=== PATIENT | male | born 1955 | race Caucasian/White ===

== ENCOUNTER 2018-01-01 09:49 | Day surgery (SDC) | payer OTHER ==
[~2018-01-01 09:49] MED LIST: CARBOPLATIN IVPB ONE; DEXAMETHASONE INJECTION 10 MG, DIPHENHYDRAMINE 50 MG in SODIUM CHLORIDE 100 ML IVPB ONE; DEXTROSE 5% IVPB ONE; FAMOTIDINE 20 MG/50 ML IVPB 20 MG/50 ML MG IVPB ONE; PACLITAXEL IVPB ONE; PALONOSETRON HCL 0.25 MG/5 ML VIAL IVPUSH ONE; SODIUM CHLORIDE IVPB ONE; WATER IVPB ONE
[2018-01-01 17:18] VITALS: BP 111/74; PULSE 90; TEMP 98
== END 2018-01-01 14:30 | disposition home or self-care (01) ==
LOC: JCHEMO 09:49 → J7W 09:50 → JCHEMO 14:30
PROVIDERS: ATTEND Internal Medicine Hematology & Oncology
DX: Z51.11 Encounter for antineoplastic chemotherapy (principal); C34.90 Malignant neoplasm of unspecified part of unspecified bronchus or lung
CPT/HCPCS: 96367; 96375; 96413; 96415; 96417; J1100; J2469

== ENCOUNTER 2018-01-15 11:20 | Day surgery (SDC) | payer OTHER ==
[2018-01-15] MEDS ORDERED: PALONOSETRON HCL 0.25 MG in SODIUM CHLORIDE 50 ML IVPB ONE (12:30)
[2018-01-15] MEDS ORDERED: FAMOTIDINE 20 MG/50 ML IVPB 20 MG/50 ML MG IVPB ONE (12:30)
[2018-01-15] MEDS ORDERED: DEXAMETHASONE INJECTION 10 MG, DIPHENHYDRAMINE 50 MG in SODIUM CHLORIDE 100 ML IVPB ONE (12:30)
[2018-01-15] MEDS ORDERED: PACLITAXEL IVPB ONE (13:00)
[2018-01-15] MEDS ORDERED: SODIUM CHLORIDE IVPB ONE (13:00)
[2018-01-15 13:40] VITALS: TEMP 98.2
[2018-01-15] MEDS ORDERED: WATER IVPB ONE (14:00)
[2018-01-15] MEDS ORDERED: CARBOPLATIN IVPB ONE (14:00)
[2018-01-15] MEDS ORDERED: DEXTROSE 5% IVPB ONE (14:00)
[2018-01-15 16:28] VITALS: BP 126/80; PULSE 88
== END 2018-01-15 16:29 | disposition home or self-care (01) ==
LOC: JCHEMO 11:20 → J7W 11:21 → JCHEMO 16:29
PROVIDERS: ATTEND Internal Medicine Hematology & Oncology
DX: Z51.11 Encounter for antineoplastic chemotherapy (principal); C34.90 Malignant neoplasm of unspecified part of unspecified bronchus or lung
CPT/HCPCS: 96367; 96375; 96413; 96417; J1100; J2469

== ENCOUNTER 2018-01-22 11:32 | Day surgery (SDC) | payer OTHER ==
[2018-01-22 17:54] VITALS: BP 130/91; PULSE 111; TEMP 98.1
== END 2018-01-22 16:45 | disposition home or self-care (01) ==
LOC: JCHEMO 11:32 → J7W 12:03 → JCHEMO 16:45
PROVIDERS: ATTEND Internal Medicine Hematology & Oncology
DX: Z51.11 Encounter for antineoplastic chemotherapy (principal); C34.90 Malignant neoplasm of unspecified part of unspecified bronchus or lung
CPT/HCPCS: 96367; 96375; 96413; 96417; J1100; J2469

== ENCOUNTER 2018-01-29 11:12 | Day surgery (SDC) | payer OTHER ==
[~2018-01-29 11:12] MED LIST changes: -CARBOPLATIN IVPB ONE; -DEXTROSE 5% IVPB ONE; -WATER IVPB ONE
[2018-01-29] MEDS ORDERED: DEXTROSE 5% IVPB ONE (11:30)
[2018-01-29] MEDS ORDERED: CARBOPLATIN IVPB ONE (11:30)
[2018-01-29] MEDS ORDERED: WATER IVPB ONE (11:30)
[2018-01-29] MEDS ORDERED: PANTOPRAZOLE 20 MG TABLET (FP) PO ONE (14:00)
[2018-01-29] MEDS ORDERED: MAG HYDROX/AL HYDROX/SIMETH 30 ML UNIT-DOSE CUP PO SCH (14:00)
[2018-01-29 18:01] VITALS: BP 132/74; PULSE 100; TEMP 98.2
--- NOTE | 2018-02-07 10:15 | EKG ---
Test Reason : Blood Pressure : / mmHG Vent. Rate : 101 BPM Atrial Rate : 101 BPM P-R Int : 150 ms QRS Dur : 082 ms QT Int : 358 ms P-R-T Axes : 030 -30 024 degrees QTc Int : 464 ms SINUS TACHYCARDIA LEFT AXIS DEVIATION ABNORMAL ECG WHEN COMPARED WITH ECG OF 09-SEP-2007 17:38, NONSPECIFIC T WAVE ABNORMALITY NOW EVIDENT IN ANTERIOR LEADS Confirmed by WINTER THOMAS, MARJORIE ([id number]) on 02/07/2018 10:15:24 AM Referred By: Confirmed By:MARJORIE MAX MD
== END 2018-01-29 18:03 | disposition home or self-care (01) ==
LOC: JCHEMO 11:12 → J7W 11:34 → JCHEMO 18:03
PROVIDERS: ATTEND Internal Medicine Hematology & Oncology
DX: Z51.11 Encounter for antineoplastic chemotherapy (principal); C34.90 Malignant neoplasm of unspecified part of unspecified bronchus or lung
CPT/HCPCS: 93005; 93010; 96367; 96375; 96413; 96417; J1100; J2469

== ENCOUNTER 2018-02-02 12:17 | Inpatient (IN) | payer OTHER ==
--- NOTE | 2018-02-02 12:51 | PDOC ---
Attending Attestation - HPI HPI: 02/02/18 15:10 The patient is a 63 year old male with a significant PMH of stage 3B lung ca, hypertension, and hyperlipidemia, GERD, and BPH who presents to the emergency department with generalized weakness and decreased PO intake for a few days. The patient reports that he currently receives his chemo treatments (last reatment days ago). He states that he is feeling faint at time of exam. He states that he has been experiencing some chest pain when he eats. He describes his chest pain as reflux. The patient also reports some instances of cough and runny nose. The patient denies any belly pain, nausea, vomiting, diarrhea, constipation or urinary symptoms. The patient denies any shortness of breath, headache and dizziness. The patient denies any other complaints. Documentation prepared by Felicia Cardoza, acting as medical transcription for Nicole Gaspar MD. - Physicial Exam PE: 02/02/18 15:10 General: Well appearing, NAD HEENT: NCAT, PERRL, EOMI, moist mucus membranes, no oral lesions. Neck: neck supple, FROM, no JVD Lungs: CTAB, normal and even respirations Heart: (+)radiation scar to right upper anterior chest wall, tachycardic, no murmurs Abdomen: soft, NTND, no peritoneal signs Extremities: no edema, SANTILLAN x4 Neuro: alert, oriented appropriately; no focal neurologic deficits. Skin: (+)cool to touch and well perfused, cap refill <2 sec, normal color <Felicia Cardoza - Last Filed: 02/02/18 15:53> - Resident Resident Name: John Jeffries - Critical Care Time Total Critical Care Time: 45 (Severe sepsis) Critical Care Statement: The care of this patient involved high complexity decision making to prevent further life threatening deterioration of the patient 's condition and/or to evaluate & treat vital organ system(s) failure or risk of failure. - Medical Decision Making 63 YOM with h/o Stage IIIB lung cancer on chemo, HTN, HLD, GERD, BPH presenting with generalized weakness and decreased PO intake x 1 week. +reflux and burning cp worse with eating intermittently. last chemo treatment ~3 days ago, radiation today. Vital signs as documented, +tachycardia and low BP. no respiratory distress. no pain. no fever rectally, but immunosuppressed and may not mount response DDx. infection, PNA, UTI, dehydration, electrolyte abnormalities, bacteremia, neutropenic fever. effusion, AIS. labs significant for mild neutropenia ANC 1200, low WBC ct. remainder of lytes and labs wnl. +lactic acidosis 2.9, c/w severe sepsis POCUS HALE exam for hypotension and tachycardia, multiple views including PSLA, thorax, RUQ/LUQ and abdominal views, - with no pericardial effusion, A line pattern. normal EF and no pleural effusion, normal aorta and no FF in abdomen. + flat and collapsible IVC c/w hypovolemia empirically treated with IVF 3liters for sepsis bolus, Vancomycin 2g and Zosyn 4.5g x1. VS already improving, now normotensive and tolerating diet, will likely improve on lactate with resuscitation. blood and urine cx pending. - spoke with his oncologist Dr. Chris, agree with plan, will likely hold chemo this week. ID consultation obtained, agree with broad spec coverage. Dispo: admit to medicine telemetry monitoring with ID/onc consult, IV abx for neutropenic fever and severe sepsis and moderate dehydration. cultures pending, supportive care and IVF 02/02/18 16:10 <Nicole Gaspar - Last Filed: 02/02/18 16:11> Heart Score/ECG Review - ECG Intrepretation Rhythm: Regular Rhythm - Holland Holland: Left Holland Deviation - ST and T Non Specific ST-T Wave changes: Yes - ECG Impressions Comment:: 02/02/18 12:50 TWI in precordial leads and TWF in III, unchanged <Nicole Gaspar - Last Filed: 02/02/18 16:11>
[2018-02-02] MEDS ORDERED: SODIUM CHLORIDE 0.9% 1000 ML INFUS.BAG IV STA (13:13)
[2018-02-02 13:33] LABS: EOS % 0.2 % (0-4.5); HEMATOCRIT 32.9 % (35.4-49); HEMOGLOBIN 11.6 GM/dL (11.7-16.9); LYMPH % 8.1 % (8-40); MCHC 35.1 g/dl (32.0-35.9); MEAN CELL VOLUME 85.6 fl (80-96); MEAN PLT VOLUME 9.1 fl (7.5-11.1); MONO % 8.9 % (3.8-10.2); NEUT % 81.8 % (42.8-82.8); PLATELET COUNT 97 K/MM3 (134-434); RBC 3.85 M/mm3 (4.00-5.60); RDW 14.4 % (11.9-15.9)
[2018-02-02 13:34] LABS: VENOUS PC02 30.2 mmHg (38-52); VENOUS PH 7.5 (7.32-7.42); VENOUS PO2 21.9 mmHg (28-48)
[2018-02-02 13:38] LABS: WHITE BLOOD COUNT 1.5 K/mm3 (4.0-10.0)
[2018-02-02 13:50] LABS: INR 1.04 (0.82-1.09); PROTHROMBIN TIME (PATIENT) 11.8 SEC (9.7-13.0)
[2018-02-02 14:01] LABS: ALBUMIN 3.5 g/dl (3.4-5.0); ALK PHOS 70 U/L (45-117); ANION GAP 13 (8-16); BILIRUBIN,TOTAL 1.7 mg/dL (0.2-1.0); BLOOD UREA NITROGEN 38 mg/dL (7-18); CALCIUM 8.7 mg/dL (8.5-10.1); CHLORIDE 97 mmol/L (98-107); CO2 24 mmol/L (21-32); CREATININE 1.3 mg/dL (0.7-1.3); GLUCOSE,RANDOM 111 mg/dL (74-106); POTASSIUM 3.9 mmol/L (3.5-5.1); SGOT/AST 17 U/L (15-37); SGPT/ALT 35 U/L (12-78); SODIUM 134 mmol/L (136-145); TOT PROT 6.4 g/dl (6.4-8.2)
[2018-02-02] MEDS ORDERED: VANCOMYCIN 2,000 MG in DEXTROSE 5%-WATER - 250 ML IVPB ONE ×3 (14:03→14:30)
[2018-02-02 14:07] LABS: ACANTHOCYTES 0; ANISOCYTOSIS 0; HELMET CELLS 0; HOWELL-JOLLY BODIES 0; MACROCYTOSIS 0; OVALOCYTE 0; PLATELET ESTIMATE DECREASED; ROULEAU 0; SICKELED CELLS 0; TARGET CELLS 0; TEAR DROP CELLS 0; TOXIC GRANULATION 0
[2018-02-02] MEDS ORDERED: PIPERACILLIN/TAZOB 4.5 GM 4.5 GM/100 ML BAG IVPB ONE (14:19)
--- NOTE | 2018-02-02 14:28 | PDOC ---
History of Present Illness - General History Source: Patient Exam Limitations: No Limitations - History of Present Illness Initial Comments: The patient is a 63M with a PMH of recently diagnosed IIIB lung cancer (the patient is unsure of type), PVD s/p L pop stent, who presents with worsening fatigue/generalized weakness that the patient reports started when he started receiving chemo/rads 5 weeks ago. He states that since that time, his symptoms have been getting worse. He describes fatigue, decreased PO intake for the last week that he attributes to his treatments, as well as dizziness with standing rapidly. He states that he presents today because he was not longer able to tolerate his symptoms 02/02/18 14:18 Timing/Duration: 1 week Severity: moderate Associated Symptoms: reports: chest pain (at area of radiation), loss of appetite. denies: fever/chills, headaches Beta Arslan Contraindications(Core Measure): Yes: Not Prescribed <John Jeffries - Last Filed: 02/02/18 15:40> <David Tomlin - Last Filed: 02/02/18 15:54> - General Chief Complaint: Weakness Stated Complaint: DEHYDRATION Time Seen by Provider: 02/02/18 12:41 Past History - Travel Traveled outside of the country in the last 30 days: No Close contact w/someone who was outside of country & ill: No - Past Medical History Cancer: Yes (Stage IIIB lung cancer diagnosed 12/2017) Cardiac Disorders: No Hx Myocardial Infarction: No CVA: No COPD: No CHF: No DVT: No Dementia: No Diabetes: No Dialysis: No GI Disorders: Yes (GERD) Disorders: No HTN: Yes Hypercholesterolemia: Yes Psychiatric Problems: No Lung CA: Yes (Stage IIIB, diagnosed 12/2017) Other medical history: Peripheral Vascular Disease - Surgical History Abdominal Surgery: Yes (ex-lap 2/2 bowel/bladder injury; open tamara) Cholecystectomy: Yes (open) - Suicide/Smoking/Psychosocial Hx Have you had or do you have any thoughts to hurt yourself?: No Have you had or do you have any thoughts to hurt others?: No Smoking History: Former smoker Have you smoked in the past 12 months: Yes Number of Cigarettes Smoked Daily: 1 Information on smoking cessation initiated: No Drug/Substance Use Hx: Yes (THC) <John Jeffries - Last Filed: 02/02/18 15:40> <Oswald Tomlinson - Last Filed: 02/02/18 15:54> - Past Medical History Allergies/Adverse Reactions: Allergies Allergy/AdvReac Type Severity Reaction Status Date / Time No Known Allergies Allergy Verified 02/02/18 12:42 Home Medications: Ambulatory Orders Aspirin 81 mg PO DAILY 02/02/18 Atorvastatin Ca [Lipitor] 80 mg PO HS 02/02/18 Bupropion HCl [Bupropion HCl Sr] 150 mg PO DAILY 02/02/18 Cetirizine HCl 10 mg PO DAILY 02/02/18 Clopidogrel Bisulfate [Clopidogrel] 75 mg PO DAILY 02/02/18 Fluticasone Furoate [Arnuity Ellipta] 50 mcg IH DAILY 02/02/18 Lisinopril/Hydrochlorothiazide [Lisinopril-Hctz 10-12.5 mg Tab] 1 tab PO DAILY 02/02/18 Multivitamin [Daily Multiple Vitamin] 1 each PO DAILY 02/02/18 Garwin-3 Fatty Acids/Fish Oil [Fish Oil 1,000 mg Capsule] 1 each PO DAILY Tamsulosin HCl 0.4 mg PO DAILY 02/02/18 Review of Systems - Review of Systems Constitutional: No: Chills, Fever HEENTM: No: Tearing Respiratory: No: Orthopnea, Shortness of Breath Cardiac (ROS): Yes: See HPI, Chest Pain (Reported consistent with GERD symptoms ; worse with PO intake), Lightheadedness. No: Syncope, Chest Tightness ABD/GI: Yes: Diarrhea (intermittent), Poor Appetite, Indigestion. No: Abdominal Distended, Abd. Pain w/ defecation, Rectal Bleeding, Vomiting, Abdominal cramping : No: Burning, Dysuria, Discharge Musculoskeletal: No: Muscle Pain, Muscle Weakness Integumentary: Yes: Other (bolaños on right chest 2/2 radiation treatment) Neurological: Yes: Dizziness. No: Headache, Numbness, Paresthesia, Tingling, Weakness, Unsteady Gait Psychiatric: No: Anxiety, Depression Endocrine: No: Excessive Sweating, Intolerance to Cold, Intolerance to Heat Hematologic/Lymphatic: No: Blood Clots, Easy Bruising All Other Systems: Reviewed and Negative <John Jeffries - Last Filed: 02/02/18 15:40> *Physical Exam - Vital Signs Last Vital Signs Temp Pulse Resp BP Pulse Ox 98.6 F 116 H 20 95/61 98 02/02/18 13:35 02/02/18 13:35 02/02/18 13:35 02/02/18 13:35 02/02/18 13:35 - Physical Exam General Appearance: Yes: Nourished. No: Appropriately Dressed, Apparent Distress HEENT: positive: EOMI, NINI, Normal Voice, Pharynx Normal. negative: Scleral Icterus (R), Scleral Icterus (L), Pharyngeal Erythema Neck: positive: Trachea midline, Supple. negative: Tender, Lymphadenopathy (R) , Lymphadenopathy (L), Rigidity Respiratory/Chest: positive: Crackles, Other (mild productive cough with deep respiration) Cardiovascular: positive: S1, S2. negative: JVD, Murmur Vascular Pulses: Femoral (R): 2+, Femoral (L): 2+, Carotid (R): 2+, Carotid (L) : 2+, Dorsalis-Pedis (R): 2+, Doralis-Pedis (L): 2+ Gastrointestinal/Abdominal: positive: Normal Bowel Sounds, Soft. negative: Tender, Pulsatile Mass, Distended, Guarding, Rebound, Tenderness, Hernia, Mass Musculoskeletal: positive: Normal Inspection. negative: CVA Tenderness, Decreased Range of Motion Extremity: positive: Normal Capillary Refill Integumentary: positive: Other (Radiation burn over right superior chest) Neurologic: positive: Fully Oriented, Alert, Normal Mood/Affect, Normal Response , Motor Strength 5/5 <John Jeffries - Last Filed: 02/02/18 15:40> - Vital Signs Last Vital Signs Temp Pulse Resp BP Pulse Ox 97.7 F 102 H 18 111/84 100 02/02/18 15:29 02/02/18 15:52 02/02/18 15:52 02/02/18 15:52 02/02/18 15:52 <David Tomlin - Last Filed: 02/02/18 15:54> ED Treatment Course - LABORATORY CBC & Chemistry Diagram: 02/02/18 13:20 02/02/18 13:20 - ADDITIONAL ORDERS Additional order review: Laboratory Results 02/02/18 02/02/18 02/02/18 13:20 13:20 13:20 PT with INR INR PTT (Actin FS) VBG pH POC VBG pCO2 POC VBG pO2 Mixed VBG HCO3 Sodium 134 L Potassium 3.9 Chloride 97 L Carbon Dioxide 24 Anion Gap 13 BUN 38 H Creatinine 1.3 Creat Clearance w eGFR 55.58 Random Glucose 111 H Lactic Acid 2.9 H* Calcium 8.7 Total Bilirubin 1.7 H AST 17 ALT 35 Alkaline Phosphatase 70 Troponin I < 0.02 Total Protein 6.4 Albumin 3.5 02/02/18 02/02/18 13:20 13:20 PT with INR 11.80 INR 1.04 PTT (Actin FS) 25.0 L VBG pH 7.50 H POC VBG pCO2 30.2 L POC VBG pO2 21.9 L Mixed VBG HCO3 23.2 Sodium Potassium Chloride Carbon Dioxide Anion Gap BUN Creatinine Creat Clearance w eGFR Random Glucose Lactic Acid Calcium Total Bilirubin AST ALT Alkaline Phosphatase Troponin I Total Protein Albumin 02/02/18 13:20 RBC 3.85 L MCV 85.6 MCHC 35.1 RDW 14.4 MPV 9.1 Neutrophils % 81.8 Lymphocytes % 8.1 Monocytes % 8.9 Eosinophils % 0.2 Basophils % 1.0 - Medications Given in the ED: ED Medications Discontinued Medications Generic Name Dose Route Start Last Admin Trade Name Freq PRN Reason Stop Dose Admin Sodium Chloride 2,939 ml 02/02/18 13:13 02/02/18 13:28 Normal Saline - 30 ml/kg (2939 ml) 02/02/18 13:14 2,939 ml IV Administration ONCE STA <John Jeffries - Last Filed: 02/02/18 15:40> - LABORATORY CBC & Chemistry Diagram: 02/02/18 13:20 02/02/18 13:20 - ADDITIONAL ORDERS Additional order review: Laboratory Results 02/02/18 02/02/18 02/02/18 13:30 13:20 13:20 PT with INR INR PTT (Actin FS) VBG pH POC VBG pCO2 POC VBG pO2 Mixed VBG HCO3 Sodium Potassium Chloride Carbon Dioxide Anion Gap BUN Creatinine Creat Clearance w eGFR Random Glucose Lactic Acid 2.9 H* Calcium Total Bilirubin AST ALT Alkaline Phosphatase Troponin I < 0.02 Total Protein Albumin Blood Type A NEGATIVE Antibody Screen Negative 02/02/18 02/02/18 02/02/18 13:20 13:20 13:20 PT with INR 11.80 INR 1.04 PTT (Actin FS) 25.0 L VBG pH 7.50 H POC VBG pCO2 30.2 L POC VBG pO2 21.9 L Mixed VBG HCO3 23.2 Sodium 134 L Potassium 3.9 Chloride 97 L Carbon Dioxide 24 Anion Gap 13 BUN 38 H Creatinine 1.3 Creat Clearance w eGFR 55.58 Random Glucose 111 H Lactic Acid Calcium 8.7 Total Bilirubin 1.7 H AST 17 ALT 35 Alkaline Phosphatase 70 Troponin I Total Protein 6.4 Albumin 3.5 Blood Type Antibody Screen 02/02/18 13:20 RBC 3.85 L MCV 85.6 MCHC 35.1 RDW 14.4 MPV 9.1 Neutrophils % 81.8 Lymphocytes % 8.1 Monocytes % 8.9 Eosinophils % 0.2 Basophils % 1.0 - Medications Given in the ED: ED Medications Discontinued Medications Generic Name Dose Route Start Last Admin Trade Name Freq PRN Reason Stop Dose Admin Piperacillin Sod/Tazobactam 100 mls @ 200 mls/hr 02/02/18 15:00 02/02/18 14: 28 Sod 4.5 gm/ Dextrose IVPB 200 mls/hr Q6H-IV TRACEY Administration Protocol Sodium Chloride 2,939 ml 02/02/18 13:13 02/02/18 13:28 Normal Saline - 30 ml/kg (2939 ml) 02/02/18 13:14 2,939 ml IV Administration ONCE STA <David Tomlin - Last Filed: 02/02/18 15:54> Medical Decision Making - Medical Decision Making DDx: Neutropenic infection, hypovolemia (moderate), sepsis, PNA, UTI, bacteremia , decreased PO intake, electrolyte abnormalities, lactic acidosis (2.9) Plan: Bedside HALE exam significant for evidence of hypovolemia. Given 3L LR. Started on broad spectrum Abx (Vanc2g/Zosyn 4.5g). Sepsis workup initiated. Admit to hospitalist with telemetry for IV antibiotics and fluid resuscitation for concern for sepsis, and medical oncology consultation. 02/02/18 15:20 <John Jeffries - Last Filed: 02/02/18 15:40> *DC/Admit/Observation/Transfer - Discharge Dispostion Decision to Admit order: Yes <John Jeffries - Last Filed: 02/02/18 15:40> <David Tomlin - Last Filed: 02/02/18 15:54> Diagnosis at time of Disposition: Severe sepsis - Discharge Dispostion Condition at time of disposition: Fair
[2018-02-02] MEDS ORDERED: VANCOMYCIN 2,000 MG in DEXTROSE 5%-WATER - 500 ML IVPB ONE (14:30)
[2018-02-02] MEDS ORDERED: PIPERACILLIN/TAZOB 4.5 GM 4.5 GM in DEXTROSE 5%-WATER 100 ML IVPB SCH (15:00)
--- NOTE | 2018-02-02 15:44 | PN ---
Progress Note (short form) - Note Progress Note: ID Full note dictated Chemotherapy and radiation therapy for 5 weeks. FOR the last week feeling very weak like he was going to pass out Evan fever chills or localizing complaints Selected Entries 02/02/18 02/02/18 14:24 15:29 Temperature 97.7 F Pulse Rate [ 96 H Apical] Respiratory 18 Rate Blood Pressure 101/66 [Left Arm] O2 Sat by Pulse 100 Oximetry (%) HEENT no thrush Lung Clear Cor S1 S2 ABd Benign Laboratory Tests 02/02/18 02/02/18 02/02/18 13:20 13:20 13:20 WBC 1.5 L* RBC 3.85 L Hct 32.9 L Plt Count 97 L Neutrophils % (Manual) 82.0 Creatinine 1.3 Lactic Acid 2.9 H* Assessment Lung CA with chemo and XRT very weak ? Intravascular volume depletion but agree with lactic acid and low neutrophil count would empirically cover with antibiotic Plan Hydration Cefepime 2 grs q 8 h Oncology f/u Dr Chris ? Sultana Torres MD Problem List - Problems (1) Sepsis Code(s): A41.9 - SEPSIS, UNSPECIFIED ORGANISM (2) Neutropenia Code(s): D70.9 - NEUTROPENIA, UNSPECIFIED (3) Lung cancer Code(s): C34.90 - MALIGNANT NEOPLASM OF UNSP PART OF UNSP BRONCHUS OR LUNG
--- NOTE | 2018-02-02 16:00 | HP ---
CHIEF COMPLAINT: weakness, decreased appetite PCP: Dr. Nadege Rios HISTORY OF PRESENT ILLNESS: This is a 63 year old male with PMHx of HTN, hyperlipidemia, recently diagnosed stage IIIB lung cancer (week 5/6 of daily radiation and weekly chemo), who presented to the ED with 1 week of weakness and decreased po intake. The patient reports that he began having fatigue during the first week of lung cancer treatment and it continued to worsen over the past week. The patient denies any nausea or vomiting, but states he has had some loose stool. He denies any shortness of breath or chest pain but does endorse a dry cough that he has had over the past month. The patient denies any fever, chills, urinary symptoms, syncope. He states he has had dizziness and lightheadedness over the past week. ER course was notable for: (1) Temp 97.4, pulse 120, BP 89/65, resp 20, O2 100% on RA (2) WBC 1.5, lactic acid 2.9 (3) 3L NS given (4) Chest X-ray with no acute chest pathology Recent Travel: denies PAST MEDICAL HISTORY: as above PAST SURGICAL HISTORY: cholecytectomy Social History: Smoking: quit 2 months ago, prior 1ppd since 1976 Alcohol: denies Drugs: smoke 1/2 joint of marijuana per week Family History: Allergies No Known Allergies Allergy (Verified 02/02/18 12:42) HOME MEDICATIONS: Home Medications Medication Instructions Recorded Aspirin 81 mg PO DAILY 02/02/18 Atorvastatin Ca [Lipitor] 80 mg PO HS 02/02/18 Bupropion HCl [Bupropion HCl Sr] 150 mg PO DAILY 02/02/18 Cetirizine HCl 10 mg PO DAILY 02/02/18 Clopidogrel Bisulfate [Clopidogrel] 75 mg PO DAILY 02/02/18 Fluticasone Furoate [Arnuity 50 mcg IH DAILY 02/02/18 Ellipta] Lisinopril/Hydrochlorothiazide 1 tab PO DAILY 02/02/18 [Lisinopril-Hctz 10-12.5 mg Tab] Multivitamin [Daily Multiple 1 each PO DAILY 02/02/18 Vitamin] Welches-3 Fatty Acids/Fish Oil [Fish 1 each PO DAILY 02/02/18 Oil 1,000 mg Capsule] Tamsulosin HCl 0.4 mg PO DAILY 02/02/18 REVIEW OF SYSTEMS CONSTITUTIONAL: Generalized weakness that began about 1 week ago. Fatigue since starting chemotherapy, worsening over the past week. Decreased appetite since starting radiation and chemo. Absent: fever, chills, diaphoresis, weight change HEENT: Absent: rhinorrhea, nasal congestion, throat pain, throat swelling, difficulty swallowing, mouth swelling, ear pain, eye pain, visual changes CARDIOVASCULAR: Lightheadedness over the past week Absent: chest pain, syncope, palpitations, irregular heart rate, peripheral edema RESPIRATORY: + dry cough x1 month Absent: shortness of breath, dyspnea with exertion, orthopnea, wheezing, stridor , hemoptysis GASTROINTESTINAL: Absent: abdominal pain, abdominal distension, nausea, vomiting, diarrhea, constipation, melena, hematochezia GENITOURINARY: Absent: dysuria, frequency, urgency, hesitancy, hematuria, flank pain, genital pain MUSCULOSKELETAL: Absent: myalgia, arthralgia, joint swelling, back pain, neck pain SKIN: Absent: rash, itching, pallor HEMATOLOGIC/IMMUNOLOGIC: Absent: easy bleeding, easy bruising, lymphadenopathy, frequent infections ENDOCRINE: Absent: unexplained weight gain, unexplained weight loss, heat intolerance, cold intolerance NEUROLOGIC: Absent: headache, focal weakness or paresthesias, dizziness, unsteady gait, seizure, mental status changes, bladder or bowel incontinence PSYCHIATRIC: Absent: anxiety, depression, suicidal or homicidal ideation, hallucinations. PHYSICAL EXAMINATION Vital Signs - 24 hr 02/02/18 02/02/18 02/02/18 12:33 13:30 13:35 Temperature 97.4 F L 98.6 F Pulse Rate 120 H Pulse Rate [ 116 H Apical] Respiratory 20 20 Rate Blood Pressure 89/65 Blood Pressure 95/61 [Left Arm] O2 Sat by Pulse 100 100 98 Oximetry (%) 02/02/18 02/02/18 02/02/18 14:24 15:29 15:52 Temperature 97.7 F Pulse Rate Pulse Rate [ 96 H 102 H Apical] Respiratory 18 18 Rate Blood Pressure Blood Pressure 101/66 111/84 [Left Arm] O2 Sat by Pulse 100 100 Oximetry (%) GENERAL: Awake, alert, and fully oriented, in no acute distress. HEAD: Normal with no signs of trauma. EYES: Pupils equal, round and reactive to light, extraocular movements intact, sclera anicteric, conjunctiva clear. No lid lag. EARS, NOSE, THROAT: Dry mucous membranes. Ears normal, nares patent, oropharynx clear without exudates. NECK: Normal range of motion, supple without lymphadenopathy, JVD, or masses. LUNGS: Breath sounds equal, clear to auscultation bilaterally. No wheezes, and no crackles. No accessory muscle use. HEART: Regular rate and rhythm, normal S1 and S2 ABDOMEN: Soft, nontender, not distended, normoactive bowel sounds, no guarding, no rebound, no masses. No hepatomegaly or splenomegaly. MUSCULOSKELETAL: Normal range of motion at all joints. No bony deformities or tenderness. No CVA tenderness. UPPER EXTREMITIES: 2+ pulses, warm, well-perfused. No cyanosis. No clubbing. No peripheral edema. LOWER EXTREMITIES: 2+ pulses, warm, well-perfused. No calf tenderness. No peripheral edema. NEUROLOGICAL: Cranial nerves II-XII intact. Normal speech. PSYCHIATRIC: Cooperative. Good eye contact. Appropriate mood and affect. SKIN: Warm, dry, normal turgor, no rashes or lesions noted, normal capillary refill. Laboratory Results - last 24 hr 02/02/18 02/02/18 02/02/18 13:20 13:20 13:20 WBC 1.5 L* RBC 3.85 L Hgb 11.6 L Hct 32.9 L MCV 85.6 MCH 30.0 MCHC 35.1 RDW 14.4 Plt Count 97 L MPV 9.1 Absolute Neuts (auto) 1.2 Neutrophils % 81.8 Neutrophils % (Manual) 82.0 Band Neutrophils % 3.0 Lymphocytes % 8.1 Lymphocytes % (Manual) 7.0 L Monocytes % 8.9 Monocytes % (Manual) 7 Eosinophils % 0.2 Eosinophils % (Manual) 0.0 Basophils % 1.0 Basophils % (Manual) 0.0 Myelocytes % (Man) 0 Promyelocytes % (Man) 0 Blast Cells % (Manual) 0 Nucleated RBC % 0 Metamyelocytes 0 Hypochromia 0 Toxic Granulation 0 Dohle Bodies 0 Platelet Estimate Decreased Polychromasia 0 Poikilocytosis 0 Basophilic Stippling 0 Anisocytosis 0 Microcytosis 0 Macrocytosis 0 Spherocytes 0 Sickle Cells 0 Target Cells 0 Tear Drop Cells 0 Ovalocytes 0 Stomatocytes 0 Helmet Cells 0 [place] Bodies 0 [place] Rings 0 Wilfredo Cells 0 Acanthocytes (Spur) 0 Rouleaux 0 Fragmented RBCs 0 Schistocytes 0 PT with INR 11.80 INR 1.04 PTT (Actin FS) 25.0 L VBG pH 7.50 H POC VBG pCO2 30.2 L POC VBG pO2 21.9 L Mixed VBG HCO3 23.2 Sodium Potassium Chloride Carbon Dioxide Anion Gap BUN Creatinine Creat Clearance w eGFR Random Glucose Lactic Acid Calcium Total Bilirubin AST ALT Alkaline Phosphatase Troponin I Total Protein Albumin Blood Type Antibody Screen 02/02/18 02/02/18 02/02/18 13:20 13:20 13:20 WBC RBC Hgb Hct MCV MCH MCHC RDW Plt Count MPV Absolute Neuts (auto) Neutrophils % Neutrophils % (Manual) Band Neutrophils % Lymphocytes % Lymphocytes % (Manual) Monocytes % Monocytes % (Manual) Eosinophils % Eosinophils % (Manual) Basophils % Basophils % (Manual) Myelocytes % (Man) Promyelocytes % (Man) Blast Cells % (Manual) Nucleated RBC % Metamyelocytes Hypochromia Toxic Granulation Dohle Bodies Platelet Estimate Polychromasia Poikilocytosis Basophilic Stippling Anisocytosis Microcytosis Macrocytosis Spherocytes Sickle Cells Target Cells Tear Drop Cells Ovalocytes Stomatocytes Helmet Cells [place] Bodies [place] Rings Wilfredo Cells Acanthocytes (Spur) Rouleaux Fragmented RBCs Schistocytes PT with INR INR PTT (Actin FS) VBG pH POC VBG pCO2 POC VBG pO2 Mixed VBG HCO3 Sodium 134 L Potassium 3.9 Chloride 97 L Carbon Dioxide 24 Anion Gap 13 BUN 38 H Creatinine 1.3 Creat Clearance w eGFR 55.58 Random Glucose 111 H Lactic Acid 2.9 H* Calcium 8.7 Total Bilirubin 1.7 H AST 17 ALT 35 Alkaline Phosphatase 70 Troponin I < 0.02 Total Protein 6.4 Albumin 3.5 Blood Type Antibody Screen 02/02/18 13:30 WBC RBC Hgb Hct MCV MCH MCHC RDW Plt Count MPV Absolute Neuts (auto) Neutrophils % Neutrophils % (Manual) Band Neutrophils % Lymphocytes % Lymphocytes % (Manual) Monocytes % Monocytes % (Manual) Eosinophils % Eosinophils % (Manual) Basophils % Basophils % (Manual) Myelocytes % (Man) Promyelocytes % (Man) Blast Cells % (Manual) Nucleated RBC % Metamyelocytes Hypochromia Toxic Granulation Dohle Bodies Platelet Estimate Polychromasia Poikilocytosis Basophilic Stippling Anisocytosis Microcytosis Macrocytosis Spherocytes Sickle Cells Target Cells Tear Drop Cells Ovalocytes Stomatocytes Helmet Cells [place] Bodies [place] Rings Wilfredo Cells Acanthocytes (Spur) Rouleaux Fragmented RBCs Schistocytes PT with INR INR PTT (Actin FS) VBG pH POC VBG pCO2 POC VBG pO2 Mixed VBG HCO3 Sodium Potassium Chloride Carbon Dioxide Anion Gap BUN Creatinine Creat Clearance w eGFR Random Glucose Lactic Acid Calcium Total Bilirubin AST ALT Alkaline Phosphatase Troponin I Total Protein Albumin Blood Type A NEGATIVE Antibody Screen Negative Assessment: This is a 63 year old male with PMHx of HTN, hyperlipidemia, recently diagnosed stage IIIB lung cancer (week 5/6 of daily radiation and weekly chemo), who presented to the ED with 1 week of weakness and decreased po intake. Plan: 1) Dehydration - Likely 2/2 chemo/radiation - Elevated BUN and dry mucous membranes - Received 3L NS in the ED - Continue IV fluids for now - F/u orthostatics 2) Leukopenia, tachycardia, lactic acidosis - Given patient is immunocompromised, will empirically cover with antibiotics - Cefepime 2g q8h - Follow cultures - Appreciate ID consult 3) Stage IIIB lung cancer - Leukopenia, for possible neupogen? - F/u oncology consult 4) Hyperlipidemia - Hold Lipitor for now given elevated bilirubin - Continue to trend 5) HTN - Now with hypotension 2/2 volume depletion - Hold all anti-hypertensives 6) PVD - Continue ASA and Plavix 7) F/E/N: - Regular diet - Monitor electrolytes 8) Prophylaxis: - OOB ambulating - Heparin 5,000u sq tid 9) Dispo: - Requires continued inpatient care CODE STATUS: FULL CODE Visit type - Emergency Visit Emergency Visit: Yes ED Registration Date: 02/02/18 Care time: The patient presented to the Emergency Department on the above date and was hospitalized for further evaluation of their emergent condition. - New Patient This patient is new to me today: Yes Date on this admission: 02/02/18 - Critical Care Critical Care patient: No Hospitalist Screening - Colonoscopy Questionnaire Colonoscopy Questionnaire: Colonoscopy Questionnaire - Patient: 50 - 75 years old and never had a screening colonoscopy: Unknown History of colon or rectal polyps, or CA: Unknown History of IBD, Crohn's disease or UC: Unknown History of abdominal radiation therapy as a child: Unknown - Relative: 1 with colon or rectal CA, or polyps at age 60 or younger: Unknown Colon or rectal CA diagnosed at age 45 or younger: Unknown Multiple relatives with colon or rectal CA: Unknown - Outcome: Screening Result: Negative Screen
[2018-02-02] MEDS: SODIUM CHLORIDE 1,000 ML IV SCH (16:05)
--- NOTE | 2018-02-02 16:48 | CONS ---
DATE OF CONSULTATION: 02/02/2018 This is a 63-year-old former smoker with recent diagnosis of stage IIIB lung cancer. The patient is admitted now with a 1-week history of generalized weakness and feeling as though he was going to pass out at home. He has been receiving chemotherapy and radiation therapy for the last 5 weeks. About a week ago, he began to feel weak and noted that he felt like he might pass out but did not have any syncopal episode. He denied any fever or chills, and here was neutropenic though his ANC was over 1000 cells. He had no fever, and by the time I was called by the emergency room, had been given a dose of vancomycin with a dose of Zosyn ordered. He denies any throat pain, urinary complaints, abdominal pain, diarrhea, fever, chills, recent travel. PAST MEDICAL HISTORY: As noted above, including COPD, hypertension, peripheral vascular disease, BPH, open cholecystectomy. CURRENT MEDICATION: Aspirin, atorvastatin, Plavix, lisinopril, hydrochlorothiazide, tamsulosin. SOCIAL HISTORY: Former smoker. No history of alcohol use. No obvious HIV risk factors. FAMILY HISTORY: Reviewed and noncontributory. REVIEW OF SYSTEMS: Respiratory: No cough or shortness of breath. Cardiac: No chest pain, palpitations, syncope. Gastrointestinal: No nausea, vomiting, abdominal pain. Genitourinary: No dysuria, hematuria, urinary frequency. PHYSICAL EXAMINATION: General: An alert male in no acute distress. Vital Signs: Temperature on admission 97.4, pulse 120, blood pressure 90/65, respirations 20, weight 216 pounds, O2 saturation 100%. HEENT: No oral candidiasis. Neck: Supple without adenopathy. Chest: Symmetrical. Clear lungs to auscultation. Heart: S1, S2. Regular rhythm without audible murmur. Abdomen: Soft, nontender. Normoactive bowel sounds. No hepatosplenomegaly. Extremities: Without clubbing, cyanosis or edema. The white count is 1.5 with a hemoglobin 11.6, platelets of 97,000, with 82% polys. INR 1.04. BUN 38 with a creatinine of 1.3, glucose of 111, lactic acid 2.9, bilirubin 1.7, liver enzymes within normal limits. Urinalysis currently pending. A chest x-ray was obtained, shows no evidence of acute pathology. ASSESSMENT: A 63-year-old male, known lung cancer, receiving chemotherapy and radiation therapy, with 1-week history of generalized weakness and near syncope, no obvious localizing findings for infection, adequate neutrophil count, with ANC above 1000, in the absence of any fever. Infection seems less likely but he is hypotensive, with an elevated lactic acid, so should be empirically covered with antibiotics. He received 2 g of vancomycin per the emergency room. Would treat him with cefepime 2 g IV q.8 hours pending blood and urine cultures. Oncology consultation pending. Consideration of Neupogen per oncology. JULIANA KANG M.D. SÁNCHEZ/[id number]
--- NOTE | 2018-02-02 17:04 | EKG ---
Test Reason : Blood Pressure : / mmHG Vent. Rate : 112 BPM Atrial Rate : 112 BPM P-R Int : 136 ms QRS Dur : 080 ms QT Int : 344 ms P-R-T Axes : 056 011 026 degrees QTc Int : 469 ms SINUS TACHYCARDIA RSR' pattern in the anterior precordial leads with early transitionof the anterior precordial leads WHEN COMPARED WITH ECG OF 29-JAN-2018 16:32, NO SIGNIFICANT CHANGE WAS FOUND Confirmed by MD Keith, Jm ([id number]) on 02/02/2018 5:04:26 PM Referred By: Confirmed By:Jm Parker MD
[2018-02-02 18:21] VITALS: BMI 32.5
[2018-02-02 18:28] LABS: RBC 3.35 M/mm3 (4.00-5.60)
[2018-02-02 18:34] LABS: HEMATOCRIT 28.9 % (35.4-49); HEMOGLOBIN 10.2 GM/dL (11.7-16.9); MCH 30.4 pg (25.7-33.7); MCHC 35.3 g/dl (32.0-35.9); MEAN CELL VOLUME 86.2 fl (80-96); MEAN PLT VOLUME 8.8 fl (7.5-11.1); PLATELET COUNT 82 K/MM3 (134-434); RDW 14.1 % (11.9-15.9)
[2018-02-02 18:37] LABS: INR 1.06 (0.82-1.09); WHITE BLOOD COUNT 1.3 K/mm3 (4.0-10.0)
[2018-02-02 18:40] LABS: ACTIVATED PTT 24.1 SECONDS (25.2-36.5)
[2018-02-02 18:47] LABS: ALBUMIN 3.1 g/dl (3.4-5.0); ALK PHOS 63 U/L (45-117); ANION GAP 13 (8-16); BILIRUBIN,TOTAL 1.1 mg/dL (0.2-1.0); BLOOD UREA NITROGEN 33 mg/dL (7-18); CALCIUM 7.6 mg/dL (8.5-10.1); CHLORIDE 102 mmol/L (98-107); CO2 23 mmol/L (21-32); CREATININE 1.1 mg/dL (0.7-1.3); GLUCOSE,RANDOM 107 mg/dL (74-106); POTASSIUM 3.7 mmol/L (3.5-5.1); SGOT/AST 13 U/L (15-37); SGPT/ALT 29 U/L (12-78); SODIUM 138 mmol/L (136-145); TOT PROT 5.5 g/dl (6.4-8.2)
[2018-02-02] MEDS ORDERED: PT OWN MED DRAWER 7, Y5N ONE (18:57)
[2018-02-02] MEDS: CEFEPIME 2 GM in DEXTROSE 5%-WATER 100 ML IVPB SCH (20:06)
[2018-02-02 20:11] LABS: PLATELET ESTIMATE DECREASED
[2018-02-02] MEDS: HEPARIN NA (PORCINE) 5,000 UNITS/ML 1ML VIAL SQ SCH (21:16)
[2018-02-02 22:16] LABS: URINE APPEARANCE CLEAR; URINE BILIRUBIN NEGATIVE (<2.0 mg/dL); URINE COLOR YELLOW; URINE GLUCOSE (UA) NEGATIVE (NEGATIVE); URINE KETONE NEGATIVE (NEGATIVE); URINE LEUK ESTERASE NEGATIVE (NEGATIVE); URINE NITRITE NEGATIVE (NEGATIVE); URINE PROTEIN NEGATIVE (NEGATIVE)
[2018-02-02] MEDS ORDERED: ONDANSETRON 4 MG/2 ML VIAL IVPUSH ONE (23:14)
[2018-02-02] MEDS ORDERED: SODIUM CHLORIDE 250 ML IV STA (23:40)
[2018-02-02] MEDS ORDERED: PANTOPRAZOLE SODIUM 40 MG VIAL IVPUSH ONE (23:45)
--- NOTE | 2018-02-02 23:46 | HOSP ---
Physical Examination Vital Signs: Vital Signs Temperature 97.7 F 02/02/18 21:00 Pulse Rate 104 H 02/02/18 21:00 Respiratory Rate 18 02/02/18 21:00 Blood Pressure 113/74 02/02/18 21:00 O2 Sat by Pulse Oximetry (%) 97 02/02/18 21:00 Labs: CBC, BMP 02/02/18 15:30 02/02/18 15:30 Hospitalist Encounter Assessment: Called to patient's room due to c/o chest pain, nausea, vomiting, and tachycardia to 140s in Tele floor. Patient states that the pain felt like "acid reflux" that he frequently gets. Pain is epigastric, localized with one finger, reproducible upon palpation. ECG showed sinus tachycardia with heart rate of 111 beats per minute. Ordered Zofran, Protonix, IVNS bolus, troponins, CBC, BMP Patient seen with last ironer attending. Will continue to monitor. Visit type - Emergency Visit Emergency Visit: No - New Patient This patient is new to me today: Yes Date on this admission: 02/02/18 - Critical Care Critical Care patient: No
[2018-02-02 23:55] LABS: HEMATOCRIT 26.2 % (35.4-49); HEMOGLOBIN 9.1 GM/dL (11.7-16.9); MCH 29.9 pg (25.7-33.7); MEAN CELL VOLUME 85.6 fl (80-96); MEAN PLT VOLUME 8.2 fl (7.5-11.1); PLATELET COUNT 71 K/MM3 (134-434); RBC 3.06 M/mm3 (4.00-5.60); RDW 14.3 % (11.9-15.9)
[2018-02-03 00:55] LABS: ALBUMIN 2.8 g/dl (3.4-5.0); ALK PHOS 58 U/L (45-117); ANION GAP 14 (8-16); BILIRUBIN,TOTAL 1.1 mg/dL (0.2-1.0); BLOOD UREA NITROGEN 29 mg/dL (7-18); CALCIUM 7.3 mg/dL (8.5-10.1); CHLORIDE 103 mmol/L (98-107); CO2 20 mmol/L (21-32); CREATININE 0.9 mg/dL (0.7-1.3); GLUCOSE,RANDOM 116 mg/dL (74-106); POTASSIUM 3.5 mmol/L (3.5-5.1); SGOT/AST 15 U/L (15-37); SGPT/ALT 29 U/L (12-78); SODIUM 137 mmol/L (136-145); TOT PROT 5.2 g/dl (6.4-8.2)
[2018-02-03] MEDS ORDERED: PT OWN MED DRAWER 7, Y5N ONE ×4 (01:38→19:13)
[2018-02-03] MEDS: CEFEPIME 2 GM in DEXTROSE 5%-WATER 100 ML IVPB SCH ×3 (01:54→19:06)
[2018-02-03] MEDS: ONDANSETRON 4 MG/2 ML VIAL IVPB SCH ×6 (03:23→23:29)
[2018-02-03] MEDS: HEPARIN NA (PORCINE) 5,000 UNITS/ML 1ML VIAL SQ SCH ×3 (06:22→21:08)
[2018-02-03 08:57] LABS: BASO % 1.2 % (0-2.0); EOS % 0.3 % (0-4.5); HEMATOCRIT 23.7 % (35.4-49); HEMOGLOBIN 8.5 GM/dL (11.7-16.9); LYMPH % 13.2 % (8-40); MCH 30.5 pg (25.7-33.7); MCHC 35.9 g/dl (32.0-35.9); MEAN CELL VOLUME 85.1 fl (80-96); MEAN PLT VOLUME 8.4 fl (7.5-11.1); MONO % 12.3 % (3.8-10.2); PLATELET COUNT 60 K/MM3 (134-434); RBC 2.78 M/mm3 (4.00-5.60); RDW 14.3 % (11.9-15.9)
--- NOTE | 2018-02-03 09:13 | PN ---
Progress Note, Physician Chief Complaint: ID Subjective improvement Cefepime - Current Medication List Current Medications: Active Medications Aspirin (Asa -) 81 mg PO DAILY [facility] Bupropion HCl (Wellbutrin Xl -) 150 mg PO DAILY [facility] Clopidogrel Bisulfate (Plavix -) 75 mg PO DAILY [facility] Heparin Sodium (Porcine) (Heparin -) 5,000 unit SQ TID [facility] Last Admin: 02/03/18 06:22 Dose: 5,000 unit Cefepime HCl 2 gm/ Dextrose 100 mls @ 200 mls/hr IVPB Q8H-IV TRACEY; Protocol Last Admin: 02/03/18 01:54 Dose: 200 mls/hr Sodium Chloride (Normal Saline -) 1,000 mls @ 125 mls/hr IV ASDIR [facility] Last Admin: 02/02/18 16:05 Dose: 125 mls/hr Loratadine (Claritin -) 10 mg PO DAILY [facility] Multivitamins/Minerals/Vitamin C (Tab-A-Vit -) 1 tab PO DAILY [facility] Non-Formulary Medication (Fluticasone Furoate [Arnuity Ellipta]) 50 mcg IH DAILY [facility] Ondansetron HCl (Zofran Injection) 4 mg IVPB Q4H [facility] Last Admin: 02/03/18 03:23 Dose: 4 mg Pantoprazole Sodium (Protonix Iv) 40 mg IVPUSH DAILY [facility] - Objective Vital Signs: Vital Signs Temperature 98.2 F 02/03/18 06:00 Pulse Rate 97 H 02/03/18 06:00 Respiratory Rate 20 02/03/18 06:00 Blood Pressure 100/54 02/03/18 06:00 O2 Sat by Pulse Oximetry (%) 97 02/02/18 21:00 Constitutional: Yes: Well Nourished, No Distress HENT: Yes: WNL, Atraumatic Neck: Yes: WNL, Supple Cardiovascular: Yes: S1, S2 Respiratory: Yes: WNL, Regular, CTA Bilaterally Gastrointestinal: Yes: WNL, Normal Bowel Sounds, Soft. No: Tenderness, Tenderness, Epigastrium Edema: No Labs: INR, PTT INR 1.06 (0.82-1.09) 02/02/18 15:30 Problem List - Problems (1) Sepsis Code(s): A41.9 - SEPSIS, UNSPECIFIED ORGANISM (2) Neutropenia Code(s): D70.9 - NEUTROPENIA, UNSPECIFIED (3) Lung cancer Code(s): C34.90 - MALIGNANT NEOPLASM OF UNSP PART OF UNSP BRONCHUS OR LUNG Assessment/Plan Microbiology Laboratory Tests 02/02/18 02/02/18 02/03/18 23:40 23:40 08:47 WBC 1.0 L* Pending Hgb Pending Hct Pending Plt Count 71 L Pending BUN 29 H Creatinine 0.9 02/03/18 08:47 WBC Hgb Hct Plt Count BUN Pending Creatinine Pending Assessment Neutropenia psot Taxol and Carboplat 01/29 expectent neutropenia and thrombocytopenia Do not think he has sepsis or "neutropenic fever" Plan Stop Cefepime tomorrow if afebrile cultures neg IV hydration Granix 480mg now Oncology pending
[2018-02-03 09:30] LABS: WHITE BLOOD COUNT 0.9 K/mm3 (4.0-10.0)
[2018-02-03 09:31] LABS: ALBUMIN 2.5 g/dl (3.4-5.0); ANION GAP 10 (8-16); BILIRUBIN,TOTAL 0.8 mg/dL (0.2-1.0); BLOOD UREA NITROGEN 22 mg/dL (7-18); CHLORIDE 108 mmol/L (98-107); CO2 20 mmol/L (21-32); CREATININE 0.8 mg/dL (0.7-1.3); GLUCOSE,RANDOM 129 mg/dL (74-106); POTASSIUM 3.6 mmol/L (3.5-5.1); SGOT/AST 15 U/L (15-37); SGPT/ALT 25 U/L (12-78); SODIUM 138 mmol/L (136-145); TOT PROT 4.9 g/dl (6.4-8.2)
[2018-02-03 09:32] LABS: ALK PHOS 54 U/L (45-117)
[2018-02-03] MEDS: CLOPIDOGREL BISULFATE 75 MG TABLET (FP) PO SCH (09:34)
[2018-02-03] MEDS: ASPIRIN 81 MG CHEWABLE TABLETS PO SCH (09:34)
[2018-02-03] MEDS: LORATADINE 10 MG TABLET PO SCH (09:34)
[2018-02-03] MEDS: PANTOPRAZOLE SODIUM 40 MG VIAL IVPUSH SCH (09:34)
[2018-02-03] MEDS: MULTIVITAMINS (DAILY MVI) TABLET (FP) PO SCH (09:34)
[2018-02-03 09:36] LABS: CALCIUM 6.8 mg/dL (8.5-10.1)
[2018-02-03] MEDS ORDERED: FLUTICASONE FUROATE 50 MCG IH SCH (10:00)
[2018-02-03] MEDS: TBO-FILGRASTIM 480 MCG/0.8 ML DISP.SYRIN SQ SCH (11:05)
--- NOTE | 2018-02-03 15:50 | EKG ---
Test Reason : Blood Pressure : / mmHG Vent. Rate : 111 BPM Atrial Rate : 111 BPM P-R Int : 140 ms QRS Dur : 080 ms QT Int : 336 ms P-R-T Axes : 052 010 040 degrees QTc Int : 456 ms SINUS TACHYCARDIA NONSPECIFIC ST ABNORMALITY ABNORMAL ECG WHEN COMPARED WITH ECG OF 02-FEB-2018 12:32, NO SIGNIFICANT CHANGE WAS FOUND Confirmed by RANDOLPH GARVEY MD ([id number]) on 02/03/2018 3:49:37 PM Referred By: Confirmed By:RANDOLPH GARVEY MD
[2018-02-03] MEDS: SODIUM CHLORIDE 1,000 ML IV SCH (16:17)
[2018-02-03] MEDS: SILVER SULFADIAZINE 1% TOP CREAM 50 GM JAR TP SCH (17:58)
[2018-02-04] MEDS ORDERED: PT OWN MED DRAWER 7, Y5N ONE ×2 (01:56→09:24)
[2018-02-04] MEDS: CEFEPIME 2 GM in DEXTROSE 5%-WATER 100 ML IVPB SCH ×2 (01:56→09:56)
[2018-02-04] MEDS: ONDANSETRON 4 MG/2 ML VIAL IVPB SCH ×3 (05:25→11:48)
[2018-02-04] MEDS: HEPARIN NA (PORCINE) 5,000 UNITS/ML 1ML VIAL SQ SCH ×2 (05:25→14:32)
[2018-02-04 06:39] LABS: BASO % 0.3 % (0-2.0); EOS % 0.4 % (0-4.5); HEMATOCRIT 21.3 % (35.4-49); HEMOGLOBIN 7.6 GM/dL (11.7-16.9); LYMPH % 10.7 % (8-40); MCH 30.6 pg (25.7-33.7); MCHC 35.8 g/dl (32.0-35.9); MEAN CELL VOLUME 85.7 fl (80-96); MEAN PLT VOLUME 8.6 fl (7.5-11.1); MONO % 15.8 % (3.8-10.2); NEUT % 72.8 % (42.8-82.8); PLATELET COUNT 50 K/MM3 (134-434); RBC 2.49 M/mm3 (4.00-5.60); RDW 14.1 % (11.9-15.9)
[2018-02-04 07:35] LABS: WHITE BLOOD COUNT 0.9 K/mm3 (4.0-10.0)
[2018-02-04 07:53] LABS: ALBUMIN 2.4 g/dl (3.4-5.0); ANION GAP 9 (8-16); BLOOD UREA NITROGEN 15 mg/dL (7-18); CALCIUM 7.4 mg/dL (8.5-10.1); CHLORIDE 109 mmol/L (98-107); CO2 23 mmol/L (21-32); GLUCOSE,RANDOM 91 mg/dL (74-106); POTASSIUM 3.6 mmol/L (3.5-5.1); SODIUM 141 mmol/L (136-145)
[2018-02-04 07:56] LABS: ALK PHOS 49 U/L (45-117); BILIRUBIN,TOTAL 0.8 mg/dL (0.2-1.0); CREATININE 0.8 mg/dL (0.7-1.3); SGOT/AST 13 U/L (15-37); SGPT/ALT 23 U/L (12-78); TOT PROT 4.4 g/dl (6.4-8.2)
[2018-02-04] MEDS: PANTOPRAZOLE SODIUM 40 MG VIAL IVPUSH SCH (09:56)
[2018-02-04] MEDS: MULTIVITAMINS (DAILY MVI) TABLET (FP) PO SCH (09:57)
[2018-02-04] MEDS: LORATADINE 10 MG TABLET PO SCH (09:57)
[2018-02-04] MEDS: CLOPIDOGREL BISULFATE 75 MG TABLET (FP) PO SCH (09:57)
[2018-02-04] MEDS: ASPIRIN 81 MG CHEWABLE TABLETS PO SCH (09:57)
[2018-02-04] MEDS: SILVER SULFADIAZINE 1% TOP CREAM 50 GM JAR TP SCH (09:57)
[2018-02-04] MEDS: TBO-FILGRASTIM 480 MCG/0.8 ML DISP.SYRIN SQ SCH (10:30)
[2018-02-04] MEDS ORDERED: SUCRALFATE 1 GM/10 ML UNIT DOSE CUPS PO SCH ×2 (10:45→18:00)
[2018-02-04 11:43] LABS: ACANTHOCYTES 0; HELMET CELLS 0; HOWELL-JOLLY BODIES 0; ROULEAU 0; SICKELED CELLS 0; TARGET CELLS 0; TEAR DROP CELLS 0; TOXIC GRANULATION 0
[2018-02-04 12:00] LABS: ANISOCYTOSIS 1+; MACROCYTOSIS 1+; OVALOCYTE 1+
[2018-02-04 12:01] LABS: PLATELET ESTIMATE DECREASED
--- NOTE | 2018-02-04 12:10 | PN ---
Progress Note, Physician Chief Complaint: ID Cefepime given Granix yesterday - Current Medication List Current Medications: Active Medications Aspirin (Asa -) 81 mg PO DAILY [facility] Last Admin: 02/04/18 09:57 Dose: 81 mg Bupropion HCl (Wellbutrin Xl -) 150 mg PO DAILY [facility] Last Admin: 02/04/18 09:57 Dose: 150 mg Clopidogrel Bisulfate (Plavix -) 75 mg PO DAILY [facility] Last Admin: 02/04/18 09:57 Dose: 75 mg Heparin Sodium (Porcine) (Heparin -) 5,000 unit SQ TID [facility] Last Admin: 02/04/18 05:25 Dose: 5,000 unit Cefepime HCl 2 gm/ Dextrose 100 mls @ 200 mls/hr IVPB Q8H-IV TRACEY; Protocol Last Admin: 02/04/18 09:56 Dose: 200 mls/hr Sodium Chloride (Normal Saline -) 1,000 mls @ 125 mls/hr IV ASDIR [facility] Last Admin: 02/03/18 16:17 Dose: Not Given Loratadine (Claritin -) 10 mg PO DAILY [facility] Last Admin: 02/04/18 09:57 Dose: 10 mg Multivitamins/Minerals/Vitamin C (Tab-A-Vit -) 1 tab PO DAILY [facility] Last Admin: 02/04/18 09:57 Dose: 1 tab Non-Formulary Medication (Fluticasone Furoate [Arnuity Ellipta]) 50 mcg IH DAILY [facility] Ondansetron HCl (Zofran Injection) 4 mg IVPB Q4H [facility] Last Admin: 02/04/18 11:48 Dose: 4 mg Pantoprazole Sodium (Protonix Iv) 40 mg IVPUSH DAILY [facility] Last Admin: 02/04/18 09:56 Dose: 40 mg Silver Sulfadiazine (Silvadene -) 1 applic TP DAILY [facility] Last Admin: 02/04/18 09:57 Dose: 1 applic Sucralfate (Carafate Oral Suspension -) 1 gm PO BID [facility] Last Admin: 02/04/18 11:48 Dose: 1 gm Tbo-Filgrastim (Granix -) 480 mcg SQ DAILY [facility] Last Admin: 02/04/18 10:30 Dose: 480 mcg - Objective Vital Signs: Vital Signs Temperature 97.6 F 02/04/18 07:45 Pulse Rate 91 H 02/04/18 07:45 Respiratory Rate 20 07/05/18 09:00 Blood Pressure 132/87 02/04/18 07:45 O2 Sat by Pulse Oximetry (%) 99 02/04/18 09:00 Constitutional: Yes: No Distress Labs: CBC, BMP 02/04/18 05:30 02/04/18 05:30 INR, PTT INR 1.06 (0.82-1.09) 02/02/18 15:30 Problem List - Problems (1) Sepsis Code(s): A41.9 - SEPSIS, UNSPECIFIED ORGANISM (2) Neutropenia Code(s): D70.9 - NEUTROPENIA, UNSPECIFIED (3) Lung cancer Code(s): C34.90 - MALIGNANT NEOPLASM OF UNSP PART OF UNSP BRONCHUS OR LUNG Assessment/Plan Microbiology 02/02/18 13:30 Urine - Urine Clean Catch Urine Culture - Final NO GROWTH OBTAINED 02/02/18 13:30 Blood - Peripheral Venous Blood Culture - Preliminary NO GROWTH OBTAINED AFTER 24 HOURS, INCUBATION TO CONTINUE FOR 4 DAYS. 02/02/18 13:20 Blood - Peripheral Venous Blood Culture - Preliminary NO GROWTH OBTAINED AFTER 24 HOURS, INCUBATION TO CONTINUE FOR 4 DAYS. Laboratory Tests 02/04/18 05:30 WBC 0.9 L* RBC 2.49 L Hct 21.3 L Plt Count 50 L Assessment Post chemotherapy ANC improving 700 no fever Discussed at length with Dr Chris Plan Discharge planning Stop antibiotics Consider GI consult for ? esophagitis dysphagia No further Neupgen per Dr Chris Hold chemotherapy Melissa THOMAS
--- NOTE | 2018-02-04 13:46 | CON.GI ---
Consult Consult Specialty:: GI Reason for Consultation:: odynophagia - History of Present Illness History of Present Illness: Chart reviewed. Event and consults noted. A 63M with IIIb lung CA s/p 5 weeks of chemo and radiation to the upper chest admitted and treated for symptomatic dehydration. Pt reports lack of appetite and worsening odynophagia with solids and liquids alike. There is no dysphagia, vomiting, or hematemesis. There is a long history of mild GERD-like symptoms for which he take ranitidine and Prilosec. An EGD [address] Arias revealed "ulcers", per patient. He also had colonoscopy at the same time. He is scheduled for 2 more weeks of chemo /radiation. - History Source History Provided By: Patient, Medical Record Limitations to Obtaining History: No Limitations - Alcohol/Substance Use Hx Alcohol Use: No - Smoking History Smoking history: Former smoker Have you smoked in the past 12 months: Yes Aproximately how many cigarettes per day: 1 Home Medications - Allergies Allergies/Adverse Reactions: Allergies Allergy/AdvReac Type Severity Reaction Status Date / Time No Known Allergies Allergy Verified 02/02/18 12:42 - Home Medications Home Medications: Ambulatory Orders Aspirin 81 mg PO DAILY 02/02/18 Atorvastatin Ca [Lipitor] 80 mg PO HS 02/02/18 Bupropion HCl [Bupropion HCl Sr] 150 mg PO DAILY 02/02/18 Cetirizine HCl 10 mg PO DAILY 02/02/18 Clopidogrel Bisulfate [Clopidogrel] 75 mg PO DAILY 02/02/18 Fluticasone Furoate [Arnuity Ellipta] 50 mcg IH DAILY 02/02/18 Lisinopril/Hydrochlorothiazide [Lisinopril-Hctz 10-12.5 mg Tab] 1 tab PO DAILY 02/02/18 Multivitamin [Daily Multiple Vitamin] 1 each PO DAILY 02/02/18 [place]-3 Fatty Acids/Fish Oil [Fish Oil 1,000 mg Capsule] 1 each PO DAILY Tamsulosin HCl 0.4 mg PO DAILY 02/02/18 Family Disease History - Family Disease History Family History: Unremarkable Review of Systems Findings/Remarks: as per ED, H&P, HPI Physical Exam-GI Vital Signs: Vital Signs Temperature 97.6 F 02/04/18 07:45 Pulse Rate 91 H 02/04/18 07:45 Respiratory Rate 20 02/04/18 09:00 Blood Pressure 132/87 02/04/18 07:45 O2 Sat by Pulse Oximetry (%) 99 02/04/18 09:00 Constitutional: Yes: Well Nourished, No Distress, Calm Eyes: Yes: Conjunctiva Clear HENT: Yes: Atraumatic Neck: Yes: Supple Cardiovascular: Yes: Regular Rate and Rhythm Respiratory: Yes: Cough, SOB (mild), SOB on Exertion. No: Accessory Muscle Use , Tachypnea Neurological: Yes: Alert, Oriented Labs: CBC, BMP 02/04/18 05:30 02/04/18 05:30 INR, PTT INR 1.06 (0.82-1.09) 02/02/18 15:30 Laboratory Last Values WBC 0.9 K/mm3 (4.0-10.0) L* 02/04/18 05:30 RBC 2.49 M/mm3 (4.00-5.60) L 02/04/18 05:30 Hgb 7.6 GM/dL (11.7-16.9) L 02/04/18 05:30 Hct 21.3 % (35.4-49) L 02/04/18 05:30 MCV 85.7 fl (80-96) 02/04/18 05:30 MCH 30.6 pg (25.7-33.7) 02/04/18 05:30 MCHC 35.8 g/dl (32.0-35.9) 02/04/18 05:30 RDW 14.1 % (11.9-15.9) 02/04/18 05:30 Plt Count 50 K/MM3 (134-434) L 02/04/18 05:30 MPV 8.6 fl (7.5-11.1) 02/04/18 05:30 Absolute Neuts (auto) 0.7 # 02/04/18 05:30 Total Counted 50 02/02/18 15:30 Neutrophils % 72.8 % (42.8-82.8) 02/04/18 05:30 Neutrophils % (Manual) 69.4 % (42.8-82.8) 02/04/18 05:30 Band Neutrophils % 9.2 % 02/04/18 05:30 Lymphocytes % 10.7 % (8-40) 02/04/18 05:30 Lymphocytes % (Manual) 9.2 % (8-40) 02/04/18 05:30 Monocytes % 15.8 % (3.8-10.2) H 02/04/18 05:30 Monocytes % (Manual) 9 % (3.8-10.2) 02/04/18 05:30 Eosinophils % 0.4 % (0-4.5) 02/04/18 05:30 Eosinophils % (Manual) 0.0 % (0-4.5) 02/04/18 05:30 Basophils % 0.3 % (0-2.0) 02/04/18 05:30 Basophils % (Manual) 1.0 % (0-2.0) D 02/04/18 05:30 Myelocytes % (Man) 0 % (0-2) 02/04/18 05:30 Promyelocytes % (Man) 0 % (0-2) 02/04/18 05:30 Blast Cells % (Manual) 0 % (0-0) 02/04/18 05:30 Nucleated RBC % 0 % (0-0) 02/04/18 05:30 Metamyelocytes 0 % (0-2) 02/04/18 05:30 Hypochromia 0 02/04/18 05:30 Toxic Granulation 0 02/04/18 05:30 Dohle Bodies 0 02/04/18 05:30 Platelet Estimate Decreased 02/04/18 05:30 Platelet Comment No clumping noted 02/02/18 15:30 Polychromasia 0 02/04/18 05:30 Poikilocytosis 0 02/04/18 05:30 Basophilic Stippling 0 02/04/18 05:30 Anisocytosis 1+ 02/04/18 05:30 Microcytosis 1+ 02/04/18 05:30 Macrocytosis 1+ 02/04/18 05:30 Spherocytes 0 02/04/18 05:30 Sickle Cells 0 02/04/18 05:30 Target Cells 0 02/04/18 05:30 Tear Drop Cells 0 02/04/18 05:30 Ovalocytes 1+ 02/04/18 05:30 Stomatocytes 0 02/04/18 05:30 Helmet Cells 0 02/04/18 05:30 [place] Bodies 0 02/04/18 05:30 [place] Rings 0 02/04/18 05:30 [place] Cells 0 02/04/18 05:30 Acanthocytes (Spur) 0 02/04/18 05:30 Rouleaux 0 02/04/18 05:30 Fragmented RBCs 0 02/04/18 05:30 Schistocytes 0 02/04/18 05:30 PT with INR 12.00 SEC (9.7-13.0) 02/02/18 15:30 INR 1.06 (0.82-1.09) 02/02/18 15:30 PTT (Actin FS) 24.1 SECONDS (25.2-36.5) L 02/02/18 15:30 VBG pH 7.50 (7.32-7.42) H 02/02/18 13:20 POC VBG pCO2 30.2 mmHg (38-52) L 02/02/18 13:20 POC VBG pO2 21.9 mmHg (28-48) L 02/02/18 13:20 Mixed VBG HCO3 23.2 meq/L (19-25) 02/02/18 13:20 Sodium 141 mmol/L (136-145) 02/04/18 05:30 Potassium 3.6 mmol/L (3.5-5.1) 02/04/18 05:30 Chloride 109 mmol/L (98-107) H 02/04/18 05:30 Carbon Dioxide 23 mmol/L (21-32) 02/04/18 05:30 Anion Gap 9 (8-16) 02/04/18 05:30 BUN 15 mg/dL (7-18) 02/04/18 05:30 Creatinine 0.8 mg/dL (0.7-1.3) 02/04/18 05:30 Creat Clearance w eGFR > 60 (>60) 02/04/18 05:30 Random Glucose 91 mg/dL (74-106) D 02/04/18 05:30 Lactic Acid 1.6 mmol/L (0.0-2.0) 02/02/18 15:40 Calcium 7.4 mg/dL (8.5-10.1) L 02/04/18 05:30 Total Bilirubin 0.8 mg/dL (0.2-1.0) 02/04/18 05:30 AST 13 U/L (15-37) L 02/04/18 05:30 ALT 23 U/L (12-78) 02/04/18 05:30 Alkaline Phosphatase 49 U/L (45-117) 02/04/18 05:30 Creatine Kinase 54 IU/L (39-308) 02/02/18 15:30 Troponin I < 0.02 ng/ml (0.00-0.05) 02/02/18 23:40 Total Protein 4.4 g/dl (6.4-8.2) L 02/04/18 05:30 Albumin 2.4 g/dl (3.4-5.0) L 02/04/18 05:30 Urine Color Yellow 02/02/18 21:45 Urine Appearance Clear 02/02/18 21:45 Urine pH 5.0 (5.0-8.0) 02/02/18 21:45 Ur Specific [place] 1.021 (1.001-1.035) 02/02/18 21:45 Urine Protein Negative (NEGATIVE) 02/02/18 21:45 Urine Glucose (UA) Negative (NEGATIVE) 02/02/18 21:45 Urine Ketones Negative (NEGATIVE) 02/02/18 21:45 Urine Blood Negative (NEGATIVE) 02/02/18 21:45 Urine Nitrite Negative (NEGATIVE) 02/02/18 21:45 Urine Bilirubin Negative (<2.0 mg/dL) 02/02/18 21:45 Urine Urobilinogen 2.0 mg/dL (0.2-1.0) 02/02/18 21:45 Ur Leukocyte Esterase Negative (NEGATIVE) 02/02/18 21:45 Blood Type A NEGATIVE 02/02/18 15:30 Antibody Screen Negative 02/02/18 13:30 Imaging - Results X-ray: Report Reviewed Problem List - Problems (1) Dysphagia Code(s): R13.10 - DYSPHAGIA, UNSPECIFIED (2) Lung cancer Code(s): C34.90 - MALIGNANT NEOPLASM OF UNSP PART OF UNSP BRONCHUS OR LUNG (3) Neutropenia Code(s): D70.9 - NEUTROPENIA, UNSPECIFIED (4) Esophagitis Code(s): K20.9 - ESOPHAGITIS, UNSPECIFIED Assessment/Plan 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 Complete the RT. Agree with PPI (40 mg po BID), liquid carafate 1 gm po qid. Add Viscous lidocaine to the regiment. Soft/pureed diet. Avoid extreme temperatures, spicy, acidic foods. Follow up with Dr. Arias as OP. Discussed with the patient.
[2018-02-04] MEDS: SODIUM CHLORIDE 1,000 ML IV SCH (14:33)
[2018-02-04 14:34] VITALS: BP 123/68; PULSE 98; TEMP 98.1
[2018-02-04] MEDS ORDERED: LIDOCAINE VISCOUS 2% ORAL/TOP 20 ML UNIT-DOSE CUP MM PRN (14:59)
--- NOTE | 2018-02-04 16:10 | DS ---
Physical Examination Vital Signs: Vital Signs Temperature 98.1 F 02/04/18 14:10 Pulse Rate 98 H 02/04/18 14:10 Respiratory Rate 20 02/04/18 14:10 Blood Pressure 123/68 02/04/18 14:10 O2 Sat by Pulse Oximetry (%) 99 02/04/18 09:00 Labs: CBC, BMP 02/04/18 05:30 02/04/18 05:30 Discharge Summary Reason For Visit: NEUTROPENIA,SEVERE SEPSIS,DEHYDRATION,HYPOVOLEMIA Current Active Problems Dysphagia (Acute) Esophagitis (Acute) Lung cancer (Acute) Neutropenia (Acute) Sepsis (Acute) Severe sepsis (Acute) Hospital Course: Discussed all lab findings with Dr. Chris who recommends discharging the patient with follow-up on Thursday for repeat labs. He states the patient is not to return to chemo or radiation until labs are drawn on Thursday. Condition: Improved - Instructions Diet, Activity, Other Instructions: Please return to the ED with new, persistent, or worsening symptoms. Please follow-up with providers as indicated. Follow-up with Dr. Chris's office on Thursday as indicated. They will then discuss with your radiation oncologist when you can resume radiation therapy. You chemotherapy is cancelled for tomorrow, 02/05/18. Referrals: Last Rios MD [Primary Care Provider] - 1 Week Philippe Chris MD [Staff Physician] - (Please follow-up with your oncologist for bloodwork on 02/08/18 at 10:00am. Please go to their [place] office on [phone] [facility]. Telephone number .) Ramón Arias MD [Staff Physician] - (Please follow-up with Dr. Arias (Gastrointestinal MD) within 1 week for further management of your esophagitis. ) Disposition: HOME - Home Medications Comprehensive Discharge Medication List: Ambulatory Orders Aspirin 81 mg PO DAILY 02/02/18 Atorvastatin Ca [Lipitor] 80 mg PO HS 02/02/18 Bupropion HCl [Bupropion HCl Sr] 150 mg PO DAILY 02/02/18 Cetirizine HCl 10 mg PO DAILY 02/02/18 Clopidogrel Bisulfate [Clopidogrel] 75 mg PO DAILY 02/02/18 Fluticasone Furoate [Arnuity Ellipta] 50 mcg IH DAILY 02/02/18 Multivitamin [Daily Multiple Vitamin] 1 each PO DAILY 02/02/18 [place]-3 Fatty Acids/Fish Oil [Fish Oil 1,000 mg Capsule] 1 each PO DAILY Tamsulosin HCl 0.4 mg PO DAILY 02/02/18 Lidocaine 2% Viscous Oral [Xylocaine 2% Viscous Oral -] 20 ml MM TID PRN #1 bottle 02/04/18 Pantoprazole Sodium [Protonix -] 40 mg PO BID #30 tablet.ec 02/04/18 Silver Sulfadiazine 1% Top Cr [Silvadene -] 1 applic TP DAILY jar 02/04/18 Sucralfate Oral Suspension [Carafate Oral Suspension -] 1 gm PO Q6HPO 30 Days # 120 gm 02/04/18
[2018-02-04] MEDS ORDERED: PANTOPRAZOLE 40 MG TABLET (FP) PO SCH (22:00)
== END 2018-02-04 16:55 | disposition home or self-care (01) | DRG 660 ==
LOC: JER 12:17 → JERBED 15:16 → J4S 16:14
PROVIDERS: ADMIT Hospitalist; ATTEND Registered Nurse
DX: D70.8 Other neutropenia (principal); D70.1 Agranulocytosis secondary to cancer chemotherapy; A41.9 Sepsis, unspecified organism; E86.0 Dehydration; R65.20 Severe sepsis without septic shock; E87.2 Acidosis; I95.9 Hypotension, unspecified; D69.6 Thrombocytopenia, unspecified; C34.90 Malignant neoplasm of unspecified part of unspecified bronchus or lung; T50.8X5A Adverse effect of diagnostic agents, initial encounter; I10 Essential (primary) hypertension; E78.5 Hyperlipidemia, unspecified; N40.0 Benign prostatic hyperplasia without lower urinary tract symptoms; E86.1 Hypovolemia; I73.9 Peripheral vascular disease, unspecified; Z87.891 Personal history of nicotine dependence; F12.10 Cannabis abuse, uncomplicated; R00.0 Tachycardia, unspecified; K21.0 Gastro-esophageal reflux disease with esophagitis; D70.3 Neutropenia due to infection; R50.81 Fever presenting with conditions classified elsewhere
CPT/HCPCS: 36415; 71045-TC-FY; 80053; 81003; 82550; 82803; 83605; 84484; 85025; 85027; 85610; 85730; 86850; 86900; 86901; 87040; 87086; 93005; 93010; 99284-25; J1447; J1644; J7030

== ENCOUNTER 2018-05-12 12:16 | Day surgery (SDC) | payer OTHER ==
[~2018-05-12 12:16] MED LIST changes: -DEXAMETHASONE INJECTION 10 MG, DIPHENHYDRAMINE 50 MG in SODIUM CHLORIDE 100 ML IVPB ONE; +DURVALUMAB IV ONE; -FAMOTIDINE 20 MG/50 ML IVPB 20 MG/50 ML MG IVPB ONE; -PACLITAXEL IVPB ONE; -PALONOSETRON HCL 0.25 MG/5 ML VIAL IVPUSH ONE; +SODIUM CHLORIDE IV ONE; -SODIUM CHLORIDE IVPB ONE
[2018-05-12 18:22] VITALS: TEMP 97.4
[2018-05-12 18:29] VITALS: BP 117/76; PULSE 105
== END 2018-05-12 16:45 | disposition home or self-care (01) ==
LOC: JCHEMO 12:16 → J7W 12:32 → JCHEMO 16:45
PROVIDERS: ATTEND Internal Medicine Hematology & Oncology
DX: Z51.11 Encounter for antineoplastic chemotherapy (principal); C34.90 Malignant neoplasm of unspecified part of unspecified bronchus or lung
CPT/HCPCS: 96413; C9492

== ENCOUNTER 2018-05-26 11:50 | Day surgery (SDC) | payer OTHER ==
[2018-05-26] MEDS ORDERED: DURVALUMAB IV ONE (13:30)
[2018-05-26] MEDS ORDERED: SODIUM CHLORIDE IV ONE (13:30)
[2018-05-26 14:24] VITALS: TEMP 97.2
[2018-05-26 14:56] VITALS: BP 120/81; PULSE 82
== END 2018-05-26 14:50 | disposition home or self-care (01) ==
LOC: JCHEMO 11:50 → J7W 12:03 → JCHEMO 14:50
PROVIDERS: ATTEND Internal Medicine Hematology & Oncology
DX: Z51.11 Encounter for antineoplastic chemotherapy (principal); C34.90 Malignant neoplasm of unspecified part of unspecified bronchus or lung
CPT/HCPCS: 96413; C9492

== ENCOUNTER 2018-06-09 12:12 | Day surgery (SDC) | payer OTHER ==
[2018-06-09 18:14] VITALS: BP 106/64; TEMP 97.6
[2018-06-09 18:18] VITALS: PULSE 94
== END 2018-06-09 15:10 | disposition home or self-care (01) ==
LOC: JCHEMO 12:12 → J7W 12:13 → JCHEMO 15:10
PROVIDERS: ATTEND Internal Medicine Hematology & Oncology
DX: Z51.11 Encounter for antineoplastic chemotherapy (principal); C34.90 Malignant neoplasm of unspecified part of unspecified bronchus or lung
CPT/HCPCS: 96413; C9492

== ENCOUNTER 2018-06-23 13:15 | Day surgery (SDC) | payer OTHER ==
[2018-06-23 16:23] VITALS: BP 100/63; PULSE 100; TEMP 98.3
== END 2018-06-23 15:45 | disposition home or self-care (01) ==
LOC: JCHEMO 13:15 → J7W 13:16 → JCHEMO 15:45
PROVIDERS: ATTEND Internal Medicine Hematology & Oncology
DX: Z51.11 Encounter for antineoplastic chemotherapy (principal); C34.90 Malignant neoplasm of unspecified part of unspecified bronchus or lung
CPT/HCPCS: 96413; C9492

== ENCOUNTER 2018-07-07 11:59 | Day surgery (SDC) | payer OTHER ==
[2018-07-07 13:16] LABS: BASO % 0.5 % (0-2.0); EOS % 1.4 % (0-4.5); HEMATOCRIT 38.8 % (35.4-49); HEMOGLOBIN 13.6 GM/dL (11.7-16.9); LYMPH % 12.6 % (8-40); MCH 30.5 pg (25.7-33.7); MEAN CELL VOLUME 86.9 fl (80-96); MEAN PLT VOLUME 8.4 fl (7.5-11.1); MONO % 7.8 % (3.8-10.2); NEUT % 77.7 % (42.8-82.8); PLATELET COUNT 212 K/MM3 (134-434); RBC 4.46 M/mm3 (4.00-5.60); RDW 16.4 % (11.9-15.9); WHITE BLOOD COUNT 5.7 K/mm3 (4.0-10.0)
[2018-07-07 13:30] LABS: ALBUMIN 3.6 g/dl (3.4-5.0); ALK PHOS 107 U/L (45-117); ANION GAP 9 MMOL/L (8-16); BILIRUBIN,DIRECT 0.2 mg/dL (0.0-0.2); BILIRUBIN,TOTAL 0.4 mg/dL (0.2-1); BLOOD UREA NITROGEN 16 mg/dL (7-18); CALCIUM 8.3 mg/dL (8.5-10.1); CHLORIDE 108 mmol/L (98-107); CO2 25 mmol/L (21-32); CREATININE 0.9 mg/dL (0.55-1.3); GLUCOSE,RANDOM 139 mg/dL (74-106); POTASSIUM 4.2 mmol/L (3.5-5.1); SGOT/AST 12 U/L (15-37); SGPT/ALT 21 U/L (13-61); SODIUM 142 mmol/L (136-145); TOT PROT 6.7 g/dl (6.4-8.2)
[2018-07-07 17:16] VITALS: TEMP 97.8
[2018-07-07 17:17] VITALS: BP 136/76; PULSE 64
== END 2018-07-07 15:10 | disposition home or self-care (01) ==
LOC: JCHEMO 11:59 → J7W 12:01 → JCHEMO 15:10
PROVIDERS: ATTEND Internal Medicine Hematology & Oncology
DX: Z51.11 Encounter for antineoplastic chemotherapy (principal); C34.90 Malignant neoplasm of unspecified part of unspecified bronchus or lung
CPT/HCPCS: 36415; 80048; 80076; 85025; 96413; C9492

== ENCOUNTER 2018-07-21 12:02 | Day surgery (SDC) | payer OTHER ==
[2018-07-21 12:45] VITALS: TEMP 97.9
[2018-07-21 13:37] VITALS: BP 102/60; PULSE 93
== END 2018-07-21 14:00 | disposition home or self-care (01) ==
LOC: JCHEMO 12:02 → J7W 12:05 → JCHEMO 14:00
PROVIDERS: ATTEND Internal Medicine Hematology & Oncology
DX: Z51.11 Encounter for antineoplastic chemotherapy (principal); C34.92 Malignant neoplasm of unspecified part of left bronchus or lung
CPT/HCPCS: 96413; C9492

== ENCOUNTER 2018-08-06 11:58 | Day surgery (SDC) | payer OTHER ==
[2018-08-06 17:27] VITALS: TEMP 97.8
[2018-08-06 17:33] VITALS: BP 113/70; PULSE 99
== END 2018-08-06 14:30 | disposition home or self-care (01) ==
LOC: JCHEMO 11:58 → J7W 11:59 → JCHEMO 14:30
PROVIDERS: ATTEND Internal Medicine Hematology & Oncology
DX: Z51.11 Encounter for antineoplastic chemotherapy (principal); C34.92 Malignant neoplasm of unspecified part of left bronchus or lung
CPT/HCPCS: 96413; J9173

== ENCOUNTER 2018-08-18 12:11 | Day surgery (SDC) | payer OTHER ==
[2018-08-18 15:16] VITALS: TEMP 98.4
[2018-08-18 15:19] VITALS: BP 106/65; PULSE 97
== END 2018-08-18 14:20 | disposition home or self-care (01) ==
LOC: JCHEMO 12:11 → J7W 12:19 → JCHEMO 14:20
PROVIDERS: ATTEND Internal Medicine Hematology & Oncology
DX: Z51.11 Encounter for antineoplastic chemotherapy (principal); C34.92 Malignant neoplasm of unspecified part of left bronchus or lung
CPT/HCPCS: 96413; J9173

== ENCOUNTER 2018-09-03 12:15 | Day surgery (SDC) | payer OTHER ==
[2018-09-03] MEDS ORDERED: DURVALUMAB IV ONE (13:00)
[2018-09-03] MEDS ORDERED: SODIUM CHLORIDE IV ONE (13:00)
[2018-09-03 15:00] VITALS: TEMP 97.9
[2018-09-03 15:28] VITALS: BP 113/73; PULSE 109
== END 2018-09-03 15:20 | disposition home or self-care (01) ==
LOC: JCHEMO 12:15 → J7W 12:25 → JCHEMO 15:20
PROVIDERS: ATTEND Internal Medicine Hematology & Oncology
DX: Z51.11 Encounter for antineoplastic chemotherapy (principal); C34.92 Malignant neoplasm of unspecified part of left bronchus or lung
CPT/HCPCS: 96413; J9173

== ENCOUNTER 2018-09-15 12:22 | Day surgery (SDC) | payer OTHER ==
[2018-09-15 16:00] VITALS: TEMP 98
[2018-09-15 16:01] VITALS: BP 124/74; PULSE 98
== END 2018-09-15 15:40 | disposition home or self-care (01) ==
LOC: JCHEMO 12:22 → J7W 12:24 → JCHEMO 15:40
PROVIDERS: ATTEND Internal Medicine Hematology & Oncology
DX: Z51.11 Encounter for antineoplastic chemotherapy (principal); C34.92 Malignant neoplasm of unspecified part of left bronchus or lung
CPT/HCPCS: 96413; J9173

== ENCOUNTER 2018-09-29 12:25 | Day surgery (SDC) | payer OTHER ==
[2018-09-29 14:41] VITALS: TEMP 97.5
[2018-09-29 14:42] VITALS: BP 135/80; PULSE 114
== END 2018-09-29 14:35 | disposition home or self-care (01) ==
LOC: JCHEMO 12:25 → J7W 12:28 → JCHEMO 14:35
PROVIDERS: ATTEND Internal Medicine Hematology & Oncology
DX: Z51.11 Encounter for antineoplastic chemotherapy (principal); C34.92 Malignant neoplasm of unspecified part of left bronchus or lung
CPT/HCPCS: 96413; J9173

== ENCOUNTER 2019-07-04 21:10 | Inpatient (IN) | payer OTHER ==
[2019-07-04] MEDS ORDERED: FAMOTIDINE 20 MG/50 ML IVPB 20 MG/50 ML MG IVPB ONE ×2 (21:40→22:48)
--- NOTE | 2019-07-04 21:48 | PDOC ---
History of Present Illness - General Chief Complaint: Chest Pain Stated Complaint: CHEST PAIN Time Seen by Provider: 07/04/19 21:47 History Source: Patient Exam Limitations: No Limitations - History of Present Illness Initial Comments: Pt is a 64 yo M, with PMH of Lung CA (stage 3 with mets to brain, s/p chemo and radiation), HLD, and GERD, who is presenting with complaints of substernal chest discomfort and pain with eating x1 month. Pt states he has pain with swallowing, which radiates down to the middle of his chest and upper abdomen. Pt states he recently started on dexamethasone after recent radiosurgery to remove mets from brain (cerebral edema). Pt states he has had similar pain on prior admissions, but has not been able to follow-up with GI yet for endoscopy. Pt states he has nausea and minimal PO intake over the past month, and has "maybe lost about 40 lbs". Pt denies any fevers/chills, headache, vision changes , syncope, palpitations, SOB, vomiting, urinary symptoms, diarrhea/constipation , or leg swelling. Allergies: NKDA PCP: Dr. Gordon, [place] Onc: Dr. Marie Social: Pt denies any current cigarette, alcohol, or drug use. Pt denies any recent travel or sick contacts. Surgical: brain radiosurgery, stent L leg, cholecystectomy, prior abdominal ex- lap Family: no relevant history. 08/13/19 21:51 Beta Arslan Contraindications (Core Measure): Yes: Not Prescribed Past History - Travel Traveled outside of the country in the last 30 days: No Close contact w/someone who was outside of country & ill: No - Past Medical History Allergies/Adverse Reactions: Allergies Allergy/AdvReac Type Severity Reaction Status Date / Time No Known Allergies Allergy Verified 07/14/19 14:56 Home Medications: Ambulatory Orders Clopidogrel Bisulfate [Clopidogrel] 75 mg PO DAILY 07/05/19 Tamsulosin HCl [Flomax] 0.4 mg PO BID 07/05/19 Umeclidinium Brm/Vilanterol Tr [Anoro Ellipta 62.5-25 Mcg INH] 1 each IH DAILY 07/05/19 Aspirin Coated [Ecotrin -] 81 mg PO DAILY tablet.ec 07/12/19 Atorvastatin Ca [Lipitor] 80 mg PO HS #30 tablet 07/12/19 Fluconazole [Diflucan -] 200 mg PO 1600 #14 tablet 07/12/19 Lactobacillus Acidophilus [Bacid -] 1 tab PO BID #30 tab 07/12/19 Mag Hydrox/Alh/Smc/Dpha/Lido [Magic Mouthwash *Sjr Formula* -] 5 ml MM Q6HPO # 460 ml 07/12/19 Nystatin Oral Suspension - [Nystatin Oral Susp 816398 Units/5 ML -] 500,000 units PO Q6HPO 30 Days cup 07/12/19 Pantoprazole Sodium [Protonix] 40 mg PO BID #60 tablet.dr 07/12/19 Sucralfate Oral Suspension [Carafate Oral Suspension -] 10 ml PO QID #960 ml 05/21 Dexamethasone [Decadron -] 2 mg PO DAILY #7 tablet 07/21/19 Anemia: No Asthma: No Cancer: Yes (Stage IIIB lung cancer diagnosed 12/2017) Cardiac Disorders: No CVA: No COPD: No CHF: No DVT: No Dementia: No Diabetes: No Dialysis: No GI Disorders: Yes (GERD) Disorders: No HTN: Yes Hypercholesterolemia: Yes Liver Disease: No Psychiatric Problems: No Seizures: No Thyroid Disease: No Lung CA: Yes (Stage IIIB, diagnosed 12/2017) - Surgical History Abdominal Surgery: Yes (ex-lap 09/04 bowel/bladder injury; open tamara) Appendectomy: No Cardiac Surgery: No Cholecystectomy: Yes (open) Lung Surgery: No Neurologic Surgery: No Orthopedic Surgery: Yes (left leg fx, right wrist fx) - Immunization History Immunization Up to Date: Yes - Psycho Social/Smoking Cessation Hx Smoking History: Former smoker Have you smoked in the past 12 months: Yes Number of Cigarettes Smoked Daily: 1 If you are a former smoker, when did you quit?: 2-3 months ago Information on smoking cessation initiated: No Hx Alcohol Use: Yes (occasional) Drug/Substance Use Hx: Yes (THC) Substance Use Type: Cocaine, Marijuana Hx Substance Use Treatment: Yes (cocaine early ) Cardiac Specific PMH - Complaint Specific PMHX Angina: No Cardiac Arrhythmia: No Cardiac Stent: No GERD: Yes Myocardial Infarction: No Pacemaker: No Pulmonary Embolus: No Valvular Heart Disease: No Peripheral Vascular Disease: Yes Review of Systems - Review of Systems Able to Perform ROS?: Yes Is the patient limited Japanese proficient: No Constitutional: Yes: Loss of Appetite, Malaise, Weakness, Unintentional Wgt. Loss. No: Chills, Diaphoresis, Fever, Night Sweats, Weight Stable HEENTM: Yes: See HPI, Throat Pain, Difficulty Swallowing. No: Recent change in vision, Nose Congestion, Throat Swelling, Mouth Pain, Mouth Swelling Respiratory: No: Cough, Orthopnea, Shortness of Breath Cardiac (ROS): Yes: See HPI, Chest Pain. No: Edema, Irregular Heart Rate, Lightheadedness, Palpitations, Syncope, Chest Tightness ABD/GI: Yes: Difficulty Swallowing, Nausea, Poor Appetite, Poor Fluid Intake, Indigestion. No: Abdominal Distended, Constipated, Diarrhea, Vomiting, Abdominal cramping : No: Burning, Dysuria, Frequency, Hematuria, Pain Musculoskeletal: No: Back Pain, Muscle Pain, Muscle Weakness Integumentary: No: Bruising, Rash Neurological: No: Headache, Numbness, Seizure, Weakness, Unsteady Gait, Dizziness Psychiatric: Yes: Stressors. No: Sleep Pattern Change Endocrine: Yes: Unexplained Weight Loss, Change in Weight. No: Intolerance to Cold, Intolerance to Heat, Increased Urine Hematologic/Lymphatic: Yes: See HPI. No: Anemia, Blood Clots, Lymph Node Abnormalities All Other Systems: Reviewed and Negative *Physical Exam - Vital Signs Last Vital Signs Temp Pulse Resp BP Pulse Ox 97.8 F 90 20 115/62 96 07/12/19 13:48 07/12/19 13:48 07/12/19 13:48 07/12/19 13:48 07/12/19 09:00 - Physical Exam Vitals stable, pt afebrile. Pt in NAD, but agitated with staff. Thin body habitus. Pt alert and oriented x3. lead caster helper generally intact, muscular strength and sensation intact. No midline spinal tenderness, step-offs, or crepitus. Head normocephalic, atraumatic. Eyes PERRLA, EOMI. Oropharynx with eythema, white plaques on tongue and posterior and oropharynx which do scrape with a tongue depressor. No LAD b/l. No nasal congestion. Hearing intact. Clear heart sounds, S1/S2, no JVD, b/l pedal edema, or heart murmur. Coarse breath sounds b/l lower bases, with no respiratory distress, wheezes, or accessory muscle use. Epigastric TTP. No rebound, no guarding. No CVA TTP. Abdomen soft, non-distended , and with hypoactive bowel sounds. Skin without jaundice or rash. 08/13/19 21:58 ED Treatment Course - LABORATORY CBC & Chemistry Diagram: 07/12/19 07:40 07/12/19 07:40 - ADDITIONAL ORDERS Additional order review: 07/04/19 22:30 RBC 3.88 L MCV 90.8 MCHC 35.8 RDW 15.5 MPV 8.6 Neutrophils % 91.8 H Lymphocytes % 4.3 L D Monocytes % 3.4 L Eosinophils % 0.0 D Basophils % 0.5 - Medications Given in the ED: ED Medications Discontinued Medications Generic Name Dose Route Start Last Admin Trade Name Freq PRN Reason Stop Dose Admin Aspirin 81 mg 07/05/19 10:00 07/07/19 15:45 Asa - PO Not Given DAILY TRACEY Aspirin 81 mg 07/08/19 10:00 07/12/19 10:01 Ecotrin - PO 81 mg DAILY TRACEY Administration Atorvastatin Calcium 80 mg 07/05/19 22:00 07/11/19 22:06 Lipitor - PO 80 mg HS TRACEY Administration Clopidogrel Bisulfate 75 mg 07/05/19 10:00 07/12/19 10:01 Plavix - PO 75 mg DAILY TRACEY Administration Dexamethasone 4 mg 07/05/19 10:00 07/12/19 10:01 Decadron - PO 4 mg DAILY TRACEY Administration Docusate Sodium 100 mg 07/05/19 04:55 07/05/19 06:45 Colace Liquid - PO 07/05/19 04:56 100 mg ONCE ONE Administration Enoxaparin Sodium 40 mg 07/05/19 10:00 07/12/19 10:01 Lovenox - SQ 40 mg DAILY TRACEY Administration Fluconazole 200 mg 07/09/19 16:00 07/11/19 17:20 Diflucan - PO 200 mg 1600 TRACEY Administration Famotidine/Sodium Chloride 20 mg in 50 mls @ 100 mls/hr 07/04/19 21:40 23:02 Pepcid 20 Mg Premixed Ivpb - IVPB 07/04/19 22:09 100 mls/hr ONCE ONE Administration Sodium Chloride 1,000 mls @ 150 mls/hr 07/04/19 23:45 07/07/19 15:45 Normal Saline - IV Not Given ASDIR TRACEY Fluconazole 100 mls @ 100 mls/hr 07/05/19 09:14 07/07/19 08:06 Diflucan 200 Mg/Ns Premixed Ivpb - IVPB 07/05/19 10:13 Not Given ONCE ONE Fluconazole 200 mls @ 200 mls/hr 07/05/19 09:45 07/05/19 10:37 Diflucan 400 Mg/Ns Premixed Ivpb - IVPB 07/05/19 10:44 200 mls/hr ONCE ONE Administration Fluconazole 100 mls @ 100 mls/hr 07/06/19 10:00 07/08/19 11:43 Diflucan 200 Mg/Ns Premixed Ivpb - IVPB Not Given DAILY TRACEY Amino Acids 1,000 mls @ 75 mls/hr 07/07/19 14:00 07/07/19 15:45 Clinimix - IV 07/08/19 13:59 Not Given Q12H TRACEY Amino Acids 1,000 mls @ 75 mls/hr 07/07/19 14:09 07/07/19 15:45 Clinimix - IV 07/08/19 14:08 Not Given Q12H TRACEY Amino Acids 1,000 mls @ 75 mls/hr 07/07/19 14:13 07/08/19 02:30 Clinimix - IV 07/08/19 14:08 Not Given Q12H TRACEY Lactobacillus Acidophilus 1 tab 07/10/19 22:00 07/12/19 10:01 Bacid - PO 1 tab BID TRACEY Administration Lidocaine/Aluminum/Magnesium/Simeth 5 ml 07/08/19 12:00 07/12/19 11:59 Magic Mouthwash *Sjr Formula* - MM 5 ml Q6HPO TRACEY Administration Nystatin 500,000 unit 07/04/19 23:00 07/05/19 06:45 Nystatin PO 500,000 unit TID TRACEY Administration Nystatin 500,000 units 07/11/19 18:00 07/12/19 11:59 Nystatin Oral Suspension - PO 500,000 units Q6HPO TRACEY Administration Pantoprazole Sodium 40 mg 07/05/19 10:00 07/07/19 13:45 Protonix - PO 40 mg DAILY TRACEY Administration Pantoprazole Sodium 40 mg 07/07/19 22:00 07/12/19 10:01 Protonix - PO 40 mg BID TRACEY Administration Senna 1 tab 07/12/19 10:00 07/12/19 10:01 Senna - PO 1 tab BID TRACEY Administration Sucralfate 1 gm 07/05/19 10:00 07/05/19 10:37 Carafate - PO 1 gm BID TRACEY Administration Sucralfate 1 gm 07/05/19 18:00 07/06/19 13:43 Carafate - PO Not Given QID TRACEY Sucralfate 1 gm 07/06/19 13:59 07/08/19 13:38 Carafate Oral Suspension - PO 1 gm QID TRACEY Administration Sucralfate 1 gm 07/08/19 13:42 07/12/19 14:41 Carafate Oral Suspension - PO 1 gm QID TRACEY Administration Tamsulosin HCl 0.4 mg 07/05/19 08:30 07/12/19 09:09 Flomax - PO 0.4 mg DAILY@0830 TRACEY Administration Umeclidinium/Vilanterol 1 puff 07/05/19 10:00 07/12/19 10:07 Anoro Ellipta 62.5-25 Mcg Inh IH 1 puff DAILY TRACEY Administration Medical Decision Making - Medical Decision Making Pt was seen at bedside, also will be seen by attending Dr. Marroquin. Pt presenting with difficulty tolerating PO intake, recent lung CA tx with mets, PE concerning for metastasis vs thrush (oral candidiasis vs CMV vs HIV) vs angina/ACS vs esophageal reflux/hiatal hernia, GI ulcers. Provided pepcid, nystatin, and IV NS for improvement of hydration and anti- candidal for thrush. Will continue to reassess pt and monitor for symptomatic improvement. Trop <.02 CBC and CMP WNL for pt. Hypoalbuminemia, likely 2/2 malnourishment Lipase 45, Alcohol level negative and pt denies alcohol use, less likely pancreatitis Coags WNL Chest x-ray shows RUL mass with tracheal deviation, no obvious new abnormalities Pt admitted to hospitalist team for further work-up, likely will require systemic treatment for esophageal candidiasis vs EGD to determine source/ ulceration. Pt with no active GIB at this time, and pt states symptoms improved after interventions given. 08/13/19 22:00 Discharge - Discharge Information Problems reviewed: Yes Clinical Impression/Diagnosis: Odynophagia, Weight loss Lung cancer Qualifiers: Laterality: unspecified laterality Lung location: unspecified part of lung Qualified Code(s): C34.90 - Malignant neoplasm of unspecified part of unspecified bronchus or lung Condition: Stable - Admission Yes - Follow up/Referral - Patient Discharge Instructions - Post Discharge Activity
[2019-07-04 22:52] LABS: BASO % 0.5 % (0-2.0); HEMATOCRIT 35.2 % (35.4-49); HEMOGLOBIN 12.6 GM/dL (11.7-16.9); LYMPH % 4.3 % (8-40); MCH 32.5 pg (25.7-33.7); MCHC 35.8 g/dl (32.0-35.9); MEAN CELL VOLUME 90.8 fl (80-96); MEAN PLT VOLUME 8.6 fl (7.5-11.1); MONO % 3.4 % (3.8-10.2); NEUT % 91.8 % (42.8-82.8); PLATELET COUNT 149 K/MM3 (134-434); RBC 3.88 M/mm3 (4.00-5.60); RDW 15.5 % (11.9-15.9); WHITE BLOOD COUNT 7.3 K/mm3 (4.0-10.0)
[2019-07-04 23:07] LABS: INR 1.17 (0.83-1.09); PROTHROMBIN TIME (PATIENT) 13.8 SEC (9.7-13.0)
[2019-07-04 23:10] LABS: ACTIVATED PTT 28.4 SECONDS (25.2-36.5)
[2019-07-04 23:23] LABS: ALBUMIN 2.3 g/dl (3.4-5.0); BILIRUBIN,TOTAL 1.1 mg/dL (0.2-1); BLOOD UREA NITROGEN 19.8 mg/dL (7-18); CALCIUM 8.3 mg/dL (8.5-10.1); POTASSIUM 3.8 mmol/L (3.5-5.1); TOT PROT 5.2 g/dl (6.4-8.2)
[2019-07-04 23:42] LABS: PLATELET ESTIMATE DECREASED
--- NOTE | 2019-07-04 23:45 | PDOC ---
Attending Attestation - Resident Resident Name: Kristy Torres - ED Attending Attestation I have performed the following: I have examined & evaluated the patient, The case was reviewed & discussed with the resident, I agree w/resident's findings & plan, Exceptions are as noted - HPI HPI: 07/04/19 23:41 64 yo male h/o metastatic lung CA with brain mets, here witih c/o fatigue, inability to eat. states he has been having chest and epigastric pain. was admitted recently to [facility] for same, had colonoscopy but no endoscopy. states hasn't been able to eat in one month, thinks he may need a feeding tube. no currrent sob. feels dizzy. no mod factors. described as lightheaded. has lost much weight in last month. has been on dexamethasone for brain mets with surrounding edema. stats he has had thrush in the past. - Physicial Exam PE: 07/04/19 23:43 awake alert tongue white plaques on tongue. dry mucous membranes. lungs clear bilat heart rrr no mrg. abd soft nt nd ext wwp. no edema. no calf tenderness. - Medical Decision Making 07/04/19 23:43 64 yo male metstatic aryan ca here with sore throat, chest abd pain. differential worsening thrush, cardiac causes. pain from cancer. angina , infection plan lab lipase cxr . pt will require nystatin as has persistant thrush. hydration.
[2019-07-05] MEDS: NYSTATIN 500,000 UNITS TABLET PO SCH ×2 (00:09→06:45)
[2019-07-05] MEDS: SODIUM CHLORIDE 1,000 ML IV SCH ×3 (00:09→20:45)
--- NOTE | 2019-07-05 00:17 | PN ---
Teaching Attending Note Name of Resident: Anthony Hartman ATTENDING PHYSICIAN STATEMENT I saw and evaluated the patient. I reviewed the resident's note and discussed the case with the resident. I agree with the resident's findings and plan as documented. SUBJECTIVE: 64 yo male h/o metastatic lung CA with brain mets, Status post chemo and radiation therapy presenting complaining of worsening fatigue, inability to eat Which has worsened for about the last month or so. Has been on dexamethasone for brain mets with surrounding edema. Patient was noted to have painful swallowing in 2018 and was evaluated by GI for this. At that time patient was complaining of burning in his chest with swallowing liquids and solids alike. 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 OBJECTIVE: Last Vital Signs Temp Pulse Resp BP Pulse Ox 98.1 F 96 H 18 152/88 97 07/04/19 21:37 07/04/19 21:37 07/04/19 21:37 07/04/19 21:37 07/04/19 21:37 GENERAL: Well developed, well nourished. Awake and alert. No acute distress. HEENT: Normocephalic, atraumatic. PERRLA, EOMI. No conjunctival pallor. Sclera are non- icteric. Moist mucous membranes. Oropharynx is clear. NECK: Supple. Full ROM. No JVD. Carotid pulses 2+ and symmetric, without bruits. No thyromegaly. No lymphadenopathy. CARDIOVASCULAR: Regular rate and rhythm. No murmurs, rubs, or gallops. Distal pulses are 2+ and symmetric. PULMONARY: No evidence of respiratory distress. Lungs clear to auscultation bilaterally. No wheezing, rales or rhonchi. ABDOMINAL: Soft. Non-tender. Non-distended. No rebound or guarding. No organomegaly. Normoactive bowel sounds. MUSCULOSKELETAL Normal range of motion at all joints. No bony deformities or tenderness. No CVA tenderness. EXTREMITIES: No cyanosis. No clubbing. No edema. No calf tenderness. SKIN: Warm and dry. Normal capillary refill. No rashes. No jaundice. PSYCHIATRIC: Cooperative. Good eye contact. Appropriate mood and affect. Abnormal Lab Results 07/04/19 07/04/19 07/04/19 22:30 22:30 22:30 RBC 3.88 L Hct 35.2 L Neutrophils % 91.8 H Neutrophils % (Manual) 89.0 H D Lymphocytes % 4.3 L D Lymphocytes % (Manual) 4.0 L D Monocytes % 3.4 L Monocytes % (Manual) 3 L PT with INR 13.80 H INR 1.17 H BUN 19.8 H Random Glucose 136 H Calcium 8.3 L Total Bilirubin 1.1 H Total Protein 5.2 L Albumin 2.3 L Lipase 45 L Imaging studies reviewed ASSESSMENT AND PLAN: 64-year-old man with reported failure to thrive and inability to take p.o. Prior history of esophagitis, possibly related to radiation therapy. Noted to have hypoalbuminemia. Admit to [facility] N.p.o. Barium swallow study GI evaluation for possible EGD Calorie count Speech and swallow evaluation DVT prophylaxis with Lovenox prophylactic dose
--- NOTE | 2019-07-05 01:01 | HP ---
CHIEF COMPLAINT: Difficulty swallowing PCP: HISTORY OF PRESENT ILLNESS: This is a 64 y/o M with a PMHx of metastatic lung CA with brain mets, who presents here c/o fatigue, cp, and inability to eat. Pt states he has been having chest/epigastric pain associated with dysphagia, nonradiating achy in quality for several weeks. Patient was noted to have painful swallowing in 2018 and was evaluated by GI for this. At that time patient was complaining of burning in his chest with swallowing of liquids and solids. He states he was admitted recently to [facility] for same complaint. He did not have an EGD since having this pain/dysphagia but did have an esophagram back in 02/[address] [facility] showing narrowing of his esophagus. He states he had a CT at [facility] significant for renal and bone cancer, and notified his oncologist who has not recommended anything as of yet. He states he hasn't been able to eat for over one month, and thinks he may need a feeding tube. Denies any currrent sob, but feels dizzy, described as lightheadedness. He has lost a good amt of weight in the last month. Pt has been on dexamethasone 4mg with pepcid for management of cerebral edema associated with his brain mets. States he has had thrush in the past which he thinks is due the dexamethasone. He has been trying to wean off of it and was okay with his oncologist per patient. Pt has outbursts of anger during encounter that result in him apoligizing shortly after. ER course was notable for: (1) nystatin provided for oral thrush (2)A/G ratio 0.79 (3)T bili- 1.1 Social History: Smokin yr smoking hx Alcohol: Drugs: cocaine, marijuana hx, denies IVDA Allergies No Known Allergies Allergy (Verified 02/26/18 13:13) HOME MEDICATIONS: Home Medications Medication Instructions Recorded Atorvastatin Ca [Lipitor] 80 mg PO HS 02/02/18 Cetirizine HCl 10 mg PO DAILY 02/02/18 Fluticasone Furoate [Arnuity 50 mcg IH DAILY 02/02/18 Ellipta] Multivitamin [Daily Multiple 1 each PO DAILY 02/02/18 Vitamin] [place]-3 Fatty Acids/Fish Oil [Fish 1 each PO DAILY 02/02/18 Oil 1,000 mg Capsule] Acetaminophen [Tylenol .Regular 650 mg PO Q4H PRN tablet 03/02/18 Strength -] Lidocaine 2% Viscous Oral 20 ml MM TIDCM #10 ud 03/02/18 [Xylocaine 2% Viscous Oral -] Nystatin Oral Suspension - 500,000 units PO Q6HPO #40 cup 03/02/18 [Nystatin Oral Susp 659965 Units/5 ML -] Polyethylene Glycol 3350 [Miralax 17 gm PO DAILY bottle 03/02/18 119 gm Btl -] Sucralfate Oral Suspension 1 gm PO QID 14 Days ml 03/02/18 [Carafate Oral Suspension -] REVIEW OF SYSTEMS negative except in HPI. PHYSICAL EXAMINATION Vital Signs - 24 hr 07/04/19 21:37 Temperature 98.1 F Pulse Rate 96 H Respiratory 18 Rate Blood Pressure 152/88 O2 Sat by Pulse 97 Oximetry (%) GENERAL: Awake, alert, and fully oriented, in no acute distress. Mouth0 tongue with white plaques prior to nystatin swish and swallow LUNGS: Breath sounds equal, Crackles present b/l diffusely. No accessory muscle use. HEART: Regular rate and rhythm, normal S1 and S2 without murmur, rub or gallop. ABDOMEN: Soft, minimally ttp, not distended, normoactive bowel sounds, no guarding, no rebound, no masses. LOWER EXTREMITIES: 2+ pulses, warm, well-perfused. No calf tenderness. No peripheral edema. PSYCHIATRIC: pt has outbursts of anger during encounter, that lead to him apoligizing shortly after, seems uninhibited. SKIN: Warm, dry, normal turgor, no rashes or lesions noted. Laboratory Results - last 24 hr 07/04/19 07/04/19 07/04/19 22:30 22:30 22:30 WBC 7.3 RBC 3.88 L Hgb 12.6 Hct 35.2 L MCV 90.8 MCH 32.5 MCHC 35.8 RDW 15.5 Plt Count 149 D MPV 8.6 Absolute Neuts (auto) 6.7 Total Counted 100 Neutrophils % 91.8 H Neutrophils % (Manual) 89.0 H D Band Neutrophils % 4.0 Lymphocytes % 4.3 L D Lymphocytes % (Manual) 4.0 L D Monocytes % 3.4 L Monocytes % (Manual) 3 L Eosinophils % 0.0 D Basophils % 0.5 Nucleated RBC % 0 Platelet Estimate Decreased Platelet Comment No clumping noted PT with INR INR PTT (Actin FS) Sodium 137 Potassium 3.8 Chloride 102 Carbon Dioxide 25 Anion Gap 10 BUN 19.8 H Creatinine 1.0 Est GFR (CKD-EPI)AfAm 91.13 Est GFR (CKD-EPI)NonAf 78.63 Random Glucose 136 H Calcium 8.3 L Total Bilirubin 1.1 H AST 23 ALT 30 Alkaline Phosphatase 78 Creatine Kinase 54 Troponin I 0.02 Total Protein 5.2 L Albumin 2.3 L Lipase 45 L Alcohol, Quantitative 07/04/19 07/04/19 22:30 22:30 WBC RBC Hgb Hct MCV MCH MCHC RDW Plt Count MPV Absolute Neuts (auto) Total Counted Neutrophils % Neutrophils % (Manual) Band Neutrophils % Lymphocytes % Lymphocytes % (Manual) Monocytes % Monocytes % (Manual) Eosinophils % Basophils % Nucleated RBC % Platelet Estimate Platelet Comment PT with INR 13.80 H INR 1.17 H PTT (Actin FS) 28.4 Sodium Potassium Chloride Carbon Dioxide Anion Gap BUN Creatinine Est GFR (CKD-EPI)AfAm Est GFR (CKD-EPI)NonAf Random Glucose Calcium Total Bilirubin AST ALT Alkaline Phosphatase Creatine Kinase Troponin I Total Protein Albumin Lipase Alcohol, Quantitative < 3 ASSESSMENT/PLAN: This is a 64 y/o M with a PMHx of metastatic lung CA with brain mets, who presents here c/o fatigue, cp, and inability to eat. Pt states he has been having chest/epigastric pain associated with dysphagia, nonradiating achy in quality for several weeks. Patient was noted to have painful swallowing in 2018 and was evaluated by GI for this. 1.)Atypical angina/epigastric pain - first trop negative, rpt trop in AM - nsr no acute st changes on ekg - doubt cardiac likely related to CA/dysphagia - negative lipase 2. )Dysphagia/failure to thrive with longstanding metastatic lung CA - 02/17 Esophagram showing narrow cervical esophagus at level of C5-C6 without stricture. - check with oncologist to assess if he has had radiation therapy since 2018 and worsening of stricture could have occurred. - EGD will determine if pt has esophageal candidiasis as well will not Rx for it empirically at this time, will await EGD results. - oral thrush Rx with nystatin swish and swallow prn - pt has dysgeusia likely due to the radiation exposure. - also in last admission GI noted possible mucositis due to hx of radiation therapy. - pt told to follow up with GI for EGD but did not. - will need EGD and possible colonoscopy for the ? colon CA on CT imaging at [facility]. - speech and swallow eval for barium swallow study - NPO until speech and swallow eval - Calorie count/public relations writer consult - hypoalbuminemia and hypoproteinemia resulting in an A/G ratio 0.79 could be related to liver dx or paraproteinemia - may warrant o/p heme onc eval for spep/upep. 3.)Hyperbilirubinemia - T bili slightly elevated at 1.1 - will rpt - would order direct bili, GGT, abdominal sono to assess further if continues to be elevated - INR slightly prolonged could be due to liver dx - Hypoalbuminemia could be partly due to liver dx or poor po intake. DVT prophylaxis with Lovenox 40mg daily dose Visit type - Emergency Visit Emergency Visit: Yes ED Registration Date: 07/05/19 Care time: The patient presented to the Emergency Department on the above date and was hospitalized for further evaluation of their emergent condition. - New Patient This patient is new to me today: Yes Date on this admission: 07/05/19 - Critical Care Critical Care patient: No ATTENDING PHYSICIAN STATEMENT I saw and evaluated the patient. I reviewed the resident's note and discussed the case with the resident. I agree with the resident's findings and plan as documented. SUBJECTIVE: OBJECTIVE: ASSESSMENT AND PLAN:
[2019-07-05] MEDS ORDERED: DOCUSATE NA 100 MG/10 ML UNIT-DOSE CUPS PO ONE (04:55)
[2019-07-05] MEDS ORDERED: DOCUSATE SODIUM 100 MG CAPSULE (FP) PO ONE (06:40)
[2019-07-05] MEDS ORDERED: FLUCONAZOLE 200 MG/NS 100 ML IVPB ONE (09:14)
[2019-07-05] MEDS: UMECLIDINIUM/VILANTEROL (ANORO) 62.5/25 MCG INHALER IH SCH (09:21)
[2019-07-05] MEDS: ASPIRIN 81 MG CHEWABLE TABLETS PO SCH (09:24)
[2019-07-05] MEDS: CLOPIDOGREL BISULFATE 75 MG TABLET (FP) PO SCH (09:24)
[2019-07-05] MEDS: PANTOPRAZOLE 40 MG TABLET (FP) PO SCH (09:24)
[2019-07-05] MEDS: TAMSULOSIN HCL 0.4 MG CAP PO SCH (09:24)
[2019-07-05] MEDS: ENOXAPARIN NA (PORCINE) 40 MG/0.4 ML DISP.SYRIN SQ SCH (09:24)
[2019-07-05] MEDS: DEXAMETHASONE 4 MG TABLET (FP) PO SCH (09:24)
--- NOTE | 2019-07-05 09:29 | EKG ---
Test Reason : Blood Pressure : / mmHG Vent. Rate : 084 BPM Atrial Rate : 084 BPM P-R Int : 124 ms QRS Dur : 092 ms QT Int : 382 ms P-R-T Axes : 050 058 054 degrees QTc Int : 451 ms NORMAL SINUS RHYTHM POSSIBLE LEFT ATRIAL ENLARGEMENT BORDERLINE ECG Confirmed by MD Valeria, Edgard ([id number]) on 07/05/2019 9:28:48 AM Referred By: Confirmed By:Edgard Shaw MD
[2019-07-05] MEDS ORDERED: FLUCONAZOLE 400 MG/NS 200 ML IVPB ONE (09:45)
[2019-07-05] MEDS ORDERED: SUCRALFATE 1 GM TABLET (FP) PO SCH (10:00)
[2019-07-05 10:41] LABS: HEMATOCRIT 30.8 % (35.4-49); HEMOGLOBIN 11.2 GM/dL (11.7-16.9); MCH 32.5 pg (25.7-33.7); MCHC 36.4 g/dl (32.0-35.9); MEAN CELL VOLUME 89.4 fl (80-96); MEAN PLT VOLUME 8.4 fl (7.5-11.1); PLATELET COUNT 123 K/MM3 (134-434); RBC 3.45 M/mm3 (4.00-5.60); RDW 15.4 % (11.9-15.9); WHITE BLOOD COUNT 6.8 K/mm3 (4.0-10.0)
[2019-07-05 11:16] LABS: ANION GAP 10 MMOL/L (8-16); BLOOD UREA NITROGEN 22.1 mg/dL (7-18); CALCIUM 7.8 mg/dL (8.5-10.1); CHLORIDE 109 mmol/L (98-107); CO2 23 mmol/L (21-32); CREATININE 0.8 mg/dL (0.55-1.3); GLUCOSE,RANDOM 101 mg/dL (74-106); MAGNESIUM 1.8 mg/dL (1.8-2.4); POTASSIUM 3.5 mmol/L (3.5-5.1); SODIUM 141 mmol/L (136-145)
--- NOTE | 2019-07-05 11:32 | CON.GI ---
Consult - History of Present Illness History of Present Illness: GI CONSULT DICTATED - Past Medical History Cardio/Vascular: Yes: HTN, Hyperlipdemia, Other (PVD) - Past Surgical History Past Surgical History: Yes: Cholecystectomy, Joint Replacement (right knee) - Alcohol/Substance Use Hx Alcohol Use: Yes (occasional) History of Substance Use: reports: Cocaine, Marijuana - Smoking History Smoking history: Former smoker Have you smoked in the past 12 months: Yes Aproximately how many cigarettes per day: 1 If you are a former smoker, when did you quit?: 2-3 months ago - Social History Usual Living Arrangement: With Parent ADL: Independent 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 [employer] History of Recent Travel: No Home Medications - Allergies Allergies/Adverse Reactions: Allergies Allergy/AdvReac Type Severity Reaction Status Date / Time No Known Allergies Allergy Verified 02/26/18 13:13 - Home Medications Home Medications: Ambulatory Orders Multivitamin [Daily Multiple Vitamin] 1 each PO DAILY 02/02/18 Aspirin [ASA -] 81 mg PO DAILY 07/05/19 Atorvastatin Ca [Lipitor] 80 mg PO DAILY 07/05/19 Clopidogrel Bisulfate [Clopidogrel] 75 mg PO DAILY 07/05/19 Dexamethasone 4 mg PO DAILY 07/05/19 Sucralfate Oral Suspension [Carafate Oral Suspension -] 10 ml PO TID 07/05/19 Tamsulosin HCl [Flomax] 0.4 mg PO DAILY 07/05/19 Umeclidinium Brm/Vilanterol Tr [Anoro Ellipta 62.5-25 Mcg INH] 1 each IH DAILY 07/05/19 Varenicline Tartrate [Chantix] 1 mg PO BID 07/05/19 Physical Exam-GI Vital Signs: Vital Signs Temperature 98.1 F 07/04/19 21:37 Pulse Rate 87 07/05/19 06:45 Respiratory Rate 16 07/05/19 06:45 Blood Pressure 98/63 07/05/19 06:45 O2 Sat by Pulse Oximetry (%) 98 07/05/19 06:45 Labs: CBC, BMP 07/05/19 10:25 07/05/19 10:25 INR, PTT INR 1.17 (0.83-1.09) H 07/04/19 22:30
--- NOTE | 2019-07-05 13:29 | CONSULT ---
Admitting History and Physical - Primary Care Physician PCP: Heike Azevedo - Admission History of Present Illness: pER emr- 64 y/o M with a PMHx of metastatic lung CA with brain mets, who presents here c/ o fatigue, cp, and inability to eat. Pt states he has been having chest/ epigastric pain associated with dysphagia, nonradiating achy in quality for several weeks. Patient was noted to have painful swallowing in 2018 and was evaluated by GI for this. At that time patient was complaining of burning in his chest with swallowing of liquids and solids. He states he was admitted recently to [facility] for same complaint. He did not have an EGD since having this pain/dysphagia but did have an esophagram back in 02/17 at [facility] showing narrowing of his esophagus. He states he had a CT at [facility] significant for renal and bone cancer, and notified his oncologist who has not recommended anything as of yet. He states he hasn't been able to eat for over one month, and thinks he may need a feeding tube. Denies any currrent sob, but feels dizzy , described as lightheadedness. He has lost a good amt of weight in the last month. Pt has been on dexamethasone 4mg with pepcid for management of cerebral edema associated with his brain mets. States he has had thrush in the past which he thinks is due the dexamethasone. He has been trying to wean off of it and was okay with his oncologist per patient. Pt c/o esophageal odynophagia all day except when sleeping, worsened when eating and drinking. Thrush noted on tongue. Diflucan ordered. Pt did not have pain drinking water with me in ED, which he feels may be from benefit of Fluconazole. CT chest -diffuse thickening of esophagus. Ba swallow reading pending. History Source: Patient, Family Member Limitations to Obtaining History: No Limitations - Past Medical History Cardiovascular: Yes: HTN, Hyperlipdemia, Other (PVD) Heme/Onc: Yes: Cancer (Lung cancer S IIIB) - Past Surgical History Past Surgical History: Yes: Cholecystectomy, Joint Replacement (right knee) - Smoking History Smoking history: Former smoker Have you smoked in the past 12 months: Yes Aproximately how many cigarettes per day: 1 If you are a former smoker, when did you quit?: 2-3 months ago - Alcohol/Substance Use Hx Alcohol Use: Yes (occasional) History of Substance Use: reports: Cocaine, Marijuana - Social History ADL: Independent 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 History of Recent Travel: No History - Admission Reason For Visit: MALIGNANT NEOPLASM OF LUNG, UNABLE TO EAT, - Diagnostics CT Scan: Report Reviewed (Diffuse thickening of esophagus, changed since 2017.) Other: Report Reviewed (Esophagram- radiologist report pending.) - General Mental Status: Alert and Oriented, Awake and Alert, Able to Follow Commands Attention: Intact Ability to Follow Directions: Excellent Head/Neck Control: WFL - Hearing Hearing: Normal Speech Evaluation - Communication Primary Language: TURKISH Communication: Yes: Within Normal Limits Oral Expression Ability: Yes: No Impairment - Speech Production Able to Make Needs Known: Yes: WNL Intelligibility: Yes: WNL - Speech Characteristics Voice Loudness: Normal Voice Pitch: Yes: Normal Voice Phonatory-based Quality: Yes: Normal Speech Pattern: Normal Speech Clarity: < 100% Nasal Resonance: Normal Articulation: Yes: Precise Rate of Speech: Intact - Language/Auditory Comprehension Follows: Yes: 2 Stage Simple Commands Observation: Able to respond to yes/no queries: Yes, Comprehends Conversational Speech: Yes - Language/Verbal Expression Able to Respond to Simple Queries: Yes: WNL Able to Communicate Wants and Needs: Yes: WNL Functional Communication Status: Yes: WNL - 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 Memory: Yes: WNL Short Term Memory: Yes: WNL - Swallow Evaluation/Bedside Assessment Current Nutritional Intake: Full Liquids Oral Secretions: Yes: WFL, R/O Candidiasis, Tongue Coated Dentition: Yes: Adequate Facial Symmetry at Rest: Symmetrical Facial Symmetry on Retraction: Symmetrical Facial Movement: Controlled Sensation: Normal Against Resistance Opening: Normal Against Resistance Closing: Normal Pucker Lips: Normal Smile: Normal Lingual Movement: Normal, Symmetric Lingual Speed of Movement: Normal Lingual Movement Strgth Against Opposition: Normal Lingual Movement Characteristics: Normal Velopharyngeal Movement: Normal Laryngeal Elevation: WFL Laryngeal Movement: Able to Palpate Rate of Intake: WFL Bolus Size: WFL Labial Seal: WFL Chewing: WFL Oral Prep Time: WFL A-P Transit: WFL Pocketing: None Timing of Swallow: WFL Odynophagia: Esophageal Coughing/Throat Clear: No Change in Voice: No Recommendations - Speech Evaluation, Impression/Plan Impression: Pt c/o esophageal odynophagia all day except when sleeping, worsened when eating and drinking. Thrush noted on tongue. Diflucan ordered. Pt did not have pain drinking water with me in ED, which he feels may be from benefit of Fluconazole. Seen by GI. CT chest -diffuse thickening of esophagus. Ba swallow reading pending. - Dysphagia Impressions/Plan Dysphagia Impressions: Ongoing Evaluation *Silent aspiration: cannot be R/O at bedside Dysphagia Treatment Plan: OOB for meals, OOB for 1 h. after meals Recommendations: GI Consult (pending w/u. Magic mouthwash for increase esophageal comfort/nutritional intake) - Recommendations Diet Consistency: Other (full fluids, per MD order) Liquids: Thin Liquids Supplement: Ensure, Ensure Pudding
--- NOTE | 2019-07-05 13:52 | PN ---
Teaching Attending Note Name of Resident: Joleen Noriega ATTENDING PHYSICIAN STATEMENT I saw and evaluated the patient. I reviewed the resident's note and discussed the case with the resident. I agree with the resident's findings and plan as documented. SUBJECTIVE: no fever or chills. No HALE. he states he has pain in his throat, and esophagus when he eats or drinks. he denies dysphagia but had vomited. he thinks his problem started when he was placed on steroids about 6 weeks ago. of note, he was here in January, due to odynophagia and was diagnoesd with radiation induced esophagitis. he reprots weight loss. he vomited yesterday. odynophagia is noted with liquids and solids No adb apin, SOB or weakness/numbness/tingling. He says his brain mets are in remission . he said his last radiation was few weeks ago. OBJECTIVE: NAD ,. awake, alert, cooperative ,cachectic HEENT: thrush on tongue and buccal mucosa, and soft palate/uvula. none on back or oropharynx. nO lymphadenopathy in neck LUngs: CATB Ext : No edema Abd: soft, NT, ND , NL BS . No hepatomegaly Neuro: EOMI, no facial droop, round equal pupils, reactive to light. nl facial sensation . strength 5/5 in upper and lower extremities proximally and distally. sensation to light touch nL. 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 He presented with odynophagia and vomiting 1- Odynophagia: could be due to esophageal candiditis given the thrush in mouth withhis immunocompromised status. Also, can't r/o other infections like CMV. radiation induced esophagitis in DDX. He has no dysphagia, doubt that lymphadenopathy or lung mass are compressing on esophagus. severe GERD can be in DDx - esophageogram ordered. - will order CT of chest to evaluate mediasinuma nd esophagus - GI cosult pending : ? EGD ( did not have EGD when he was here in January) - start diflucan for presumptive zoraida esophagitis . load with 400 mg and start 200 mg daily. - will change diflucan if needed after EGD abd Bx - place on full liquid diet for now - start PPI - start CArafate - IVF - start ensure 2- H/o Metastatic Large cell lung cancer: wassupposed to see his ONC but missed apt due to his sx. last brain radiation was few weeks ago. currently on decadron 4 mg daily, decreased from 4 BID 2 weeks ago - cont decadron 4 mg daily for now - will contact his oncologist, regarding steroids taper planand more info about his cancer 3- H/o PVD: cont asa and plavix 4- DVT PX: lovenox
--- NOTE | 2019-07-05 14:51 | CONS ---
GASTROINTESTINAL CONSULTATION DATE OF CONSULTATION: DATE OF DICTATION: 07/05/2019 HISTORY: Patient is a 64-year-old man with a past medical history of metastatic lung cancer with brain metastasis, hypertension, ex-smoker, hyperlipidemia who presents to the hospital with complaints of a 40-pound weight loss over the past month, fatigue, decreased p.o. intake, dysphagia / odynophagia . Apparently, he had an upper endoscopy and colonoscopy done a couple of years ago, which he reports to be within normal limits by an outside track inspecting supervisor that does not come to this facility. In 2018, he was evaluated at this institution for painful swallowing. Esophagram at the time revealed a narrowed esophagus. He also admits to epigastric abdominal pain and reflux symptoms. He denies melena/ hematochezia/ sensation of food sticking to his esophagus/ hemetemesis. He has been treated for ca - chemo XRT. PAST MEDICAL HISTORY: As listed in the HPI. PAST SURGICAL HISTORY: As listed in the HPI. ALLERGIES: No known drug allergies. SOCIAL HISTORY: Ex-smoker. Does not drink. Used marijuana in the past. Denies IV drug abuse. HOME MEDICATION: Lipitor, fluticasone, multivitamin, omega-3, acetaminophen, lidocaine, nystatin, MiraLAX, and Carafate. REVIEW OF SYSTEMS: As per the HPI. PHYSICAL EXAMINATION: Vital Signs: Temperature 97, pulse 72, respiratory rate 12, blood pressure 115/ 75, oxygen saturation 99% on room air. General: In no acute distress. HEENT: Anicteric sclerae. Cardiovascular: S1, S2. Regular rate and rhythm. Lungs: Bilaterally clear to auscultation. Abdomen: Soft and tender in the epigastrium without rebound or guarding. Extremities: No edema. LABORATORIES: White blood cell count 6.8, hemoglobin 11, hematocrit 30, MCV 89, platelet count 123. INR 1.17. Sodium 141, potassium 3.5, BUN 22, creatinine 0.8, calcium 7.8, total bilirubin 1.1, AST 23, ALT 30, alkaline phosphatase 78. Troponins are negative x2. Lipase 45. Toxicology screen is negative for alcohol. He had a chest CT scan without contrast, which reveals thickening of the esophagus with a small hiatal hernia. This finding has largely developed since August 2018. Additional studies are recommended. Decreasing bilateral pleural effusions, patchy central consolidation, which is increased in the lungs from previous exam. He also had a barium swallow, which is pending results. IMPRESSION: Weight loss secondary to advanced malignancy. Dysphagia DDX structural abnormality / infectious / motility disorder. PLAN: - f/u barium swallow - continue antifungal treatment for presumed zoraida esophagitis as a contributing factor to his dysphagia - c/w PPI - encourage po intake - speech and swallow evaluation - nutrition evaluation - oncology follow - up - will decide if egd is needed pending barium swallow results and oncology plan - for now conservative management with medical therapy. DO THOMAS DONNELLY/[id number] MTDD
--- NOTE | 2019-07-05 15:36 | PN ---
Physical Exam: SUBJECTIVE: Patient seen and examined 64 y/o M, pmh of metastatic lung cancer w/ brain mets, HTN, HLD, presents with difficulty swallowing of one month duration associated fatigue, decreased food intake, and chest pain, is admitted for odynophagia. Currently, pt is not in any distress, has no c/o or issues except for difficulty swallowing. No overnight events. Pt appeared emotional due to family problems, but aside from that has no other issues. Admits to abdominal pain and chest pain. Denies f/c/n/ v/d/sob. OBJECTIVE: Vital Signs Period Temp Pulse Resp BP Sys/Davis Pulse Ox Last 24 Hr 97.8 F-98.1 F 72-96 16-18 98-152/63-88 97-99 GENERAL: The patient is awake, alert, and fully oriented, in no acute distress. EYES: PERRL, extraocular movements intact, ENT: oropharynx clear without exudates, moist mucous membranes. NECK: full range of motion, supple. LUNGS: Breath sounds equal, clear to auscultation bilaterally, mild wheezes, no crackles HEART: Regular rate and rhythm, S1, S2 without murmur, rub or gallop. ABDOMEN: Soft, mild tenderness to palpation, nondistended, normoactive bowel sounds, no guarding, EXTREMITIES: 2+ pulses, warm, well-perfused, no edema. NEUROLOGICAL: Cranial nerves II through XII grossly intact. PSYCH: emotionally stressed and anxious due to family problems SKIN: Warm, dry, normal turgor, no rashes or lesions noted Laboratory Results - last 24 hr CBC,CMP WBC 6.8 K/mm3 (4.0-10.0) 07/05/19 10:25 RBC 3.45 M/mm3 (4.00-5.60) L 07/05/19 10:25 Hgb 11.2 GM/dL (11.7-16.9) L 07/05/19 10:25 Hct 30.8 % (35.4-49) L 07/05/19 10:25 MCV 89.4 fl (80-96) 07/05/19 10:25 MCH 32.5 pg (25.7-33.7) 07/05/19 10:25 MCHC 36.4 g/dl (32.0-35.9) H 07/05/19 10:25 RDW 15.4 % (11.9-15.9) 07/05/19 10:25 Plt Count 123 K/MM3 (134-434) L 07/05/19 10:25 MPV 8.4 fl (7.5-11.1) 07/05/19 10:25 Absolute Neuts (auto) 6.7 K/mm3 (1.5-8.0) 07/04/19 22:30 Total Counted 100 07/04/19 22:30 Neutrophils % 91.8 % (42.8-82.8) H 07/04/19 22:30 Neutrophils % (Manual) 89.0 % (42.8-82.8) H D 07/04/19 22:30 Band Neutrophils % 4.0 % 07/04/19 22:30 Lymphocytes % 4.3 % (8-40) L D 07/04/19 22:30 Lymphocytes % (Manual) 4.0 % (8-40) L D 07/04/19 22:30 Monocytes % 3.4 % (3.8-10.2) L 07/04/19 22:30 Monocytes % (Manual) 3 % (3.8-10.2) L 07/04/19 22:30 Eosinophils % 0.0 % (0-4.5) D 07/04/19 22:30 Basophils % 0.5 % (0-2.0) 07/04/19 22:30 Nucleated RBC % 0 % (0-0) 07/04/19 22:30 Platelet Estimate Decreased 07/04/19 22:30 Platelet Comment No clumping noted 07/04/19 22:30 Sodium 141 mmol/L (136-145) 07/05/19 10:25 Potassium 3.5 mmol/L (3.5-5.1) 07/05/19 10:25 Chloride 109 mmol/L (98-107) H 07/05/19 10:25 Carbon Dioxide 23 mmol/L (21-32) 07/05/19 10:25 Anion Gap 10 MMOL/L (8-16) 07/05/19 10:25 BUN 22.1 mg/dL (7-18) H 07/05/19 10:25 Creatinine 0.8 mg/dL (0.55-1.3) 07/05/19 10:25 Est GFR (CKD-EPI)AfAm 108.65 07/05/19 10:25 Est GFR (CKD-EPI)NonAf 93.74 07/05/19 10:25 Random Glucose 101 mg/dL (74-106) 07/05/19 10:25 Calcium 7.8 mg/dL (8.5-10.1) L 07/05/19 10:25 Phosphorus 2.0 mg/dL (2.5-4.9) L 07/05/19 10:25 Magnesium 1.8 mg/dL (1.8-2.4) 07/05/19 10:25 Total Bilirubin 1.1 mg/dL (0.2-1) H 07/04/19 22:30 AST 23 U/L (15-37) 07/04/19 22:30 ALT 30 U/L (13-61) 07/04/19 22:30 Alkaline Phosphatase 78 U/L (45-117) 07/04/19 22:30 Creatine Kinase 54 U/L (26-308) 07/04/19 22:30 Troponin I < 0.02 ng/ml (0.00-0.05) 07/05/19 10:25 Total Protein 5.2 g/dl (6.4-8.2) L 07/04/19 22:30 Albumin 2.3 g/dl (3.4-5.0) L 07/04/19 22:30 Lipase 45 U/L (73-393) L 07/04/19 22:30 Active Medications Current Medications Aspirin (Asa -) 81 mg PO DAILY [facility] Last Admin: 07/05/19 09:24 Dose: 81 mg Atorvastatin Calcium (Lipitor -) 80 mg PO [facility] Clopidogrel Bisulfate (Plavix -) 75 mg PO DAILY [facility] Last Admin: 07/05/19 09:24 Dose: 75 mg Dexamethasone (Decadron -) 4 mg PO DAILY [facility] Last Admin: 07/05/19 09:24 Dose: 4 mg Enoxaparin Sodium (Lovenox -) 40 mg SQ DAILY [facility] Last Admin: 07/05/19 09:24 Dose: 40 mg Sodium Chloride (Normal Saline -) 1,000 mls @ 150 mls/hr IV ASDIR [facility] Last Admin: 07/05/19 00:09 Dose: 150 mls/hr Fluconazole (Diflucan 200 Mg/Ns Premixed Ivpb -) 100 mls @ 100 mls/hr IVPB DAILY [facility] Pantoprazole Sodium (Protonix -) 40 mg PO DAILY [facility] Last Admin: 07/05/19 09:24 Dose: 40 mg Sucralfate (Carafate -) 1 gm PO QID [facility] Tamsulosin HCl (Flomax -) 0.4 mg PO DAILY@0830 [facility] Last Admin: 07/05/19 09:24 Dose: 0.4 mg Umeclidinium/Vilanterol (Anoro Ellipta 62.5-25 Mcg Inh) 1 puff IH DAILY [facility] Last Admin: 07/05/19 09:21 Dose: Not Given Home Medications Medication Instructions Recorded Multivitamin [Daily Multiple 1 each PO DAILY 02/02/18 Vitamin] Aspirin [ASA -] 81 mg PO DAILY 07/05/19 Atorvastatin Ca [Lipitor] 80 mg PO DAILY 07/05/19 Clopidogrel Bisulfate [Clopidogrel] 75 mg PO DAILY 07/05/19 Dexamethasone 4 mg PO BID 07/05/19 Sucralfate Oral Suspension 10 ml PO TID 07/05/19 [Carafate Oral Suspension -] Tamsulosin HCl [Flomax] 0.4 mg PO BID 07/05/19 Umeclidinium Brm/Vilanterol Tr 1 each IH DAILY 07/05/19 [Anoro Ellipta 62.5-25 Mcg INH] Varenicline Tartrate [Chantix] 1 mg PO BID 07/05/19 ASSESSMENT/PLAN: 64 y/o M, pmh of metastatic lung cancer w/ brain mets, HTN, HLD, presents with difficulty swallowing of one month duration associated fatigue, decreased food intake, and chest pain, is admitted for odynophagia #Odynophagia likely 2/2 to esophagial candidiasis in the setting of oral thrush and neutropenic status s/p chemo and cancer cannot r/o infectious causes of esophagitis such as CMV/HSV vs Radiation induced mucositis/esophagitis vs mass effect from malignancy on the esophagus CT chest- diffuse thickening of the esophagus w/ small haital hernia, largely developed from previous studies. Patch central consolidation within both lung that is somewhat decreased from previous exam. 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 Dexamethasone 4mg daily Attempting to contact his Oncologist for more info regarding pts cancer and steroid taper #Hypoalbuminemia likely 2/2 to inadequate diet vs cachexia After EGD start Ensure supplementation #Hyperbili Order Direct bili levels in am #PVD cont asa cont clopidogrel #DVT ppx Lovenox FEN: IVF NS at 150 Full liquid diet monitor lytes Dispo: f/u CT chest, f/u barium swallow Visit type - Emergency Visit Emergency Visit: Yes ED Registration Date: 07/05/19 Care time: The patient presented to the Emergency Department on the above date and was hospitalized for further evaluation of their emergent condition. - New Patient This patient is new to me today: Yes Date on this admission: 07/05/19 - Critical Care Critical Care patient: No - Discharge Referral Referred to [facility] Med [facility].C[facility] No ATTENDING PHYSICIAN STATEMENT I saw and evaluated the patient. I reviewed the resident's note and discussed the case with the resident. I agree with the resident's findings and plan as documented. SUBJECTIVE: OBJECTIVE: ASSESSMENT AND PLAN:
[2019-07-05] MEDS: SUCRALFATE 1 GM TABLET (FP) PO SCH ×2 (17:55→22:55)
[2019-07-05] MEDS ORDERED: PT OWN MED DRAWER 7, Y5N ONE (17:56)
[2019-07-05] MEDS: ATORVASTATIN CA 80 MG TABLET (FP) PO SCH (22:55)
[2019-07-06 08:16] LABS: HEMOGLOBIN 9.8 GM/dL (11.7-16.9); MCH 32.7 pg (25.7-33.7); MCHC 36.2 g/dl (32.0-35.9); MEAN CELL VOLUME 90.3 fl (80-96); MEAN PLT VOLUME 8.6 fl (7.5-11.1); PLATELET COUNT 104 K/MM3 (134-434); RBC 2.99 M/mm3 (4.00-5.60); RDW 15.6 % (11.9-15.9); WHITE BLOOD COUNT 5.3 K/mm3 (4.0-10.0)
[2019-07-06 08:29] LABS: BILIRUBIN,DIRECT 0.3 mg/dL (0.0-0.2); BLOOD UREA NITROGEN 18.6 mg/dL (7-18); CALCIUM 7.5 mg/dL (8.5-10.1); CREATININE 0.6 mg/dL (0.55-1.3); POTASSIUM 3.7 mmol/L (3.5-5.1)
[2019-07-06] MEDS ORDERED: PT OWN MED DRAWER 7, Y5N ONE ×2 (09:22→13:38)
[2019-07-06] MEDS: TAMSULOSIN HCL 0.4 MG CAP PO SCH (09:26)
--- NOTE | 2019-07-06 09:29 | PN ---
Teaching Attending Note Name of Resident: Richmond Mcbride ATTENDING PHYSICIAN STATEMENT I saw and evaluated the patient. I reviewed the resident's note and discussed the case with the resident. I agree with the resident's findings and plan as documented. SUBJECTIVE: Patient is c/o unable to eat, since having burning sensation and has not eaten for about one month with around 30Lbs of weight loss within a month period. OBJECTIVE: Vital Signs Temperature 97.7 F 07/06/19 05:50 Pulse Rate 72 07/06/19 05:50 Respiratory Rate 20 07/06/19 05:50 Blood Pressure 99/58 L 07/06/19 05:50 O2 Sat by Pulse Oximetry (%) 97 07/05/19 21:00 GENERAL: The patient is awake, alert, and fully oriented, in no acute distress. HEAD: Normal with no signs of trauma. EYES: PERRL, extraocular movements intact, sclera anicteric, conjunctiva clear. ENT: Ears normal, oropharynx clear without exudates, moist mucous membranes. NECK: Trachea midline, full range of motion, supple. LUNGS: Breath sounds equal, clear to auscultation bilaterally, no wheezes, no crackles, no accessory muscle use. HEART: Regular rate and rhythm, S1, S2 without murmur, rub or gallop. ABDOMEN: Soft, nontender, nondistended, normoactive bowel sounds, no guarding, no rebound, no hepatosplenomegaly, no masses. EXTREMITIES: 2+ pulses, warm, well-perfused, no edema. NEUROLOGICAL: Cranial nerves II through XII grossly intact. Normal speech, gait not observed. PSYCH: Normal mood, normal affect. SKIN: Warm, dry, normal turgor, no rashes or lesions noted CBCD WBC 5.3 K/mm3 (4.0-10.0) 07/06/19 07:20 RBC 2.99 M/mm3 (4.00-5.60) L 07/06/19 07:20 Hgb 9.8 GM/dL (11.7-16.9) L 07/06/19 07:20 Hct 27.0 % (35.4-49) L 07/06/19 07:20 MCV 90.3 fl (80-96) 07/06/19 07:20 MCHC 36.2 g/dl (32.0-35.9) H 07/06/19 07:20 RDW 15.6 % (11.9-15.9) 07/06/19 07:20 Plt Count 104 K/MM3 (134-434) L 07/06/19 07:20 MPV 8.6 fl (7.5-11.1) 07/06/19 07:20 CMP Sodium 144 mmol/L (136-145) 07/06/19 07:20 Potassium 3.7 mmol/L (3.5-5.1) 07/06/19 07:20 Chloride 115 mmol/L (98-107) H 07/06/19 07:20 Carbon Dioxide 20 mmol/L (21-32) L 07/06/19 07:20 Anion Gap 9 MMOL/L (8-16) 07/06/19 07:20 BUN 18.6 mg/dL (7-18) H 07/06/19 07:20 Creatinine 0.6 mg/dL (0.55-1.3) 07/06/19 07:20 Random Glucose 117 mg/dL (74-106) H 07/06/19 07:20 Calcium 7.5 mg/dL (8.5-10.1) L 07/06/19 07:20 Total Bilirubin 1.1 mg/dL (0.2-1) H 07/04/19 22:30 AST 23 U/L (15-37) 07/04/19 22:30 ALT 30 U/L (13-61) 07/04/19 22:30 Alkaline Phosphatase 78 U/L (45-117) 07/04/19 22:30 Total Protein 5.2 g/dl (6.4-8.2) L 07/04/19 22:30 Albumin 2.3 g/dl (3.4-5.0) L 07/04/19 22:30 CARDIAC ENZYMES Creatine Kinase 54 U/L (26-308) 07/04/19 22:30 Troponin I < 0.02 ng/ml (0.00-0.05) 07/05/19 10:25 Home Medications Medication Instructions Recorded Multivitamin [Daily Multiple 1 each PO DAILY 02/02/18 Vitamin] Aspirin [ASA -] 81 mg PO DAILY 07/05/19 Atorvastatin Ca [Lipitor] 80 mg PO DAILY 07/05/19 Clopidogrel Bisulfate [Clopidogrel] 75 mg PO DAILY 07/05/19 Dexamethasone 4 mg PO BID 07/05/19 Sucralfate Oral Suspension 10 ml PO TID 07/05/19 [Carafate Oral Suspension -] Tamsulosin HCl [Flomax] 0.4 mg PO BID 07/05/19 Umeclidinium Brm/Vilanterol Tr 1 each IH DAILY 07/05/19 [Anoro Ellipta 62.5-25 Mcg INH] Varenicline Tartrate [Chantix] 1 mg PO BID 07/05/19 Current Medications Generic Name Dose Route Start Last Admin Trade Name Freq PRN Reason Stop Dose Admin Aspirin 81 mg 07/05/19 10:00 07/06/19 09:32 Asa - PO 81 mg DAILY [facility] Administration Atorvastatin Calcium 80 mg 07/05/19 22:00 07/05/19 22:55 Lipitor - PO 80 mg HS [facility] Administration Clopidogrel Bisulfate 75 mg 07/05/19 10:00 07/06/19 09:32 Plavix - PO 75 mg DAILY [facility] Administration Dexamethasone 4 mg 07/05/19 10:00 07/06/19 09:33 Decadron - PO 4 mg DAILY [facility] Administration Enoxaparin Sodium 40 mg 07/05/19 10:00 07/06/19 11:09 Lovenox - SQ 40 mg DAILY [facility] Administration Sodium Chloride 1,000 mls @ 150 mls/hr 07/04/19 23:45 07/06/19 09:33 Normal Saline - IV 150 mls/hr ASDIR [facility] Administration Fluconazole 100 mls @ 100 mls/hr 07/06/19 10:00 07/06/19 09:33 Diflucan 200 Mg/Ns Premixed Ivpb - IVPB 100 mls/hr DAILY [facility] Administration Pantoprazole Sodium 40 mg 07/05/19 10:00 07/06/19 09:32 Protonix - PO 40 mg DAILY [facility] Administration Sucralfate 1 gm 07/06/19 13:59 07/06/19 17:10 Carafate Oral Suspension - PO 1 gm QID [facility] Administration Tamsulosin HCl 0.4 mg 07/05/19 08:30 07/06/19 09:26 Flomax - PO 0.4 mg DAILY@0830 [facility] Administration Umeclidinium/Vilanterol 1 puff 07/05/19 10:00 07/06/19 11:30 Anoro Ellipta 62.5-25 Mcg Inh IH 1 puff DAILY [facility] Administration CT of the chest: Diffuse thickening of the esophagus with small hiatal hernia. decreasing b/l pleural effusions, patchy central consolidation within both lungs. 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 He presented with odynophagia and vomiting. # Odynophagia: patient is going for EGD since has an oral thrush, most likely due to radiation induced esophagitis in DDX. continue on Iv diflucan for presumptive zoraida esophagitis . load with 400 mg and start [address] on full liquid diet for now continue PPI , carafate , nutrition consult for calorie count and recommendations. # H/o Metastatic Large cell lung cancer: was supposed to see his ONC but missed apt due to his sx. last brain radiation was few weeks ago. currently on decadron 4 mg daily, decreased from 4 BID 2 weeks ago, cont decadron 4 mg daily for now # H/o PVD: cont asa and plavix was many years ago, will get in touch with the vascular surgeon. # Hx of BPH: on Flomax continue DVT PX: lovenox
[2019-07-06] MEDS: CLOPIDOGREL BISULFATE 75 MG TABLET (FP) PO SCH (09:32)
[2019-07-06] MEDS: PANTOPRAZOLE 40 MG TABLET (FP) PO SCH (09:32)
[2019-07-06] MEDS: SUCRALFATE 1 GM TABLET (FP) PO SCH ×2 (09:32→13:43)
[2019-07-06] MEDS: ASPIRIN 81 MG CHEWABLE TABLETS PO SCH (09:32)
[2019-07-06] MEDS: FLUCONAZOLE 200 MG/NS 100 ML IVPB SCH (09:33)
[2019-07-06] MEDS: SODIUM CHLORIDE 1,000 ML IV SCH (09:33)
[2019-07-06] MEDS: DEXAMETHASONE 4 MG TABLET (FP) PO SCH (09:33)
[2019-07-06] MEDS ORDERED: FLUCONAZOLE 100 MG/NS 50 ML IVPB SCH (10:00)
[2019-07-06] MEDS: UMECLIDINIUM/VILANTEROL (ANORO) 62.5/25 MCG INHALER IH SCH ×2 (11:06→11:30)
[2019-07-06] MEDS: ENOXAPARIN NA (PORCINE) 40 MG/0.4 ML DISP.SYRIN SQ SCH (11:09)
--- NOTE | 2019-07-06 13:12 | PN ---
Progress Note, [employer] - Note Progress Note: Per EMR- Odynophagia likely 2/2 to esophagial candidiasis in the setting of oral thrush and neutropenic status s/p chemo and cancer cannot r/o infectious causes of esophagitis such as CMV/HSV vs Radiation induced mucositis/esophagitis vs mass effect from malignancy on the esophagus CT chest- diffuse thickening of the esophagus w/ small haital hernia, largely developed from previous studies. Patch central consolidation within both lung that is somewhat decreased from previous exam. Areas of ground glass opacification withing the lower lobes Barium swallow study GI consult- Dr Cerrato suggested EGD for Fluconazole for candidal infxn- 400mg loading dose and then 200 mg daily Full liquid diet PPI's Selected Entries 07/05/19 07/05/19 07/05/19 12:00 14:10 15:37 Supper Temperature 97.8 F 98.1 F 97.2 F L 07/05/19 07/06/19 07/06/19 22:00 05:50 10:00 Supper 50% Temperature 97.2 F L 97.7 F 97.8 F Laboratory Tests 07/06/19 07:20 WBC 5.3 Memory deficits noted today. Did not remember me and changes in history he provided. Pt reports persistent esophageal Odynophagia. Plan per GI is for EGD. Consider Magic mouthwash to increase comfort with PO intake. Ensure b/n meals. Please let me know is MBS is desired to assess tolerance of solids.
--- NOTE | 2019-07-06 14:20 | PN ---
Physical Exam: SUBJECTIVE: Patient seen and examined 64 y/o M, pmh of metastatic lung cancer w/ brain mets, HTN, HLD, presents with difficulty swallowing of one month duration associated fatigue, decreased food intake, and chest pain, is admitted for odynophagia. Pt is not in any distress, has no c/o or issues except for difficulty swallowing. C/o of abdominal pain that is mild. No overnight events. Denies f/c/n/v/d/sob. OBJECTIVE: Vital Signs Period Temp Pulse Resp BP Sys/Davis Pulse Ox Last 24 Hr 97.2 F-97.8 F 66-89 20-20 99-139/57-74 96-97 GENERAL: The patient is awake, alert, and fully oriented, in no acute distress. EYES: PERRL, extraocular movements intact, ENT: oropharynx clear without exudates, moist mucous membranes. NECK: full range of motion, supple. LUNGS: Breath sounds equal, clear to auscultation bilaterally, mild wheezes, no crackles HEART: Regular rate and rhythm, S1, S2 without murmur, rub or gallop. ABDOMEN: Soft, mild tenderness to palpation, nondistended, normoactive bowel sounds, no guarding, EXTREMITIES: 2+ pulses, warm, well-perfused, no edema. NEUROLOGICAL: Cranial nerves II through XII grossly intact. PSYCH: emotionally stressed and anxious due to family problems SKIN: Warm, dry, normal turgor, no rashes or lesions noted Laboratory Results - last 24 hr 07/06/19 07/06/19 07:20 07:20 WBC 5.3 RBC 2.99 L Hgb 9.8 L Hct 27.0 L MCV 90.3 MCH 32.7 MCHC 36.2 H RDW 15.6 Plt Count 104 L MPV 8.6 Sodium 144 Potassium 3.7 Chloride 115 H Carbon Dioxide 20 L Anion Gap 9 BUN 18.6 H Creatinine 0.6 Est GFR (CKD-EPI)AfAm 122.29 Est GFR (CKD-EPI)NonAf 105.51 Random Glucose 117 H Calcium 7.5 L Direct Bilirubin 0.3 H Active Medications ASSESSMENT/PLAN: 64 y/o M, pmh of metastatic lung cancer w/ brain mets, HTN, HLD, presents with difficulty swallowing of one month duration associated fatigue, decreased food intake, and chest pain, is admitted for odynophagia #Odynophagia likely 2/2 to esophagial candidiasis in the setting of oral thrush and neutropenic status s/p chemo and cancer CT chest- diffuse thickening of the esophagus w/ small haital hernia, largely developed from previous studies. Patch central consolidation within both lung that is somewhat decreased from previous exam. 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 Dexamethasone 4mg daily #Hypoalbuminemia likely 2/2 to inadequate diet vs cachexia After EGD start Ensure supplementation #Hyperbili Direct bili- .3 elevated could be 2/2 obstructive vs cholestasis vs malignancy Will f/u with GI #Thrombocytopenic Plts 104 Will monitor #PVD cont asa cont clopidogrel #DVT ppx Lovenox FEN: IVF NS at 150 Full liquid diet monitor lytes Dispo: f/u w/ GI, full liquid diet due to narrow lumen of the esophagus Visit type - Emergency Visit Emergency Visit: Yes ED Registration Date: 07/05/19 Care time: The patient presented to the Emergency Department on the above date and was hospitalized for further evaluation of their emergent condition. - New Patient This patient is new to me today: Yes Date on this admission: 07/07/19 - Critical Care Critical Care patient: No - Discharge Referral Referred to [facility] Med [facility].: No ATTENDING PHYSICIAN STATEMENT I saw and evaluated the patient. I reviewed the resident's note and discussed the case with the resident. I agree with the resident's findings and plan as documented. SUBJECTIVE: OBJECTIVE: ASSESSMENT AND PLAN:
[2019-07-06] MEDS: SUCRALFATE 1 GM/10 ML UNIT DOSE CUPS PO SCH ×3 (14:27→21:39)
--- NOTE | 2019-07-06 15:40 | PN.GI ---
GI Progress Note Subjective: Continues with odynophagia despite fluconazole and resolution of oral thrush. Solids=liquids. - Objective Vital Signs: Vital Signs Temperature 97.8 F 07/06/19 10:00 Pulse Rate 79 07/06/19 10:00 Respiratory Rate 20 07/06/19 10:00 Blood Pressure 139/57 L 07/06/19 10:00 O2 Sat by Pulse Oximetry (%) 96 07/06/19 09:00 Constitutional: Cachectic HENT: Yes: Pharyngeal Erythema. No: Thrush Respiratory: Yes: CTA Bilaterally ...Auscultate: Yes: Normoactive Bowel Sounds ...Palpate: Yes: Soft. No: Tenderness Labs: CBC, BMP 07/06/19 07:20 07/06/19 07:20 INR, PTT INR 1.17 (0.83-1.09) H 07/04/19 22:30 Assessment/Plan Resolved oral thrush but continued solid and liquid dysphagie despite fluconazole. Normal barium study. Suggest: Continue with fluconazole EGD tomorrow NPO after midnight Continue IVF
[2019-07-06] MEDS: ATORVASTATIN CA 80 MG TABLET (FP) PO SCH (21:39)
[2019-07-07 08:21] LABS: HEMOGLOBIN 10.1 GM/dL (11.7-16.9); LYMPH % 4.8 % (8-40); MCH 32.7 pg (25.7-33.7); MCHC 36.2 g/dl (32.0-35.9); MEAN CELL VOLUME 90.3 fl (80-96); MEAN PLT VOLUME 8.9 fl (7.5-11.1); MONO % 7.7 % (3.8-10.2); NEUT % 87.5 % (42.8-82.8); PLATELET COUNT 115 K/MM3 (134-434); RDW 15.8 % (11.9-15.9); WHITE BLOOD COUNT 6.1 K/mm3 (4.0-10.0)
[2019-07-07 08:43] LABS: BILIRUBIN,TOTAL 0.6 mg/dL (0.2-1); BLOOD UREA NITROGEN 19.8 mg/dL (7-18); CALCIUM 7.9 mg/dL (8.5-10.1); CREATININE 0.8 mg/dL (0.55-1.3); MAGNESIUM 1.8 mg/dL (1.8-2.4); POTASSIUM 3.8 mmol/L (3.5-5.1); TOT PROT 4.5 g/dl (6.4-8.2)
[2019-07-07] MEDS: CLOPIDOGREL BISULFATE 75 MG TABLET (FP) PO SCH (10:43)
[2019-07-07] MEDS: ENOXAPARIN NA (PORCINE) 40 MG/0.4 ML DISP.SYRIN SQ SCH (10:43)
[2019-07-07] MEDS: SUCRALFATE 1 GM/10 ML UNIT DOSE CUPS PO SCH ×5 (10:47→22:03)
--- NOTE | 2019-07-07 12:12 | PN ---
Progress Note (short form) - Note Progress Note: EGD complete. Report left in procedural section of physical chart and will be scanned into [employer]
[2019-07-07] MEDS: UMECLIDINIUM/VILANTEROL (ANORO) 62.5/25 MCG INHALER IH SCH (13:15)
[2019-07-07] MEDS ORDERED: PT OWN MED DRAWER 7, Y5N ONE (13:40)
[2019-07-07] MEDS: PANTOPRAZOLE 40 MG TABLET (FP) PO SCH ×2 (13:45→22:02)
[2019-07-07] MEDS: TAMSULOSIN HCL 0.4 MG CAP PO SCH (13:45)
[2019-07-07] MEDS: DEXAMETHASONE 4 MG TABLET (FP) PO SCH (13:46)
[2019-07-07] MEDS: FLUCONAZOLE 200 MG/NS 100 ML IVPB SCH (13:46)
[2019-07-07] MEDS ORDERED: AMINO ACIDS 4.25%/D5W 1,000 ML IV SCH ×2 (14:00→14:09)
[2019-07-07] MEDS: AMINO ACIDS 4.25%/D5W 1,000 ML IV SCH (15:29)
--- NOTE | 2019-07-07 15:38 | PN ---
Physical Exam: SUBJECTIVE: 64 y/o M, pmh of metastatic lung cancer w/ brain mets, HTN, HLD, presents with difficulty swallowing of one month duration associated fatigue, decreased food intake, and chest pain, is admitted for odynophagia. Pt is s/p EGD. Pt is not in any distress, has no c/o or issues except for difficulty swallowing. C/o of abdominal pain that is mild. No overnight events. Denies f/c/n/v/d/sob. OBJECTIVE: Vital Signs Period Temp Pulse Resp BP Sys/Davis Pulse Ox Last 24 Hr 97.4 F-98 F 67-76 16-20 109-122/52-80 96-100 GENERAL: The patient is awake, alert, and fully oriented, in no acute distress. EYES: PERRL, extraocular movements intact, ENT: oropharynx clear without exudates, moist mucous membranes. NECK: full range of motion, supple. LUNGS: Breath sounds equal, clear to auscultation bilaterally, mild wheezes, no crackles HEART: Regular rate and rhythm, S1, S2 without murmur, rub or gallop. ABDOMEN: Soft, mild tenderness to palpation, nondistended, normoactive bowel sounds, no guarding, EXTREMITIES: 2+ pulses, warm, well-perfused, no edema. NEUROLOGICAL: Cranial nerves II through XII grossly intact. PSYCH: emotionally stressed and anxious due to family problems SKIN: Warm, dry, normal turgor, no rashes or lesions noted Laboratory Results - last 24 hr CBC,CMP WBC 6.1 K/mm3 (4.0-10.0) 07/07/19 07:55 RBC 3.10 M/mm3 (4.00-5.60) L 07/07/19 07:55 Hgb 10.1 GM/dL (11.7-16.9) L 07/07/19 07:55 Hct 28.0 % (35.4-49) L 07/07/19 07:55 MCV 90.3 fl (80-96) 07/07/19 07:55 MCH 32.7 pg (25.7-33.7) 07/07/19 07:55 MCHC 36.2 g/dl (32.0-35.9) H 07/07/19 07:55 RDW 15.8 % (11.9-15.9) 07/07/19 07:55 Plt Count 115 K/MM3 (134-434) L 07/07/19 07:55 MPV 8.9 fl (7.5-11.1) 07/07/19 07:55 Absolute Neuts (auto) 5.3 K/mm3 (1.5-8.0) 07/07/19 07:55 Total Counted 100 07/04/19 22:30 Neutrophils % 87.5 % (42.8-82.8) H 07/07/19 07:55 Neutrophils % (Manual) 89.0 % (42.8-82.8) H D 07/04/19 22:30 Band Neutrophils % 4.0 % 07/04/19 22:30 Lymphocytes % 4.8 % (8-40) L 07/07/19 07:55 Lymphocytes % (Manual) 4.0 % (8-40) L D 07/04/19 22:30 Monocytes % 7.7 % (3.8-10.2) D 07/07/19 07:55 Monocytes % (Manual) 3 % (3.8-10.2) L 07/04/19 22:30 Eosinophils % 0.0 % (0-4.5) 07/07/19 07:55 Basophils % 0.0 % (0-2.0) 07/07/19 07:55 Nucleated RBC % 0 % (0-0) 07/07/19 07:55 Platelet Estimate Decreased 07/04/19 22:30 Platelet Comment No clumping noted 07/04/19 22:30 Sodium 143 mmol/L (136-145) 07/07/19 07:55 Potassium 3.8 mmol/L (3.5-5.1) 07/07/19 07:55 Chloride 114 mmol/L (98-107) H 07/07/19 07:55 Carbon Dioxide 22 mmol/L (21-32) 07/07/19 07:55 Anion Gap 7 MMOL/L (8-16) L 07/07/19 07:55 BUN 19.8 mg/dL (7-18) H 07/07/19 07:55 Creatinine 0.8 mg/dL (0.55-1.3) 07/07/19 07:55 Est GFR (CKD-EPI)AfAm 108.65 07/07/19 07:55 Est GFR (CKD-EPI)NonAf 93.74 07/07/19 07:55 Random Glucose 118 mg/dL (74-106) H 07/07/19 07:55 Calcium 7.9 mg/dL (8.5-10.1) L 07/07/19 07:55 Phosphorus 2.0 mg/dL (2.5-4.9) L 07/05/19 10:25 Magnesium 1.8 mg/dL (1.8-2.4) 07/07/19 07:55 Total Bilirubin 0.6 mg/dL (0.2-1) 07/07/19 07:55 Direct Bilirubin 0.3 mg/dL (0.0-0.2) H 07/06/19 07:20 AST 12 U/L (15-37) L 07/07/19 07:55 ALT 23 U/L (13-61) 07/07/19 07:55 Alkaline Phosphatase 64 U/L (45-117) 07/07/19 07:55 Creatine Kinase 54 U/L (26-308) 07/04/19 22:30 Troponin I < 0.02 ng/ml (0.00-0.05) 07/05/19 10:25 Total Protein 4.5 g/dl (6.4-8.2) L 07/07/19 07:55 Albumin 2.0 g/dl (3.4-5.0) L 07/07/19 07:55 Lipase 45 U/L (73-393) L 07/04/19 22:30 Active Medications Current Medications Aspirin (Ecotrin -) 81 mg PO DAILY [facility] Atorvastatin Calcium (Lipitor -) 80 mg PO HS [facility] Last Admin: 07/06/19 21:39 Dose: 80 mg Clopidogrel Bisulfate (Plavix -) 75 mg PO DAILY [facility] Last Admin: 07/06/19 09:32 Dose: 75 mg Dexamethasone (Decadron -) 4 mg PO DAILY [facility] Last Admin: 07/07/19 13:46 Dose: 4 mg Enoxaparin Sodium (Lovenox -) 40 mg SQ DAILY [facility] Last Admin: 07/06/19 11:09 Dose: 40 mg Fluconazole (Diflucan 200 Mg/Ns Premixed Ivpb -) 100 mls @ 100 mls/hr IVPB DAILY [facility] Last Admin: 07/07/19 13:46 Dose: 100 mls/hr Amino Acids (Clinimix -) 1,000 mls @ 75 mls/hr IV Q12H [facility] Stop: 07/08/19 14:08 Pantoprazole Sodium (Protonix -) 40 mg PO BID [facility] Sucralfate (Carafate Oral Suspension -) 1 gm PO QID [facility] Last Admin: 07/07/19 13:49 Dose: 1 gm Tamsulosin HCl (Flomax -) 0.4 mg PO DAILY@0830 [facility] Last Admin: 07/07/19 13:45 Dose: 0.4 mg Umeclidinium/Vilanterol (Anoro Ellipta 62.5-25 Mcg Inh) 1 puff IH DAILY [facility] Last Admin: 07/07/19 13:15 Dose: 1 puff Home Medications Medication Instructions Recorded Multivitamin [Daily Multiple 1 each PO DAILY 02/02/18 Vitamin] Aspirin [ASA -] 81 mg PO DAILY 07/05/19 Atorvastatin Ca [Lipitor] 80 mg PO DAILY 07/05/19 Clopidogrel Bisulfate [Clopidogrel] 75 mg PO DAILY 07/05/19 Dexamethasone 4 mg PO BID 07/05/19 Sucralfate Oral Suspension 10 ml PO TID 07/05/19 [Carafate Oral Suspension -] Tamsulosin HCl [Flomax] 0.4 mg PO BID 07/05/19 Umeclidinium Brm/Vilanterol Tr 1 each IH DAILY 07/05/19 [Anoro Ellipta 62.5-25 Mcg INH] Varenicline Tartrate [Chantix] 1 mg PO BID 07/05/19 ASSESSMENT/PLAN: 64 y/o M, pmh of metastatic lung cancer w/ brain mets, HTN, HLD, presents with difficulty swallowing of one month duration associated fatigue, decreased food intake, and chest pain, is admitted for odynophagia #Odynophagia likely 2/2 to esophagial candidiasis in the setting of oral thrush and neutropenic status s/p chemo and cancer CT chest- diffuse thickening of the esophagus w/ small haital hernia, largely developed from previous studies. Patch central consolidation within both lung that is somewhat decreased from previous exam. 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 Noe to see if he needs to be on Plavix for his left leg stent placed 8 years ago #DVT ppx Lovenox FEN: Full liquid with dietary suppl monitor lytes Dispo: full liquid diet due to narrow lumen of the esophagus, hold asa and plavix Visit type - Emergency Visit Emergency Visit: Yes ED Registration Date: 07/05/19 Care time: The patient presented to the Emergency Department on the above date and was hospitalized for further evaluation of their emergent condition. - New Patient This patient is new to me today: Yes Date on this admission: 07/10/19 - Critical Care Critical Care patient: No - Discharge Referral Referred to [facility] Med [facility] No ATTENDING PHYSICIAN STATEMENT I saw and evaluated the patient. I reviewed the resident's note and discussed the case with the resident. I agree with the resident's findings and plan as documented. SUBJECTIVE: OBJECTIVE: ASSESSMENT AND PLAN:
[2019-07-07] MEDS: SODIUM CHLORIDE 1,000 ML IV SCH (15:45)
[2019-07-07] MEDS: ASPIRIN 81 MG CHEWABLE TABLETS PO SCH (15:45)
--- NOTE | 2019-07-07 17:57 | PN ---
Teaching Attending Note Name of Resident: Richmond Mcbride ATTENDING PHYSICIAN STATEMENT I saw and evaluated the patient. I reviewed the resident's note and discussed the case with the resident. I agree with the resident's findings and plan as documented. SUBJECTIVE: Patient is c/o having esophageal pain on swallowing , unable to eat as much. OBJECTIVE: Vital Signs Temperature 97.7 F 07/06/19 05:50 Pulse Rate 72 07/06/19 05:50 Respiratory Rate 20 07/06/19 05:50 Blood Pressure 99/58 L 07/06/19 05:50 O2 Sat by Pulse Oximetry (%) 97 07/05/19 21:00 GENERAL: The patient is awake, alert, and fully oriented, in no acute distress. HEAD: Normal with no signs of trauma. EYES: PERRL, extraocular movements intact, sclera anicteric, conjunctiva clear. ENT: Ears normal, oropharynx clear without exudates, moist mucous membranes. positive for oral thrush. NECK: Trachea midline, full range of motion, supple. LUNGS: Breath sounds equal, clear to auscultation bilaterally, no wheezes, no crackles, no accessory muscle use. HEART: Regular rate and rhythm, S1, S2 without murmur, rub or gallop. ABDOMEN: Soft, NT,ND, normoactive bowel sounds, no guarding, no rebound, no hepatosplenomegaly, no masses. EXTREMITIES: 2+ pulses, warm, well-perfused, no edema. NEUROLOGICAL: Cranial nerves II through XII grossly intact. Normal speech, gait not observed. PSYCH: Normal mood, normal affect. SKIN: Warm, dry, normal turgor, no rashes or lesions noted CBCD WBC 5.3 K/mm3 (4.0-10.0) 07/06/19 07:20 RBC 2.99 M/mm3 (4.00-5.60) L 07/06/19 07:20 Hgb 9.8 GM/dL (11.7-16.9) L 07/06/19 07:20 Hct 27.0 % (35.4-49) L 07/06/19 07:20 MCV 90.3 fl (80-96) 07/06/19 07:20 MCHC 36.2 g/dl (32.0-35.9) H 07/06/19 07:20 RDW 15.6 % (11.9-15.9) 07/06/19 07:20 Plt Count 104 K/MM3 (134-434) L 07/06/19 07:20 MPV 8.6 fl (7.5-11.1) 07/06/19 07:20 CMP Sodium 144 mmol/L (136-145) 07/06/19 07:20 Potassium 3.7 mmol/L (3.5-5.1) 07/06/19 07:20 Chloride 115 mmol/L (98-107) H 07/06/19 07:20 Carbon Dioxide 20 mmol/L (21-32) L 07/06/19 07:20 Anion Gap 9 MMOL/L (8-16) 07/06/19 07:20 BUN 18.6 mg/dL (7-18) H 07/06/19 07:20 Creatinine 0.6 mg/dL (0.55-1.3) 07/06/19 07:20 Random Glucose 117 mg/dL (74-106) H 07/06/19 07:20 Calcium 7.5 mg/dL (8.5-10.1) L 07/06/19 07:20 Total Bilirubin 1.1 mg/dL (0.2-1) H 07/04/19 22:30 AST 23 U/L (15-37) 07/04/19 22:30 ALT 30 U/L (13-61) 07/04/19 22:30 Alkaline Phosphatase 78 U/L (45-117) 07/04/19 22:30 Total Protein 5.2 g/dl (6.4-8.2) L 07/04/19 22:30 Albumin 2.3 g/dl (3.4-5.0) L 07/04/19 22:30 CARDIAC ENZYMES Creatine Kinase 54 U/L (26-308) 07/04/19 22:30 Troponin I < 0.02 ng/ml (0.00-0.05) 07/05/19 10:25 Home Medications Medication Instructions Recorded Multivitamin [Daily Multiple 1 each PO DAILY 02/02/18 Vitamin] Aspirin [ASA -] 81 mg PO DAILY 07/05/19 Atorvastatin Ca [Lipitor] 80 mg PO DAILY 07/05/19 Clopidogrel Bisulfate [Clopidogrel] 75 mg PO DAILY 07/05/19 Dexamethasone 4 mg PO BID 07/05/19 Sucralfate Oral Suspension 10 ml PO TID 07/05/19 [Carafate Oral Suspension -] Tamsulosin HCl [Flomax] 0.4 mg PO BID 07/05/19 Umeclidinium Brm/Vilanterol Tr 1 each IH DAILY 07/05/19 [Anoro Ellipta 62.5-25 Mcg INH] Varenicline Tartrate [Chantix] 1 mg PO BID 07/05/19 Current Medications Generic Name Dose Route Start Last Admin Trade Name Eduardoq PRN Reason Stop Dose Admin Aspirin 81 mg 07/05/19 10:00 07/06/19 09:32 Asa - PO 81 mg DAILY [facility] Administration Atorvastatin Calcium 80 mg 07/05/19 22:00 07/05/19 22:55 Lipitor - PO 80 mg HS [facility] Administration Clopidogrel Bisulfate 75 mg 07/05/19 10:00 07/06/19 09:32 Plavix - PO 75 mg DAILY [facility] Administration Dexamethasone 4 mg 07/05/19 10:00 07/06/19 09:33 Decadron - PO 4 mg DAILY [facility] Administration Enoxaparin Sodium 40 mg 07/05/19 10:00 07/06/19 11:09 Lovenox - SQ 40 mg DAILY [facility] Administration Sodium Chloride 1,000 mls @ 150 mls/hr 07/04/19 23:45 07/06/19 09:33 Normal Saline - IV 150 mls/hr ASDIR [facility] Administration Fluconazole 100 mls @ 100 mls/hr 07/06/19 10:00 07/06/19 09:33 Diflucan 200 Mg/Ns Premixed Ivpb - IVPB 100 mls/hr DAILY [facility] Administration Pantoprazole Sodium 40 mg 07/05/19 10:00 07/06/19 09:32 Protonix - PO 40 mg DAILY [facility] Administration Sucralfate 1 gm 07/06/19 13:59 07/06/19 17:10 Carafate Oral Suspension - PO 1 gm QID [facility] Administration Tamsulosin HCl 0.4 mg 07/05/19 08:30 07/06/19 09:26 Flomax - PO 0.4 mg DAILY@0830 [facility] Administration Umeclidinium/Vilanterol 1 puff 07/05/19 10:00 07/06/19 11:30 Anoro Ellipta 62.5-25 Mcg Inh IH 1 puff DAILY [facility] Administration CT of the chest: Diffuse thickening of the esophagus with small hiatal hernia. decreasing b/l pleural effusions, patchy central consolidation within both lungs. 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 He presented with odynophagia and vomiting. # Odynophagia: s/p EGD : severe ulcerative esophagitis 36cm from the incisors with non obstructing stricture ; osophageal candidiasis most likely due to radiation induced esophagitis. continue diflucan ,continue PPI , carafate , nutrition consult for calorie count and recommendations. puree diet for now. if no improvement EGD need to be repeated. # H/o Metastatic Large cell lung cancer: was supposed to see his ONC but missed apt due to his sx. last brain radiation was few weeks ago. currently on decadron 4 mg daily, decreased from 4 BID 2 weeks ago, cont decadron 4 mg daily for now # H/o PVD: cont asa and plavix was many years ago, will get in touch with the vascular surgeon. # Hx of BPH: on Flomax continue DVT PX: lovenox
[2019-07-07] MEDS: ATORVASTATIN CA 80 MG TABLET (FP) PO SCH (22:02)
[2019-07-08] MEDS: AMINO ACIDS 4.25%/D5W 1,000 ML IV SCH (02:30)
[2019-07-08] MEDS: TAMSULOSIN HCL 0.4 MG CAP PO SCH (08:44)
[2019-07-08 08:50] LABS: HEMOGLOBIN 10.8 GM/dL (11.7-16.9); MCH 32.5 pg (25.7-33.7); MEAN CELL VOLUME 90.3 fl (80-96); MEAN PLT VOLUME 8.9 fl (7.5-11.1); PLATELET COUNT 124 K/MM3 (134-434); RBC 3.32 M/mm3 (4.00-5.60); RDW 15.8 % (11.9-15.9); WHITE BLOOD COUNT 6.8 K/mm3 (4.0-10.0)
[2019-07-08 09:32] LABS: ALBUMIN 2.1 g/dl (3.4-5.0); BILIRUBIN,TOTAL 0.6 mg/dL (0.2-1); BLOOD UREA NITROGEN 20.5 mg/dL (7-18); CALCIUM 7.9 mg/dL (8.5-10.1); CREATININE 0.7 mg/dL (0.55-1.3); POTASSIUM 3.9 mmol/L (3.5-5.1); TOT PROT 4.4 g/dl (6.4-8.2)
[2019-07-08] MEDS ORDERED: MULTIVIT INJ. ADULT COMBO WITH VIT K 1 COMBO 10 ML VIAL IV SCH (10:00)
[2019-07-08] MEDS: UMECLIDINIUM/VILANTEROL (ANORO) 62.5/25 MCG INHALER IH SCH (10:18)
[2019-07-08] MEDS: CLOPIDOGREL BISULFATE 75 MG TABLET (FP) PO SCH (10:23)
[2019-07-08] MEDS: ENOXAPARIN NA (PORCINE) 40 MG/0.4 ML DISP.SYRIN SQ SCH (10:23)
[2019-07-08] MEDS: ASPIRIN COATED 81 MG TABLET.EC PO SCH (10:23)
[2019-07-08] MEDS: PANTOPRAZOLE 40 MG TABLET (FP) PO SCH ×2 (10:23→22:38)
[2019-07-08] MEDS: SUCRALFATE 1 GM/10 ML UNIT DOSE CUPS PO SCH ×5 (10:23→22:38)
[2019-07-08] MEDS ORDERED: PT OWN MED DRAWER 7, Y5N ONE (10:26)
[2019-07-08] MEDS: DEXAMETHASONE 4 MG TABLET (FP) PO SCH (10:27)
[2019-07-08] MEDS: FLUCONAZOLE 200 MG/NS 100 ML IVPB SCH (11:43)
--- NOTE | 2019-07-08 11:47 | PN ---
Progress Note, DENTAL RECEPTIONIST - Note Progress Note: Selected Entries 07/07/19 07/07/19 07/07/19 06:00 10:00 12:10 Supper Temperature 97.4 F L 97.5 F L 98 F 07/07/19 07/07/19 07/07/19 16:30 20:00 22:00 Supper 25% Temperature 97.5 F L 97.5 F L 07/08/19 07/08/19 06:08 10:00 Supper Temperature 97.7 F 97.1 F L Laboratory Tests 07/08/19 07:20 WBC 6.8 Accepted 2 bowls of Ferguson with improved tolerance. Still c/o pain all the time , worse with meals. Carafate ordered before meals to coat esophagus. Magic cup too sweet. Consider trial of Dys puree, ensure clear mixed with water to reduce sweetness. If persistant pain, GI input regarding Magic mouthwash, sip/swallow to coat esophagus.
[2019-07-08] MEDS: MAG HYDROX/ALH/SMC/DPHA/LIDO 240 ML MOUTHWASH MM SCH ×2 (13:32→17:03)
--- NOTE | 2019-07-08 13:38 | PN.GI ---
GI Progress Note Subjective: Complains of odynophagia with meals stiil in ASA/Plavix - Objective Vital Signs: Vital Signs Temperature 97.1 F L 07/08/19 10:00 Pulse Rate 85 07/08/19 10:00 Respiratory Rate 20 07/08/19 10:00 Blood Pressure 114/75 07/08/19 10:00 O2 Sat by Pulse Oximetry (%) 92 L 07/08/19 09:00 Constitutional: Calm Eyes: No: Sclera Icterus Cardiovascular: Yes: Regular Rate and Rhythm Respiratory: Yes: Diminished (at bases bilaterally) Gastrointestinal Inspection: No: Distention ...Auscultate: Yes: Normoactive Bowel Sounds ...Palpate: Yes: Soft. No: Hepatomegaly, Splenomegaly, Tenderness Neurological: Yes: Alert Labs: CBC, BMP 07/08/19 07:20 07/08/19 07:20 INR, PTT INR 1.17 (0.83-1.09) H 07/04/19 22:30 Problem List - Problems (1) Esophagitis Assessment/Plan: Severe distal esophagitis limited biopsies performed in the setting of DAPT and thrombocytopenia. Await pathology results If no improvement with carafate, PPI therapy, will need repeat EGD with patient off of plavix for more extensive biopsies and reassessment of the affected area Encouraged PO intake. Pureed diet Reevaluate the need for continued plavix therapy Protonix 40mg PO daily Carafate 1g PO QID Code(s): K20.9 - ESOPHAGITIS, UNSPECIFIED
--- NOTE | 2019-07-08 14:12 | PN ---
Physical Exam: SUBJECTIVE: Patient seen and examined 64 y/o M, pmh of metastatic lung cancer w/ brain mets, HTN, HLD, presents with difficulty swallowing of one month duration associated fatigue, decreased food intake, and chest pain, is admitted for odynophagia. Pt is not in any distress, has no c/o or issues except for difficulty swallowing. C/o of abdominal pain that is mild. No overnight events. Denies f/c/n/v/d/sob. OBJECTIVE: Vital Signs Period Temp Pulse Resp BP Sys/Davis Pulse Ox Last 24 Hr 97.1 F-97.7 F 71-85 20-20 105-135/58-75 92-100 GENERAL: The patient is awake, alert, and fully oriented, in no acute distress. EYES: PERRL, extraocular movements intact, ENT: oropharynx clear without exudates, moist mucous membranes. NECK: full range of motion, supple. LUNGS: Breath sounds equal, clear to auscultation bilaterally, mild wheezes, no crackles HEART: Regular rate and rhythm, S1, S2 without murmur, rub or gallop. ABDOMEN: Soft, mild tenderness to palpation, nondistended, normoactive bowel sounds, no guarding, EXTREMITIES: 2+ pulses, warm, well-perfused, no edema. NEUROLOGICAL: Cranial nerves II through XII grossly intact. PSYCH: emotionally stressed and anxious due to family problems SKIN: Warm, dry, normal turgor, no rashes or lesions noted Laboratory Results - last 24 hr CBC,CMP WBC 6.8 K/mm3 (4.0-10.0) 07/08/19 07:20 RBC 3.32 M/mm3 (4.00-5.60) L 07/08/19 07:20 Hgb 10.8 GM/dL (11.7-16.9) L 07/08/19 07:20 Hct 30.0 % (35.4-49) L 07/08/19 07:20 MCV 90.3 fl (80-96) 07/08/19 07:20 MCH 32.5 pg (25.7-33.7) 07/08/19 07:20 MCHC 36.0 g/dl (32.0-35.9) H 07/08/19 07:20 RDW 15.8 % (11.9-15.9) 07/08/19 07:20 Plt Count 124 K/MM3 (134-434) L 07/08/19 07:20 MPV 8.9 fl (7.5-11.1) 07/08/19 07:20 Absolute Neuts (auto) 5.3 K/mm3 (1.5-8.0) 07/07/19 07:55 Total Counted 100 07/04/19 22:30 Neutrophils % 87.5 % (42.8-82.8) H 07/07/19 07:55 Neutrophils % (Manual) 89.0 % (42.8-82.8) H D 07/04/19 22:30 Band Neutrophils % 4.0 % 07/04/19 22:30 Lymphocytes % 4.8 % (8-40) L 07/07/19 07:55 Lymphocytes % (Manual) 4.0 % (8-40) L D 07/04/19 22:30 Monocytes % 7.7 % (3.8-10.2) D 07/07/19 07:55 Monocytes % (Manual) 3 % (3.8-10.2) L 07/04/19 22:30 Eosinophils % 0.0 % (0-4.5) 07/07/19 07:55 Basophils % 0.0 % (0-2.0) 07/07/19 07:55 Nucleated RBC % 0 % (0-0) 07/07/19 07:55 Platelet Estimate Decreased 07/04/19 22:30 Platelet Comment No clumping noted 07/04/19 22:30 Sodium 140 mmol/L (136-145) 07/08/19 07:20 Potassium 3.9 mmol/L (3.5-5.1) 07/08/19 07:20 Chloride 110 mmol/L (98-107) H 07/08/19 07:20 Carbon Dioxide 22 mmol/L (21-32) 07/08/19 07:20 Anion Gap 8 MMOL/L (8-16) 07/08/19 07:20 BUN 20.5 mg/dL (7-18) H 07/08/19 07:20 Creatinine 0.7 mg/dL (0.55-1.3) 07/08/19 07:20 Est GFR (CKD-EPI)AfAm 114.78 07/08/19 07:20 Est GFR (CKD-EPI)NonAf 99.03 07/08/19 07:20 Random Glucose 139 mg/dL (74-106) H 07/08/19 07:20 Calcium 7.9 mg/dL (8.5-10.1) L 07/08/19 07:20 Phosphorus 2.0 mg/dL (2.5-4.9) L 07/05/19 10:25 Magnesium 1.8 mg/dL (1.8-2.4) 07/07/19 07:55 Total Bilirubin 0.6 mg/dL (0.2-1) 07/08/19 07:20 Direct Bilirubin 0.3 mg/dL (0.0-0.2) H 07/06/19 07:20 AST 13 U/L (15-37) L 07/08/19 07:20 ALT 24 U/L (13-61) 07/08/19 07:20 Alkaline Phosphatase 68 U/L (45-117) 07/08/19 07:20 Creatine Kinase 54 U/L (26-308) 07/04/19 22:30 Troponin I < 0.02 ng/ml (0.00-0.05) 07/05/19 10:25 Total Protein 4.4 g/dl (6.4-8.2) L 07/08/19 07:20 Albumin 2.1 g/dl (3.4-5.0) L 07/08/19 07:20 Lipase 45 U/L (73-393) L 07/04/19 22:30 Active Medications Current Medications Aspirin (Ecotrin -) 81 mg PO DAILY [facility] Last Admin: 07/08/19 10:23 Dose: 81 mg Atorvastatin Calcium (Lipitor -) 80 mg PO HS [facility] Last Admin: 07/07/19 22:02 Dose: 80 mg Clopidogrel Bisulfate (Plavix -) 75 mg PO DAILY [facility] Last Admin: 07/08/19 10:23 Dose: 75 mg Dexamethasone (Decadron -) 4 mg PO DAILY [facility] Last Admin: 07/08/19 10:27 Dose: 4 mg Enoxaparin Sodium (Lovenox -) 40 mg SQ DAILY [facility] Last Admin: 07/08/19 10:23 Dose: 40 mg Fluconazole (Diflucan 40mg/Ml Suspension -) 200 mg PO DAILY [facility] Lidocaine/Aluminum/Magnesium/Simeth (Magic Mouthwash *Sjr Formula* -) 5 ml MM Q6HPO [facility] Last Admin: 07/08/19 13:32 Dose: 5 ml Pantoprazole Sodium (Protonix -) 40 mg PO BID [facility] Last Admin: 07/08/19 10:23 Dose: 40 mg Sucralfate (Carafate Oral Suspension -) 1 gm PO QID [facility] Tamsulosin HCl (Flomax -) 0.4 mg PO DAILY@0830 [facility] Last Admin: 07/08/19 08:44 Dose: 0.4 mg Umeclidinium/Vilanterol (Anoro Ellipta 62.5-25 Mcg Inh) 1 puff IH DAILY [facility] Last Admin: 07/08/19 10:18 Dose: 1 puff Home Medications Medication Instructions Recorded Multivitamin [Daily Multiple 1 each PO DAILY 02/02/18 Vitamin] Aspirin [ASA -] 81 mg PO DAILY 07/05/19 Atorvastatin Ca [Lipitor] 80 mg PO DAILY 07/05/19 Clopidogrel Bisulfate [Clopidogrel] 75 mg PO DAILY 07/05/19 Dexamethasone 4 mg PO BID 07/05/19 Sucralfate Oral Suspension 10 ml PO TID 07/05/19 [Carafate Oral Suspension -] Tamsulosin HCl [Flomax] 0.4 mg PO BID 07/05/19 Umeclidinium Brm/Vilanterol Tr 1 each IH DAILY 07/05/19 [Anoro Ellipta 62.5-25 Mcg INH] Varenicline Tartrate [Chantix] 1 mg PO BID 07/05/19 ASSESSMENT/PLAN: 64 y/o M, pmh of metastatic lung cancer w/ brain mets, HTN, HLD, presents with difficulty swallowing of one month duration associated fatigue, decreased food intake, and chest pain, is admitted for odynophagia #Odynophagia likely 2/2 to esophagial candidiasis in the setting of oral thrush and neutropenic status s/p chemo and cancer EGD- extensive ulcerative esophagitis from incisors to 36cm of esophagus S/p EGD Bx- waiting results cont Fluconazole PPI's 40mg PO daily Sucralfate 1g PO QID Off Clinimix Pureed diet If no improvement, reconsider EGD for an extensive bx #Lung cancer metastasis 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 - New Patient This patient is new to me today: Yes Date on this admission: 07/10/19 - Critical Care Critical Care patient: No - Discharge Referral Referred to [facility] Med [facility] No ATTENDING PHYSICIAN STATEMENT I saw and evaluated the patient. I reviewed the resident's note and discussed the case with the resident. I agree with the resident's findings and plan as documented. SUBJECTIVE: OBJECTIVE: ASSESSMENT AND PLAN:
--- NOTE | 2019-07-08 17:18 | PATH ---
Surgical Pathology Report Patient Name: PHILIP MALHOTRA Med. Rec. #: [id number] /Age/Gender: 1955 (Age: 64) / M Account: [id number] Location: [address] [place] [address] Taken: 07/07/2019 Received: 07/07/2019 Reported: 07/08/2019 Physicians: Philip Godoy D.O. Specimen(s) Received ESOPHAGUS Clinical History Dysphagia Postoperative diagnosis: Hiatal hernia, esophagitis Final Diagnosis "ESOPHAGEAL ULCER", BIOPSY: GASTRIC CARDIAC TYPE MUCOSA WITH MILD CHRONIC GASTRITIS AND MILD FOVEOLAR HYPERPLASIA. NO INTESTINAL METAPLASIA, DYSPLASIA, OR SQUAMOUS MUCOSA IDENTIFIED. IMMUNOHISTOCHEMICAL STAIN FOR H. PYLORI IS NEGATIVE. Comment: Suggest clinical and endoscopic correlation. Electronically Signed Dana Jonas M.D. Addendum Reported: 07/12/2019 Addendum Diagnosis CMV and HSV stains are pending and will be reported separately. Findings discussed with Dr. Godoy. Dana Jonas M.D. Addendum Reported: 07/18/2019 Addendum Diagnosis IMMUNOHISTOCHEMISTRY ANALYSIS performed and interpreted at [facility], shows the following: INTERPRETATION: The tissue is negative for both CMV and HSV immunohistochemical stains. 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 Gross Description Received in formalin, labeled "biopsy esophageal ulcer" are 2 ann, irregular portions of soft tissue averaging 0.2 cm. in greatest dimension. The specimens are submitted in toto in one cassette. 07/07/201907/07/2019
--- NOTE | 2019-07-08 19:45 | PN ---
Teaching Attending Note Name of Resident: Richmond Mcbride ATTENDING PHYSICIAN STATEMENT I saw and evaluated the patient. I reviewed the resident's note and discussed the case with the resident. I agree with the resident's findings and plan as documented. SUBJECTIVE: Patient is c/o unable to eat, since having burning sensation. OBJECTIVE: Vital Signs Temperature 97.5 F L 07/08/19 15:43 Pulse Rate 88 07/08/19 15:43 Respiratory Rate 20 07/08/19 15:43 Blood Pressure 129/82 07/08/19 15:43 O2 Sat by Pulse Oximetry (%) 92 L 07/08/19 09:00 GENERAL: The patient is awake, alert, and fully oriented, in no acute distress. HEAD: Normal with no signs of trauma. EYES: PERRL, extraocular movements intact, sclera anicteric, conjunctiva clear. ENT: Ears normal, oropharynx clear without exudates, moist mucous membranes. oral thrush improving NECK: Trachea midline, full range of motion, supple. LUNGS: Breath sounds equal, clear to auscultation bilaterally, no wheezes, no crackles, no accessory muscle use. HEART: Regular rate and rhythm, S1, S2 without murmur, rub or gallop. ABDOMEN: Soft, nontender, nondistended, normoactive bowel sounds, no guarding, no rebound, no hepatosplenomegaly, no masses. EXTREMITIES: 2+ pulses, warm, well-perfused, no edema. NEUROLOGICAL: Cranial nerves II through XII grossly intact. Normal speech, gait not observed. PSYCH: Normal mood, normal affect. SKIN: Warm, dry, normal turgor, no rashes or lesions noted CBCD WBC 6.8 K/mm3 (4.0-10.0) 07/08/19 07:20 RBC 3.32 M/mm3 (4.00-5.60) L 07/08/19 07:20 Hgb 10.8 GM/dL (11.7-16.9) L 07/08/19 07:20 Hct 30.0 % (35.4-49) L 07/08/19 07:20 MCV 90.3 fl (80-96) 07/08/19 07:20 MCHC 36.0 g/dl (32.0-35.9) H 07/08/19 07:20 RDW 15.8 % (11.9-15.9) 07/08/19 07:20 Plt Count 124 K/MM3 (134-434) L 07/08/19 07:20 MPV 8.9 fl (7.5-11.1) 07/08/19 07:20 CMP Sodium 140 mmol/L (136-145) 07/08/19 07:20 Potassium 3.9 mmol/L (3.5-5.1) 07/08/19 07:20 Chloride 110 mmol/L (98-107) H 07/08/19 07:20 Carbon Dioxide 22 mmol/L (21-32) 07/08/19 07:20 Anion Gap 8 MMOL/L (8-16) 07/08/19 07:20 BUN 20.5 mg/dL (7-18) H 07/08/19 07:20 Creatinine 0.7 mg/dL (0.55-1.3) 07/08/19 07:20 Random Glucose 139 mg/dL (74-106) H 07/08/19 07:20 Calcium 7.9 mg/dL (8.5-10.1) L 07/08/19 07:20 Total Bilirubin 0.6 mg/dL (0.2-1) 07/08/19 07:20 AST 13 U/L (15-37) L 07/08/19 07:20 ALT 24 U/L (13-61) 07/08/19 07:20 Alkaline Phosphatase 68 U/L (45-117) 07/08/19 07:20 Total Protein 4.4 g/dl (6.4-8.2) L 07/08/19 07:20 Albumin 2.1 g/dl (3.4-5.0) L 07/08/19 07:20 CARDIAC ENZYMES Creatine Kinase 54 U/L (26-308) 07/04/19 22:30 Troponin I < 0.02 ng/ml (0.00-0.05) 07/05/19 10:25 Current Medications Generic Name Dose Route Start Last Admin Trade Name Eduardoq PRN Reason Stop Dose Admin Aspirin 81 mg 07/08/19 10:00 07/08/19 10:23 Ecotrin - PO 81 mg DAILY TRACEY Administration Atorvastatin Calcium 80 mg 07/05/19 22:00 07/07/19 22:02 Lipitor - PO 80 mg HS TRACEY Administration Clopidogrel Bisulfate 75 mg 07/05/19 10:00 07/08/19 10:23 Plavix - PO 75 mg DAILY TRACEY Administration Dexamethasone 4 mg 07/05/19 10:00 07/08/19 10:27 Decadron - PO 4 mg DAILY TRACEY Administration Enoxaparin Sodium 40 mg 07/05/19 10:00 07/08/19 10:23 Lovenox - SQ 40 mg DAILY TRACEY Administration Fluconazole 200 mg 07/09/19 16:00 Diflucan 40mg/Ml Suspension - PO DAILY TRACEY Lidocaine/Aluminum/Magnesium/Simeth 5 ml 07/08/19 12:00 07/08/19 17:03 Magic Mouthwash *Sjr Formula* - MM 5 ml Q6HPO TRACEY Administration Pantoprazole Sodium 40 mg 07/07/19 22:00 07/08/19 10:23 Protonix - PO 40 mg BID TRACEY Administration Sucralfate 1 gm 07/08/19 13:42 07/08/19 17:04 Carafate Oral Suspension - PO 1 gm QID TRACEY Administration Tamsulosin HCl 0.4 mg 07/05/19 08:30 07/08/19 08:44 Flomax - PO 0.4 mg DAILY@0830 TRACEY Administration Umeclidinium/Vilanterol 1 puff 07/05/19 10:00 07/08/19 10:18 Anoro Ellipta 62.5-25 Mcg Inh IH 1 puff DAILY TRACEY Administration CT of the chest: Diffuse thickening of the esophagus with small hiatal hernia. decreasing b/l pleural effusions, patchy central consolidation within both lungs. 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 He presented with odynophagia and vomiting. # Odynophagia:due to severe distal esophagitis most likely due to zoraida esophagitis: Most likely due to radiation induced esophagitis continue PPI , carafate , nutrition consult for calorie count and recommendations. puree diet for now # H/o Metastatic Large cell lung cancer: was supposed to see his ONC but missed apt due to his sx. last brain radiation was few weeks ago. currently on decadron 4 mg daily, decreased from 4 BID 2 weeks ago, cont decadron 4 mg daily for now # H/o PVD: cont asa and plavix ; his sx was many years ago, as per vascular to continue asa and plavix # Hx of BPH: on Flomax continue DVT PX: lovenox if no improvement might need to repeat EGD
[2019-07-08] MEDS: ATORVASTATIN CA 80 MG TABLET (FP) PO SCH (22:38)
[2019-07-09] MEDS: MAG HYDROX/ALH/SMC/DPHA/LIDO 240 ML MOUTHWASH MM SCH ×5 (00:33→23:32)
--- NOTE | 2019-07-09 07:22 | PN.GI ---
GI Progress Note Subjective: states he is feeling better still with dysphagia tolerating some diet - Objective Vital Signs: Vital Signs Temperature 97.4 F L 07/09/19 06:00 Pulse Rate 74 07/09/19 06:00 Respiratory Rate 20 07/09/19 06:00 Blood Pressure 122/64 07/09/19 06:00 O2 Sat by Pulse Oximetry (%) 92 L 07/08/19 21:00 Constitutional: Well Nourished, No Distress, Calm Eyes: Yes: WNL, Conjunctiva Clear HENT: Yes: WNL, Atraumatic Neck: Yes: WNL, Supple Cardiovascular: Yes: WNL, Regular Rate and Rhythm Respiratory: Yes: WNL, Regular, CTA Bilaterally Gastrointestinal Inspection: Yes: WNL ...Auscultate: Yes: Normoactive Bowel Sounds Musculoskeletal: Yes: WNL Extremities: Yes: WNL Edema: No Labs: CBC, BMP 07/08/19 07:20 07/08/19 07:20 INR, PTT INR 1.17 (0.83-1.09) H 07/04/19 22:30 Problem List - Problems (1) Esophagitis Assessment/Plan: pathology reviewed c/w ppi and diflucan diet as tolerated may need repeat egd with additional biopsy if symptoms do not improve however , he will need to be off asa/ plavix will f/u Code(s): K20.9 - ESOPHAGITIS, UNSPECIFIED (2) Dysphagia Code(s): R13.10 - DYSPHAGIA, UNSPECIFIED (3) Lung cancer Code(s): C34.90 - MALIGNANT NEOPLASM OF UNSP PART OF UNSP BRONCHUS OR LUNG (4) Odynophagia Code(s): R13.10 - DYSPHAGIA, UNSPECIFIED
[2019-07-09] MEDS: TAMSULOSIN HCL 0.4 MG CAP PO SCH (08:42)
[2019-07-09 08:54] LABS: HEMATOCRIT 30.8 % (35.4-49); HEMOGLOBIN 10.9 GM/dL (11.7-16.9); MCH 32.4 pg (25.7-33.7); MCHC 35.5 g/dl (32.0-35.9); MEAN CELL VOLUME 91.5 fl (80-96); MEAN PLT VOLUME 8.8 fl (7.5-11.1); PLATELET COUNT 132 K/MM3 (134-434); RBC 3.37 M/mm3 (4.00-5.60); RDW 15.8 % (11.9-15.9); WHITE BLOOD COUNT 6.7 K/mm3 (4.0-10.0)
[2019-07-09] MEDS ORDERED: PT OWN MED DRAWER 7, Y5N ONE (09:26)
[2019-07-09 09:33] LABS: ALBUMIN 2.1 g/dl (3.4-5.0); BILIRUBIN,TOTAL 0.6 mg/dL (0.2-1); BLOOD UREA NITROGEN 17.3 mg/dL (7-18); CREATININE 0.7 mg/dL (0.55-1.3); TOT PROT 4.4 g/dl (6.4-8.2)
[2019-07-09] MEDS: ENOXAPARIN NA (PORCINE) 40 MG/0.4 ML DISP.SYRIN SQ SCH (09:40)
[2019-07-09] MEDS: CLOPIDOGREL BISULFATE 75 MG TABLET (FP) PO SCH (09:42)
[2019-07-09] MEDS: SUCRALFATE 1 GM/10 ML UNIT DOSE CUPS PO SCH ×4 (09:42→21:57)
[2019-07-09] MEDS: DEXAMETHASONE 4 MG TABLET (FP) PO SCH (09:42)
[2019-07-09] MEDS: PANTOPRAZOLE 40 MG TABLET (FP) PO SCH ×2 (09:42→21:57)
[2019-07-09] MEDS: ASPIRIN COATED 81 MG TABLET.EC PO SCH (09:42)
[2019-07-09] MEDS: UMECLIDINIUM/VILANTEROL (ANORO) 62.5/25 MCG INHALER IH SCH (09:47)
[2019-07-09] MEDS: FLUCONAZOLE 100 MG TABLET (UD) PO SCH (16:06)
--- NOTE | 2019-07-09 18:31 | PN ---
Progress Note (short form) - Note Progress Note: Patient is feeling better , tolerating some diet. Vital Signs Temperature 97.3 F L 07/09/19 10:00 Pulse Rate 98 H 07/09/19 10:00 Respiratory Rate 20 07/09/19 10:00 Blood Pressure 123/81 07/09/19 10:00 O2 Sat by Pulse Oximetry (%) 93 L 07/09/19 09:00 GENERAL: The patient is awake, alert, and fully oriented, in no acute distress. HEAD: Normal with no signs of trauma. EYES: PERRL, extraocular movements intact, sclera anicteric, conjunctiva clear. ENT: Ears normal, oropharynx clear without exudates, tongue is clearing up, moist mucous membranes. NECK: Trachea midline, full range of motion, supple. LUNGS: Breath sounds equal, clear to auscultation bilaterally, no wheezes, no crackles, no accessory muscle use. HEART: Regular rate and rhythm, S1, S2 without murmur, rub or gallop. ABDOMEN: Soft, nontender, nondistended, normoactive bowel sounds, no guarding, no rebound, no hepatosplenomegaly, no masses. EXTREMITIES: 2+ pulses, warm, well-perfused, no edema. NEUROLOGICAL: Cranial nerves II through XII grossly intact. Normal speech, gait not observed. PSYCH: Normal mood, normal affect. SKIN: Warm, dry, normal turgor, no rashes or lesions noted CBCD WBC 6.7 K/mm3 (4.0-10.0) 07/09/19 08:10 RBC 3.37 M/mm3 (4.00-5.60) L 07/09/19 08:10 Hgb 10.9 GM/dL (11.7-16.9) L 07/09/19 08:10 Hct 30.8 % (35.4-49) L 07/09/19 08:10 MCV 91.5 fl (80-96) 07/09/19 08:10 MCHC 35.5 g/dl (32.0-35.9) 07/09/19 08:10 RDW 15.8 % (11.9-15.9) 07/09/19 08:10 Plt Count 132 K/MM3 (134-434) L 07/09/19 08:10 MPV 8.8 fl (7.5-11.1) 07/09/19 08:10 CMP Sodium 138 mmol/L (136-145) 07/09/19 08:10 Potassium 4.0 mmol/L (3.5-5.1) 07/09/19 08:10 Chloride 106 mmol/L (98-107) 07/09/19 08:10 Carbon Dioxide 23 mmol/L (21-32) 07/09/19 08:10 Anion Gap 9 MMOL/L (8-16) 07/09/19 08:10 BUN 17.3 mg/dL (7-18) 07/09/19 08:10 Creatinine 0.7 mg/dL (0.55-1.3) 07/09/19 08:10 Random Glucose 127 mg/dL (74-106) H 07/09/19 08:10 Calcium 8.0 mg/dL (8.5-10.1) L 07/09/19 08:10 Total Bilirubin 0.6 mg/dL (0.2-1) 07/09/19 08:10 AST 11 U/L (15-37) L 07/09/19 08:10 ALT 22 U/L (13-61) 07/09/19 08:10 Alkaline Phosphatase 69 U/L (45-117) 07/09/19 08:10 Total Protein 4.4 g/dl (6.4-8.2) L 07/09/19 08:10 Albumin 2.1 g/dl (3.4-5.0) L 07/09/19 08:10 CARDIAC ENZYMES Creatine Kinase 54 U/L (26-308) 07/04/19 22:30 Troponin I < 0.02 ng/ml (0.00-0.05) 07/05/19 10:25 Current Medications Generic Name Dose Route Start Last Admin Trade Name Magali PRN Reason Stop Dose Admin Aspirin 81 mg 07/08/19 10:00 07/09/19 09:42 Ecotrin - PO 81 mg DAILY TRACEY Administration Atorvastatin Calcium 80 mg 07/05/19 22:00 07/08/19 22:38 Lipitor - PO 80 mg HS TRACEY Administration Clopidogrel Bisulfate 75 mg 07/05/19 10:00 07/09/19 09:42 Plavix - PO 75 mg DAILY TRACEY Administration Dexamethasone 4 mg 07/05/19 10:00 07/09/19 09:42 Decadron - PO 4 mg DAILY TRACEY Administration Enoxaparin Sodium 40 mg 07/05/19 10:00 07/09/19 09:40 Lovenox - SQ 40 mg DAILY TRACEY Administration Fluconazole 200 mg 07/09/19 16:00 07/09/19 16:06 Diflucan - PO 200 mg 1600 TRACEY Administration Lidocaine/Aluminum/Magnesium/Simeth 5 ml 07/08/19 12:00 07/09/19 17:13 Magic Mouthwash *Sjr Formula* - MM 5 ml Q6HPO TRACEY Administration Pantoprazole Sodium 40 mg 07/07/19 22:00 07/09/19 09:42 Protonix - PO 40 mg BID TRACEY Administration Sucralfate 1 gm 07/08/19 13:42 07/09/19 17:47 Carafate Oral Suspension - PO 1 gm QID TRACEY Administration Tamsulosin HCl 0.4 mg 07/05/19 08:30 07/09/19 08:42 Flomax - PO 0.4 mg DAILY@0830 TRACEY Administration Umeclidinium/Vilanterol 1 puff 07/05/19 10:00 07/09/19 09:47 Anoro Ellipta 62.5-25 Mcg Inh IH 1 puff DAILY TRACEY Administration CT of the chest: Diffuse thickening of the esophagus with small hiatal hernia. decreasing b/l pleural effusions, patchy central consolidation within both lungs. 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 He presented with odynophagia and vomiting. # Odynophagia: patient is going for EGD since has an oral thrush, most likely due to radiation induced esophagitis in DDX. continue on po diflucan since does not have IV access for presumptive zoraida esophagitis . on 200 mg liquid daily. on puree diet now. continue PPI , carafate , nutrition consult for calorie count and recommendations appreciated. # H/o Metastatic Large cell lung cancer: was supposed to see his ONC but missed apt due to his sx. last brain radiation was few weeks ago. currently on decadron 4 mg daily, decreased from 4 BID 2 weeks ago, cont decadron 4 mg daily for now # H/o PVD: cont asa and plavix was many years ago, as per vascular surgeon to continue # Hx of BPH: on Flomax continue DVT PX: lovenox Visit type - Emergency Visit Emergency Visit: Yes ED Registration Date: 07/05/19 Care time: The patient presented to the Emergency Department on the above date and was hospitalized for further evaluation of their emergent condition. - New Patient This patient is new to me today: No - Critical Care Critical Care patient: No - Discharge Referral Referred to [facility] Med P.C.: No
[2019-07-09] MEDS: ATORVASTATIN CA 80 MG TABLET (FP) PO SCH (21:57)
[2019-07-10 01:41] VITALS: BMI 24.9
[2019-07-10] MEDS: MAG HYDROX/ALH/SMC/DPHA/LIDO 240 ML MOUTHWASH MM SCH ×3 (05:23→17:04)
--- NOTE | 2019-07-10 07:43 | PN.GI ---
GI Progress Note Subjective: TOLERATING SOME DIET ; STILL WITH DISCOMFORT NO NEW COMPLAINTS - Objective Vital Signs: Vital Signs Temperature 98.6 F 07/09/19 22:00 Pulse Rate 82 07/09/19 22:00 Respiratory Rate 20 07/09/19 22:00 Blood Pressure 143/73 07/09/19 22:00 O2 Sat by Pulse Oximetry (%) 94 L 07/09/19 21:00 Constitutional: Well Nourished, No Distress Eyes: Yes: WNL HENT: Yes: WNL Neck: Yes: WNL Cardiovascular: Yes: WNL Respiratory: Yes: WNL, Regular, CTA Bilaterally Gastrointestinal Inspection: Yes: WNL ...Auscultate: Yes: Normoactive Bowel Sounds Extremities: Yes: WNL Edema: No Labs: CBC, BMP 07/09/19 08:10 07/09/19 08:10 INR, PTT INR 1.17 (0.83-1.09) H 07/04/19 22:30 Problem List - Problems (1) Esophagitis Assessment/Plan: pathology reviewed c/w ppi and diflucan -- it will take time for his symptoms to completely resolve diet as tolerated may need repeat egd with additional biopsy if symptoms do not improve however , he will need to be off asa/ plavix (PLAVIX HAS BEEN HELD) will f/u Code(s): K20.9 - ESOPHAGITIS, UNSPECIFIED (2) Dysphagia Code(s): R13.10 - DYSPHAGIA, UNSPECIFIED (3) Lung cancer Code(s): C34.90 - MALIGNANT NEOPLASM OF UNSP PART OF UNSP BRONCHUS OR LUNG (4) Odynophagia Code(s): R13.10 - DYSPHAGIA, UNSPECIFIED
[2019-07-10] MEDS ORDERED: PT OWN MED DRAWER 7, Y5N ONE ×2 (09:05→17:02)
[2019-07-10] MEDS: SUCRALFATE 1 GM/10 ML UNIT DOSE CUPS PO SCH ×4 (09:09→21:35)
[2019-07-10] MEDS: DEXAMETHASONE 4 MG TABLET (FP) PO SCH (09:09)
[2019-07-10] MEDS: ENOXAPARIN NA (PORCINE) 40 MG/0.4 ML DISP.SYRIN SQ SCH (09:09)
[2019-07-10] MEDS: ASPIRIN COATED 81 MG TABLET.EC PO SCH (09:09)
[2019-07-10] MEDS: PANTOPRAZOLE 40 MG TABLET (FP) PO SCH ×2 (09:09→21:35)
[2019-07-10] MEDS: TAMSULOSIN HCL 0.4 MG CAP PO SCH (09:09)
[2019-07-10] MEDS: CLOPIDOGREL BISULFATE 75 MG TABLET (FP) PO SCH (09:09)
[2019-07-10] MEDS: UMECLIDINIUM/VILANTEROL (ANORO) 62.5/25 MCG INHALER IH SCH (09:15)
--- NOTE | 2019-07-10 11:54 | PN ---
Physical Exam: SUBJECTIVE: Patient seen and examined 64 y/o M, pmh of metastatic lung cancer w/ brain mets, HTN, HLD, presents with difficulty swallowing of one month duration associated fatigue, decreased food intake, and chest pain, is admitted for odynophagia. Pt is not in any distress, has c/o of difficulty swallowing and mouth pain. No overnight events. Denies f/c /n/v/d/sob. OBJECTIVE: Vital Signs Period Temp Pulse Resp BP Sys/Davis Pulse Ox Last 24 Hr 97.8 F-98.6 F 77-82 18-20 127-143/70-73 94 GENERAL: The patient is awake, alert, and fully oriented, in no acute distress. EYES: PERRL, extraocular movements intact, ENT: oropharynx contains oral thrush, slouches off when scraped. NECK: full range of motion, supple. LUNGS: Breath sounds equal, clear to auscultation bilaterally, mild wheezes, no crackles HEART: Regular rate and rhythm, S1, S2 without murmur, rub or gallop. ABDOMEN: Soft, mild tenderness to palpation, nondistended, normoactive bowel sounds, no guarding, EXTREMITIES: 2+ pulses, warm, well-perfused, no edema. NEUROLOGICAL: Cranial nerves II through XII grossly intact. SKIN: Warm, dry, normal turgor, no rashes or lesions noted Active Medications Current Medications Aspirin (Ecotrin -) 81 mg PO DAILY [facility] Last Admin: 07/10/19 09:09 Dose: 81 mg Atorvastatin Calcium (Lipitor -) 80 mg PO HS [facility] Last Admin: 07/09/19 21:57 Dose: 80 mg Clopidogrel Bisulfate (Plavix -) 75 mg PO DAILY [facility] Last Admin: 07/10/19 09:09 Dose: 75 mg Dexamethasone (Decadron -) 4 mg PO DAILY [facility] Last Admin: 07/10/19 09:09 Dose: 4 mg Enoxaparin Sodium (Lovenox -) 40 mg SQ DAILY [facility] Last Admin: 07/10/19 09:09 Dose: 40 mg Fluconazole (Diflucan -) 200 mg PO 1600 [facility] Last Admin: 07/09/19 16:06 Dose: 200 mg Lactobacillus Acidophilus (Bacid -) 1 tab PO BID [facility] Lidocaine/Aluminum/Magnesium/Simeth (Magic Mouthwash *Sjr Formula* -) 5 ml MM Q6HPO [facility] Last Admin: 07/10/19 05:23 Dose: 5 ml Pantoprazole Sodium (Protonix -) 40 mg PO BID [facility] Last Admin: 07/10/19 09:09 Dose: 40 mg Sucralfate (Carafate Oral Suspension -) 1 gm PO QID [facility] Last Admin: 07/10/19 09:09 Dose: 1 gm Tamsulosin HCl (Flomax -) 0.4 mg PO DAILY@0830 [facility] Last Admin: 07/10/19 09:09 Dose: 0.4 mg Umeclidinium/Vilanterol (Anoro Ellipta 62.5-25 Mcg Inh) 1 puff IH DAILY [facility] Last Admin: 07/10/19 09:15 Dose: 1 puff Home Medications Medication Instructions Recorded Multivitamin [Daily Multiple 1 each PO DAILY 02/02/18 Vitamin] Aspirin [ASA -] 81 mg PO DAILY 07/05/19 Atorvastatin Ca [Lipitor] 80 mg PO DAILY 07/05/19 Clopidogrel Bisulfate [Clopidogrel] 75 mg PO DAILY 07/05/19 Dexamethasone 4 mg PO BID 07/05/19 Sucralfate Oral Suspension 10 ml PO TID 07/05/19 [Carafate Oral Suspension -] Tamsulosin HCl [Flomax] 0.4 mg PO BID 07/05/19 Umeclidinium Brm/Vilanterol Tr 1 each IH DAILY 07/05/19 [Anoro Ellipta 62.5-25 Mcg INH] Varenicline Tartrate [Chantix] 1 mg PO BID 07/05/19 ASSESSMENT/PLAN: 64 y/o M, pmh of metastatic lung cancer w/ brain mets, HTN, HLD, presents with difficulty swallowing of one month duration associated fatigue, decreased food intake, and chest pain, is admitted for odynophagia #Odynophagia likely 2/2 to esophagial candidiasis in the setting of oral thrush and neutropenic status s/p chemo and cancer EGD- extensive ulcerative esophagitis from incisors to 36cm of esophagus S/p EGD Bx- waiting results cont Fluconazole PPI's 40mg PO daily Sucralfate 1g PO QID Probiotics BID- one dose at night Pureed diet If no improvement, reconsider EGD for an extensive bx #Dysuria likely 2/2 to UTI UA and UCx ordered #Lung cancer metastasis likely large cell carcinoma of the lung to the brain Dexamethasone 4mg daily- will have to wean or lower dose #Hypoalbuminemia likely 2/2 to inadequate diet vs cachexia #Thrombocytopenic Will monitor #PVD cont asa and plavix #DVT ppx Lovenox FEN: Pureed diet monitor lytes Dispo: purred diet due to narrow lumen of the esophagus, cont asa and plavix, f/ u with GI on plan Visit type - Emergency Visit Emergency Visit: Yes ED Registration Date: 07/05/19 Care time: The patient presented to the Emergency Department on the above date and was hospitalized for further evaluation of their emergent condition. - New Patient This patient is new to me today: Yes Date on this admission: 07/10/19 - Critical Care Critical Care patient: No - Discharge Referral Referred to [facility] Med P.C.: No ATTENDING PHYSICIAN STATEMENT I saw and evaluated the patient. I reviewed the resident's note and discussed the case with the resident. I agree with the resident's findings and plan as documented. SUBJECTIVE: OBJECTIVE: ASSESSMENT AND PLAN:
[2019-07-10 15:46] LABS: EPI CELLS 1.4 /HPF (0-5/HPF); HYALINE CASTS 4 /lpf (0-8); PH,URINE 7.5 (5.0-8.0); URINE APPEARANCE CLEAR; URINE BACTERIA 4.6 /hpf (NEGATIVE); URINE BILIRUBIN NEGATIVE (NEGATIVE); URINE COLOR YELLOW; URINE GLUCOSE (UA) NEGATIVE (NEGATIVE); URINE KETONE NEGATIVE (NEGATIVE); URINE LEUK ESTERASE NEGATIVE (NEGATIVE); URINE NITRITE NEGATIVE (NEGATIVE); URINE PROTEIN 1+ (NEGATIVE); URINE RBC 2 /hpf (0-4); URINE WBC 1 /hpf (0-5)
--- NOTE | 2019-07-10 17:03 | PN ---
Teaching Attending Note Name of Resident: Richmond Mcbride ATTENDING PHYSICIAN STATEMENT I saw and evaluated the patient. I reviewed the resident's note and discussed the case with the resident. I agree with the resident's findings and plan as documented. SUBJECTIVE: Patient is feeling better with no acute distress. Vital Signs Temperature 98.0 F 07/10/19 10:00 Pulse Rate 98 H 07/10/19 10:00 Respiratory Rate 20 07/10/19 10:00 Blood Pressure 120/70 07/10/19 10:00 O2 Sat by Pulse Oximetry (%) 95 07/10/19 09:00 GENERAL: The patient is awake, alert, and fully oriented, in no acute distress. HEAD: Normal with no signs of trauma. EYES: PERRL, extraocular movements intact, sclera anicteric, conjunctiva clear. ENT: Ears normal, oropharynx clear without exudates, tongue is clearing up, positive for oral thrush. NECK: Trachea midline, full range of motion, supple. LUNGS: Breath sounds equal, clear to auscultation bilaterally, no wheezes, no crackles, no accessory muscle use. HEART: Regular rate and rhythm, S1, S2 without murmur, rub or gallop. ABDOMEN: Soft, nontender, nondistended, normoactive bowel sounds, no guarding, no rebound, no hepatosplenomegaly, no masses. EXTREMITIES: 2+ pulses, warm, well-perfused, no edema. NEUROLOGICAL: Cranial nerves II through XII grossly intact. Normal speech, gait not observed. PSYCH: Normal mood, normal affect. SKIN: Warm, dry, normal turgor, no rashes or lesions noted CBCD WBC 6.7 K/mm3 (4.0-10.0) 07/09/19 08:10 RBC 3.37 M/mm3 (4.00-5.60) L 07/09/19 08:10 Hgb 10.9 GM/dL (11.7-16.9) L 07/09/19 08:10 Hct 30.8 % (35.4-49) L 07/09/19 08:10 MCV 91.5 fl (80-96) 07/09/19 08:10 MCHC 35.5 g/dl (32.0-35.9) 07/09/19 08:10 RDW 15.8 % (11.9-15.9) 07/09/19 08:10 Plt Count 132 K/MM3 (134-434) L 07/09/19 08:10 MPV 8.8 fl (7.5-11.1) 07/09/19 08:10 CMP Sodium 138 mmol/L (136-145) 07/09/19 08:10 Potassium 4.0 mmol/L (3.5-5.1) 07/09/19 08:10 Chloride 106 mmol/L (98-107) 07/09/19 08:10 Carbon Dioxide 23 mmol/L (21-32) 07/09/19 08:10 Anion Gap 9 MMOL/L (8-16) 07/09/19 08:10 BUN 17.3 mg/dL (7-18) 07/09/19 08:10 Creatinine 0.7 mg/dL (0.55-1.3) 07/09/19 08:10 Random Glucose 127 mg/dL (74-106) H 07/09/19 08:10 Calcium 8.0 mg/dL (8.5-10.1) L 07/09/19 08:10 Total Bilirubin 0.6 mg/dL (0.2-1) 07/09/19 08:10 AST 11 U/L (15-37) L 07/09/19 08:10 ALT 22 U/L (13-61) 07/09/19 08:10 Alkaline Phosphatase 69 U/L (45-117) 07/09/19 08:10 Total Protein 4.4 g/dl (6.4-8.2) L 07/09/19 08:10 Albumin 2.1 g/dl (3.4-5.0) L 07/09/19 08:10 CARDIAC ENZYMES Creatine Kinase 54 U/L (26-308) 07/04/19 22:30 Troponin I < 0.02 ng/ml (0.00-0.05) 07/05/19 10:25 Current Medications Generic Name Dose Route Start Last Admin Trade Name Freq PRN Reason Stop Dose Admin Aspirin 81 mg 07/08/19 10:00 07/10/19 09:09 Ecotrin - PO 81 mg DAILY [facility]ACE[facility] Administration Atorvastatin Calcium 80 mg 07/05/19 22:00 07/09/19 21:57 Lipitor - PO 80 mg HS TRACEY Administration Clopidogrel Bisulfate 75 mg 07/05/19 10:00 07/10/19 09:09 Plavix - PO 75 mg DAILY TRACEY Administration Dexamethasone 4 mg 07/05/19 10:00 07/10/19 09:09 Decadron - PO 4 mg DAILY [facility] Administration Enoxaparin Sodium 40 mg 07/05/19 10:00 07/10/19 09:09 Lovenox - SQ 40 mg DAILY [facility] Administration Fluconazole 200 mg 07/09/19 16:00 07/10/19 17:04 Diflucan - PO 200 mg 1600 TRACEY Administration Lactobacillus Acidophilus 1 tab 07/10/19 22:00 Bacid - PO BID [facility] Lidocaine/Aluminum/Magnesium/Simeth 5 ml 07/08/19 12:00 07/10/19 17:04 Magic Mouthwash *Sjr Formula* - MM 5 ml Q6HPO [facility]ACEY Administration Pantoprazole Sodium 40 mg 07/07/19 22:00 07/10/19 09:09 Protonix - PO 40 mg BID [facility] Administration Sucralfate 1 gm 07/08/19 13:42 07/10/19 17:04 Carafate Oral Suspension - PO 1 gm QID [facility] Administration Tamsulosin HCl 0.4 mg 07/05/19 08:30 07/10/19 09:09 Flomax - PO 0.4 mg DAILY@0830 [facility] Administration Umeclidinium/Vilanterol 1 puff 07/05/19 10:00 07/10/19 09:15 Anoro Ellipta 62.5-25 Mcg Inh IH 1 puff DAILY [facility] Administration Home Medications Medication Instructions Recorded Multivitamin [Daily Multiple 1 each PO DAILY 02/02/18 Vitamin] Aspirin [ASA -] 81 mg PO DAILY 07/05/19 Atorvastatin Ca [Lipitor] 80 mg PO DAILY 07/05/19 Clopidogrel Bisulfate [Clopidogrel] 75 mg PO DAILY 07/05/19 Dexamethasone 4 mg PO BID 07/05/19 Sucralfate Oral Suspension 10 ml PO TID 07/05/19 [Carafate Oral Suspension -] Tamsulosin HCl [Flomax] 0.4 mg PO BID 07/05/19 Umeclidinium Brm/Vilanterol Tr 1 each IH DAILY 07/05/19 [Anoro Ellipta 62.5-25 Mcg INH] Varenicline Tartrate [Chantix] 1 mg PO BID 07/05/19 CT of the chest: Diffuse thickening of the esophagus with small hiatal hernia. decreasing b/l pleural effusions, patchy central consolidation within both lungs. 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 He presented with odynophagia and vomiting. # Odynophagia: due to severe distal esophagitis most likely due to zoraida esophagitis: Most likely due to radiation induced esophagitis; continue PPI , carafate , puree diet continue as per GI if no improvement might need to repeat EGD , continue PPI and Diflucan , will take time to resolve the symptoms. continue puree diet as tolerated, calorie count.. As per GI may need repeat egd with additional biopsy if symptoms do not improve however ,and he will need to be off asa/ plavix (PLAVIX HAS BEEN HELD) # H/o Metastatic Large cell lung cancer: was supposed to see his ONC but missed apt due to his sx. last brain radiation was few weeks ago. currently on decadron 4 mg daily, decreased from 4 BID 2 weeks ago, cont decadron 4 mg daily for now # H/o PVD: cont asa and plavix ; his sx was many years ago, as per vascular to continue asa and plavix # Hx of BPH: on Flomax continue DVT PX: lovenox
[2019-07-10] MEDS: FLUCONAZOLE 100 MG TABLET (UD) PO SCH (17:04)
[2019-07-10] MEDS: LACTOBACILLUS ACIDOPHILUS 1 TABLET PO SCH (21:35)
[2019-07-10] MEDS: ATORVASTATIN CA 80 MG TABLET (FP) PO SCH (21:35)
[2019-07-11] MEDS: MAG HYDROX/ALH/SMC/DPHA/LIDO 240 ML MOUTHWASH MM SCH ×5 (00:43→23:27)
[2019-07-11 08:33] LABS: HEMATOCRIT 27.9 % (35.4-49); MCH 32.4 pg (25.7-33.7); MCHC 35.7 g/dl (32.0-35.9); MEAN CELL VOLUME 90.6 fl (80-96); MEAN PLT VOLUME 9.3 fl (7.5-11.1); PLATELET COUNT 125 K/MM3 (134-434); RBC 3.08 M/mm3 (4.00-5.60); RDW 16.3 % (11.9-15.9); WHITE BLOOD COUNT 5.8 K/mm3 (4.0-10.0)
[2019-07-11 08:47] LABS: ALBUMIN 1.8 g/dl (3.4-5.0); BILIRUBIN,DIRECT 0.4 mg/dL (0.0-0.2); BILIRUBIN,TOTAL 0.9 mg/dL (0.2-1); BLOOD UREA NITROGEN 17.8 mg/dL (7-18); CALCIUM 8.1 mg/dL (8.5-10.1); CREATININE 0.7 mg/dL (0.55-1.3); POTASSIUM 4.5 mmol/L (3.5-5.1); TOT PROT 4.4 g/dl (6.4-8.2)
[2019-07-11] MEDS ORDERED: PT OWN MED DRAWER 7, Y5N ONE ×2 (09:08→11:24)
[2019-07-11] MEDS: SUCRALFATE 1 GM/10 ML UNIT DOSE CUPS PO SCH ×4 (09:27→22:06)
[2019-07-11] MEDS: CLOPIDOGREL BISULFATE 75 MG TABLET (FP) PO SCH (09:27)
[2019-07-11] MEDS: DEXAMETHASONE 4 MG TABLET (FP) PO SCH (09:27)
[2019-07-11] MEDS: TAMSULOSIN HCL 0.4 MG CAP PO SCH (09:27)
[2019-07-11] MEDS: LACTOBACILLUS ACIDOPHILUS 1 TABLET PO SCH ×2 (09:27→22:06)
[2019-07-11] MEDS: ENOXAPARIN NA (PORCINE) 40 MG/0.4 ML DISP.SYRIN SQ SCH (09:27)
[2019-07-11] MEDS: ASPIRIN COATED 81 MG TABLET.EC PO SCH (09:27)
[2019-07-11] MEDS: PANTOPRAZOLE 40 MG TABLET (FP) PO SCH ×2 (09:27→22:06)
[2019-07-11] MEDS: UMECLIDINIUM/VILANTEROL (ANORO) 62.5/25 MCG INHALER IH SCH (09:29)
--- NOTE | 2019-07-11 13:55 | PN ---
Progress Note (short form) - Note Progress Note: GI f/u Tolerating puree diet States odynophagia improving slowly - wants soft solid like eggs Vital Signs Temp 97.7 F 07/11/19 09:38 Pulse 104 H 07/11/19 09:38 Resp 19 07/11/19 09:38 BP 103/69 07/11/19 09:38 Pulse Ox 95 07/11/19 09:00 NAD CBC, BMP 07/11/19 07:15 07/11/19 07:15 Impression: odynophagia, likely secondary to radiation EGD reviewed Can advance to soft diet - advised pt he needs to chew well Continue PPI, carafate, fluconazole
--- NOTE | 2019-07-11 16:20 | PN ---
Physical Exam: SUBJECTIVE: Patient seen and examined 64 y/o M, pmh of metastatic lung cancer w/ brain mets, HTN, HLD, presents with difficulty swallowing of one month duration associated fatigue, decreased food intake, and chest pain, is admitted for odynophagia. Pt is not in any distress, has c/o of difficulty swallowing and mouth pain. No overnight events. Pt wants to try soft food, he believes he is ready for an advanced diet as he is feeling improved. Denies f/c/n/v/d/sob. OBJECTIVE: Vital Signs Period Temp Pulse Resp BP Sys/Davis Pulse Ox Last 24 Hr 97.5 F-98.7 F 84-104 18-20 90-123/52-69 95-95 GENERAL: The patient is awake, alert, and fully oriented, in no acute distress. EYES: PERRL, extraocular movements intact, ENT: oropharynx contains oral thrush, slouches off when scraped. NECK: full range of motion, supple. LUNGS: Breath sounds equal, clear to auscultation bilaterally, mild wheezes, no crackles HEART: Regular rate and rhythm, S1, S2 without murmur, rub or gallop. ABDOMEN: Soft, mild tenderness to palpation, nondistended, normoactive bowel sounds, no guarding, EXTREMITIES: 2+ pulses, warm, well-perfused, no edema. NEUROLOGICAL: Cranial nerves II through XII grossly intact. SKIN: Warm, dry, normal turgor, no rashes or lesions noted Laboratory Results - last 24 hr 07/11/19 07/11/19 07:15 07:15 WBC 5.8 RBC 3.08 L Hgb 10.0 L Hct 27.9 L MCV 90.6 MCH 32.4 MCHC 35.7 RDW 16.3 H Plt Count 125 L MPV 9.3 Sodium 137 Potassium 4.5 Chloride 103 Carbon Dioxide 26 Anion Gap 8 BUN 17.8 Creatinine 0.7 Est GFR (CKD-EPI)AfAm 114.78 Est GFR (CKD-EPI)NonAf 99.03 Random Glucose 120 H Calcium 8.1 L Magnesium 2.0 Total Bilirubin 0.9 Direct Bilirubin 0.4 H AST 11 L ALT 17 Alkaline Phosphatase 66 Total Protein 4.4 L Albumin 1.8 L Active Medications Current Medications Aspirin (Ecotrin -) 81 mg PO DAILY [facility] Last Admin: 07/11/19 09:27 Dose: 81 mg Atorvastatin Calcium (Lipitor -) 80 mg PO HS [facility] Last Admin: 07/10/19 21:35 Dose: 80 mg Clopidogrel Bisulfate (Plavix -) 75 mg PO DAILY [facility] Last Admin: 07/11/19 09:27 Dose: 75 mg Dexamethasone (Decadron -) 4 mg PO DAILY [facility] Last Admin: 07/11/19 09:27 Dose: 4 mg Enoxaparin Sodium (Lovenox -) 40 mg SQ DAILY [facility] Last Admin: 07/11/19 09:27 Dose: 40 mg Fluconazole (Diflucan -) 200 mg PO 1600 [facility] Last Admin: 07/10/19 17:04 Dose: 200 mg Lactobacillus Acidophilus (Bacid -) 1 tab PO BID [facility] Last Admin: 07/11/19 09:27 Dose: 1 tab Lidocaine/Aluminum/Magnesium/Simeth (Magic Mouthwash *Sjr Formula* -) 5 ml MM Q6HPO [facility] Last Admin: 07/11/19 11:38 Dose: 5 ml Nystatin (Nystatin Oral Suspension -) 500,000 units PO Q6HPO [facility] Pantoprazole Sodium (Protonix -) 40 mg PO BID [facility] Last Admin: 07/11/19 09:27 Dose: 40 mg Sucralfate (Carafate Oral Suspension -) 1 gm PO QID [facility] Last Admin: 07/11/19 15:02 Dose: 1 gm Tamsulosin HCl (Flomax -) 0.4 mg PO DAILY@0830 [facility] Last Admin: 07/11/19 09:27 Dose: 0.4 mg Umeclidinium/Vilanterol (Anoro Ellipta 62.5-25 Mcg Inh) 1 puff IH DAILY [facility] Last Admin: 07/11/19 09:29 Dose: 1 puff Home Medications Medication Instructions Recorded Multivitamin [Daily Multiple 1 each PO DAILY 02/02/18 Vitamin] Aspirin [ASA -] 81 mg PO DAILY 07/05/19 Atorvastatin Ca [Lipitor] 80 mg PO DAILY 07/05/19 Clopidogrel Bisulfate [Clopidogrel] 75 mg PO DAILY 07/05/19 Dexamethasone 4 mg PO BID 07/05/19 Sucralfate Oral Suspension 10 ml PO TID 07/05/19 [Carafate Oral Suspension -] Tamsulosin HCl [Flomax] 0.4 mg PO BID 07/05/19 Umeclidinium Brm/Vilanterol Tr 1 each IH DAILY 07/05/19 [Anoro Ellipta 62.5-25 Mcg INH] Varenicline Tartrate [Chantix] 1 mg PO BID 07/05/19 ASSESSMENT/PLAN: 64 y/o M, pmh of metastatic lung cancer w/ brain mets, HTN, HLD, presents with difficulty swallowing of one month duration associated fatigue, decreased food intake, and chest pain, is admitted for odynophagia #Odynophagia likely 2/2 to esophagial candidiasis in the setting of oral thrush and neutropenic status s/p chemo and cancer EGD- extensive ulcerative esophagitis from incisors to 36cm of esophagus S/p EGD Bx- waiting results cont Fluconazole PPI's 40mg PO daily Sucralfate 1g PO QID Probiotics BID- one dose at night Advanced to Soft diet If no improvement, reconsider EGD for an extensive bx #Dysuria likely 2/2 to UTI UA and UCx ordered #Lung cancer 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 - New Patient This patient is new to me today: Yes Date on this admission: 07/12/19 - Critical Care Critical Care patient: No - Discharge Referral Referred to [facility] Med P.C.: No ATTENDING PHYSICIAN STATEMENT I saw and evaluated the patient. I reviewed the resident's note and discussed the case with the resident. I agree with the resident's findings and plan as documented. SUBJECTIVE: OBJECTIVE: ASSESSMENT AND PLAN:
[2019-07-11] MEDS: NYSTATIN 500,000 UNITS/5 ML SUSPENSION PO SCH ×2 (17:18→23:27)
[2019-07-11] MEDS: FLUCONAZOLE 100 MG TABLET (UD) PO SCH (17:20)
--- NOTE | 2019-07-11 18:04 | PN ---
Teaching Attending Note Name of Resident: Richmond Mcbride ATTENDING PHYSICIAN STATEMENT I saw and evaluated the patient. I reviewed the resident's note and discussed the case with the resident. I agree with the resident's findings and plan as documented. SUBJECTIVE: Patient is feeling better , able to tolerate food better than yesterday. Vital Signs Temperature 97.5 F L 07/11/19 14:59 Pulse Rate 95 H 07/11/19 14:59 Respiratory Rate 18 07/11/19 14:59 Blood Pressure 103/56 L 07/11/19 14:59 O2 Sat by Pulse Oximetry (%) 95 07/11/19 09:00 GENERAL: The patient is awake, alert, and fully oriented, in no acute distress. HEAD: Normal with no signs of trauma. EYES: PERRL, extraocular movements intact, sclera anicteric, conjunctiva clear. ENT: Ears normal, oropharynx clear without exudates, tongue is clearing up, positive for oral thrush. NECK: Trachea midline, full range of motion, supple. LUNGS: Breath sounds equal, clear to auscultation bilaterally, no wheezes, no crackles, no accessory muscle use. HEART: Regular rate and rhythm, S1, S2 without murmur, rub or gallop. ABDOMEN: Soft, nontender, nondistended, normoactive bowel sounds, no guarding, no rebound, no hepatosplenomegaly, no masses. EXTREMITIES: 2+ pulses, warm, well-perfused, no edema. NEUROLOGICAL: Cranial nerves II through XII grossly intact. Normal speech, gait not observed. PSYCH: Normal mood, normal affect. SKIN: Warm, dry, normal turgor, no rashes or lesions noted CBCD WBC 5.8 K/mm3 (4.0-10.0) 07/11/19 07:15 RBC 3.08 M/mm3 (4.00-5.60) L 07/11/19 07:15 Hgb 10.0 GM/dL (11.7-16.9) L 07/11/19 07:15 Hct 27.9 % (35.4-49) L 07/11/19 07:15 MCV 90.6 fl (80-96) 07/11/19 07:15 MCHC 35.7 g/dl (32.0-35.9) 07/11/19 07:15 RDW 16.3 % (11.9-15.9) H 07/11/19 07:15 Plt Count 125 K/MM3 (134-434) L 07/11/19 07:15 MPV 9.3 fl (7.5-11.1) 07/11/19 07:15 CMP Sodium 137 mmol/L (136-145) 07/11/19 07:15 Potassium 4.5 mmol/L (3.5-5.1) 07/11/19 07:15 Chloride 103 mmol/L (98-107) 07/11/19 07:15 Carbon Dioxide 26 mmol/L (21-32) 07/11/19 07:15 Anion Gap 8 MMOL/L (8-16) 07/11/19 07:15 BUN 17.8 mg/dL (7-18) 07/11/19 07:15 Creatinine 0.7 mg/dL (0.55-1.3) 07/11/19 07:15 Random Glucose 120 mg/dL (74-106) H 07/11/19 07:15 Calcium 8.1 mg/dL (8.5-10.1) L 07/11/19 07:15 Total Bilirubin 0.9 mg/dL (0.2-1) 07/11/19 07:15 AST 11 U/L (15-37) L 07/11/19 07:15 ALT 17 U/L (13-61) 07/11/19 07:15 Alkaline Phosphatase 66 U/L (45-117) 07/11/19 07:15 Total Protein 4.4 g/dl (6.4-8.2) L 07/11/19 07:15 Albumin 1.8 g/dl (3.4-5.0) L 07/11/19 07:15 CARDIAC ENZYMES Creatine Kinase 54 U/L (26-308) 07/04/19 22:30 Troponin I < 0.02 ng/ml (0.00-0.05) 07/05/19 10:25 Current Medications Generic Name Dose Route Start Last Admin Trade Name Magali PRN Reason Stop Dose Admin Aspirin 81 mg 07/08/19 10:00 07/11/19 09:27 Ecotrin - PO 81 mg DAILY [facility] Administration Atorvastatin Calcium 80 mg 07/05/19 22:00 07/10/19 21:35 Lipitor - PO 80 mg HS [facility] Administration Clopidogrel Bisulfate 75 mg 07/05/19 10:00 07/11/19 09:27 Plavix - PO 75 mg DAILY [facility] Administration Dexamethasone 4 mg 07/05/19 10:00 07/11/19 09:27 Decadron - PO 4 mg DAILY [facility] Administration Enoxaparin Sodium 40 mg 07/05/19 10:00 07/11/19 09:27 Lovenox - SQ 40 mg DAILY [facility] Administration Fluconazole 200 mg 07/09/19 16:00 07/11/19 17:20 Diflucan - PO 200 mg 1600 [facility] Administration Lactobacillus Acidophilus 1 tab 07/10/19 22:00 07/11/19 09:27 Bacid - PO 1 tab BID [facility] Administration Lidocaine/Aluminum/Magnesium/Simeth 5 ml 07/08/19 12:00 07/11/19 17:17 Magic Mouthwash *Sjr Formula* - MM 5 ml Q6HPO [facility] Administration Nystatin 500,000 units 07/11/19 18:00 07/11/19 17:18 Nystatin Oral Suspension - PO 500,000 units Q6HPO [facility] Administration Pantoprazole Sodium 40 mg 07/07/19 22:00 07/11/19 09:27 Protonix - PO 40 mg BID [facility] Administration Sucralfate 1 gm 07/08/19 13:42 07/11/19 17:17 Carafate Oral Suspension - PO 1 gm QID [facility] Administration Tamsulosin HCl 0.4 mg 07/05/19 08:30 07/11/19 09:27 Flomax - PO 0.4 mg DAILY@0830 [facility] Administration Umeclidinium/Vilanterol 1 puff 07/05/19 10:00 07/11/19 09:29 Anoro Ellipta 62.5-25 Mcg Inh IH 1 puff DAILY [facility] Administration Home Medications Medication Instructions Recorded Multivitamin [Daily Multiple 1 each PO DAILY 02/02/18 Vitamin] Aspirin [ASA -] 81 mg PO DAILY 07/05/19 Atorvastatin Ca [Lipitor] 80 mg PO DAILY 07/05/19 Clopidogrel Bisulfate [Clopidogrel] 75 mg PO DAILY 07/05/19 Dexamethasone 4 mg PO BID 07/05/19 Sucralfate Oral Suspension 10 ml PO TID 07/05/19 [Carafate Oral Suspension -] Tamsulosin HCl [Flomax] 0.4 mg PO BID 07/05/19 Umeclidinium Brm/Vilanterol Tr 1 each IH DAILY 07/05/19 [Anoro Ellipta 62.5-25 Mcg INH] Varenicline Tartrate [Chantix] 1 mg PO BID 07/05/19 CT of the chest: Diffuse thickening of the esophagus with small hiatal hernia. decreasing b/l pleural effusions, patchy central consolidation within both lungs. 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 He presented with odynophagia and vomiting. # Odynophagia: due to severe distal esophagitis most likely due to zoraida esophagitis: Most likely due to radiation induced esophagitis; continue PPI , carafate , will also add nyastatin swish and swallow, bacid, puree diet continue as per GI if no improvement might need to repeat EGD , continue PPI and Diflucan , will take time to resolve the symptoms. Patient is tolerating diet better today , wants soft food. calorie count.. As per GI may need repeat egd with additional biopsy if symptoms do not improve however ,and he will need to be off asa/ plavix # H/o Metastatic Large cell lung cancer: was supposed to see his ONC but missed apt due to his sx. last brain radiation was few weeks ago. currently on decadron 4 mg daily, decreased from 4 BID 2 weeks ago, cont decadron 4 mg daily for now # H/o PVD: cont asa and plavix ; his sx was many years ago, as per vascular to continue asa and plavix # Hx of BPH: on Flomax continue DVT PX: lovenox
[2019-07-11] MEDS: ATORVASTATIN CA 80 MG TABLET (FP) PO SCH (22:06)
[2019-07-12] MEDS: NYSTATIN 500,000 UNITS/5 ML SUSPENSION PO SCH ×2 (05:48→11:59)
[2019-07-12] MEDS: MAG HYDROX/ALH/SMC/DPHA/LIDO 240 ML MOUTHWASH MM SCH ×2 (05:48→11:59)
[2019-07-12 08:47] LABS: HEMATOCRIT 32.5 % (35.4-49); HEMOGLOBIN 11.6 GM/dL (11.7-16.9); MCH 32.3 pg (25.7-33.7); MCHC 35.5 g/dl (32.0-35.9); MEAN CELL VOLUME 90.8 fl (80-96); MEAN PLT VOLUME 9.3 fl (7.5-11.1); PLATELET COUNT 176 K/MM3 (134-434); RBC 3.59 M/mm3 (4.00-5.60); RDW 16.5 % (11.9-15.9); WHITE BLOOD COUNT 9.8 K/mm3 (4.0-10.0)
[2019-07-12] MEDS: TAMSULOSIN HCL 0.4 MG CAP PO SCH (09:09)
[2019-07-12 09:19] LABS: BILIRUBIN,TOTAL 0.8 mg/dL (0.2-1); BLOOD UREA NITROGEN 19.7 mg/dL (7-18); CALCIUM 8.3 mg/dL (8.5-10.1); CREATININE 0.8 mg/dL (0.55-1.3); POTASSIUM 4.4 mmol/L (3.5-5.1)
[2019-07-12] MEDS ORDERED: PT OWN MED DRAWER 7, Y5N ONE (09:57)
[2019-07-12] MEDS ORDERED: SENNOSIDES 8.6MG TABLET (FP) PO SCH (10:00)
[2019-07-12] MEDS: CLOPIDOGREL BISULFATE 75 MG TABLET (FP) PO SCH (10:01)
[2019-07-12] MEDS: ASPIRIN COATED 81 MG TABLET.EC PO SCH (10:01)
[2019-07-12] MEDS: ENOXAPARIN NA (PORCINE) 40 MG/0.4 ML DISP.SYRIN SQ SCH (10:01)
[2019-07-12] MEDS: PANTOPRAZOLE 40 MG TABLET (FP) PO SCH (10:01)
[2019-07-12] MEDS: LACTOBACILLUS ACIDOPHILUS 1 TABLET PO SCH (10:01)
[2019-07-12] MEDS: DEXAMETHASONE 4 MG TABLET (FP) PO SCH (10:01)
[2019-07-12] MEDS: SUCRALFATE 1 GM/10 ML UNIT DOSE CUPS PO SCH ×2 (10:01→14:41)
[2019-07-12] MEDS: UMECLIDINIUM/VILANTEROL (ANORO) 62.5/25 MCG INHALER IH SCH (10:07)
--- NOTE | 2019-07-12 11:00 | PN ---
Progress Note, [employer] - Note Progress Note: Selected Entries 07/10/19 07/10/19 07/10/19 09:43 14:33 21:39 Breakfast 50% Lunch 50% Supper 25% Temperature 07/11/19 07/11/19 07/11/19 09:38 10:19 14:59 Breakfast 50% Lunch 75% Supper Temperature 97.7 F 97.5 F L 07/11/19 07/11/19 07/12/19 20:06 21:50 02:00 Breakfast Lunch Supper 100% Temperature 98.6 F 97.5 F L 07/12/19 07/12/19 07/12/19 06:00 09:55 10:00 Breakfast 75% Lunch Supper Temperature 97.4 F L 97.4 F L Laboratory Tests 07/12/19 07:40 WBC 9.8 carafate , nyastatin swish and swallow, magic mouthwash before meals. Doing better- ate chicken cutlets yesterday. Reviewed with medical team- Improved PO intake sec to healing of esoph vs numbing sec to magic mouthwash? PO, as tolerated and desired.
--- NOTE | 2019-07-12 13:18 | PN ---
Teaching Attending Note Name of Resident: Richmond Mcbride ATTENDING PHYSICIAN STATEMENT I saw and evaluated the patient. I reviewed the resident's note and discussed the case with the resident. I agree with the resident's findings and plan as documented. SUBJECTIVE: Patient is feeling better , able to tolerate whole food without any complications. eating regular food now. Vital Signs Temperature 97.4 F L 07/12/19 10:00 Pulse Rate 100 H 07/12/19 10:00 Respiratory Rate 20 07/12/19 10:00 Blood Pressure 92/57 L 07/12/19 10:00 O2 Sat by Pulse Oximetry (%) 96 07/12/19 09:00 GENERAL: The patient is awake, alert, and fully oriented, in no acute distress. HEAD: Normal with no signs of trauma. EYES: PERRL, extraocular movements intact, sclera anicteric, conjunctiva clear. ENT: Ears normal, oropharynx clear without exudates, tongue is clearing up, positive for oral thrush improving NECK: Trachea midline, full range of motion, supple. LUNGS: Breath sounds equal, clear to auscultation bilaterally, no wheezes, no crackles, no accessory muscle use. HEART: Regular rate and rhythm, S1, S2 without murmur, rub or gallop. ABDOMEN: Soft, nontender, nondistended, normoactive bowel sounds, no guarding, no rebound, no hepatosplenomegaly, no masses. EXTREMITIES: 2+ pulses, warm, well-perfused, no edema. NEUROLOGICAL: Cranial nerves II through XII grossly intact. Normal speech, gait not observed. PSYCH: Normal mood, normal affect. SKIN: Warm, dry, normal turgor, no rashes or lesions noted CBCD WBC 9.8 K/mm3 (4.0-10.0) 07/12/19 07:40 RBC 3.59 M/mm3 (4.00-5.60) L 07/12/19 07:40 Hgb 11.6 GM/dL (11.7-16.9) L 07/12/19 07:40 Hct 32.5 % (35.4-49) L D 07/12/19 07:40 MCV 90.8 fl (80-96) 07/12/19 07:40 MCHC 35.5 g/dl (32.0-35.9) 07/12/19 07:40 RDW 16.5 % (11.9-15.9) H 07/12/19 07:40 Plt Count 176 K/MM3 (134-434) D 07/12/19 07:40 MPV 9.3 fl (7.5-11.1) 07/12/19 07:40 CMP Sodium 134 mmol/L (136-145) L 07/12/19 07:40 Potassium 4.4 mmol/L (3.5-5.1) 07/12/19 07:40 Chloride 99 mmol/L (98-107) 07/12/19 07:40 Carbon Dioxide 22 mmol/L (21-32) 07/12/19 07:40 Anion Gap 12 MMOL/L (8-16) 07/12/19 07:40 BUN 19.7 mg/dL (7-18) H 07/12/19 07:40 Creatinine 0.8 mg/dL (0.55-1.3) 07/12/19 07:40 Random Glucose 122 mg/dL (74-106) H 07/12/19 07:40 Calcium 8.3 mg/dL (8.5-10.1) L 07/12/19 07:40 Total Bilirubin 0.8 mg/dL (0.2-1) 07/12/19 07:40 AST 12 U/L (15-37) L 07/12/19 07:40 ALT 21 U/L (13-61) 07/12/19 07:40 Alkaline Phosphatase 78 U/L (45-117) 07/12/19 07:40 Total Protein 5.0 g/dl (6.4-8.2) L 07/12/19 07:40 Albumin 2.0 g/dl (3.4-5.0) L 07/12/19 07:40 CARDIAC ENZYMES Creatine Kinase 54 U/L (26-308) 07/04/19 22:30 Troponin I < 0.02 ng/ml (0.00-0.05) 07/05/19 10:25 Current Medications Generic Name Dose Route Start Last Admin Trade Name Freq PRN Reason Stop Dose Admin Aspirin 81 mg 07/08/19 10:00 07/12/19 10:01 Ecotrin - PO 81 mg DAILY [facility] Administration Atorvastatin Calcium 80 mg 07/05/19 22:00 07/11/19 22:06 Lipitor - PO 80 mg HS [facility] Administration Clopidogrel Bisulfate 75 mg 07/05/19 10:00 07/12/19 10:01 Plavix - PO 75 mg DAILY [facility] Administration Dexamethasone 4 mg 07/05/19 10:00 07/12/19 10:01 Decadron - PO 4 mg DAILY [facility] Administration Enoxaparin Sodium 40 mg 07/05/19 10:00 07/12/19 10:01 Lovenox - SQ 40 mg DAILY [facility] Administration Fluconazole 200 mg 07/09/19 16:00 07/11/19 17:20 Diflucan - PO 200 mg 1600 [facility] Administration Lactobacillus Acidophilus 1 tab 07/10/19 22:00 07/12/19 10:01 Bacid - PO 1 tab BID [facility] Administration Lidocaine/Aluminum/Magnesium/Simeth 5 ml 07/08/19 12:00 07/12/19 11:59 Magic Mouthwash *Sjr Formula* - MM 5 ml Q6HPO [facility] Administration Nystatin 500,000 units 07/11/19 18:00 07/12/19 11:59 Nystatin Oral Suspension - PO 500,000 units Q6HPO [facility] Administration Pantoprazole Sodium 40 mg 07/07/19 22:00 07/12/19 10:01 Protonix - PO 40 mg BID [facility] Administration Senna 1 tab 07/12/19 10:00 07/12/19 10:01 Senna - PO 1 tab BID [facility] Administration Sucralfate 1 gm 07/08/19 13:42 07/12/19 10:01 Carafate Oral Suspension - PO 1 gm QID [facility] Administration Tamsulosin HCl 0.4 mg 07/05/19 08:30 07/12/19 09:09 Flomax - PO 0.4 mg DAILY@0830 [facility] Administration Umeclidinium/Vilanterol 1 puff 07/05/19 10:00 07/12/19 10:07 Anoro Ellipta 62.5-25 Mcg Inh IH 1 puff DAILY [facility] Administration Home Medications Medication Instructions Recorded Multivitamin [Daily Multiple 1 each PO DAILY 02/02/18 Vitamin] Aspirin [ASA -] 81 mg PO DAILY 07/05/19 Atorvastatin Ca [Lipitor] 80 mg PO DAILY 07/05/19 Clopidogrel Bisulfate [Clopidogrel] 75 mg PO DAILY 07/05/19 Dexamethasone 4 mg PO BID 07/05/19 Sucralfate Oral Suspension 10 ml PO TID 07/05/19 [Carafate Oral Suspension -] Tamsulosin HCl [Flomax] 0.4 mg PO BID 07/05/19 Umeclidinium Brm/Vilanterol Tr 1 each IH DAILY 07/05/19 [Anoro Ellipta 62.5-25 Mcg INH] Varenicline Tartrate [Chantix] 1 mg PO BID 07/05/19 CT of the chest: Diffuse thickening of the esophagus with small hiatal hernia. decreasing b/l pleural effusions, patchy central consolidation within both lungs. 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 He presented with odynophagia and vomiting. # Odynophagia: due to severe distal esophagitis most likely due to zoraida esophagitis: improving, most likely due to radiation induced esophagitis; continue PPI , carafate , nyastatin swish and swallow, bacid, regular diet as tolerated . if not continue puree diet. As per GI if no improvement might need to repeat EGD , continue PPI and Diflucan , will take time to resolve the symptoms. Patient is tolerating diet better today , wants soft food. calorie count.. As per GI may need repeat egd with additional biopsy if symptoms do not improve however ,and he will need to be off asa/ plavix # H/o Metastatic Large cell lung cancer: was supposed to see his onc but missed apt due to his sx. last brain radiation was few weeks ago. currently on decadron 4 mg daily, decreased from 4 BID 2 weeks ago, cont decadron 4 mg daily for now until he sees his oncologist/Rtx oncologist. # H/o PVD: cont asa and plavix ; his sx was many years ago, as per vascular to continue asa and plavix # Hx of BPH: on Flomax continue dc patient home
[2019-07-12 13:51] VITALS: BP 115/62; PULSE 90; TEMP 97.8
--- NOTE | 2019-07-12 18:24 | DS ---
Physical Exam: SUBJECTIVE: Patient seen and examined 64 y/o M, pmh of metastatic lung cancer w/ brain mets, HTN, HLD, presents with difficulty swallowing of one month duration associated fatigue, decreased food intake, and chest pain, is admitted for odynophagia. Pt is not in any distress, has c/o of difficulty swallowing and mouth pain but reports its much improved. No overnight events. Pt tolerated soft food. Denies f/c/n/v/d/sob. OBJECTIVE: Vital Signs Period Temp Pulse Resp BP Sys/Davis Pulse Ox Last 24 Hr 97.4 F-98.6 F 68-100 18-20 92-115/57-76 95-96 PHYSICAL EXAM GENERAL: The patient is awake, alert, and fully oriented, in no acute distress. EYES: PERRL, extraocular movements intact, ENT: oropharynx contains oral thrush, slouches off when scraped. NECK: full range of motion, supple. LUNGS: Breath sounds equal, clear to auscultation bilaterally, mild wheezes, no crackles HEART: Regular rate and rhythm, S1, S2 without murmur, rub or gallop. ABDOMEN: Soft, mild tenderness to palpation, nondistended, normoactive bowel sounds, no guarding, EXTREMITIES: 2+ pulses, warm, well-perfused, no edema. NEUROLOGICAL: Cranial nerves II through XII grossly intact. SKIN: Warm, dry, normal turgor, no rashes or lesions noted LABS Laboratory Results - last 24 hr 07/12/19 07/12/19 07:40 07:40 WBC 9.8 RBC 3.59 L Hgb 11.6 L Hct 32.5 L D MCV 90.8 MCH 32.3 MCHC 35.5 RDW 16.5 H Plt Count 176 D MPV 9.3 Sodium 134 L Potassium 4.4 Chloride 99 Carbon Dioxide 22 Anion Gap 12 BUN 19.7 H Creatinine 0.8 Est GFR (CKD-EPI)AfAm 108.65 Est GFR (CKD-EPI)NonAf 93.74 Random Glucose 122 H Calcium 8.3 L Total Bilirubin 0.8 AST 12 L ALT 21 Alkaline Phosphatase 78 Total Protein 5.0 L Albumin 2.0 L Home Medications Medication Instructions Recorded Clopidogrel Bisulfate [Clopidogrel] 75 mg PO DAILY 07/05/19 Tamsulosin HCl [Flomax] 0.4 mg PO BID 07/05/19 Umeclidinium Brm/Vilanterol Tr 1 each IH DAILY 07/05/19 [Anoro Ellipta 62.5-25 Mcg INH] Aspirin Coated [Ecotrin -] 81 mg PO DAILY tablet.ec 07/12/19 Atorvastatin Ca [Lipitor] 80 mg PO HS #30 tablet 07/12/19 Dexamethasone [Decadron -] 4 mg PO DAILY #7 tablet 07/12/19 Fluconazole [Diflucan -] 200 mg PO 1600 #14 tablet 07/12/19 Lactobacillus Acidophilus [Bacid -] 1 tab PO BID #30 tab 07/12/19 Mag Hydrox/Alh/Smc/Dpha/Lido 5 ml MM Q6HPO #460 ml 07/12/19 [Magic Mouthwash *Sjr Formula* -] Nystatin Oral Suspension - 500,000 units PO Q6HPO 30 Days cup 07/12/19 [Nystatin Oral Susp 017096 Units/5 ML -] Pantoprazole Sodium [Protonix] 40 mg PO BID #60 tablet. 07/12/19 Sucralfate Oral Suspension 10 ml PO QID #960 ml 07/12/19 [Carafate Oral Suspension -] Microbiology 07/10/19 14:25 Urine - Urine Clean Catch Urine Culture - Final NO GROWTH OBTAINED HOSPITAL COURSE: Date of Admission:07/05/19 64 y/o M, pmh of metastatic lung cancer w/ brain mets, HTN, HLD, presents with difficulty swallowing of one month duration associated fatigue, decreased food intake, and chest pain, is admitted for odynophagia. Pt has metastatic lung CA with brain mets, which has been in remission as per pt and under constant surveillance as pt has been f/u with his oncologist. 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 CT scan of the chest showed CT chest- diffuse thickening of the esophagus w/ small haital hernia, largely developed from previous studies. Patch central consolidation within both lung that is somewhat decreased from previous exam. Areas of ground glass opacification withing the lower lobes. Pt was taken for EGD, which showed extensive ulcerative esophagitis from incisors to 36cm of esophagus and narrowing of the lumen. Pt was started on Diflucan, PPIs, Carafate and Nystatin. His dexamethasone for brain mets was decreased to 4mg daily. After several days of treatment, his symptoms imprved and he was able to tolerate solid foods. Pt discharged today with recommendation to f/u with his GI and oncologist. CT chest- diffuse thickening of the esophagus w/ small haital hernia, largely developed from previous studies. Patch central consolidation within both lung that is somewhat decreased from previous exam. Areas of ground glass opacification withing the lower lobes EGD- extensive ulcerative esophagitis from incisors to 36cm of esophagus EKG nsr no acute st changes Date of Discharge: 07/12/19 Minutes to complete discharge: 35 Discharge Summary Problems reviewed: Yes Reason For Visit: MALIGNANT NEOPLASM OF LUNG, UNABLE TO EAT, Condition: Improved - Instructions Diet, Activity, Other Instructions: You were admitted to the Hospital for difficulty swallowing While you were in the hospital, we evaluated you with lab work, blood work, imaging including x rays and CAT scans of your chest. We did a swallow study and an endoscopy which showed inflammation and narrowing of your esophagus. IN addition, you had a fungal infection on your tongue for which we have been treating you with antibiotics. Your symptoms and appetite and improved and you are able to be discharged home. Please take all of your previously prescribed medications in addition please take: Diflucan 200 mg by mouth daily for another 14 days Carafate 1 gm by mouth 4 times a day before meals. Protonix 40mg twice a day by mouth Nystatin 500,000 Units every 6 hours by mouth Please follow up with your bottom saw operator Dr. Arias within 1 week Please follow up with your oncologist in 1 to 2 weeks Please follow up with your primary care physician in 1 week. Return to the emergency room, if you experience any worsening of your symptoms, nausea, vomiting, shortness of breath, chest pain or any worsening conditions. Referrals: Ramón Arias MD [Staff Physician] - 1 Week Heidi Rios MD [Primary Care Provider] - 1 Week Disposition: HOME - Home Medications Comprehensive Discharge Medication List: Ambulatory Orders Clopidogrel Bisulfate [Clopidogrel] 75 mg PO DAILY 07/05/19 Tamsulosin HCl [Flomax] 0.4 mg PO BID 07/05/19 Umeclidinium Brm/Vilanterol Tr [Anoro Ellipta 62.5-25 Mcg INH] 1 each IH DAILY 07/05/19 Aspirin Coated [Ecotrin -] 81 mg PO DAILY tablet.ec 07/12/19 Atorvastatin Ca [Lipitor] 80 mg PO HS #30 tablet 07/12/19 Dexamethasone [Decadron -] 4 mg PO DAILY #7 tablet 07/12/19 Fluconazole [Diflucan -] 200 mg PO 1600 #14 tablet 07/12/19 Lactobacillus Acidophilus [Bacid -] 1 tab PO BID #30 tab 07/12/19 Mag Hydrox/Alh/Smc/Dpha/Lido [Magic Mouthwash *Sjr Formula* -] 5 ml MM Q6HPO # 460 ml 07/12/19 Nystatin Oral Suspension - [Nystatin Oral Susp 330442 Units/5 ML -] 500,000 units PO Q6HPO 30 Days cup 07/12/19 Pantoprazole Sodium [Protonix] 40 mg PO BID #60 tablet. 07/12/19 Sucralfate Oral Suspension [Carafate Oral Suspension -] 10 ml PO QID #960 ml 05/21 This patient is new to me today: Yes Date on this admission: 07/12/19 Emergency Visit: Yes ED Registration Date: 07/05/19 Care time: The patient presented to the Emergency Department on the above date and was hospitalized for further evaluation of their emergent condition. Critical Care patient: No - Discharge Referral Referred to [facility] Med P.C.: No ATTENDING PHYSICIAN STATEMENT I saw and evaluated the patient. I reviewed the resident's note and discussed the case with the resident. I agree with the resident's findings and plan as documented. SUBJECTIVE: OBJECTIVE: ASSESSMENT AND PLAN:
== END 2019-07-12 14:58 | disposition home or self-care (01) | DRG 368 ==
LOC: JER 21:10 → JERBED 07-05 00:19 → J6S 07-05 15:27
PROVIDERS: ADMIT Internal Medicine; ATTEND Internal Medicine
PROC: 0DB58ZX Excision of Esophagus, Via Natural or Artificial Opening Endoscopic, Diagnostic (ICD-10-PCS; principal; 2019-07-07 12:30)
DX: B37.81 Candidal esophagitis (principal); G93.6 Cerebral edema; C34.90 Malignant neoplasm of unspecified part of unspecified bronchus or lung; C79.31 Secondary malignant neoplasm of brain; R64 Cachexia; E88.09 Other disorders of plasma-protein metabolism, not elsewhere classified; E77.8 Other disorders of glycoprotein metabolism; R13.10 Dysphagia, unspecified; R62.7 Adult failure to thrive; T45.1X5A Adverse effect of antineoplastic and immunosuppressive drugs, initial encounter; T66.XXXA Radiation sickness, unspecified, initial encounter; N40.0 Benign prostatic hyperplasia without lower urinary tract symptoms; D69.6 Thrombocytopenia, unspecified; E78.5 Hyperlipidemia, unspecified; I10 Essential (primary) hypertension; Z68.24 Body mass index [BMI] 24.0-24.9, adult; K44.9 Diaphragmatic hernia without obstruction or gangrene; K29.50 Unspecified chronic gastritis without bleeding
CPT/HCPCS: 36415; 71046-TC-FY; 71250-TC; 74220-TC-FY; 80048; 80053; 80307; 81003; 82248; 82550; 83690; 83735; 84100; 84484; 85025; 85027; 85610; 85730; 87086; 88305-TC; 93005; 93010; 97116-GP; 97161-GP; 99284-25; J7030

== ENCOUNTER 2019-07-14 14:21 | Inpatient (IN) | payer OTHER ==
[2019-07-14] MEDS ORDERED: SODIUM CHLORIDE 0.9% 1000 ML INFUS.BAG IV ONE ×2 (14:49→16:46)
--- NOTE | 2019-07-14 14:52 | PDOC ---
Attending Attestation - Resident Resident Name: Corey Gerber - HPI HPI: 07/18/19 09:04 Pt presents to the ED complaining of generalized malaise and lightheadness after discharged from the hospital yesterday. Denies fever, nausea and vomiting. Hypotensive on arrival to the ED, improved with fluids. - Physicial Exam PE: 07/18/19 09:06 agree with resident exam. Patient is alert and oriented x 3 and in no acute distress. Lungs are clear. heart regular rate and rhythm. abdomen soft, non tender, non distended without guarding or rebound. - Medical Decision Making 07/18/19 09:08 Agree with resident exam. Patient presents to the ED with generalized malaise. + LLL inflitrate on cxr. Will check labs and admit to medicine. Hypotension resolved after IV hydration
[2019-07-14] MEDS ORDERED: VANCOMYCIN 1,000 MG in DEXTROSE 5%-WATER - 250 ML IVPB ONE (15:30)
[2019-07-14] MEDS ORDERED: PIPERACILLIN/TAZOB 3.375 GM 3.375 GM in DEXTROSE 5%-WATER - 50 ML IVPB ONE (15:30)
[2019-07-14 15:46] LABS: VENOUS PC02 39.7 mmHg (38-52); VENOUS PH 7.38 (7.31-7.41)
[2019-07-14 15:46] LABS: BASO % 0.1 % (0-2.0); EOS % 0.1 % (0-4.5); HEMATOCRIT 32.6 % (35.4-49); HEMOGLOBIN 11.7 GM/dL (11.7-16.9); LYMPH % 3.8 % (8-40); MCH 32.6 pg (25.7-33.7); MCHC 35.9 g/dl (32.0-35.9); MEAN PLT VOLUME 9.5 fl (7.5-11.1); MONO % 3.4 % (3.8-10.2); NEUT % 92.6 % (42.8-82.8); PLATELET COUNT 186 K/MM3 (134-434); RBC 3.58 M/mm3 (4.00-5.60); RDW 16.5 % (11.9-15.9); WHITE BLOOD COUNT 8.7 K/mm3 (4.0-10.0)
[2019-07-14 15:47] LABS: VENOUS PO2 < 49 mmHg (28-48)
--- NOTE | 2019-07-14 15:55 | PDOC ---
History of Present Illness - General Chief Complaint: Weakness Stated Complaint: Weakness Time Seen by Provider: 07/14/19 14:49 History Source: Patient Exam Limitations: No Limitations - History of Present Illness Initial Comments: 07/14/19 15:46 64M with a PMH of metastatic lung cancer w/ brain mets, HTN, HLD, recently discharged from our facility on 07/12/19 for odynophagia who presents to the ER with multiple complaints. The patient states that since his discharge, he has been weak and unable to take care of himself. He states that he has no food at home. He denies fever, chills, nausea, vomiting, CP, SOB, abd pain. He admits to a cough at baseline. Past History - Past Medical History Allergies/Adverse Reactions: Allergies Allergy/AdvReac Type Severity Reaction Status Date / Time No Known Allergies Allergy Verified 07/14/19 14:56 Home Medications: Ambulatory Orders Clopidogrel Bisulfate [Clopidogrel] 75 mg PO DAILY 07/05/19 Tamsulosin HCl [Flomax] 0.4 mg PO BID 07/05/19 Umeclidinium Brm/Vilanterol Tr [Anoro Ellipta 62.5-25 Mcg INH] 1 each IH DAILY 07/05/19 Aspirin Coated [Ecotrin -] 81 mg PO DAILY tablet.ec 07/12/19 Atorvastatin Ca [Lipitor] 80 mg PO HS #30 tablet 07/12/19 Dexamethasone [Decadron -] 4 mg PO DAILY #7 tablet 07/12/19 Fluconazole [Diflucan -] 200 mg PO 1600 #14 tablet 07/12/19 Lactobacillus Acidophilus [Bacid -] 1 tab PO BID #30 tab 07/12/19 Mag Hydrox/Alh/Smc/Dpha/Lido [Magic Mouthwash *Sjr Formula* -] 5 ml MM Q6HPO # 460 ml 07/12/19 Nystatin Oral Suspension - [Nystatin Oral Susp 748192 Units/5 ML -] 500,000 units PO Q6HPO 30 Days cup 07/12/19 Pantoprazole Sodium [Protonix] 40 mg PO BID #60 tablet. 07/12/19 Sucralfate Oral Suspension [Carafate Oral Suspension -] 10 ml PO QID #960 ml 05/21 Anemia: No Asthma: No Cancer: Yes (Stage IIIB lung cancer diagnosed 12/2017) Cardiac Disorders: No CVA: No COPD: No CHF: No DVT: No Dementia: No Diabetes: No Dialysis: No GI Disorders: Yes (GERD) Disorders: No HTN: Yes Hypercholesterolemia: Yes Liver Disease: No Psychiatric Problems: No Seizures: No Thyroid Disease: No Lung CA: Yes (Stage IIIB, diagnosed 12/2017) - Surgical History Abdominal Surgery: Yes (ex-lap 2/2 bowel/bladder injury; open tamara) Appendectomy: No Cardiac Surgery: No Cholecystectomy: Yes (open) Lung Surgery: No Neurologic Surgery: No Orthopedic Surgery: Yes (left leg fx, right wrist fx) - Immunization History Immunization Up to Date: Yes - Psycho Social/Smoking Cessation Hx Smoking History: Unknown if ever smoked Have you smoked in the past 12 months: Yes Number of Cigarettes Smoked Daily: 5 If you are a former smoker, when did you quit?: 2-3 months ago 'Breaking Loose' booklet given: 07/05/19 Hx Alcohol Use: Yes (occasional) Drug/Substance Use Hx: No Substance Use Type: None Hx Substance Use Treatment: No Review of Systems - Review of Systems Able to Perform ROS?: Yes Comments:: 07/14/19 15:55 GENERAL/CONSTITUTIONAL: + for weakness. No fever or chills. HEAD, EYES, EARS, NOSE AND THROAT: No change in vision. No ear pain or discharge. No sore throat. CARDIOVASCULAR: No chest pain, palpitations, or lightheadedness. RESPIRATORY: No cough, wheezing, shortness of breath, or hemoptysis. GASTROINTESTINAL: No abdominal pain, nausea, vomiting, diarrhea, or constipation. GENITOURINARY: No dysuria, frequency, hematuria, or change in urination. MUSCULOSKELETAL: No joint or muscle swelling or pain. No neck or back pain. SKIN: No rash or lesions. NEUROLOGIC: No headache, numbness, tingling, focal weakness, loss of consciousness, or change in strength/sensation. Is the patient limited Occitan proficient: No *Physical Exam - Vital Signs Last Vital Signs Temp Pulse Resp BP Pulse Ox 98.1 F 78 24 H 78/46 L 92 L 07/14/19 14:25 07/14/19 14:25 07/14/19 14:25 07/14/19 14:25 07/14/19 14:25 - Physical Exam 07/14/19 15:55 GENERAL: Well developed, well nourished. Awake and alert. No acute distress. Thin. HEENT: Normocephalic, atraumatic. Hearing grossly normal. Moist mucous membranes. PERRLA, EOMI. No conjunctival pallor. Sclera are non-icteric. NECK: Supple. Full ROM. No JVD. Carotid pulses 2+ and symmetric, without bruits. No thyromegaly. No lymphadenopathy. CARDIOVASCULAR: Regular rate and rhythm. No murmurs, rubs, or gallops. PULMONARY: No evidence of respiratory distress. Crackles in LLL. ABDOMINAL: Soft. Non-tender. Non-distended. No rebound or guarding. No organomegaly. Normoactive bowel sounds. GENITOURINARY: No CVA tenderness bilaterally. MUSCULOSKELETAL: Normal range of motion at all joints. No bony deformities or tenderness. EXTREMITIES: No cyanosis. No clubbing. No edema. No calf tenderness or swelling. SKIN: Warm and dry. Normal capillary refill. No rashes. No jaundice. NEUROLOGICAL: Alert, awake, appropriate. Cranial nerves 2-12 grossly intact. Normal speech. Gait is normal without ataxia. PSYCHIATRIC: Cooperative. Good eye contact. Appropriate mood and affect. ED Treatment Course - LABORATORY CBC & Chemistry Diagram: 07/14/19 15:00 07/14/19 15:00 - RADIOLOGY Radiology Studies Ordered: Category Date Time Status CHEST X-RAY PORTABLE* [RAD] Stat Radiology 07/14/19 14:49 Completed Medical Decision Making - Medical Decision Making 07/14/19 15:56 64M with MMP who presents to the ER with complaints of weakness and failure to thrive. CXR shows possible PNA in RLL. Will treat with vanc/zosyn as pt was recently discharged from hospital. WBC 8.6 w/ L shift. Pending CMP. 07/14/19 17:46 CMP shows mild electrolyte abnormalities w/ lactic of 3.7. Pt being hydrated. Microblogged for admission. 07/14/19 18:[address] Noriega for admission. Discharge - Discharge Information Problems reviewed: Yes Clinical Impression/Diagnosis: Pneumonia Qualifiers: Pneumonia type: due to unspecified organism Laterality: right Lung location: lower lobe of lung Qualified Code(s): J18.9 - Pneumonia, unspecified organism Lung cancer Qualifiers: Laterality: unspecified laterality Lung location: unspecified part of lung Qualified Code(s): C34.90 - Malignant neoplasm of unspecified part of unspecified bronchus or lung Condition: Guarded - Admission Yes - Follow up/Referral Referrals: Heidi Rios MD [Primary Care Provider] - - Patient Discharge Instructions - Post Discharge Activity
[2019-07-14 16:19] LABS: ALBUMIN 2.3 g/dl (3.4-5.0); ALK PHOS 95 U/L (45-117); ANION GAP 7 MMOL/L (8-16); BILIRUBIN,TOTAL 1.1 mg/dL (0.2-1); BLOOD UREA NITROGEN 26.7 mg/dL (7-18); CALCIUM 8.1 mg/dL (8.5-10.1); CHLORIDE 102 mmol/L (98-107); CO2 26 mmol/L (21-32); CREATININE 0.9 mg/dL (0.55-1.3); GLUCOSE,RANDOM 104 mg/dL (74-106); POTASSIUM 4.3 mmol/L (3.5-5.1); SGOT/AST 17 U/L (15-37); SGPT/ALT 20 U/L (13-61); SODIUM 136 mmol/L (136-145); TOT PROT 5.2 g/dl (6.4-8.2)
[2019-07-14] MEDS ORDERED: VANCOMYCIN 1 GRAM (PRE-DOCKED) 1,000 MG/250 ML BAG IVPB ONE (16:28)
[2019-07-14] MEDS ORDERED: PIPERACILLIN/TAZOB 3.375 GM 3.375 GM/50 ML BAG IVPB ONE (16:29)
[2019-07-14 16:45] LABS: PLATELET ESTIMATE NORMAL
[2019-07-14] MEDS: MAG HYDROX/ALH/SMC/DPHA/LIDO 240 ML MOUTHWASH MM SCH (18:19)
--- NOTE | 2019-07-14 19:37 | PN ---
Teaching Attending Note Name of Resident: Ellis Coughlin ATTENDING PHYSICIAN STATEMENT I saw and evaluated the patient. I reviewed the resident's note and discussed the case with the resident. I agree with the resident's findings and plan as documented. SUBJECTIVE: 64 male with metastatic lung cancer w/ brain mets, HTN, HLD, recently discharged from [facility] on 07/12/19, at that time was evaluated by GI, underwent esophagram for odynophagia. Status post course of fluconazole for treatment of esophageal thrush. Now Presenting complaining that he is unable to take care of himself and that he has no food at home and that he is feeling weak. He denied any fever, chills, nausea, vomiting, shortness of breath. Esophagram was performed on 07/05/2019 and showed small hiatus hernia, evaluation of esophagus appeared grossly unremarkable. CT of chest was performed on 07/05/2019 which showed diffuse thickening of the esophagus with small hiatal hernia, decreasing bilateral pleural effusions OBJECTIVE: Last Vital Signs Temp Pulse Resp BP Pulse Ox 98.1 F 84 20 118/57 L 100 07/14/19 14:25 07/14/19 16:55 07/14/19 16:55 07/14/19 16:55 07/14/19 16:55 GENERAL: Well developed, well nourished. Awake and alert. No acute distress. HEENT: Normocephalic, atraumatic. PERRLA, EOMI. No conjunctival pallor. Sclera are non- icteric. Moist mucous membranes. Oropharynx is clear. NECK: Supple. Full ROM. No JVD. Carotid pulses 2+ and symmetric, without bruits. No thyromegaly. No lymphadenopathy. CARDIOVASCULAR: Regular rate and rhythm. No murmurs, rubs, or gallops. Distal pulses are 2+ and symmetric. PULMONARY: No evidence of respiratory distress. Lungs clear to auscultation bilaterally. No wheezing, rales or rhonchi. ABDOMINAL: Soft. Non-tender. Non-distended. No rebound or guarding. No organomegaly. Normoactive bowel sounds. MUSCULOSKELETAL Normal range of motion at all joints. No bony deformities or tenderness. No CVA tenderness. EXTREMITIES: No cyanosis. No clubbing. No edema. No calf tenderness. SKIN: Warm and dry. Normal capillary refill. No rashes. No jaundice. PSYCHIATRIC: Cooperative. Good eye contact. Appropriate mood and affect. Abnormal Lab Results 07/14/19 07/14/19 07/14/19 15:00 15:00 15:05 RBC 3.58 L Hct 32.6 L RDW 16.5 H Absolute Neuts (auto) 8.1 H Neutrophils % 92.6 H Neutrophils % (Manual) 91.0 H Lymphocytes % 3.8 L D Lymphocytes % (Manual) 2.0 L D Monocytes % 3.4 L Monocytes % (Manual) 3 L POC VBG pO2 VBG O2 Sat (Kelly) Anion Gap 7 L BUN 26.7 H Lactic Acid 3.7 H* Calcium 8.1 L Total Bilirubin 1.1 H Total Protein 5.2 L Albumin 2.3 L 07/14/19 15:05 RBC Hct RDW Absolute Neuts (auto) Neutrophils % Neutrophils % (Manual) Lymphocytes % Lymphocytes % (Manual) Monocytes % Monocytes % (Manual) POC VBG pO2 < 49 H VBG O2 Sat (Kelly) 52.4 L Anion Gap BUN Lactic Acid Calcium Total Bilirubin Total Protein Albumin Imaging studies reviewed ASSESSMENT AND PLAN: 64 y/o Man with h/o 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 #Failure to thrive/failure to take care of himself Patient may need assistance with ADLs, social services intervention is warranted # Odynophagia-secondary to severe distal esophagitis Likely from radiation therapy, prior Marci esophagitis has improved after fluconazole Therapy.Status post esophagram and CT of chest mention. regular diet as tolerated continue PPI # H/o Metastatic Large cell lung cancerUndergoing brain radiation therapy cont decadron 4 mg daily for now until he sees his oncologist/Rtx oncologist. # H/o PVD: cont asa and plavix # Hx of BPH: on Flomax continue
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
[2019-07-14] MEDS ORDERED: LIDOCAINE VISCOUS 2% ORAL/TOP 100 ML BOTTLE MM PRN (22:04)
[2019-07-15] MEDS: MAG HYDROX/ALH/SMC/DPHA/LIDO 240 ML MOUTHWASH MM SCH ×5 (02:40→23:13)
[2019-07-15 06:25] LABS: HEMATOCRIT 26.1 % (35.4-49); HEMOGLOBIN 9.5 GM/dL (11.7-16.9); MCH 32.6 pg (25.7-33.7); MCHC 36.4 g/dl (32.0-35.9); MEAN CELL VOLUME 89.7 fl (80-96); MEAN PLT VOLUME 9.1 fl (7.5-11.1); PLATELET COUNT 135 K/MM3 (134-434); RBC 2.91 M/mm3 (4.00-5.60); RDW 16.3 % (11.9-15.9); WHITE BLOOD COUNT 6.3 K/mm3 (4.0-10.0)
[2019-07-15 06:55] LABS: BLOOD UREA NITROGEN 19.7 mg/dL (7-18); CALCIUM 7.5 mg/dL (8.5-10.1); CREATININE 0.7 mg/dL (0.55-1.3); MAGNESIUM 1.8 mg/dL (1.8-2.4); PHOSPHOROUS 2.4 mg/dL (2.5-4.9); POTASSIUM 3.7 mmol/L (3.5-5.1)
[2019-07-15] MEDS: HEPARIN NA (PORCINE) 5,000 UNITS/ML 1ML VIAL SQ SCH ×2 (07:05→14:07)
[2019-07-15] MEDS: NYSTATIN 500,000 UNITS/5 ML SUSPENSION PO SCH ×3 (07:05→17:12)
[2019-07-15] MEDS: SUCRALFATE 1 GM/10 ML UNIT DOSE CUPS PO SCH ×4 (07:26→23:12)
[2019-07-15] MEDS ORDERED: TAMSULOSIN HCL 0.4 MG CAP ONE (09:39)
[2019-07-15] MEDS ORDERED: CLOPIDOGREL BISULFATE 75 MG TABLET (FP) ONE (09:39)
[2019-07-15] MEDS ORDERED: DEXAMETHASONE SOD PHOSPHATE 4 MG/1 ML VIAL ONE (09:39)
[2019-07-15] MEDS ORDERED: ASPIRIN COATED 81 MG TABLET.EC ONE (09:39)
[2019-07-15] MEDS ORDERED: PANTOPRAZOLE 40 MG TABLET (FP) ONE (09:39)
[2019-07-15] MEDS: TAMSULOSIN HCL 0.4 MG CAP PO SCH ×2 (09:45→23:11)
[2019-07-15] MEDS: LACTOBACILLUS ACIDOPHILUS 1 TABLET PO SCH ×2 (09:45→23:11)
[2019-07-15] MEDS: DEXAMETHASONE 4 MG TABLET (FP) PO SCH (09:45)
[2019-07-15] MEDS: ASPIRIN COATED 81 MG TABLET.EC PO SCH (09:46)
[2019-07-15] MEDS: PANTOPRAZOLE 40 MG TABLET (FP) PO SCH ×2 (09:46→23:11)
[2019-07-15] MEDS: CLOPIDOGREL BISULFATE 75 MG TABLET (FP) PO SCH (09:46)
[2019-07-15] MEDS ORDERED: ENOXAPARIN NA (PORCINE) 40 MG/0.4 ML DISP.SYRIN SQ SCH (10:00)
[2019-07-15] MEDS ORDERED: HEPARIN NA (PORCINE) 5,000 UNITS/ML 1ML VIAL ONE (12:08)
--- NOTE | 2019-07-15 13:20 | EKG ---
Test Reason : Blood Pressure : / mmHG Vent. Rate : 107 BPM Atrial Rate : 107 BPM P-R Int : 128 ms QRS Dur : 084 ms QT Int : 342 ms P-R-T Axes : 058 076 072 degrees QTc Int : 456 ms SINUS TACHYCARDIA POSSIBLE LEFT ATRIAL ENLARGEMENT NONSPECIFIC T WAVE ABNORMALITY ABNORMAL ECG Confirmed by NAA NAVARRO MD ([id number]) on 07/15/2019 1:20:01 PM Referred By: Confirmed By:NAA NAVARRO MD
[2019-07-15] MEDS ORDERED: FLUCONAZOLE 150 MG TABLET PO ONE (14:04)
--- NOTE | 2019-07-15 14:22 | CONSULT ---
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 Pt recently d/c to home on 12 Jul 2019 2/2 admission for odynophagia related to RTX and treated for thrush. He now reports he has been increasingly lethargic and has difficulty walking. He says he experiences whole-body pain with ADLs including walking around his home, cooking for himself, and dressing himself. Now Presenting complaining that he is unable to take care of himself and that he has no food at home and that he is feeling weak. Pt reports that he is unable to care for himself and would like to go to a home for assistance. weight Sep 2018-217 lbs, now 164 lbs] Pt last seen by me 07/12/19-carafate , nyastatin swish and swallow, magic mouthwash before meals. Pt was doing better- ate chicken cutlets . Reviewed with medical team- Improved PO intake sec to healing of esoph vs numbing sec to magic mouthwash? Pt reports significant improvement in swallowing. He "no longer has pain or just a little". He ate 2 hard boiled eggs and 2 bowls of oatmeal this am. He was full for lunch and also said the broccoli was too hard and he is not allowed to have cheese so he ate just the noodles. History Source: Patient, Medical Record Limitations to Obtaining History: No Limitations - Past Medical History Cardiovascular: Yes: HTN, Hyperlipdemia, Other (PVD) Heme/Onc: Yes: Cancer (Lung cancer S IIIB) - Past Surgical History Past Surgical History: Yes: Cholecystectomy, Joint Replacement (right knee) - Smoking History Smoking history: Unknown if ever smoked Have you smoked in the past 12 months: Yes Aproximately how many cigarettes per day: 5 If you are a former smoker, when did you quit?: 2-3 months ago - Alcohol/Substance Use Hx Alcohol Use: Yes (occasional) History of Substance Use: reports: Cocaine, Marijuana - Social History ADL: Independent 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 History of Recent Travel: No History - Admission Reason For Visit: MALIGNANT NEOPLASM OF LUNG - Diagnostics X-ray: Report Reviewed (increased density-r/o PNA) - General Mental Status: Alert and Oriented, Awake and Alert, Able to Follow Commands Attention: Intact Ability to Follow Directions: Excellent Head/Neck Control: WFL - Hearing Hearing: Functional Speech Evaluation - Communication Primary Language: LITHUANIAN Communication: Yes: Within Normal Limits - Speech Production Able to Make Needs Known: Yes: WNL Intelligibility: Yes: WNL - Speech Characteristics Voice Loudness: Normal Voice Pitch: Yes: Normal Voice Phonatory-based Quality: Yes: Normal Speech Pattern: Normal Speech Clarity: < 100% Nasal Resonance: Normal Articulation: Yes: Precise - Language/Auditory Comprehension Follows: Yes: 2 Stage Simple Commands Observation: Comprehends Conversational Speech: Yes - Language/Verbal Expression Able to Respond to Simple Queries: Yes: WNL Able to Communicate Wants and Needs: Yes: WNL Functional Communication Status: Yes: WNL - Memory/Perception assisted Memory: Yes: WNL Short Term Memory: Yes: WNL - Swallow Evaluation/Bedside Assessment Current Nutritional Intake: Regular, Thin Liquids Dentition: Yes: Edentulous (lower), Dental Appliance Upper Facial Symmetry at Rest: Symmetrical Facial Symmetry on Retraction: Symmetrical Sensation: Normal Against Resistance Opening: Normal Against Resistance Closing: Normal Pucker Lips: Normal Smile: Normal Lingual Movement: Normal, Symmetric Lingual Speed of Movement: Normal Lingual Movement Strgth Against Opposition: Normal Lingual Movement Characteristics: Normal Velopharyngeal Movement: Normal Laryngeal Elevation: WFL Laryngeal Movement: Able to Palpate Rate of Intake: WFL Bolus Size: WFL Labial Seal: WFL A-P Transit: WFL Timing of Swallow: WFL Coughing/Throat Clear: No Change in Voice: No Recommendations - Speech Evaluation, Impression/Plan Impression: Pt reports significant improvement in swallowing with little to no Odynophagia. He want reg food, not soft to chew but can not chew hard foods such as crisp broccoli. He doesnt want milk/cheese products. CXR noted. - Dysphagia Impressions/Plan Dysphagia Impressions: Minimal Impairment *Silent aspiration: cannot be R/O at bedside Dysphagia Treatment Plan: Elevate HOB during feed, OOB for meals, OOB for 1 h. after meals Recommendations: Other (RD consult re: diet consistency. Want regular but not food difficulty to chw and no Milk/cheese) - Recommendations Diet Consistency: Regular Medication Administration: Whole with water Liquids: Thin Liquids Supplement: Ensure
--- NOTE | 2019-07-15 15:03 | PN ---
Physical Exam: SUBJECTIVE: 64 y/o M, pmh of metastatic lung cancer w/ brain mets, HTN, HLD, w/ recent discharge a week ago for dysphagia/odynophagia presents today c/o of inability to care for himself, perform ADLs and lethargy. Today pt is upset that he was not set up with home lending officer, however, as per social work he declined to the offer at his last discharge. Pt is otherwise doing well, swallowing has improved, able to tolerate regular diet. Denies f/c/n/v/d/sob/chest pain. OBJECTIVE: Vital Signs Period Temp Pulse Resp BP Sys/Davis Pulse Ox Last 24 Hr 97.8 F-98.9 F 81-102 17-23 98-122/57-76 97-100 GENERAL: AOX3, NAD HEAD: AT/AC EYES: PERRL, EOMI, sclera normal ENT: oropharynx clear without exudates, moist mucous membranes. NECK: full range of motion, supple. LUNGS: Breath sounds equal, clear to auscultation bilaterally, no wheezes, no crackles HEART: Regular rate and rhythm, S1, S2 without murmur, rub or gallop. ABDOMEN: Soft, nontender, nondistended, normoactive bowel sounds, no guarding EXTREMITIES: 2+ pulses, warm, well-perfused, no edema. NEUROLOGICAL: Cranial nerves II through XII grossly intact. Normal speech PSYCH: Normal mood, can get easily agitated SKIN: Warm, dry Laboratory Results - last 24 hr CBC,CMP WBC 6.3 K/mm3 (4.0-10.0) 07/15/19 05:30 RBC 2.91 M/mm3 (4.00-5.60) L 07/15/19 05:30 Hgb 9.5 GM/dL (11.7-16.9) L 07/15/19 05:30 Hct 26.1 % (35.4-49) L D 07/15/19 05:30 MCV 89.7 fl (80-96) 07/15/19 05:30 MCH 32.6 pg (25.7-33.7) 07/15/19 05:30 MCHC 36.4 g/dl (32.0-35.9) H 07/15/19 05:30 RDW 16.3 % (11.9-15.9) H 07/15/19 05:30 Plt Count 135 K/MM3 (134-434) D 07/15/19 05:30 MPV 9.1 fl (7.5-11.1) 07/15/19 05:30 Absolute Neuts (auto) 8.1 K/mm3 (1.5-8.0) H 07/14/19 15:00 Neutrophils % 92.6 % (42.8-82.8) H 07/14/19 15:00 Neutrophils % (Manual) 91.0 % (42.8-82.8) H 07/14/19 15:00 Band Neutrophils % 4.0 % 07/14/19 15:00 Lymphocytes % 3.8 % (8-40) L D 07/14/19 15:00 Lymphocytes % (Manual) 2.0 % (8-40) L D 07/14/19 15:00 Monocytes % 3.4 % (3.8-10.2) L 07/14/19 15:00 Monocytes % (Manual) 3 % (3.8-10.2) L 07/14/19 15:00 Eosinophils % 0.1 % (0-4.5) D 07/14/19 15:00 Eosinophils % (Manual) 0.0 % (0-4.5) 07/14/19 15:00 Basophils % 0.1 % (0-2.0) D 07/14/19 15:00 Basophils % (Manual) 0.0 % (0-2.0) 07/14/19 15:00 Myelocytes % (Man) 0 % (0-2) 07/14/19 15:00 Promyelocytes % (Man) 0 % (0-2) 07/14/19 15:00 Blast Cells % (Manual) 0 % (0-0) 07/14/19 15:00 Nucleated RBC % 0 % (0-0) 07/14/19 15:00 Metamyelocytes 0 % (0-2) 07/14/19 15:00 Platelet Estimate Normal 07/14/19 15:00 Platelet Comment No clumping noted 07/14/19 15:00 Sodium 136 mmol/L (136-145) 07/15/19 05:30 Potassium 3.7 mmol/L (3.5-5.1) 07/15/19 05:30 Chloride 106 mmol/L (98-107) 07/15/19 05:30 Carbon Dioxide 23 mmol/L (21-32) 07/15/19 05:30 Anion Gap 7 MMOL/L (8-16) L 07/15/19 05:30 BUN 19.7 mg/dL (7-18) H 07/15/19 05:30 Creatinine 0.7 mg/dL (0.55-1.3) 07/15/19 05:30 Est GFR (CKD-EPI)AfAm 114.78 07/15/19 05:30 Est GFR (CKD-EPI)NonAf 99.03 07/15/19 05:30 Random Glucose 109 mg/dL (74-106) H 07/15/19 05:30 Lactic Acid 1.5 mmol/L (0.4-2.0) 07/14/19 19:55 Calcium 7.5 mg/dL (8.5-10.1) L 07/15/19 05:30 Phosphorus 2.4 mg/dL (2.5-4.9) L 07/15/19 05:30 Magnesium 1.8 mg/dL (1.8-2.4) 07/15/19 05:30 Total Bilirubin 1.1 mg/dL (0.2-1) H 07/14/19 15:00 AST 17 U/L (15-37) 07/14/19 15:00 ALT 20 U/L (13-61) 07/14/19 15:00 Alkaline Phosphatase 95 U/L (45-117) 07/14/19 15:00 Troponin I < 0.02 ng/ml (0.00-0.05) 07/14/19 15:00 Total Protein 5.2 g/dl (6.4-8.2) L 07/14/19 15:00 Albumin 2.3 g/dl (3.4-5.0) L 07/14/19 15:00 Active Medications Current Medications Aspirin (Ecotrin -) 81 mg PO DAILY [facility] Last Admin: 07/15/19 09:46 Dose: 81 mg Atorvastatin Calcium (Lipitor -) 80 mg PO [facility] Clopidogrel Bisulfate (Plavix -) 75 mg PO DAILY [facility] Last Admin: 07/15/19 09:46 Dose: 75 mg Dexamethasone (Decadron -) 4 mg PO DAILY [facility] Last Admin: 07/15/19 09:45 Dose: 4 mg Fluconazole (Diflucan -) 200 mg PO DAILY [facility] Heparin Sodium (Porcine) (Heparin -) 5,000 unit SQ TID [facility] Last Admin: 07/15/19 14:07 Dose: 5,000 unit Lactobacillus Acidophilus (Bacid -) 1 tab PO BID [facility] Last Admin: 07/15/19 09:45 Dose: 1 tab Lidocaine/Aluminum/Magnesium/Simeth (Magic Mouthwash *Sjr Formula* -) 5 ml MM Q6HPO [facility] Last Admin: 07/15/19 11:16 Dose: 5 ml Nystatin (Nystatin Oral Suspension -) 500,000 units PO Q6HPO [facility] Last Admin: 07/15/19 11:16 Dose: 500,000 units Pantoprazole Sodium (Protonix -) 40 mg PO BID [facility] Last Admin: 07/15/19 09:46 Dose: 40 mg Sucralfate (Carafate Oral Suspension -) 1 gm PO ACHS [facility] Last Admin: 07/15/19 11:16 Dose: 1 gm Tamsulosin HCl (Flomax -) 0.4 mg PO BID@0830,2200 [facility] Last Admin: 07/15/19 09:45 Dose: 0.4 mg Home Medications Medication Instructions Recorded Clopidogrel Bisulfate [Clopidogrel] 75 mg PO DAILY 07/05/19 Tamsulosin HCl [Flomax] 0.4 mg PO BID 07/05/19 Umeclidinium Brm/Vilanterol Tr 1 each IH DAILY 07/05/19 [Anoro Ellipta 62.5-25 Mcg INH] Aspirin Coated [Ecotrin -] 81 mg PO DAILY tablet.ec 07/12/19 Atorvastatin Ca [Lipitor] 80 mg PO HS #30 tablet 07/12/19 Dexamethasone [Decadron -] 4 mg PO DAILY #7 tablet 07/12/19 Fluconazole [Diflucan -] 200 mg PO 1600 #14 tablet 07/12/19 Lactobacillus Acidophilus [Bacid -] 1 tab PO BID #30 tab 07/12/19 Mag Hydrox/Alh/Smc/Dpha/Lido 5 ml MM Q6HPO #460 ml 07/12/19 [Magic Mouthwash *Sjr Formula* -] Nystatin Oral Suspension - 500,000 units PO Q6HPO 30 Days cup 07/12/19 [Nystatin Oral Susp 400650 Units/5 ML -] Pantoprazole Sodium [Protonix] 40 mg PO BID #60 tablet. 07/12/19 Sucralfate Oral Suspension 10 ml PO QID #960 ml 07/12/19 [Carafate Oral Suspension -] ASSESSMENT/PLAN: 64 y/o M, pmh of metastatic lung cancer w/ brain mets, HTN, HLD, w/ recent discharge a week ago for dysphagia/odynophagia presents today c/o of inability to care for himself, perform ADLs and lethargy. #Lethargy and difficult to perform ADL likely 2/2 to decreased PO intake and deconditioning from recent hospital discharge Will discuss with social work for outpt rehab vs VNS Consider director channel consult Speech and swallow consult ordered- will f/u #Odynophagia 2/2 to irradiation injury to the esophagus and esophageal candidiasis cont Magic Mouth Wash Sucralfate oral solution Nystatin solution Pantoprazole 40 mg PO BID Diflucan 200mg #Lung cancer with metastasis to brain As per pt, cancer in remission Under the care of Dr. Fried and Dr. Russell Garnica cont Decadron 4 mg PO QD # PVD cont Asa 81 mg PO QD cont Clopidogrel 75 mg PO QD #BPH cont Tamsulosin 0.4 mg PO BID #HLD cont Atorvastatin 80 mg HS #DVT prophylaxis Heparin SQ #FEN PO Cont. to monitor Low sodium diet Dispo: f/u speech and swallow, discuss with social work about VNS and rehab for pt ATTENDING PHYSICIAN STATEMENT I saw and evaluated the patient. I reviewed the resident's note and discussed the case with the resident. I agree with the resident's findings and plan as documented. SUBJECTIVE: OBJECTIVE: ASSESSMENT AND PLAN:
--- NOTE | 2019-07-15 15:41 | PN ---
Teaching Attending Note Name of Resident: Joleen Noriega ATTENDING PHYSICIAN STATEMENT I saw and evaluated the patient. I reviewed the resident's note and discussed the case with the resident. I agree with the resident's findings and plan as documented. SUBJECTIVE: He was able to eat this am , wants regular food and feels hungry. he denied dysphagia at home, but he was not able to cook his frozen food. denies SOB. has non productive cough x 3 weeks. no CP , no ABd pain . denied fevers OBJECTIVE: NAD ,. awake, alert, cooperative. Lungs: CATB Ext: No edema . decreased skin turger Abd: soft, NT, ND , NL BS . 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 He presented after dc due to not being able to care for himself at home 1- Inability to care for self: need PT . ? placement. SW consult 2- Possible candidal esophagitis : cont fluconazol. cont PPI. EGD and path reviwed. no malignancy in Bx. neg HP. staining for CMV and HSV is still pending 3- dysphagia/odynophagia: resolved. cont regular diet with thins. cont treatment fro esophagitis 4- H/o Met large cell lung cancer: cont with decadron at current dose. f/u with his oncologist as out pt 5- H/o PVD: cont ASa and plavix 6- Increased densities on Cxray. No clinical evidence of PNA. Sat O2 in 90s on RA. no Abx for now DVT px : change heparin to Lovenox ? rehab placement
[2019-07-15] MEDS: ATORVASTATIN CA 80 MG TABLET (FP) PO SCH (23:10)
[2019-07-16] MEDS: NYSTATIN 500,000 UNITS/5 ML SUSPENSION PO SCH ×4 (00:32→17:22)
[2019-07-16] MEDS ORDERED: PT OWN MED DRAWER 7, Y5N ONE ×2 (05:16→12:08)
[2019-07-16] MEDS: MAG HYDROX/ALH/SMC/DPHA/LIDO 240 ML MOUTHWASH MM SCH ×3 (06:02→17:21)
[2019-07-16] MEDS: SUCRALFATE 1 GM/10 ML UNIT DOSE CUPS PO SCH ×4 (06:04→21:56)
[2019-07-16 07:13] LABS: HEMATOCRIT 26.7 % (35.4-49); HEMOGLOBIN 9.5 GM/dL (11.7-16.9); MCH 32.1 pg (25.7-33.7); MCHC 35.6 g/dl (32.0-35.9); MEAN CELL VOLUME 90.3 fl (80-96); PLATELET COUNT 149 K/MM3 (134-434); RBC 2.95 M/mm3 (4.00-5.60); RDW 16.1 % (11.9-15.9); WHITE BLOOD COUNT 5.3 K/mm3 (4.0-10.0)
[2019-07-16 07:29] LABS: CALCIUM 7.8 mg/dL (8.5-10.1); CREATININE 0.6 mg/dL (0.55-1.3)
--- NOTE | 2019-07-16 08:22 | PN ---
Physical Exam: SUBJECTIVE: Patient seen and examined. Still c/o of odynophagia, but improved. Has been able to eat for the past 3 days. Requesting to go to [facility] or other rehab facility, Does not want a penitentiary. OBJECTIVE: Vital Signs Period Temp Pulse Resp BP Sys/Davis Pulse Ox Last 24 Hr 97.4 F-98.9 F 71-89 15-24 96-122/48-71 95-99 Vital Signs Temp 98.4 F 07/16/19 14:44 Pulse 88 07/16/19 14:44 Resp 24 H 07/16/19 14:44 BP 112/75 07/16/19 14:44 Pulse Ox 97 07/16/19 09:00 Intake & Output 07/15/19 07/16/19 07/16/19 23:59 11:59 23:59 Intake Total 120 365 150 Output Total 325 625 Balance -205 -260 150 Weight 72.393 kg Intake: IV 0 SL 0 Oral 120 365 150 Output: Urine 325 625 Void 325 625 Other: Voiding Method Urinal Toilet Bowel Movement No No Yes # Bowel Movements 1 Height 1.73 m Body Mass Index (BMI) 24.3 Weight Measurement Method Standing Scale GENERAL: The patient is awake, alert, and fully oriented, in no acute distress. EYES: PERRL, extraocular movements intact, sclera anicteric, conjunctiva clear. ENT: Whitish coating over tongue, non on palate or cheek, moist mucous membranes. NECK: supple. LUNGS: Breath sounds equal, clear to auscultation bilaterally, no wheezes, no crackles HEART: Regular rate and rhythm, S1, S2 without murmur, rub or gallop. ABDOMEN: Soft, nontender, nondistended, normoactive bowel sounds, no guarding EXTREMITIES: 2+ pulses, warm, well-perfused, no edema. NEUROLOGICAL: Cranial nerves II through XII grossly intact. Normal speech, gait not observed. CBC, BMP 07/16/19 05:25 07/16/19 05:25 Laboratory Results - last 24 hr 07/16/19 07/16/19 05:25 05:25 WBC 5.3 RBC 2.95 L Hgb 9.5 L Hct 26.7 L MCV 90.3 MCH 32.1 MCHC 35.6 RDW 16.1 H Plt Count 149 MPV 9.0 Sodium 137 Potassium 4.0 Chloride 105 Carbon Dioxide 23 Anion Gap 8 BUN 20.0 H Creatinine 0.6 Est GFR (CKD-EPI)AfAm 122.29 Est GFR (CKD-EPI)NonAf 105.51 Random Glucose 128 H Calcium 7.8 L Active Medications Generic Name Dose Route Start Last Admin Trade Name Freq PRN Reason Stop Dose Admin Aspirin 81 mg 07/15/19 10:00 07/15/19 09:46 Ecotrin - PO 81 mg DAILY TRACEY Administration Atorvastatin Calcium 80 mg 07/15/19 22:00 07/15/19 23:10 Lipitor - PO 80 mg HS TRACEY Administration Clopidogrel Bisulfate 75 mg 07/15/19 10:00 07/15/19 09:46 Plavix - PO 75 mg DAILY TRACEY Administration Dexamethasone 4 mg 07/15/19 10:00 07/15/19 09:45 Decadron - PO 4 mg DAILY TRACEY Administration Enoxaparin Sodium 40 mg 07/16/19 10:00 Lovenox - SQ DAILY [facility] Fluconazole 200 mg 07/16/19 10:00 Diflucan - PO DAILY [facility] Lactobacillus Acidophilus 1 tab 07/15/19 10:00 07/15/19 23:11 Bacid - PO 1 tab BID [facility] Administration Lidocaine/Aluminum/Magnesium/Simeth 5 ml 07/14/19 18:00 07/16/19 06:02 Magic Mouthwash *Sjr Formula* - MM 5 ml Q6HPO TRACEY Administration Nystatin 500,000 units 07/15/19 06:00 07/16/19 06:01 Nystatin Oral Suspension - PO 500,000 units Q6HPO TRACEY Administration Pantoprazole Sodium 40 mg 07/15/19 10:00 07/15/19 23:11 Protonix - PO 40 mg BID [facility] Administration Pneumococcal 13-Valent Conj Vacc 0.5 ml 07/15/19 22:07 Prevnar 13 Syringe - IM 07/15/19 22:08 .ONCE ONE Sucralfate 1 gm 07/15/19 07:00 07/16/19 06:04 Carafate Oral Suspension - PO 1 gm ACHS TRACEY Administration Tamsulosin HCl 0.4 mg 07/15/19 08:30 07/15/19 23:11 Flomax - PO 0.4 mg BID@0830,2200 TRACEY Administration Ambulatory Orders Clopidogrel Bisulfate [Clopidogrel] 75 mg PO DAILY 07/05/19 Tamsulosin HCl [Flomax] 0.4 mg PO BID 07/05/19 Umeclidinium Brm/Vilanterol Tr [Anoro Ellipta 62.5-25 Mcg INH] 1 each IH DAILY 07/05/19 Aspirin Coated [Ecotrin -] 81 mg PO DAILY tablet.ec 07/12/19 Atorvastatin Ca [Lipitor] 80 mg PO HS #30 tablet 07/12/19 Dexamethasone [Decadron -] 4 mg PO DAILY #7 tablet 07/12/19 Fluconazole [Diflucan -] 200 mg PO 1600 #14 tablet 07/12/19 Lactobacillus Acidophilus [Bacid -] 1 tab PO BID #30 tab 07/12/19 Mag Hydrox/Alh/Smc/Dpha/Lido [Magic Mouthwash *Sjr Formula* -] 5 ml MM Q6HPO # 460 ml 07/12/19 Nystatin Oral Suspension - [Nystatin Oral Susp 200899 Units/5 ML -] 500,000 units PO Q6HPO 30 Days cup 07/12/19 Pantoprazole Sodium [Protonix] 40 mg PO BID #60 tablet. 07/12/19 Sucralfate Oral Suspension [Carafate Oral Suspension -] 10 ml PO QID #960 ml 05/21 ASSESSMENT/PLAN: 64 y/o M, pmh of metastatic lung cancer w/ brain mets, HTN, HLD, w/ recent discharge a week ago for dysphagia/odynophagia presents today c/o of inability to care for himself, perform ADLs and lethargy. #Lethargy and difficult to perform ADL could be due to decreased PO intake and /deconditioning from recent hospital discharge Pt requesting outpt rehab Consider software release manager consult Speech and swallow on board, recs appreciated #Odynophagia 2/2 to irradiation injury to the esophagus and esophageal candidiasis cont Magic Mouth Wash Sucralfate oral solution Nystatin solution Pantoprazole 40 mg PO BID Diflucan 200mg #Lung cancer with metastasis to brain Per pt, cancer in remission s/p chemoradiation tx Under the care of Dr. Fried and Dr. Russell Garnica cont Decadron 4 mg PO QD # PVD cont Asa 81 mg PO QD cont Clopidogrel 75 mg PO QD #BPH cont Tamsulosin 0.4 mg PO BID #HLD cont Atorvastatin 80 mg HS #DVT prophylaxis Heparin SQ #FEN PO Cont. to monitor Low sodium diet Dispo: f/u with social work about VNS /rehab for pt Visit type - Emergency Visit Emergency Visit: Yes ED Registration Date: 07/14/19 Care time: The patient presented to the Emergency Department on the above date and was hospitalized for further evaluation of their emergent condition. - New Patient This patient is new to me today: Yes Date on this admission: 07/16/19 - Critical Care Critical Care patient: No - Discharge Referral Referred to [facility] Med [facility] No ATTENDING PHYSICIAN STATEMENT I saw and evaluated the patient. I reviewed the resident's note and discussed the case with the resident. I agree with the resident's findings and plan as documented. SUBJECTIVE: OBJECTIVE: ASSESSMENT AND PLAN:
[2019-07-16] MEDS: PANTOPRAZOLE 40 MG TABLET (FP) PO SCH ×2 (09:17→21:57)
[2019-07-16] MEDS: CLOPIDOGREL BISULFATE 75 MG TABLET (FP) PO SCH (09:18)
[2019-07-16] MEDS: LACTOBACILLUS ACIDOPHILUS 1 TABLET PO SCH ×2 (09:18→21:56)
[2019-07-16] MEDS: DEXAMETHASONE 4 MG TABLET (FP) PO SCH (09:18)
[2019-07-16] MEDS: TAMSULOSIN HCL 0.4 MG CAP PO SCH ×2 (09:18→21:56)
[2019-07-16] MEDS: ASPIRIN COATED 81 MG TABLET.EC PO SCH (09:19)
[2019-07-16] MEDS ORDERED: FLUCONAZOLE 100 MG TABLET (UD) PO SCH (10:00)
[2019-07-16] MEDS ORDERED: PNEUMOC 13-VAL CONJ-DIP CRM/PF 0.5 ML DISP.SYRIN IM ONE (10:00)
[2019-07-16] MEDS ORDERED: ENOXAPARIN NA (PORCINE) 40 MG/0.4 ML DISP.SYRIN SQ SCH (10:00)
--- NOTE | 2019-07-16 12:42 | PN ---
Teaching Attending Note Name of Resident: Alina Aggarwal ATTENDING PHYSICIAN STATEMENT I saw and evaluated the patient. I reviewed the resident's note and discussed the case with the resident. I agree with the resident's findings and plan as documented. SUBJECTIVE: No fever or chills. No HALE . no pain , swallowing has improved , . ate full breakfast No HALE , no ABd pain , no weakness OBJECTIVE: NAD ,. awake, alert, cooperative. Lungs: CATB Ext: No edema . Abd: soft, NT, ND , NL BS . 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 He presented after dc due to not being able to care for himself at home 1- Inability to care for self: PT pending . ? placement. SW consult 2- Possible candidal esophagitis : cont fluconazol. cont PPI.no malignancy on Bx from last admission. staining for CMV and HSV is still pending 3- dysphagia/odynophagia: resolved. cont regular diet with thins. cont treatment for esophagitis 4- H/o Met large cell lung cancer: cont with decadron at current dose. f/u with his oncologist as out pt 5- H/o PVD: cont ASa and plavix DVT px :Lovenox possible rehab placement
[2019-07-16] MEDS: ATORVASTATIN CA 80 MG TABLET (FP) PO SCH (21:56)
[2019-07-17] MEDS: NYSTATIN 500,000 UNITS/5 ML SUSPENSION PO SCH ×4 (00:53→17:49)
[2019-07-17] MEDS: MAG HYDROX/ALH/SMC/DPHA/LIDO 240 ML MOUTHWASH MM SCH ×4 (00:54→17:49)
[2019-07-17] MEDS: SUCRALFATE 1 GM/10 ML UNIT DOSE CUPS PO SCH ×4 (06:09→21:30)
[2019-07-17 08:00] LABS: HEMATOCRIT 27.3 % (35.4-49); HEMOGLOBIN 9.7 GM/dL (11.7-16.9); LYMPH % 6.4 % (8-40); MCH 32.2 pg (25.7-33.7); MCHC 35.5 g/dl (32.0-35.9); MEAN CELL VOLUME 90.5 fl (80-96); MEAN PLT VOLUME 9.7 fl (7.5-11.1); MONO % 5.4 % (3.8-10.2); NEUT % 88.2 % (42.8-82.8); PLATELET COUNT 154 K/MM3 (134-434); RBC 3.01 M/mm3 (4.00-5.60); RDW 16.1 % (11.9-15.9); WHITE BLOOD COUNT 6.1 K/mm3 (4.0-10.0)
[2019-07-17 08:29] LABS: ALBUMIN 1.8 g/dl (3.4-5.0); BILIRUBIN,TOTAL 0.7 mg/dL (0.2-1); BLOOD UREA NITROGEN 24.7 mg/dL (7-18); CALCIUM 7.8 mg/dL (8.5-10.1); CREATININE 0.7 mg/dL (0.55-1.3); PHOSPHOROUS 2.5 mg/dL (2.5-4.9); POTASSIUM 3.9 mmol/L (3.5-5.1); TOT PROT 4.4 g/dl (6.4-8.2)
[2019-07-17] MEDS: TAMSULOSIN HCL 0.4 MG CAP PO SCH ×2 (10:14→21:29)
[2019-07-17] MEDS: ASPIRIN COATED 81 MG TABLET.EC PO SCH (10:14)
[2019-07-17] MEDS: ENOXAPARIN NA (PORCINE) 40 MG/0.4 ML DISP.SYRIN SQ SCH (10:14)
[2019-07-17] MEDS: LACTOBACILLUS ACIDOPHILUS 1 TABLET PO SCH ×2 (10:14→21:29)
[2019-07-17] MEDS: PANTOPRAZOLE 40 MG TABLET (FP) PO SCH ×2 (10:14→21:29)
[2019-07-17] MEDS: CLOPIDOGREL BISULFATE 75 MG TABLET (FP) PO SCH (10:14)
[2019-07-17] MEDS: DEXAMETHASONE 4 MG TABLET (FP) PO SCH (10:14)
[2019-07-17] MEDS: FLUCONAZOLE 100 MG TABLET (UD) PO SCH (10:15)
--- NOTE | 2019-07-17 12:16 | PN ---
Progress Note (short form) - Note Progress Note: Subjective: No fever or chills. no pain. eating well. No SOB . no cough Objective: Vital Signs: Last Vital Signs Temp Pulse Resp BP Pulse Ox 97.8 F 81 20 121/73 95 07/17/19 06:00 07/17/19 06:00 07/17/19 06:00 07/17/19 06:00 07/16/19 21:00 Laboratory Results - last 24 hr 07/17/19 07/17/19 06:45 06:45 WBC 6.1 RBC 3.01 L Hgb 9.7 L Hct 27.3 L MCV 90.5 MCH 32.2 MCHC 35.5 RDW 16.1 H Plt Count 154 MPV 9.7 Absolute Neuts (auto) 5.4 Neutrophils % 88.2 H Lymphocytes % 6.4 L D Monocytes % 5.4 Eosinophils % 0.0 D Basophils % 0.0 Nucleated RBC % 0 Sodium 136 Potassium 3.9 Chloride 105 Carbon Dioxide 22 Anion Gap 9 BUN 24.7 H Creatinine 0.7 Est GFR (CKD-EPI)AfAm 114.78 Est GFR (CKD-EPI)NonAf 99.03 Random Glucose 151 H Calcium 7.8 L Phosphorus 2.5 Magnesium 2.0 Total Bilirubin 0.7 AST 11 L ALT 18 Alkaline Phosphatase 74 Total Protein 4.4 L Albumin 1.8 L Physical Exam: NAD. awake, alert, cooperative. Lungs: CATB CV: RRR Ext: No edema . 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 He presented after dc due to not being able to care for himself at home 1- Inability to care for self: PT pending . ? placement 2- Possible candidal esophagitis : cont fluconazol. cont PPI. staining for CMV and HSV is still pending 3- dysphagia/odynophagia: resolved. cont regular diet with thins. cont treatment for esophagitis 4- H/o Met large cell lung cancer: cont with decadron at current dose. f/u with his oncologist as out pt 5- H/o PVD: cont ASa and plavix DVT px :Lovenox possible rehab placement Visit type - Emergency Visit Emergency Visit: Yes ED Registration Date: 07/14/19 Care time: The patient presented to the Emergency Department on the above date and was hospitalized for further evaluation of their emergent condition. - New Patient This patient is new to me today: No - Critical Care Critical Care patient: No
[2019-07-17] MEDS: SODIUM CHLORIDE 1,000 ML IV SCH (14:58)
[2019-07-17] MEDS: ATORVASTATIN CA 80 MG TABLET (FP) PO SCH (21:29)
[2019-07-18] MEDS ORDERED: PT OWN MED DRAWER 7, Y5N ONE ×2 (00:16→11:08)
[2019-07-18] MEDS: MAG HYDROX/ALH/SMC/DPHA/LIDO 240 ML MOUTHWASH MM SCH ×5 (00:21→23:28)
[2019-07-18] MEDS: NYSTATIN 500,000 UNITS/5 ML SUSPENSION PO SCH ×5 (00:21→23:28)
[2019-07-18] MEDS: SUCRALFATE 1 GM/10 ML UNIT DOSE CUPS PO SCH ×4 (06:46→21:22)
[2019-07-18 09:25] LABS: BLOOD UREA NITROGEN 20.4 mg/dL (7-18); CALCIUM 7.8 mg/dL (8.5-10.1); CREATININE 0.7 mg/dL (0.55-1.3); POTASSIUM 4.3 mmol/L (3.5-5.1)
[2019-07-18] MEDS: SODIUM CHLORIDE 1,000 ML IV SCH ×2 (10:29→12:46)
[2019-07-18] MEDS: DEXAMETHASONE 4 MG TABLET (FP) PO SCH (10:30)
[2019-07-18] MEDS: PANTOPRAZOLE 40 MG TABLET (FP) PO SCH ×2 (10:30→21:22)
[2019-07-18] MEDS: TAMSULOSIN HCL 0.4 MG CAP PO SCH ×2 (10:30→21:22)
[2019-07-18] MEDS: CLOPIDOGREL BISULFATE 75 MG TABLET (FP) PO SCH (10:30)
[2019-07-18] MEDS: LACTOBACILLUS ACIDOPHILUS 1 TABLET PO SCH ×2 (10:31→21:21)
[2019-07-18] MEDS: ASPIRIN COATED 81 MG TABLET.EC PO SCH (10:31)
[2019-07-18] MEDS: FLUCONAZOLE 100 MG TABLET (UD) PO SCH (10:32)
[2019-07-18] MEDS: ENOXAPARIN NA (PORCINE) 40 MG/0.4 ML DISP.SYRIN SQ SCH (10:32)
[2019-07-18] MEDS ORDERED: LACTULOSE 20 GM/30 ML UDC (FOR ORAL USE ONLY) PO ONE (13:41)
--- NOTE | 2019-07-18 16:54 | PN ---
Progress Note, FACILITIES ENGINEER - Note Progress Note: Selected Entries 07/14/19 07/15/19 07/15/19 14:25 06:14 10:13 Breakfast Lunch Supper Temperature 98.1 F 97.8 F 98.2 F 07/15/19 07/17/19 07/17/19 12:12 02:00 06:00 Breakfast Lunch Supper Temperature 98.9 F 97.6 F 97.8 F 07/17/19 07/17/19 07/17/19 11:11 14:00 17:05 Breakfast 100% Lunch 100% Supper Temperature 97.7 F 97.7 F 07/17/19 07/17/19 07/18/19 18:30 23:00 02:20 Breakfast Lunch Supper 75% Temperature 98 F 98.2 F 07/18/19 07/18/19 07/18/19 07:58 09:00 13:00 Breakfast 75% Lunch 75% Supper Temperature 97.5 F L 98.2 F 98 F Laboratory Tests 07/15/19 07/17/19 05:30 06:45 WBC 6.3 6.1 Tolerating diet well today.
--- NOTE | 2019-07-18 17:49 | PN ---
Teaching Attending Note Name of Resident: Philippe Hartman ATTENDING PHYSICIAN STATEMENT I saw and evaluated the patient. I reviewed the resident's note and discussed the case with the resident. I agree with the resident's findings and plan as documented. SUBJECTIVE: No fever or chills. No HALE . winded with ambulation to chair. No fever OBJECTIVE: NAD. awake, alert, cooperative. Lungs: bibasilar crackles. minimal CV: RRR Ext: No edema . 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 He presented after dc due to not being able to care for himself at home 1- Inability to care for self: PT noted . SW consult 2- Possible candidal esophagitis : cont fluconazol. cont PPI. staining for CMV and HSV is still pending 3- dysphagia/odynophagia: resolved. cont regular diet with thins. cont treatment for esophagitis 4- H/o Met large cell lung cancer: cont with decadron at current dose. f/u with his oncologist as out pt 5- H/o PVD: cont ASa and plavix 6- SOB, likely due to deconditioning. repeat xray with not much change. previous chest Ct reviewed. has evidence of ground glass opacitis at bases, likley atelectasis with some degree of radiation induced changes. no clinical signs of PNA. He refused pre-post ambulatory pulse ox 7- zvolume depletion :BUN improved with hydration. will cont for 12 more hourss DVT px :Lovenox Will need rehab placement
--- NOTE | 2019-07-18 21:13 | PN ---
Physical Exam: SUBJECTIVE: Patient seen and examined KEESHA Complains of generalized weakness and inability to walk OBJECTIVE: Vital Signs Period Temp Pulse Resp BP Sys/Davis Pulse Ox Last 24 Hr 97.5 F-98.2 F 62-82 17-20 106-136/61-76 95-96 GENERAL: The patient is awake, alert, and fully oriented, in no acute distress. HEAD: Normal with no signs of trauma. EYES: PERRL, extraocular movements intact, sclera anicteric, conjunctiva clear. No ptosis. ENT: Ears normal, nares patent, oropharynx clear without exudates, moist mucous membranes. NECK: Trachea midline, full range of motion, supple. LUNGS: Breath sounds equal, clear to auscultation bilaterally, no wheezes, no crackles, no accessory muscle use. HEART: Regular rate and rhythm, S1, S2 without murmur, rub or gallop. ABDOMEN: Soft, nontender, nondistended, normoactive bowel sounds, no guarding, no rebound, no hepatosplenomegaly, no masses. EXTREMITIES: 2+ pulses, warm, well-perfused, no edema. NEUROLOGICAL: Cranial nerves II through XII grossly intact. Normal speech, gait not observed. PSYCH: Normal mood, normal affect. SKIN: Warm, dry, normal turgor, no rashes or lesions noted Laboratory Results - last 24 hr 07/18/19 07:45 Sodium 139 Potassium 4.3 Chloride 108 H Carbon Dioxide 23 Anion Gap 8 BUN 20.4 H Creatinine 0.7 Est GFR (CKD-EPI)AfAm 114.78 Est GFR (CKD-EPI)NonAf 99.03 Random Glucose 115 H Calcium 7.8 L Active Medications Generic Name Dose Route Start Last Admin Trade Name Freq PRN Reason Stop Dose Admin Aspirin 81 mg 07/17/19 10:00 07/18/19 10:31 Ecotrin - PO 81 mg DAILY TRACEY Administration Atorvastatin Calcium 80 mg 07/17/19 22:00 07/17/19 21:29 Lipitor - PO 80 mg HS TRACEY Administration Clopidogrel Bisulfate 75 mg 07/17/19 10:00 07/18/19 10:30 Plavix - PO 75 mg DAILY TRACEY Administration Dexamethasone 4 mg 07/17/19 10:00 07/18/19 10:30 Decadron - PO 4 mg DAILY TRACEY Administration Enoxaparin Sodium 40 mg 07/17/19 10:00 07/18/19 10:32 Lovenox - SQ 40 mg DAILY TRACEY Administration Fluconazole 200 mg 07/17/19 10:00 07/18/19 10:32 Diflucan - PO 200 mg DAILY TRACEY Administration Lactobacillus Acidophilus 1 tab 07/17/19 10:00 07/18/19 10:31 Bacid - PO 1 tab BID TRACEY Administration Lidocaine/Aluminum/Magnesium/Simeth 5 ml 07/17/19 00:00 07/18/19 17:31 Magic Mouthwash *Sjr Formula* - MM 5 ml Q6HPO TRACEY Administration Nystatin 500,000 units 07/17/19 00:00 07/18/19 17:31 Nystatin Oral Suspension - PO 500,000 units Q6HPO TRACEY Administration Pantoprazole Sodium 40 mg 07/17/19 10:00 07/18/19 10:30 Protonix - PO 40 mg BID TRACEY Administration Sucralfate 1 gm 07/17/19 07:00 07/18/19 17:30 Carafate Oral Suspension - PO 1 gm ACHS TRACEY Administration Tamsulosin HCl 0.4 mg 07/17/19 08:30 07/18/19 10:30 Flomax - PO 0.4 mg BID@0830,2200 TRACEY Administration ASSESSMENT/PLAN: 64 y/o M, pmh of metastatic lung cancer w/ brain mets, HTN, HLD, w/ recent discharge a week ago for radiation induced dysphagia/odynophagia presented w/ c/ o of inability to care for himself, perform ADLs and lethargy. #Lethargy and difficult to perform ADL --possibly 2/2 deconditioning from recent hospital discharge vs failure to thrive -Pt requesting outpt rehab - S&S consult --tolerating sodium controlled diet #SOB > CXR(07/18/19): unchanged Left infiltrate w/ fluid and atelectasis - Pre & Post: pt not cooperative #Odynophagia --2/2 to irradiation injury to the esophagus and esophageal candidiasis - cont Magic Mouth Wash - Sucralfate oral solution - Nystatin solution - Pantoprazole 40 mg PO BID - Diflucan 200mg #Lung cancer with metastasis to brain - Per pt, cancer in remission s/p chemoradiation tx - Under the care of Dr. Fried and Dr. Russell Garnica - cont Decadron 4 mg PO QD # constipation - lactulose x1 # PVD - cont Asa 81 mg PO QD - cont Clopidogrel 75 mg PO QD #BPH - cont Tamsulosin 0.4 mg PO BID #HLD - cont Atorvastatin 80 mg HS #DVT prophylaxis - Heparin SQ #FEN - PO - Cont. to monitor - Low sodium diet Dispo: f/u with social work about VNS /rehab for pt PT: - ambulated 20ft - rec: ?acute rehab Visit type - Emergency Visit Emergency Visit: No - New Patient This patient is new to me today: No - Critical Care Critical Care patient: No ATTENDING PHYSICIAN STATEMENT I saw and evaluated the patient. I reviewed the resident's note and discussed the case with the resident. I agree with the resident's findings and plan as documented. SUBJECTIVE: OBJECTIVE: ASSESSMENT AND PLAN:
[2019-07-18] MEDS: ATORVASTATIN CA 80 MG TABLET (FP) PO SCH (21:21)
[2019-07-19] MEDS: MAG HYDROX/ALH/SMC/DPHA/LIDO 240 ML MOUTHWASH MM SCH ×3 (06:08→17:17)
[2019-07-19] MEDS: NYSTATIN 500,000 UNITS/5 ML SUSPENSION PO SCH ×3 (06:08→17:16)
[2019-07-19] MEDS: SUCRALFATE 1 GM/10 ML UNIT DOSE CUPS PO SCH ×4 (06:08→21:29)
[2019-07-19 07:50] LABS: HEMATOCRIT 26.3 % (35.4-49); HEMOGLOBIN 9.4 GM/dL (11.7-16.9); MCH 32.6 pg (25.7-33.7); MCHC 35.5 g/dl (32.0-35.9); MEAN CELL VOLUME 91.6 fl (80-96); MEAN PLT VOLUME 9.2 fl (7.5-11.1); PLATELET COUNT 147 K/MM3 (134-434); RBC 2.87 M/mm3 (4.00-5.60); RDW 16.5 % (11.9-15.9); WHITE BLOOD COUNT 8.1 K/mm3 (4.0-10.0)
[2019-07-19 08:22] LABS: BLOOD UREA NITROGEN 18.2 mg/dL (7-18); CALCIUM 7.8 mg/dL (8.5-10.1); CREATININE 0.5 mg/dL (0.55-1.3); MAGNESIUM 1.8 mg/dL (1.8-2.4); PHOSPHOROUS 2.8 mg/dL (2.5-4.9)
[2019-07-19] MEDS: ENOXAPARIN NA (PORCINE) 40 MG/0.4 ML DISP.SYRIN SQ SCH (10:00)
[2019-07-19] MEDS: PANTOPRAZOLE 40 MG TABLET (FP) PO SCH ×2 (10:00→21:29)
[2019-07-19] MEDS: LACTOBACILLUS ACIDOPHILUS 1 TABLET PO SCH ×2 (10:00→21:29)
[2019-07-19] MEDS: TAMSULOSIN HCL 0.4 MG CAP PO SCH ×2 (10:01→21:29)
[2019-07-19] MEDS: DEXAMETHASONE 4 MG TABLET (FP) PO SCH (10:01)
[2019-07-19] MEDS: FLUCONAZOLE 100 MG TABLET (UD) PO SCH (10:01)
[2019-07-19] MEDS: CLOPIDOGREL BISULFATE 75 MG TABLET (FP) PO SCH (10:02)
[2019-07-19] MEDS: ASPIRIN COATED 81 MG TABLET.EC PO SCH (10:02)
[2019-07-19] MEDS ORDERED: PT OWN MED DRAWER 7, Y5N ONE (11:14)
--- NOTE | 2019-07-19 13:14 | HP ---
CHIEF COMPLAINT: PCP: HISTORY OF PRESENT ILLNESS: ER course was notable for: (1) (2) (3) Recent Travel: PAST MEDICAL HISTORY: PAST SURGICAL HISTORY: Social History: Smoking: Alcohol: Drugs: Allergies No Known Allergies Allergy (Verified 07/14/19 14:56) HOME MEDICATIONS: Home Medications Medication Instructions Recorded Clopidogrel Bisulfate [Clopidogrel] 75 mg PO DAILY 07/05/19 Tamsulosin HCl [Flomax] 0.4 mg PO BID 07/05/19 Umeclidinium Brm/Vilanterol Tr 1 each IH DAILY 07/05/19 [Anoro Ellipta 62.5-25 Mcg INH] Aspirin Coated [Ecotrin -] 81 mg PO DAILY tablet.ec 07/12/19 Atorvastatin Ca [Lipitor] 80 mg PO HS #30 tablet 07/12/19 Dexamethasone [Decadron -] 4 mg PO DAILY #7 tablet 07/12/19 Fluconazole [Diflucan -] 200 mg PO 1600 #14 tablet 07/12/19 Lactobacillus Acidophilus [Bacid -] 1 tab PO BID #30 tab 07/12/19 Mag Hydrox/Alh/Smc/Dpha/Lido 5 ml MM Q6HPO #460 ml 07/12/19 [Magic Mouthwash *Sjr Formula* -] Nystatin Oral Suspension - 500,000 units PO Q6HPO 30 Days cup 07/12/19 [Nystatin Oral Susp 856801 Units/5 ML -] Pantoprazole Sodium [Protonix] 40 mg PO BID #60 tablet.dr 07/12/19 Sucralfate Oral Suspension 10 ml PO QID #960 ml 07/12/19 [Carafate Oral Suspension -] REVIEW OF SYSTEMS CONSTITUTIONAL: Absent: fever, chills, diaphoresis, generalized weakness, malaise, loss of appetite, weight change HEENT: Absent: rhinorrhea, nasal congestion, throat pain, throat swelling, difficulty swallowing, mouth swelling, ear pain, eye pain, visual changes CARDIOVASCULAR: Absent: chest pain, syncope, palpitations, irregular heart rate, lightheadedness , peripheral edema RESPIRATORY: Absent: cough, shortness of breath, dyspnea with exertion, orthopnea, wheezing, stridor, hemoptysis GASTROINTESTINAL: Absent: abdominal pain, abdominal distension, nausea, vomiting, diarrhea, constipation, melena, hematochezia GENITOURINARY: Absent: dysuria, frequency, urgency, hesitancy, hematuria, flank pain, genital pain MUSCULOSKELETAL: Absent: myalgia, arthralgia, joint swelling, back pain, neck pain SKIN: Absent: rash, itching, pallor HEMATOLOGIC/IMMUNOLOGIC: Absent: easy bleeding, easy bruising, lymphadenopathy, frequent infections ENDOCRINE: Absent: unexplained weight gain, unexplained weight loss, heat intolerance, cold intolerance NEUROLOGIC: Absent: headache, focal weakness or paresthesias, dizziness, unsteady gait, seizure, mental status changes, bladder or bowel incontinence PSYCHIATRIC: Absent: anxiety, depression, suicidal or homicidal ideation, hallucinations. PHYSICAL EXAMINATION Vital Signs - 24 hr 07/18/19 07/18/19 07/18/19 14:26 17:00 21:00 Temperature 97.7 F 98.0 F Pulse Rate 80 74 74 Respiratory 20 20 Rate Blood Pressure 135/74 127/66 O2 Sat by Pulse 96 96 Oximetry (%) 07/18/19 07/19/19 07/19/19 22:00 01:00 06:00 Temperature 97.6 F 97.4 F L Pulse Rate 82 75 Respiratory 20 18 20 Rate Blood Pressure 129/80 134/68 O2 Sat by Pulse 96 Oximetry (%) GENERAL: Awake, alert, and fully oriented, in no acute distress. HEAD: Normal with no signs of trauma. EYES: Pupils equal, round and reactive to light, extraocular movements intact, sclera anicteric, conjunctiva clear. No lid lag. EARS, NOSE, THROAT: Ears normal, nares patent, oropharynx clear without exudates. Moist mucous membranes. NECK: Normal range of motion, supple without lymphadenopathy, JVD, or masses. LUNGS: Breath sounds equal, clear to auscultation bilaterally. No wheezes, and no crackles. No accessory muscle use. HEART: Regular rate and rhythm, normal S1 and S2 without murmur, rub or gallop. ABDOMEN: Soft, nontender, not distended, normoactive bowel sounds, no guarding, no rebound, no masses. No hepatomegaly or splenomegaly. MUSCULOSKELETAL: Normal range of motion at all joints. No bony deformities or tenderness. No CVA tenderness. UPPER EXTREMITIES: 2+ pulses, warm, well-perfused. No cyanosis. No clubbing. No peripheral edema. LOWER EXTREMITIES: 2+ pulses, warm, well-perfused. No calf tenderness. No peripheral edema. NEUROLOGICAL: Cranial nerves II-XII intact. Normal speech. Normal gait. PSYCHIATRIC: Cooperative. Good eye contact. Appropriate mood and affect. SKIN: Warm, dry, normal turgor, no rashes or lesions noted, normal capillary refill. Laboratory Results - last 24 hr 07/19/19 07/19/19 07:00 07:00 WBC 8.1 RBC 2.87 L Hgb 9.4 L Hct 26.3 L MCV 91.6 MCH 32.6 MCHC 35.5 RDW 16.5 H Plt Count 147 MPV 9.2 Sodium 138 Potassium 4.0 Chloride 106 Carbon Dioxide 23 Anion Gap 8 BUN 18.2 H Creatinine 0.5 L Est GFR (CKD-EPI)AfAm 131.80 Est GFR (CKD-EPI)NonAf 113.72 Random Glucose 124 H Calcium 7.8 L Phosphorus 2.8 Magnesium 1.8 ASSESSMENT/PLAN: ATTENDING PHYSICIAN STATEMENT I saw and evaluated the patient. I reviewed the resident's note and discussed the case with the resident. I agree with the resident's findings and plan as documented. SUBJECTIVE: OBJECTIVE: ASSESSMENT AND PLAN:
--- NOTE | 2019-07-19 13:16 | PN ---
Physical Exam: SUBJECTIVE: Patient seen and examined at bedside. He offers no complaints. He is eating w/o difficulty. Denies acute change in breathing. No SOB or CP. OBJECTIVE: Vital Signs Period Temp Pulse Resp BP Sys/Davis Pulse Ox Last 24 Hr 97.4 F-98.0 F 74-82 18-20 127-135/66-80 96-96 GENERAL: AOx3, in no acute distress. HEAD: NCAT EYES: DONAL, EOMI, conjunctiva clear. ENT: Ears normal, nares patent, oropharynx clear without exudates or thrush. Moist mucous membranes. NECK: Normal range of motion, supple without lymphadenopathy, JVD, or masses. LUNGS: Poor air entry to LEFT lung. wheeze FRANCOISE, LLL. No accessory muscle use. HEART: RRR s1 s2 ABDOMEN: Soft, BS present in all 4 quadrants, non-distended, no JVD, MUSCULOSKELETAL: No bony deformities or tenderness. No CVA tenderness. UPPER EXTREMITIES: 2+ pulses, warm, well-perfused. No cyanosis. No clubbing. No peripheral edema. LOWER EXTREMITIES: 2+ pulses, warm, well-perfused. No calf tenderness. No peripheral edema. NEUROLOGICAL: No focal deficits. Cranial nerves II-XII intact. Normal speech. Gait not appreciated. PSYCHIATRIC: Cooperative. Good eye contact. Yells occasionally when frustrated. Appropriate mood and affect. SKIN: Warm, dry, normal turgor, no rashes or lesions noted, normal capillary refill. Laboratory Results - last 24 hr 07/19/19 07/19/19 07:00 07:00 WBC 8.1 RBC 2.87 L Hgb 9.4 L Hct 26.3 L MCV 91.6 MCH 32.6 MCHC 35.5 RDW 16.5 H Plt Count 147 MPV 9.2 Sodium 138 Potassium 4.0 Chloride 106 Carbon Dioxide 23 Anion Gap 8 BUN 18.2 H Creatinine 0.5 L Est GFR (CKD-EPI)AfAm 131.80 Est GFR (CKD-EPI)NonAf 113.72 Random Glucose 124 H Calcium 7.8 L Phosphorus 2.8 Magnesium 1.8 Active Medications Aspirin (Ecotrin -) 81 mg PO DAILY [facility] Last Admin: 07/19/19 10:02 Dose: 81 mg Atorvastatin Calcium (Lipitor -) 80 mg PO HS [facility] Last Admin: 07/18/19 21:21 Dose: 80 mg Clopidogrel Bisulfate (Plavix -) 75 mg PO DAILY [facility] Last Admin: 07/19/19 10:02 Dose: 75 mg Dexamethasone (Decadron -) 4 mg PO DAILY [facility] Last Admin: 07/19/19 10:01 Dose: 4 mg Enoxaparin Sodium (Lovenox -) 40 mg SQ DAILY [facility] Last Admin: 07/19/19 10:00 Dose: 40 mg Fluconazole (Diflucan -) 200 mg PO DAILY [facility] Last Admin: 07/19/19 10:01 Dose: 200 mg Lactobacillus Acidophilus (Bacid -) 1 tab PO BID [facility] Last Admin: 07/19/19 10:00 Dose: 1 tab Lidocaine/Aluminum/Magnesium/Simeth (Magic Mouthwash *Sjr Formula* -) 5 ml MM Q6HPO [facility] Last Admin: 07/19/19 17:17 Dose: 5 ml Nystatin (Nystatin Oral Suspension -) 500,000 units PO Q6HPO [facility] Last Admin: 07/19/19 17:16 Dose: 500,000 units Pantoprazole Sodium (Protonix -) 40 mg PO BID [facility] Last Admin: 07/19/19 10:00 Dose: 40 mg Sucralfate (Carafate Oral Suspension -) 1 gm PO ACHS [facility] Last Admin: 07/19/19 17:16 Dose: 1 gm Tamsulosin HCl (Flomax -) 0.4 mg PO BID@0830,2200 [facility] Last Admin: 07/19/19 10:01 Dose: 0.4 mg ASSESSMENT/PLAN: 64 y/o male PMH HTN, HLD, BPH, and lung CA with metastasis to brain c/o inability to care for himself. Pt recently d/c to home on 12 Jul 2019 2/2 admission for odynophagia related to RTX and treated for thrush. He walked with PT up to 20 feet. Resp. therapy determined the need for 2L o2 2/2 desat while walking. # FTT - Eating well - Walked with PT, and RT rec 2 Lo2 - F/u social work michael for placement # Odynophagia - Magic Mouth Wash - Sucralfate oral solution - Nystatin solution - Pantoprazole 40 mg PO BID # Lung cancer with metastasis Malignancy being cared for at another facility - Decadron 4 mg PO QD # PVD - Asa 81 mg PO QD - Clopidogrel 75 mg PO QD # BPH - Tamsulosin 0.4 mg PO BID # HTN - Not currently on medications - Presently normotensive # HLD - Atorvastatin 80 mg HS #F/E/N - PO - Cont. to monitor - Low sodium diet # DVT prophylaxis - Heparin SQ # Disposition - Plan for DC to SNF Ellis Coughlin MD Visit type - Emergency Visit Emergency Visit: No - New Patient This patient is new to me today: No - Critical Care Critical Care patient: No ATTENDING PHYSICIAN STATEMENT I saw and evaluated the patient. I reviewed the resident's note and discussed the case with the resident. I agree with the resident's findings and plan as documented. SUBJECTIVE: OBJECTIVE: ASSESSMENT AND PLAN:
--- NOTE | 2019-07-19 17:18 | PN ---
Teaching Attending Note Name of Resident: Ellis Coughlin ATTENDING PHYSICIAN STATEMENT I saw and evaluated the patient. I reviewed the resident's note and discussed the case with the resident. I agree with the resident's findings and plan as documented. SUBJECTIVE: No fever or chills. did well with food. occasional dysphagia and vomiting no SOB OBJECTIVE: NAD. awake, alert, cooperative. Lungs: CTAB today CV: RRR Ext: No edema . 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 He presented after dc due to not being able to care for himself at home 1- Inability to care for self: PT noted . SW consult 2- Possible candidal esophagitis: cont fluconazol. cont PPI. staining for CMV and HSV is still pending 3- Dysphagia/odynophagia: resolved. cont regular diet with thins. cont treatment for esophagitis 4- H/o Met large cell lung cancer: cont with decadron at current dose. f/u with his oncologist as out pt 5- H/o improved. Pre-Post indicated the need for 2 L of O2 with ambulation. dropped to 88 % with walking . will arrange for O2 after dc 7- volume depletion: improved. dc IVF. 8- constipation. had BMs . cont bowel regimen DVT px :Lovenox Dispo : pending placement in rehab . medically ready
[2019-07-19] MEDS: ATORVASTATIN CA 80 MG TABLET (FP) PO SCH (21:29)
[2019-07-20] MEDS ORDERED: PT OWN MED DRAWER 7, Y5N ONE ×3 (00:06→11:27)
[2019-07-20] MEDS: NYSTATIN 500,000 UNITS/5 ML SUSPENSION PO SCH ×5 (00:08→23:00)
[2019-07-20] MEDS: MAG HYDROX/ALH/SMC/DPHA/LIDO 240 ML MOUTHWASH MM SCH ×5 (00:12→23:00)
[2019-07-20] MEDS: SUCRALFATE 1 GM/10 ML UNIT DOSE CUPS PO SCH ×4 (06:58→21:40)
[2019-07-20] MEDS: LACTOBACILLUS ACIDOPHILUS 1 TABLET PO SCH ×3 (09:14→21:39)
[2019-07-20] MEDS: TAMSULOSIN HCL 0.4 MG CAP PO SCH ×3 (09:14→21:39)
[2019-07-20] MEDS: DEXAMETHASONE 4 MG TABLET (FP) PO SCH (09:15)
[2019-07-20] MEDS: PANTOPRAZOLE 40 MG TABLET (FP) PO SCH ×2 (09:16→21:39)
[2019-07-20] MEDS: ASPIRIN COATED 81 MG TABLET.EC PO SCH (09:16)
[2019-07-20] MEDS: ENOXAPARIN NA (PORCINE) 40 MG/0.4 ML DISP.SYRIN SQ SCH ×2 (09:16→09:41)
[2019-07-20] MEDS: CLOPIDOGREL BISULFATE 75 MG TABLET (FP) PO SCH (09:16)
[2019-07-20] MEDS: FLUCONAZOLE 100 MG TABLET (UD) PO SCH (09:16)
[2019-07-20 11:59] VITALS: BMI 24.0
--- NOTE | 2019-07-20 18:19 | PN ---
Teaching Attending Note Name of Resident: Ellis Coughlin ATTENDING PHYSICIAN STATEMENT I saw and evaluated the patient. I reviewed the resident's note and discussed the case with the resident. I agree with the resident's findings and plan as documented. SUBJECTIVE: Patient feels weak, better with his food intake. OBJECTIVE: Vital Signs Temperature 97.8 F 07/20/19 15:00 Pulse Rate 116 H 07/20/19 15:00 Respiratory Rate 20 07/20/19 15:00 Blood Pressure 106/67 07/20/19 15:00 O2 Sat by Pulse Oximetry (%) 96 07/19/19 22:00 GENERAL: The patient is awake, alert, and fully oriented, in no acute distress. HEAD: Normal with no signs of trauma. EYES: PERRL, extraocular movements intact, sclera anicteric, conjunctiva clear. ENT: Ears normal, positive for oral candidiasis but minimal , moist mucous membranes. NECK: Trachea midline, full range of motion, supple. LUNGS: Breath sounds equal, clear to auscultation bilaterally, no wheezes, no crackles, no accessory muscle use. HEART: Regular rate and rhythm, S1, S2 without murmur, rub or gallop. ABDOMEN: Soft, nontender, nondistended, normoactive bowel sounds, no guarding, no rebound, no hepatosplenomegaly, no masses. EXTREMITIES: 2+ pulses, warm, well-perfused, no edema. NEUROLOGICAL: Cranial nerves II through XII grossly intact. Normal speech, gait not observed. PSYCH: Normal mood, normal affect. SKIN: Warm, dry, normal turgor, no rashes or lesions noted CBCD WBC 8.1 K/mm3 (4.0-10.0) 07/19/19 07:00 RBC 2.87 M/mm3 (4.00-5.60) L 07/19/19 07:00 Hgb 9.4 GM/dL (11.7-16.9) L 07/19/19 07:00 Hct 26.3 % (35.4-49) L 07/19/19 07:00 MCV 91.6 fl (80-96) 07/19/19 07:00 MCHC 35.5 g/dl (32.0-35.9) 07/19/19 07:00 RDW 16.5 % (11.9-15.9) H 07/19/19 07:00 Plt Count 147 K/MM3 (134-434) 07/19/19 07:00 MPV 9.2 fl (7.5-11.1) 07/19/19 07:00 CMP Sodium 138 mmol/L (136-145) 07/19/19 07:00 Potassium 4.0 mmol/L (3.5-5.1) 07/19/19 07:00 Chloride 106 mmol/L (98-107) 07/19/19 07:00 Carbon Dioxide 23 mmol/L (21-32) 07/19/19 07:00 Anion Gap 8 MMOL/L (8-16) 07/19/19 07:00 BUN 18.2 mg/dL (7-18) H 07/19/19 07:00 Creatinine 0.5 mg/dL (0.55-1.3) L 07/19/19 07:00 Random Glucose 124 mg/dL (74-106) H 07/19/19 07:00 Calcium 7.8 mg/dL (8.5-10.1) L 07/19/19 07:00 Total Bilirubin 0.7 mg/dL (0.2-1) 07/17/19 06:45 AST 11 U/L (15-37) L 07/17/19 06:45 ALT 18 U/L (13-61) 07/17/19 06:45 Alkaline Phosphatase 74 U/L (45-117) 07/17/19 06:45 Total Protein 4.4 g/dl (6.4-8.2) L 07/17/19 06:45 Albumin 1.8 g/dl (3.4-5.0) L 07/17/19 06:45 CARDIAC ENZYMES Troponin I < 0.02 ng/ml (0.00-0.05) 07/14/19 15:00 Current Medications Generic Name Dose Route Start Last Admin Trade Name Magali PRN Reason Stop Dose Admin Aspirin 81 mg 07/17/19 10:00 07/20/19 09:16 Ecotrin - PO 81 mg DAILY [facility] Administration Atorvastatin Calcium 80 mg 07/17/19 22:00 07/19/19 21:29 Lipitor - PO 80 mg HS [facility] Administration Clopidogrel Bisulfate 75 mg 07/17/19 10:00 07/20/19 09:16 Plavix - PO 75 mg DAILY [facility] Administration Dexamethasone 4 mg 07/17/19 10:00 07/20/19 09:15 Decadron - PO 4 mg DAILY [facility] Administration Enoxaparin Sodium 40 mg 07/17/19 10:00 07/20/19 09:41 Lovenox - SQ 40 mg DAILY [facility] Administration Fluconazole 200 mg 07/17/19 10:00 07/20/19 09:16 Diflucan - PO 200 mg DAILY [facility] Administration Lactobacillus Acidophilus 1 tab 07/17/19 10:00 07/20/19 09:15 Bacid - PO 1 tab BID [facility] Administration Lidocaine/Aluminum/Magnesium/Simeth 5 ml 07/17/19 00:00 07/20/19 17:20 Magic Mouthwash *Sjr Formula* - MM 5 ml Q6HPO [facility] Administration Nystatin 500,000 units 07/17/19 00:00 07/20/19 17:20 Nystatin Oral Suspension - PO 500,000 units Q6HPO [facility] Administration Pantoprazole Sodium 40 mg 07/17/19 10:00 07/20/19 09:16 Protonix - PO 40 mg BID [facility] Administration Sucralfate 1 gm 07/17/19 07:00 07/20/19 17:20 Carafate Oral Suspension - PO 1 gm ACHS [facility] Administration Tamsulosin HCl 0.4 mg 07/17/19 08:30 07/20/19 09:15 Flomax - PO 0.4 mg BID@0830,2200 [facility] Administration Home Medications Medication Instructions Recorded Clopidogrel Bisulfate [Clopidogrel] 75 mg PO DAILY 07/05/19 Tamsulosin HCl [Flomax] 0.4 mg PO BID 07/05/19 Umeclidinium Brm/Vilanterol Tr 1 each IH DAILY 07/05/19 [Anoro Ellipta 62.5-25 Mcg INH] Aspirin Coated [Ecotrin -] 81 mg PO DAILY tablet.ec 07/12/19 Atorvastatin Ca [Lipitor] 80 mg PO HS #30 tablet 07/12/19 Dexamethasone [Decadron -] 4 mg PO DAILY #7 tablet 07/12/19 Fluconazole [Diflucan -] 200 mg PO 1600 #14 tablet 07/12/19 Lactobacillus Acidophilus [Bacid -] 1 tab PO BID #30 tab 07/12/19 Mag Hydrox/Alh/Smc/Dpha/Lido 5 ml MM Q6HPO #460 ml 07/12/19 [Magic Mouthwash *Sjr Formula* -] Nystatin Oral Suspension - 500,000 units PO Q6HPO 30 Days cup 07/12/19 [Nystatin Oral Susp 246192 Units/5 ML -] Pantoprazole Sodium [Protonix] 40 mg PO BID #60 tablet. 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 He presented after dc due to not being able to care for himself at home, feeling weak. # Inability to care for self: PT noted . SW consult # Possible candidal esophagitis: cont fluconazol. cont PPI. staining for CMV and HSV is still pending # Dysphagia/odynophagia: improving but not resolved completely needs to continue taking fluconazole/magic mouth prep/nyastatin , cont regular diet with thins as tolerated # H/o Met large cell lung cancer: cont with decadron with the tapered dose that was instructed by the radiation oncologist. f/u with his oncologist as out pt # Pre-Post indicated the need for 2 L of O2 with ambulation. dropped to 88 % with walking . will arrange for O2 after dc # volume depletion: improved. dc IVF. # constipation. had BMs . cont bowel regimen DVT px :Lovenox Dispo : pending placement in rehab . medically ready
[2019-07-20] MEDS: ATORVASTATIN CA 80 MG TABLET (FP) PO SCH (21:39)
--- NOTE | 2019-07-20 23:19 | PN ---
Physical Exam: SUBJECTIVE: Patient seen and examined at bedside. He offers no complaints. He is eating w/o difficulty. Denies acute change in breathing. No SOB or CP. OBJECTIVE: Vital Signs Period Temp Pulse Resp BP Sys/Davis Pulse Ox Last 24 Hr 97.2 F-98.2 F 72-116 14-20 99-117/60-71 GENERAL: AOx3, in no acute distress. HEAD: NCAT EYES: DONAL, EOMI, conjunctiva clear. ENT: Ears normal, nares patent, oropharynx clear without exudates or thrush. Moist mucous membranes. NECK: Normal range of motion, supple without lymphadenopathy, JVD, or masses. LUNGS: Poor air entry to LEFT lung. wheeze FRANCOISE, LLL. No accessory muscle use. HEART: RRR s1 s2 ABDOMEN: Soft, BS present in all 4 quadrants, non-distended, no JVD, MUSCULOSKELETAL: No bony deformities or tenderness. No CVA tenderness. UPPER EXTREMITIES: 2+ pulses, warm, well-perfused. No cyanosis. No clubbing. No peripheral edema. LOWER EXTREMITIES: 2+ pulses, warm, well-perfused. No calf tenderness. No peripheral edema. NEUROLOGICAL: No focal deficits. Cranial nerves II-XII intact. Normal speech. Gait not appreciated. PSYCHIATRIC: Cooperative. Good eye contact. Yells occasionally when frustrated. Appropriate mood and affect. SKIN: Warm, dry, normal turgor, no rashes or lesions noted, normal capillary refill. Active Medications Aspirin (Ecotrin -) 81 mg PO DAILY [facility] Last Admin: 07/20/19 09:16 Dose: 81 mg Atorvastatin Calcium (Lipitor -) 80 mg PO HS [facility] Last Admin: 07/20/19 21:39 Dose: 80 mg Clopidogrel Bisulfate (Plavix -) 75 mg PO DAILY [facility] Last Admin: 07/20/19 09:16 Dose: 75 mg Dexamethasone (Decadron -) 4 mg PO DAILY [facility] PLAN FOR TAPER: 10 DAYS 2 MG, 0 MG , 2 MG, 0 MG, 2 MG PER PRIMARY ONCOLOGIST Last Admin: 07/20/19 09:15 Dose: 4 mg Enoxaparin Sodium (Lovenox -) 40 mg SQ DAILY [facility] Last Admin: 07/20/19 09:41 Dose: 40 mg Fluconazole (Diflucan -) 200 mg PO DAILY [facility] Last Admin: 07/20/19 09:16 Dose: 200 mg Lactobacillus Acidophilus (Bacid -) 1 tab PO BID [facility] Last Admin: 07/20/19 21:39 Dose: 1 tab Lidocaine/Aluminum/Magnesium/Simeth (Magic Mouthwash *Sjr Formula* -) 5 ml MM Q6HPO [facility] Last Admin: 07/20/19 23:00 Dose: 5 ml Nystatin (Nystatin Oral Suspension -) 500,000 units PO Q6HPO [facility] Last Admin: 07/20/19 23:00 Dose: 500,000 units Pantoprazole Sodium (Protonix -) 40 mg PO BID [facility] Last Admin: 07/20/19 21:39 Dose: 40 mg Sucralfate (Carafate Oral Suspension -) 1 gm PO ACHS [facility] Last Admin: 07/20/19 21:40 Dose: 1 gm Tamsulosin HCl (Flomax -) 0.4 mg PO BID@0830,2200 [facility] Last Admin: 07/20/19 21:39 Dose: 0.4 mg ASSESSMENT/PLAN: 64 y/o male PMH HTN, HLD, BPH, and lung CA with metastasis to brain c/o inability to care for himself. Pt recently d/c to home on 12 Jul 2019 2/2 admission for odynophagia related to RTX and treated for thrush. He walked with PT up to 20 feet. Resp. therapy determined the need for 2L o2 2/2 desat while walking. # FTT - Eating well - Walked with PT, and RT rec 2 Lo2 - F/u social work for placement - possible placement in short term rehab # Odynophagia - Magic Mouth Wash - Sucralfate oral solution - Nystatin solution - Pantoprazole 40 mg PO BID # Lung cancer with metastasis Malignancy being cared for at another facility - Decadron 4 mg PO QD. PLAN FOR TAPER: 10 DAYS 2 MG, 0 MG, 2 MG, 0 MG, 2 MG PER PRIMARY ONCOLOGIST # PVD - Asa 81 mg PO QD - Clopidogrel 75 mg PO QD # BPH - Tamsulosin 0.4 mg PO BID # HTN - Not currently on medications - Presently normotensive # HLD - Atorvastatin 80 mg HS #F/E/N - PO - Cont. to monitor - Low sodium diet # DVT prophylaxis - Heparin SQ # Disposition - Plan for DC to SNF Ellis Coughlin MD Visit type - Emergency Visit Emergency Visit: No - New Patient This patient is new to me today: No - Critical Care Critical Care patient: No ATTENDING PHYSICIAN STATEMENT I saw and evaluated the patient. I reviewed the resident's note and discussed the case with the resident. I agree with the resident's findings and plan as documented. SUBJECTIVE: OBJECTIVE: ASSESSMENT AND PLAN:
[2019-07-21] MEDS: NYSTATIN 500,000 UNITS/5 ML SUSPENSION PO SCH ×4 (06:39→23:19)
[2019-07-21] MEDS: SUCRALFATE 1 GM/10 ML UNIT DOSE CUPS PO SCH ×4 (06:39→21:38)
[2019-07-21] MEDS: MAG HYDROX/ALH/SMC/DPHA/LIDO 240 ML MOUTHWASH MM SCH ×4 (06:39→23:19)
[2019-07-21 08:31] LABS: HEMATOCRIT 28.5 % (35.4-49); HEMOGLOBIN 10.3 GM/dL (11.7-16.9); MCH 32.6 pg (25.7-33.7); MCHC 36.1 g/dl (32.0-35.9); MEAN CELL VOLUME 90.5 fl (80-96); MEAN PLT VOLUME 9.1 fl (7.5-11.1); PLATELET COUNT 156 K/MM3 (134-434); RBC 3.15 M/mm3 (4.00-5.60); RDW 16.4 % (11.9-15.9); WHITE BLOOD COUNT 6.9 K/mm3 (4.0-10.0)
[2019-07-21] MEDS: TAMSULOSIN HCL 0.4 MG CAP PO SCH ×2 (08:49→21:38)
[2019-07-21 09:13] LABS: BLOOD UREA NITROGEN 19.6 mg/dL (7-18); CALCIUM 7.7 mg/dL (8.5-10.1); CREATININE 0.7 mg/dL (0.55-1.3); MAGNESIUM 1.8 mg/dL (1.8-2.4); PHOSPHOROUS 3.3 mg/dL (2.5-4.9); POTASSIUM 3.7 mmol/L (3.5-5.1)
[2019-07-21] MEDS: LACTOBACILLUS ACIDOPHILUS 1 TABLET PO SCH ×2 (09:24→21:38)
[2019-07-21] MEDS: ENOXAPARIN NA (PORCINE) 40 MG/0.4 ML DISP.SYRIN SQ SCH (09:25)
[2019-07-21] MEDS: ASPIRIN COATED 81 MG TABLET.EC PO SCH (09:25)
[2019-07-21] MEDS: PANTOPRAZOLE 40 MG TABLET (FP) PO SCH ×2 (09:25→21:38)
[2019-07-21] MEDS: CLOPIDOGREL BISULFATE 75 MG TABLET (FP) PO SCH (09:25)
[2019-07-21] MEDS: DEXAMETHASONE 4 MG TABLET (FP) PO SCH (09:25)
[2019-07-21] MEDS: FLUCONAZOLE 100 MG TABLET (UD) PO SCH (11:08)
--- NOTE | 2019-07-21 13:57 | DS ---
Physical Exam: SUBJECTIVE: Patient seen and examined at bedside. He offers no complaints. He is eating w/o difficulty. Denies acute change in breathing. No SOB or CP. He is eager to go to SNF. OBJECTIVE: Vital Signs Period Temp Pulse Resp BP Sys/Davis Pulse Ox Last 24 Hr 97.4 F-98.2 F 73-116 18-20 104-129/52-67 96-97 PHYSICAL EXAM GENERAL: AOx3, in no acute distress. HEAD: NCAT EYES: DONAL, EOMI, conjunctiva clear. ENT: Ears normal, nares patent, oropharynx clear without exudates or thrush. Moist mucous membranes. NECK: Normal range of motion, supple without lymphadenopathy, JVD, or masses. LUNGS: Poor air entry to LEFT lung. wheeze FRANCOISE, LLL. No accessory muscle use. HEART: RRR s1 s2 ABDOMEN: Soft, BS present in all 4 quadrants, non-distended, no JVD, MUSCULOSKELETAL: No bony deformities or tenderness. No CVA tenderness. UPPER EXTREMITIES: 2+ pulses, warm, well-perfused. No cyanosis. No clubbing. No peripheral edema. LOWER EXTREMITIES: 2+ pulses, warm, well-perfused. No calf tenderness. No peripheral edema. NEUROLOGICAL: No focal deficits. Cranial nerves II-XII intact. Normal speech. Gait not appreciated. PSYCHIATRIC: Cooperative. Good eye contact. Yells occasionally when frustrated. Appropriate mood and affect. SKIN: Warm, dry, normal turgor, no rashes or lesions noted, normal capillary refill. LABS Laboratory Results - last 24 hr 07/21/19 07/21/19 07:43 07:43 WBC 6.9 RBC 3.15 L Hgb 10.3 L Hct 28.5 L MCV 90.5 MCH 32.6 MCHC 36.1 H RDW 16.4 H Plt Count 156 MPV 9.1 Sodium 137 Potassium 3.7 Chloride 102 Carbon Dioxide 27 Anion Gap 8 BUN 19.6 H Creatinine 0.7 Est GFR (CKD-EPI)AfAm 114.78 Est GFR (CKD-EPI)NonAf 99.03 Random Glucose 118 H Calcium 7.7 L Phosphorus 3.3 Magnesium 1.8 HOSPITAL COURSE: Date of Admission:07/14/19 64 y/o male PMH HTN, HLD, BPH, and lung CA with metastasis to brain c/o inability to care for himself. He states that he was unable to walk around his home and lives with his mother; they have poor access to meals. Pt recently d/c to home on 12 Jul 2019 2/2 admission for odynophagia related to RTX and treated for thrush. He walked with PT up to 80 feet. Resp. therapy determined the need for 2L o2 2/2 desat while walking. Now he is eating well, walked with PT, and RT rec 2 Lo2. His odynophagia is relieved by Magic Mouth Wash, Sucralfate oral solution, Nystatin solution, and Pantoprazole 40 mg PO BID. The primacy CA is lung cancer with metastasis to brain and primary oncologist Dr. Merchant will follow. He is being sent home on decadron taper: 10 DAYS 2 MG, 0 MG, 2 MG, 0 MG , 2 MG PER PRIMARY ONCOLOGIST. Comordib diseases will be treated with home regimen: PVD, cont. Asa 81 mg PO QD and Clopidogrel 75 mg PO QD; BPH continue Tamsulosin 0.4 mg PO BID; HTN not currently on medications; HLD cont. Atorvastatin 80 mg HS. He is being dc to home with VNS and plan for meals-on- wheels to be established. [id number] requires pt to be at home and f/u or continuity care needed. Till then family to case management: HCP Nelly Mistry , daughter Olga Pro. Date of Discharge: 07/21/19 Ellis Coughlin MD Minutes to complete discharge: 30 Discharge Summary Problems reviewed: Yes Reason For Visit: MALIGNANT NEOPLASM OF LUNG Current Active Problems Pneumonia (Acute) Lung cancer (Chronic) Condition: Guarded - Instructions Diet, Activity, Other Instructions: YOUR VISIT You came to the hospital because you were feeling weak and unable to care for yourself. You were admitted to the hospital for attention of your current medical conditions. While here you were assessed by physical therapy and social work. MEDICATIONS Please continue to take your home medications as prescribed. *MEDICATION CHANGE* Your decadron is being tapered per your primary oncologist For 10 days take decadron 2 mg by mouth every day. If you have 4 mg tablets, please cut them in half. Then you will take 2 every other day as described below : July 23, 2019: 2 mg by mouth July 24, 2019: 2 mg by mouth July 25, 2019: 2 mg by mouth July 26, 2019: 2 mg by mouth July 27, 2019: 2 mg by mouth July 28, 2019: 2 mg by mouth July 29, 2019: 2 mg by mouth July 30, 2019: 2 mg by mouth July 31, 2019: 2 mg by mouth August 01, 2019: 2 mg by mouth August 02, 2019: DO NOT TAKE TODAY August 03, 2018: 2 mg by mouth August 04, 2019: DO NOT TAKE TODAY August 05, 2019: 2 mg by mouth August 06, 2019: DO NOT TAKE ANY LONGER ADDITIONAL CARE Please make an appointment to see your primary care provider, Dr. Heidi Rios, 1 week from today or if you prefer, you can be seen at the [facility] residents clinic located at [address] [place] [address]. Please call to make an appointment. If you would like to continue seeing Ellis Coughlin M.D., please ask for a Thursday morning appointment. Please make an appointment within 1 week to see your primary oncologist. Please make an appointment with a cuffing machine operator for colonoscopy and other appropriate care. A referral have been provided. ADDITIONAL INFORMATION Please call [phone] or come directly to the emergency department if you experience unusual headache, vision change, shortness of breath, chest pain, numbness, tingling, loss of alertness/awareness, loss of function, unusual bleeding or any alarming symptoms. Referrals: Stan Catherine MD [Staff Physician] - Chilo Godoy DO [Staff Physician] - Ellis Coughlin RES [Resident] - 1 Week (Please follow up with Dr Coughlin in 1 week .) Ben Cosby MD [Staff Physician] - Heidi Rios MD [Primary Care Provider] - - Home Medications Comprehensive Discharge Medication List: Ambulatory Orders Clopidogrel Bisulfate [Clopidogrel] 75 mg PO DAILY 07/05/19 Tamsulosin HCl [Flomax] 0.4 mg PO BID 07/05/19 Umeclidinium Brm/Vilanterol Tr [Anoro Ellipta 62.5-25 Mcg INH] 1 each IH DAILY 07/05/19 Aspirin Coated [Ecotrin -] 81 mg PO DAILY tablet.ec 07/12/19 Atorvastatin Ca [Lipitor] 80 mg PO HS #30 tablet 07/12/19 Fluconazole [Diflucan -] 200 mg PO 1600 #14 tablet 07/12/19 Lactobacillus Acidophilus [Bacid -] 1 tab PO BID #30 tab 07/12/19 Mag Hydrox/Alh/Smc/Dpha/Lido [Magic Mouthwash *[facility] Formula* -] 5 ml MM Q6HPO # 460 ml 07/12/19 Nystatin Oral Suspension - [Nystatin Oral Susp 126909 Units/5 ML -] 500,000 units PO Q6HPO 30 Days cup 07/12/19 Pantoprazole Sodium [Protonix] 40 mg PO BID #60 tablet. 07/12/19 Sucralfate Oral Suspension [Carafate Oral Suspension -] 10 ml PO QID #960 ml 05/21 Dexamethasone [Decadron -] 2 mg PO DAILY #7 tablet 07/21/19 This patient is new to me today: No Emergency Visit: No Critical Care patient: No - Discharge Referral Referred to [facility] No ATTENDING PHYSICIAN STATEMENT I saw and evaluated the patient. I reviewed the resident's note and discussed the case with the resident. I agree with the resident's findings and plan as documented. SUBJECTIVE: OBJECTIVE: ASSESSMENT AND PLAN:
--- NOTE | 2019-07-21 19:01 | PN ---
Teaching Attending Note Name of Resident: Ellis Coughlin ATTENDING PHYSICIAN STATEMENT I saw and evaluated the patient. I reviewed the resident's note and discussed the case with the resident. I agree with the resident's findings and plan as documented. SUBJECTIVE: Patient is comfortable with no acute distress. no nausea or vomiting, tolerating diet. Vital Signs Temperature 99 F 07/21/19 18:00 Pulse Rate 70 07/21/19 18:00 Respiratory Rate 18 07/21/19 18:00 Blood Pressure 147/86 07/21/19 18:00 O2 Sat by Pulse Oximetry (%) 95 07/21/19 16:34 GENERAL: The patient is awake, alert, and fully oriented, in no acute distress. HEAD: Normal with no signs of trauma. EYES: PERRL, extraocular movements intact, sclera anicteric, conjunctiva clear. ENT: Ears normal, positive for oral candidiasis but minimal , moist mucous membranes. NECK: Trachea midline, full range of motion, supple. LUNGS: Breath sounds equal, clear to auscultation bilaterally, no wheezes, no crackles, no accessory muscle use. HEART: Regular rate and rhythm, S1, S2 without murmur, rub or gallop. ABDOMEN: Soft, nontender, nondistended, normoactive bowel sounds, no guarding, no rebound, no hepatosplenomegaly, no masses. EXTREMITIES: 2+ pulses, warm, well-perfused, no edema. NEUROLOGICAL: Cranial nerves II through XII grossly intact. Normal speech, gait is stable PSYCH: Normal mood, normal affect. SKIN: Warm, dry, normal turgor, no rashes or lesions noted CBCD WBC 6.9 K/mm3 (4.0-10.0) 07/21/19 07:43 RBC 3.15 M/mm3 (4.00-5.60) L 07/21/19 07:43 Hgb 10.3 GM/dL (11.7-16.9) L 07/21/19 07:43 Hct 28.5 % (35.4-49) L 07/21/19 07:43 MCV 90.5 fl (80-96) 07/21/19 07:43 MCHC 36.1 g/dl (32.0-35.9) H 07/21/19 07:43 RDW 16.4 % (11.9-15.9) H 07/21/19 07:43 Plt Count 156 K/MM3 (134-434) 07/21/19 07:43 MPV 9.1 fl (7.5-11.1) 07/21/19 07:43 CMP Sodium 137 mmol/L (136-145) 07/21/19 07:43 Potassium 3.7 mmol/L (3.5-5.1) 07/21/19 07:43 Chloride 102 mmol/L (98-107) 07/21/19 07:43 Carbon Dioxide 27 mmol/L (21-32) 07/21/19 07:43 Anion Gap 8 MMOL/L (8-16) 07/21/19 07:43 BUN 19.6 mg/dL (7-18) H 07/21/19 07:43 Creatinine 0.7 mg/dL (0.55-1.3) 07/21/19 07:43 Random Glucose 118 mg/dL (74-106) H 07/21/19 07:43 Calcium 7.7 mg/dL (8.5-10.1) L 07/21/19 07:43 Total Bilirubin 0.7 mg/dL (0.2-1) 07/17/19 06:45 AST 11 U/L (15-37) L 07/17/19 06:45 ALT 18 U/L (13-61) 07/17/19 06:45 Alkaline Phosphatase 74 U/L (45-117) 07/17/19 06:45 Total Protein 4.4 g/dl (6.4-8.2) L 07/17/19 06:45 Albumin 1.8 g/dl (3.4-5.0) L 07/17/19 06:45 CARDIAC ENZYMES Troponin I < 0.02 ng/ml (0.00-0.05) 07/14/19 15:00 Current Medications Generic Name Dose Route Start Last Admin Trade Name Magali PRN Reason Stop Dose Admin Aspirin 81 mg 07/17/19 10:00 07/21/19 09:25 Ecotrin - PO 81 mg DAILY TRACEY Administration Atorvastatin Calcium 80 mg 07/17/19 22:00 07/20/19 21:39 Lipitor - PO 80 mg HS TRACEY Administration Clopidogrel Bisulfate 75 mg 07/17/19 10:00 07/21/19 09:25 Plavix - PO 75 mg DAILY TRACEY Administration Dexamethasone 4 mg 07/17/19 10:00 07/21/19 09:25 Decadron - PO 4 mg DAILY TRACEY Administration Enoxaparin Sodium 40 mg 07/17/19 10:00 07/21/19 09:25 Lovenox - SQ 40 mg DAILY TRACEY Administration Fluconazole 200 mg 07/17/19 10:00 07/21/19 11:08 Diflucan - PO 200 mg DAILY TRACEY Administration Lactobacillus Acidophilus 1 tab 07/17/19 10:00 07/21/19 09:24 Bacid - PO 1 tab BID TRACEY Administration Lidocaine/Aluminum/Magnesium/Simeth 5 ml 07/17/19 00:00 07/21/19 17:06 Magic Mouthwash *Sjr Formula* - MM 5 ml Q6HPO TRACEY Administration Nystatin 500,000 units 07/17/19 00:00 07/21/19 17:06 Nystatin Oral Suspension - PO 500,000 units Q6HPO TRACEY Administration Pantoprazole Sodium 40 mg 07/17/19 10:00 07/21/19 09:25 Protonix - PO 40 mg BID TRACEY Administration Sucralfate 1 gm 07/17/19 07:00 07/21/19 17:06 Carafate Oral Suspension - PO 1 gm ACHS TRACEY Administration Tamsulosin HCl 0.4 mg 07/17/19 08:30 07/21/19 08:49 Flomax - PO 0.4 mg BID@0830,2200 TRACEY Administration Home Medications Medication Instructions Recorded Clopidogrel Bisulfate [Clopidogrel] 75 mg PO DAILY 07/05/19 Tamsulosin HCl [Flomax] 0.4 mg PO BID 07/05/19 Umeclidinium Brm/Vilanterol Tr 1 each IH DAILY 07/05/19 [Anoro Ellipta 62.5-25 Mcg INH] Aspirin Coated [Ecotrin -] 81 mg PO DAILY tablet.ec 07/12/19 Atorvastatin Ca [Lipitor] 80 mg PO HS #30 tablet 07/12/19 Dexamethasone [Decadron -] 4 mg PO DAILY #7 tablet 07/12/19 Fluconazole [Diflucan -] 200 mg PO 1600 #14 tablet 07/12/19 Lactobacillus Acidophilus [Bacid -] 1 tab PO BID #30 tab 07/12/19 Mag Hydrox/Alh/Smc/Dpha/Lido 5 ml MM Q6HPO #460 ml 07/12/19 [Magic Mouthwash *Sjr Formula* -] Nystatin Oral Suspension - 500,000 units PO Q6HPO 30 Days cup 07/12/19 [Nystatin Oral Susp 770117 Units/5 ML -] Pantoprazole Sodium [Protonix] 40 mg PO BID #60 tablet. 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 He presented after dc due to not being able to care for himself at home, feeling weak. # Inability to care for self: PT noted . SW consult # Possible candidal esophagitis: cont fluconazol. cont PPI. staining for CMV and HSV is still pending # Dysphagia/odynophagia: improving but not resolved completely needs to continue taking fluconazole/magic mouth prep/nyastatin , cont regular diet with thins as tolerated # H/o Met large cell lung cancer: cont with decadron with the tapered dose that was instructed by the radiation oncologist. f/u with his oncologist as out pt # Pre-Post indicated the need for 2 L of O2 with ambulation. dropped to 88 % with walking . will arrange for O2 after dc # volume depletion: improved. dc IVF. # constipation. had BMs . cont bowel regimen Continue home meds DVT px :Lovenox Dispo : pending placement in rehab . medically ready
[2019-07-21] MEDS: ATORVASTATIN CA 80 MG TABLET (FP) PO SCH (21:38)
[2019-07-22] MEDS: MAG HYDROX/ALH/SMC/DPHA/LIDO 240 ML MOUTHWASH MM SCH ×2 (06:08→12:01)
[2019-07-22] MEDS: SUCRALFATE 1 GM/10 ML UNIT DOSE CUPS PO SCH ×3 (06:08→16:45)
[2019-07-22] MEDS: NYSTATIN 500,000 UNITS/5 ML SUSPENSION PO SCH ×2 (06:08→12:01)
[2019-07-22] MEDS ORDERED: PT OWN MED DRAWER 7, Y5N ONE ×2 (08:47→09:21)
[2019-07-22] MEDS: TAMSULOSIN HCL 0.4 MG CAP PO SCH (09:53)
[2019-07-22] MEDS: DEXAMETHASONE 4 MG TABLET (FP) PO SCH (09:54)
[2019-07-22] MEDS: ASPIRIN COATED 81 MG TABLET.EC PO SCH (09:54)
[2019-07-22] MEDS: LACTOBACILLUS ACIDOPHILUS 1 TABLET PO SCH (09:54)
[2019-07-22] MEDS: ENOXAPARIN NA (PORCINE) 40 MG/0.4 ML DISP.SYRIN SQ SCH (09:55)
[2019-07-22] MEDS: CLOPIDOGREL BISULFATE 75 MG TABLET (FP) PO SCH (09:55)
[2019-07-22] MEDS: PANTOPRAZOLE 40 MG TABLET (FP) PO SCH (09:55)
[2019-07-22] MEDS: FLUCONAZOLE 100 MG TABLET (UD) PO SCH (10:38)
[2019-07-22 14:34] VITALS: BP 114/68; PULSE 95; TEMP 97.5
--- NOTE | 2019-07-22 16:11 | PN ---
Physical Exam: SUBJECTIVE: Patient seen and examined at bedside. He offers no complaints. He is eating w/o difficulty. Denies acute change in breathing. No SOB or CP. He would like case management to assist with SNF placement. OBJECTIVE: Vital Signs Period Temp Pulse Resp BP Sys/Davis Pulse Ox Last 24 Hr 97.5 F-99 F 70-130 18-20 103-147/50-86 95-98 GENERAL: AOx3, in no acute distress. HEAD: NCAT EYES: DONAL, EOMI, conjunctiva clear. ENT: Ears normal, nares patent, oropharynx clear without exudates or thrush. Moist mucous membranes. NECK: Normal range of motion, supple without lymphadenopathy, JVD, or masses. LUNGS: Poor air entry to LEFT lung. wheeze FRANCOISE, LLL. No accessory muscle use. HEART: RRR s1 s2 ABDOMEN: Soft, BS present in all 4 quadrants, non-distended, no JVD, MUSCULOSKELETAL: No bony deformities or tenderness. No CVA tenderness. UPPER EXTREMITIES: 2+ pulses, warm, well-perfused. No cyanosis. No clubbing. No peripheral edema. LOWER EXTREMITIES: 2+ pulses, warm, well-perfused. No calf tenderness. No peripheral edema. NEUROLOGICAL: No focal deficits. Cranial nerves II-XII intact. Normal speech. Gait not appreciated. PSYCHIATRIC: Cooperative. Good eye contact. Yells occasionally when frustrated. Appropriate mood and affect. SKIN: Warm, dry, normal turgor, no rashes or lesions noted, normal capillary refill. Active Medications Aspirin (Ecotrin -) 81 mg PO DAILY [facility] Last Admin: 07/22/19 09:54 Dose: 81 mg Atorvastatin Calcium (Lipitor -) 80 mg PO HS [facility] Last Admin: 07/21/19 21:38 Dose: 80 mg Clopidogrel Bisulfate (Plavix -) 75 mg PO DAILY [facility] Last Admin: 07/22/19 09:55 Dose: 75 mg Dexamethasone (Decadron -) 4 mg PO DAILY [facility] Last Admin: 07/22/19 09:54 Dose: 4 mg Enoxaparin Sodium (Lovenox -) 40 mg SQ DAILY [facility] Last Admin: 07/22/19 09:55 Dose: 40 mg Fluconazole (Diflucan -) 200 mg PO DAILY [facility] Last Admin: 07/22/19 10:38 Dose: 200 mg Lactobacillus Acidophilus (Bacid -) 1 tab PO BID [facility] Last Admin: 07/22/19 09:54 Dose: 1 tab Lidocaine/Aluminum/Magnesium/Simeth (Magic Mouthwash *Sjr Formula* -) 5 ml MM Q6HPO [facility] Last Admin: 07/22/19 12:01 Dose: 5 ml Nystatin (Nystatin Oral Suspension -) 500,000 units PO Q6HPO [facility] Last Admin: 07/22/19 12:01 Dose: 500,000 units Pantoprazole Sodium (Protonix -) 40 mg PO BID [facility] Last Admin: 07/22/19 09:55 Dose: 40 mg Sucralfate (Carafate Oral Suspension -) 1 gm PO ACHS [facility] Last Admin: 07/22/19 10:38 Dose: 1 gm Tamsulosin HCl (Flomax -) 0.4 mg PO BID@0830,2200 [facility] Last Admin: 07/22/19 09:53 Dose: 0.4 mg ASSESSMENT/PLAN: 64 y/o male PMH HTN, HLD, BPH, and lung CA with metastasis to brain c/o inability to care for himself. Pt recently d/c to home on 12 Jul 2019 2/2 admission for odynophagia related to RTX and treated for thrush. He walked with PT up to 20 feet. Resp. therapy unable to walk with pt 2/2 pt feeling unable. # FTT - Eating well - F/u social work for placement - possible placement in short term rehab once insurance coverage clarified # Odynophagia - Magic Mouth Wash - Sucralfate oral solution - Nystatin solution - Pantoprazole 40 mg PO BID # Lung cancer with metastasis Malignancy being cared for at another facility - Decadron 4 mg PO QD. PLAN FOR TAPER: 10 DAYS 2 MG, 0 MG, 2 MG, 0 MG, 2 MG PER PRIMARY ONCOLOGIST # PVD - Asa 81 mg PO QD - Clopidogrel 75 mg PO QD # BPH - Tamsulosin 0.4 mg PO BID # HTN - Not currently on medications - Presently normotensive # HLD - Atorvastatin 80 mg HS #F/E/N - PO - Cont. to monitor - Low sodium diet # DVT prophylaxis - Heparin SQ # Disposition - Plan for DC to SNF/[place] Ellis Coughlin MD Visit type - Emergency Visit Emergency Visit: No - New Patient This patient is new to me today: No - Critical Care Critical Care patient: No ATTENDING PHYSICIAN STATEMENT I saw and evaluated the patient. I reviewed the resident's note and discussed the case with the resident. I agree with the resident's findings and plan as documented. SUBJECTIVE: OBJECTIVE: ASSESSMENT AND PLAN:
--- NOTE | 2019-07-22 16:20 | PN ---
Teaching Attending Note Name of Resident: Ellis Coughlin ATTENDING PHYSICIAN STATEMENT I saw and evaluated the patient. I reviewed the resident's note and discussed the case with the resident. I agree with the resident's findings and plan as documented. SUBJECTIVE: Patient continues to feel weak. Vital Signs Temperature 97.5 F L 07/22/19 14:00 Pulse Rate 95 H 07/22/19 14:00 Respiratory Rate 20 07/22/19 14:00 Blood Pressure 114/68 07/22/19 14:00 O2 Sat by Pulse Oximetry (%) 97 07/22/19 10:00 GENERAL: The patient is awake, alert, and fully oriented, in no acute distress. HEAD: Normal with no signs of trauma. EYES: PERRL, extraocular movements intact, sclera anicteric, conjunctiva clear. ENT: Ears normal, positive for oral candidiasis but minimal , moist mucous membranes. NECK: Trachea midline, full range of motion, supple. LUNGS: Breath sounds equal, clear to auscultation bilaterally, no wheezes, no crackles, no accessory muscle use. HEART: Regular rate and rhythm, S1, S2 without murmur, rub or gallop. ABDOMEN: Soft, nontender, nondistended, normoactive bowel sounds, no guarding, no rebound, no hepatosplenomegaly, no masses. EXTREMITIES: 2+ pulses, warm, well-perfused, no edema. NEUROLOGICAL: Cranial nerves II through XII grossly intact. Normal speech, gait is stable PSYCH: Normal mood, normal affect. SKIN: Warm, dry, normal turgor, no rashes or lesions noted CBCD WBC 6.9 K/mm3 (4.0-10.0) 07/21/19 07:43 RBC 3.15 M/mm3 (4.00-5.60) L 07/21/19 07:43 Hgb 10.3 GM/dL (11.7-16.9) L 07/21/19 07:43 Hct 28.5 % (35.4-49) L 07/21/19 07:43 MCV 90.5 fl (80-96) 07/21/19 07:43 MCHC 36.1 g/dl (32.0-35.9) H 07/21/19 07:43 RDW 16.4 % (11.9-15.9) H 07/21/19 07:43 Plt Count 156 K/MM3 (134-434) 07/21/19 07:43 MPV 9.1 fl (7.5-11.1) 07/21/19 07:43 CMP Sodium 137 mmol/L (136-145) 07/21/19 07:43 Potassium 3.7 mmol/L (3.5-5.1) 07/21/19 07:43 Chloride 102 mmol/L (98-107) 07/21/19 07:43 Carbon Dioxide 27 mmol/L (21-32) 07/21/19 07:43 Anion Gap 8 MMOL/L (8-16) 07/21/19 07:43 BUN 19.6 mg/dL (7-18) H 07/21/19 07:43 Creatinine 0.7 mg/dL (0.55-1.3) 07/21/19 07:43 Random Glucose 118 mg/dL (74-106) H 07/21/19 07:43 Calcium 7.7 mg/dL (8.5-10.1) L 07/21/19 07:43 Total Bilirubin 0.7 mg/dL (0.2-1) 07/17/19 06:45 AST 11 U/L (15-37) L 07/17/19 06:45 ALT 18 U/L (13-61) 07/17/19 06:45 Alkaline Phosphatase 74 U/L (45-117) 07/17/19 06:45 Total Protein 4.4 g/dl (6.4-8.2) L 07/17/19 06:45 Albumin 1.8 g/dl (3.4-5.0) L 07/17/19 06:45 CARDIAC ENZYMES Troponin I < 0.02 ng/ml (0.00-0.05) 07/14/19 15:00 Current Medications Generic Name Dose Route Start Last Admin Trade Name Freq PRN Reason Stop Dose Admin Aspirin 81 mg 07/17/19 10:00 07/22/19 09:54 Ecotrin - PO 81 mg DAILY TRACEY Administration Atorvastatin Calcium 80 mg 07/17/19 22:00 07/21/19 21:38 Lipitor - PO 80 mg HS TRACEY Administration Clopidogrel Bisulfate 75 mg 07/17/19 10:00 07/22/19 09:55 Plavix - PO 75 mg DAILY TRACEY Administration Dexamethasone 4 mg 07/17/19 10:00 07/22/19 09:54 Decadron - PO 4 mg DAILY TRACEY Administration Enoxaparin Sodium 40 mg 07/17/19 10:00 07/22/19 09:55 Lovenox - SQ 40 mg DAILY TRACEY Administration Fluconazole 200 mg 07/17/19 10:00 07/22/19 10:38 Diflucan - PO 200 mg DAILY TRACEY Administration Lactobacillus Acidophilus 1 tab 07/17/19 10:00 07/22/19 09:54 Bacid - PO 1 tab BID TRACEY Administration Lidocaine/Aluminum/Magnesium/Simeth 5 ml 07/17/19 00:00 07/22/19 12:01 Magic Mouthwash *Sjr Formula* - MM 5 ml Q6HPO TRACEY Administration Nystatin 500,000 units 07/17/19 00:00 07/22/19 12:01 Nystatin Oral Suspension - PO 500,000 units Q6HPO TRACEY Administration Pantoprazole Sodium 40 mg 07/17/19 10:00 07/22/19 09:55 Protonix - PO 40 mg BID TRACEY Administration Sucralfate 1 gm 07/17/19 07:00 07/22/19 10:38 Carafate Oral Suspension - PO 1 gm ACHS TRACEY Administration Tamsulosin HCl 0.4 mg 07/17/19 08:30 07/22/19 09:53 Flomax - PO 0.4 mg BID@0830,2200 TRACEY Administration Home Medications Medication Instructions Recorded Clopidogrel Bisulfate [Clopidogrel] 75 mg PO DAILY 07/05/19 Tamsulosin HCl [Flomax] 0.4 mg PO BID 07/05/19 Umeclidinium Brm/Vilanterol Tr 1 each IH DAILY 07/05/19 [Anoro Ellipta 62.5-25 Mcg INH] Aspirin Coated [Ecotrin -] 81 mg PO DAILY tablet.ec 07/12/19 Atorvastatin Ca [Lipitor] 80 mg PO HS #30 tablet 07/12/19 Dexamethasone [Decadron -] 4 mg PO DAILY #7 tablet 07/12/19 Fluconazole [Diflucan -] 200 mg PO 1600 #14 tablet 07/12/19 Lactobacillus Acidophilus [Bacid -] 1 tab PO BID #30 tab 07/12/19 Mag Hydrox/Alh/Smc/Dpha/Lido 5 ml MM Q6HPO #460 ml 07/12/19 [Magic Mouthwash *Sjr Formula* -] Nystatin Oral Suspension - 500,000 units PO Q6HPO 30 Days cup 07/12/19 [Nystatin Oral Susp 709344 Units/5 ML -] Pantoprazole Sodium [Protonix] 40 mg PO BID #60 tablet. 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 He presented after dc due to not being able to care for himself at home, feeling weak. # Inability to care for self: PT noted . SW consult # Possible candidal esophagitis: cont fluconazol. cont PPI. staining for CMV and HSV is still pending # Dysphagia/odynophagia: improving but not resolved completely needs to continue taking fluconazole/magic mouth prep/nyastatin , cont regular diet with thins as tolerated # H/o Met large cell lung cancer: cont with decadron with the tapered dose that was instructed by the radiation oncologist. f/u with his oncologist as out pt # Pre-Post indicated the need for 2 L of O2 with ambulation. dropped to 88 % with walking . will arrange for O2 after dc # volume depletion: improved. dc IVF. # constipation. had BMs . cont bowel regimen Continue home meds DVT px :Lovenox patient can be discharged to rehab today since approved by the insurance
== END 2019-07-22 17:00 | DRG 55 ==
LOC: JER 14:21 → JERBED 15:57 → J4W 07-15 20:38 → J8W 07-16 22:32 → J5S 07-20 13:44
PROVIDERS: ADMIT Internal Medicine; ATTEND Internal Medicine
DX: C79.31 Secondary malignant neoplasm of brain (principal); B37.81 Candidal esophagitis; E87.2 Acidosis; J98.11 Atelectasis; Z68.1 Body mass index [BMI] 19.9 or less, adult; C34.90 Malignant neoplasm of unspecified part of unspecified bronchus or lung; I10 Essential (primary) hypertension; E78.5 Hyperlipidemia, unspecified; R13.10 Dysphagia, unspecified; K21.9 Gastro-esophageal reflux disease without esophagitis; I73.9 Peripheral vascular disease, unspecified; N40.0 Benign prostatic hyperplasia without lower urinary tract symptoms; R62.7 Adult failure to thrive; K59.09 Other constipation; R79.89 Other specified abnormal findings of blood chemistry; Z87.891 Personal history of nicotine dependence
CPT/HCPCS: 36415; 71045-TC-FY; 80048; 80053; 82803; 83605; 83735; 84100; 84484; 85025; 85027; 87040; 90670; 93005; 93010; 94761; 97116-GP; 97161-GP; 99285-25; J1644; J7030

== ENCOUNTER 2019-07-31 04:00 | Inpatient (IN) | payer OTHER ==
[2019-07-31] MEDS ORDERED: SODIUM CHLORIDE 0.9% 500 ML INFUS.BAG IV ONE (04:17)
--- NOTE | 2019-07-31 04:26 | PDOC ---
Attending Attestation - Resident Resident Name: Nicolle Blandon - ED Attending Attestation I have performed the following: I have examined & evaluated the patient, The case was reviewed & discussed with the resident, I agree w/resident's findings & plan - HPI HPI: 07/31/19 04:37 Pt is lung cancer with mets to brain; came with rapid afib and SOB and EMS called because pt cannot breathe. - Physicial Exam PE: 07/31/19 04:59 Hypotensive; decreased breath sounds on left febrile in the ER Pt has sepsis. 07/31/19 06:34 Pt is febrile no rashes face flushed Pt has soft ABd and no edema of legs. - Medical Decision Making 07/31/19 05:53 Pt remains hypotensive after 2L NSS and we started a right femoral central line Pt placed on 10mcg levophed and 2 more L of lactated ringers. 07/31/19 05:53 ICU aware as well as hospitalist aware Daughter is aware and she wants patient to stay full code. 07/31/19 06:35 Zosyn and vanco given; cultures pending Procedures - Central Line Central Line Lumen: triple Central Line Position: femoral (R) Anesthesia: 1% Lidocaine Amount of anesthesia (ccs): 3 Complications: none Post Central Line Insertion: sutured, good blood return
--- NOTE | 2019-07-31 04:30 | PDOC ---
History of Present Illness <Jm Meza - Last Filed: 07/31/19 05:33> - History of Present Illness Initial Comments: 07/31/19 04:29 64 year old coming from [facility] with a history of metastatic lung cancer w/ brain mets, HTN, HLD, COPD and GERD who presents with shortness of breath just prior to arrival. BP of 98/75 satting on 88% on a nonrebreather. En route the patient was started on duoneb but then desatted to the 80s so was stopped and started on cpap and satting at 83% w/HR of 200 - 150s. The patient was given 10 of decadron. No further history provided by patient at this time. Multiple attempts to call [facility] for collateral information to no avail as phone appears disconnected. Code Status: no advanced directives ROS - limited 2/2 to shortness of breath Denies chest pain PE GENERAL: Awake, alert, and fully oriented, in no acute distress HEAD: No signs of trauma, normocephalic, atraumatic EYES: EOMI, sclera anicteric, conjunctiva clear ENT: on BIPAP NECK: Normal ROM, supple LUNGS: tachypnea, coarse breath sounds with occasional exp wheezes, decreased on L lung field HEART: tachycardiac rate, irregular rhythm no murmurs, rubs or gallops, peripheral pulses normal and equal bilaterally. ABDOMEN: Soft, nontender No guarding, no rebound. No masses EXTREMITIES : Normal inspection, Normal range of motion, no edema. No clubbing or cyanosis. NEUROLOGICAL: unable to assess at this time SKIN: Warm, Dry, normal turgor, no rashes or lesions noted MDM DDX including but not limited to: COPD exacerbation vs ACS vs PE ED Course: Patient placed on bipap 13/02/ Patient hypotensive to 86/57 MAP of 63, tachy to 200s 2L ns started EKG: tachycardic rehythm to 206bpm, ST depression in V3, V4,V5, V6 febrile to 100.8 CXR: with L sided infiltrate CBCD WBC 9.6 K/mm3 (4.0-10.0) 07/31/19 04:15 RBC 3.02 M/mm3 (4.00-5.60) L 07/31/19 04:15 Hgb 9.4 GM/dL (11.7-16.9) L 07/31/19 04:15 Hct 27.9 % (35.4-49) L 07/31/19 04:15 MCV 92.2 fl (80-96) 07/31/19 04:15 MCHC 33.6 g/dl (32.0-35.9) 07/31/19 04:15 RDW 18.1 % (11.9-15.9) H 07/31/19 04:15 Plt Count 182 K/MM3 (134-434) 07/31/19 04:15 MPV 9.7 fl (7.5-11.1) 07/31/19 04:15 Sodium 129 mmol/L (136-145) L 07/31/19 04:15 Potassium 4.8 mmol/L (3.5-5.1) 07/31/19 04:15 Chloride 98 mmol/L (98-107) 07/31/19 04:15 Carbon Dioxide 17 mmol/L (21-32) L 07/31/19 04:15 Anion Gap 14 MMOL/L (8-16) 07/31/19 04:15 BUN 57.1 mg/dL (7-18) H 07/31/19 04:15 Creatinine 1.4 mg/dL (0.55-1.3) H 07/31/19 04:15 Calcium 7.5 mg/dL (8.5-10.1) L 07/31/19 04:15 Total Bilirubin 0.8 mg/dL (0.2-1) 07/31/19 04:15 AST 30 U/L (15-37) 07/31/19 04:15 ALT 25 U/L (13-61) 07/31/19 04:15 Alkaline Phosphatase 134 U/L (45-117) H 07/31/19 04:15 Total Protein 4.5 g/dl (6.4-8.2) L 07/31/19 04:15 Albumin 1.2 g/dl (3.4-5.0) L 07/31/19 04:15 labs with metabolic acidosis with resp compensation no leukocytosis but with left shift hyponatremia ISAAC Patient still hypotensive after 2 liters of ns with MAP of 50 ICU consulted - agrees will send microblog Discussed with daughter Nelly [phone] Reports that she has never had discussion of DNR/DNI and would like all measures done at this time R femoral central line placed as patient with persistent hypotension pressors started pending CTA - patient not stable to go to CT at this time Patient signed out to inpatient team bp improved to 90s/ 70s on 15mc of levophed Nicolle Blandon PGY2 Emergency Medicine <Nicolle Blandon - Last Filed: 07/31/19 07:03> - General Stated Complaint: DIFFICULTY BREATHING Time Seen by Provider: 07/31/19 04:23 Past History <Jm Meza - Last Filed: 07/31/19 05:33> - Past Medical History Anemia: No Asthma: No Cancer: Yes (Stage IIIB lung cancer diagnosed 12/2017) Cardiac Disorders: No CVA: No COPD: No CHF: No DVT: No Dementia: No Diabetes: No Dialysis: No GI Disorders: Yes (GERD) Disorders: No HTN: Yes Hypercholesterolemia: Yes Liver Disease: No Psychiatric Problems: No Seizures: No Thyroid Disease: No Lung CA: Yes (Stage IIIB, diagnosed 12/2017) - Surgical History Abdominal Surgery: Yes (ex-lap 2/ bowel/bladder injury; open tamara) Appendectomy: No Cardiac Surgery: Yes (stent L leg) Cholecystectomy: Yes (open) Lung Surgery: No Neurologic Surgery: No Orthopedic Surgery: Yes (left leg fx, right wrist fx, total knee replacement right leg) - Immunization History Immunization Up to Date: Yes - Psycho Social/Smoking Cessation Hx Smoking History: Former smoker Have you smoked in the past 12 months: Yes Number of Cigarettes Smoked Daily: 20 If you are a former smoker, when did you quit?: 2-3 months ago 'Breaking Loose' booklet given: 07/05/19 Hx Alcohol Use: Yes (occasional) Drug/Substance Use Hx: Yes Substance Use Type: Alcohol, Cocaine, Marijuana Hx Substance Use Treatment: Yes (rehab in ) <Nicolle Blandon - Last Filed: 07/31/19 07:03> - Past Medical History Allergies/Adverse Reactions: Allergies Allergy/AdvReac Type Severity Reaction Status Date / Time No Known Allergies Allergy Verified 07/14/19 14:56 Home Medications: Ambulatory Orders Clopidogrel Bisulfate [Clopidogrel] 75 mg PO DAILY 07/05/19 Tamsulosin HCl [Flomax] 0.4 mg PO BID 07/05/19 Umeclidinium Brm/Vilanterol Tr [Anoro Ellipta 62.5-25 Mcg INH] 1 each IH DAILY 07/05/19 Aspirin Coated [Ecotrin -] 81 mg PO DAILY tablet.ec 07/12/19 Atorvastatin Ca [Lipitor] 80 mg PO HS #30 tablet 07/12/19 Fluconazole [Diflucan -] 200 mg PO 1600 #14 tablet 07/12/19 Lactobacillus Acidophilus [Bacid -] 1 tab PO BID #30 tab 07/12/19 Mag Hydrox/Alh/Smc/Dpha/Lido [Magic Mouthwash *Sjr Formula* -] 5 ml MM Q6HPO # 460 ml 07/12/19 Nystatin Oral Suspension - [Nystatin Oral Susp 833703 Units/5 ML -] 500,000 units PO Q6HPO 30 Days cup 07/12/19 Pantoprazole Sodium [Protonix] 40 mg PO BID #60 tablet. 07/12/19 Sucralfate Oral Suspension [Carafate Oral Suspension -] 10 ml PO QID #960 ml 05/21 Dexamethasone [Decadron -] 2 mg PO DAILY #7 tablet 07/21/19 *Physical Exam - Vital Signs Last Vital Signs Temp Pulse Resp BP Pulse Ox 100.6 F H 206 H 32 H 86/57 L 97 07/31/19 04:05 07/31/19 04:05 07/31/19 04:05 07/31/19 04:05 07/31/19 04:05 <Jm Meza - Last Filed: 07/31/19 05:33> Procedures - Central Line Central Line Lumen: triple Central Line Position: femoral (R) Anesthesia: 1% Lidocaine Amount of anesthesia (ccs): 5 Complications: none Post Central Line Insertion: sutured, good blood return <Jm Meza - Last Filed: 07/31/19 05:33> ED Treatment Course - LABORATORY CBC & Chemistry Diagram: 07/31/19 04:15 07/31/19 04:15 - ADDITIONAL ORDERS Additional order review: Laboratory Results 07/31/19 07/31/19 07/31/19 04:15 04:15 04:15 PT with INR 17.40 H INR 1.47 H VBG pH 7.40 POC VBG pCO2 27.3 L POC VBG pO2 159 H VBG HCO3 16.5 L VBG O2 Sat (Kelly) 98.4 H VBG Base Excess -6.5 L Sodium Potassium Chloride Carbon Dioxide Anion Gap BUN Creatinine Est GFR (CKD-EPI)AfAm Est GFR (CKD-EPI)NonAf POC Glucometer Random Glucose Lactic Acid 3.2 H* Calcium Total Bilirubin AST ALT Alkaline Phosphatase Troponin I Total Protein Albumin 07/31/19 07/31/19 07/31/19 04:15 04:15 04:05 PT with INR INR VBG pH POC VBG pCO2 POC VBG pO2 VBG HCO3 VBG O2 Sat (Kelly) VBG Base Excess Sodium 129 L Potassium 4.8 Chloride 98 Carbon Dioxide 17 L Anion Gap 14 BUN 57.1 H Creatinine 1.4 H Est GFR (CKD-EPI)AfAm 60.68 Est GFR (CKD-EPI)NonAf 52.35 POC Glucometer 172 Random Glucose 194 H Lactic Acid Calcium 7.5 L Total Bilirubin 0.8 AST 30 ALT 25 Alkaline Phosphatase 134 H Troponin I 0.03 Total Protein 4.5 L Albumin 1.2 L 07/31/19 07/31/19 04:15 04:05 RBC 3.02 L MCV 92.2 MCHC 33.6 RDW 18.1 H MPV 9.7 Neutrophils % 94.8 H Lymphocytes % 3.4 L D Monocytes % 1.6 L Eosinophils % 0.1 D Basophils % 0.1 D POC Glucometer 172 - Medications Given in the ED: ED Medications Discontinued Medications Generic Name Dose Route Start Last Admin Trade Name Freq PRN Reason Stop Dose Admin Acetaminophen 1,000 mg 07/31/19 04:42 07/31/19 04:50 Ofirmev Injection - IVPB 07/31/19 04:43 1,000 mg ONCE ONE Administration Piperacillin Sod/Tazobactam 100 mls @ 200 mls/hr 07/31/19 04:51 07/31/19 05: 12 Sod 4.5 gm/ Dextrose IVPB 07/31/19 05:20 200 mls/hr ONCE ONE Administration Protocol Lactated Ringer's 2,000 ml 07/31/19 05:00 07/31/19 05:12 Lactated Ringers Solution IV 07/31/19 05:01 2,000 ml NOW ONE Administration Sodium Chloride 1,000 ml 07/31/19 04:17 07/31/19 04:51 Normal Saline - IV 07/31/19 04:18 Not Given ONCE ONE <Jm Meza - Last Filed: 07/31/19 05:33> - LABORATORY CBC & Chemistry Diagram: 07/31/19 04:15 07/31/19 04:15 - ADDITIONAL ORDERS Additional order review: Laboratory Results 07/31/19 04:05 POC Glucometer 172 07/31/19 04:05 POC Glucometer 172 - RADIOLOGY Radiology Studies Ordered: Category Date Time Status CHEST CTA [CT] Stat CT Scan 07/31/19 04:23 Ordered <Nicolle Blandon - Last Filed: 07/31/19 07:03>
[2019-07-31 04:39] LABS: BASO % 0.1 % (0-2.0); EOS % 0.1 % (0-4.5); HEMATOCRIT 27.9 % (35.4-49); HEMOGLOBIN 9.4 GM/dL (11.7-16.9); LYMPH % 3.4 % (8-40); MCHC 33.6 g/dl (32.0-35.9); MEAN CELL VOLUME 92.2 fl (80-96); MEAN PLT VOLUME 9.7 fl (7.5-11.1); MONO % 1.6 % (3.8-10.2); NEUT % 94.8 % (42.8-82.8); PLATELET COUNT 182 K/MM3 (134-434); RBC 3.02 M/mm3 (4.00-5.60); RDW 18.1 % (11.9-15.9); WHITE BLOOD COUNT 9.6 K/mm3 (4.0-10.0)
[2019-07-31 04:40] LABS: VENOUS PC02 27.3 mmHg (38-52); VENOUS PH 7.4 (7.31-7.41)
[2019-07-31] MEDS ORDERED: ACETAMINOPHEN 1000 MG/100 ML VIAL (NON FORMULARY) IVPB ONE (04:42)
[2019-07-31] MEDS ORDERED: ACETAMINOPHEN INJECTION 100 ML IVPB ONE (04:45)
[2019-07-31] MEDS: SODIUM CHLORIDE 0.9% 1000 ML INFUS.BAG IV SCH (04:50)
[2019-07-31 04:51] LABS: INR 1.47 (0.83-1.09); PROTHROMBIN TIME (PATIENT) 17.4 SEC (9.7-13.0)
[2019-07-31] MEDS ORDERED: PIPERACILLIN/TAZOB 4.5 GM 4.5 GM in DEXTROSE 5%-WATER 100 ML IVPB ONE (04:51)
[2019-07-31] MEDS ORDERED: VANCOMYCIN HCL 1,250 MG in DEXTROSE 5%-WATER - 250 ML IVPB ONE (04:51)
[2019-07-31] MEDS ORDERED: LACTATED RINGERS SOLUTION 1000 ML INFUS.BAG IV ONE (05:00)
[2019-07-31] MEDS ORDERED: VANCOMYCIN 1 GRAM (PRE-DOCKED) 1,000 MG/250 ML BAG IVPB ONE ×2 (05:02→05:03)
[2019-07-31] MEDS ORDERED: PIPERACILLIN/TAZOB 4.5 GM 4.5 GM/100 ML BAG IVPB ONE (05:02)
[2019-07-31 05:14] LABS: ALBUMIN 1.2 g/dl (3.4-5.0); BILIRUBIN,TOTAL 0.8 mg/dL (0.2-1); BLOOD UREA NITROGEN 57.1 mg/dL (7-18); CALCIUM 7.5 mg/dL (8.5-10.1); CREATININE 1.4 mg/dL (0.55-1.3); POTASSIUM 4.8 mmol/L (3.5-5.1); TOT PROT 4.5 g/dl (6.4-8.2)
[2019-07-31] MEDS: NOREPINEPHRINE BITARTRATE 8,000 MCG in DEXTROSE 5%-WATER - 492 ML IV SCH (05:25)
--- NOTE | 2019-07-31 06:14 | HP ---
Admitting History and Physical - Primary Care Physician PCP: - Admission Chief Complaint: SOB History of Present Illness: 64 year old male coming from [facility] with a history of metastatic lung cancer w/ brain mets, HTN, HLD, COPD and GERD arrived to ED via EMS with SOB just prior to arrival, BP of 98/75 satting on 88% on a nonrebreather. En route the patient was started on duoneb but desatted to the 80s c-pap given and satting at 83% w/ HR of 200 - 150s. The patient was given 10mg of decadron. No further history provided by patient at this time. ED called [facility] unable to reach. History Source: Medical Record, Transfer Record Limitations to Obtaining History: Clinical Condition - Past Medical History Cardiovascular: Yes: HTN, Hyperlipdemia, Other (PVD) Pulmonary: Yes: COPD Gastrointestinal: Yes: GERD Heme/Onc: Yes: Cancer (Lung cancer S IIIB) - Past Surgical History Past Surgical History: Yes: Cholecystectomy, Joint Replacement (right knee) Additional Past Surgical History: Left leg fx, right wrist fx, total knee replacement right leg Cholecystectomy Stent left leg Abd sx: 2x lap 2/2 bowel/bladder injury - Smoking History Smoking history: Former smoker Have you smoked in the past 12 months: Yes Aproximately how many cigarettes per day: 20 If you are a former smoker, when did you quit?: 2-3 months ago - Alcohol/Substance Use Hx Alcohol Use: Yes (occasional) History of Substance Use: reports: Cocaine, Marijuana - Social History Usual Living Arrangement: Yes: Correction 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 History of Recent Travel: No Home Medications - Allergies Allergies/Adverse Reactions: Allergies Allergy/AdvReac Type Severity Reaction Status Date / Time No Known Allergies Allergy Verified 07/14/19 14:56 - Home Medications Home Medications: Ambulatory Orders Clopidogrel Bisulfate [Clopidogrel] 75 mg PO DAILY 07/05/19 Tamsulosin HCl [Flomax] 0.4 mg PO BID 07/05/19 Umeclidinium Brm/Vilanterol Tr [Anoro Ellipta 62.5-25 Mcg INH] 1 each IH DAILY 07/05/19 Aspirin Coated [Ecotrin -] 81 mg PO DAILY tablet.ec 07/12/19 Atorvastatin Ca [Lipitor] 80 mg PO HS #30 tablet 07/12/19 Fluconazole [Diflucan -] 200 mg PO 1600 #14 tablet 07/12/19 Lactobacillus Acidophilus [Bacid -] 1 tab PO BID #30 tab 07/12/19 Mag Hydrox/Alh/Smc/Dpha/Lido [Magic Mouthwash *Sjr Formula* -] 5 ml MM Q6HPO # 460 ml 07/12/19 Nystatin Oral Suspension - [Nystatin Oral Susp 381294 Units/5 ML -] 500,000 units PO Q6HPO 30 Days cup 07/12/19 Pantoprazole Sodium [Protonix] 40 mg PO BID #60 tablet. 07/12/19 Sucralfate Oral Suspension [Carafate Oral Suspension -] 10 ml PO QID #960 ml 05/21 Dexamethasone [Decadron -] 2 mg PO DAILY #7 tablet 07/21/19 Family Medical History Family History: Unable to Obtain Review of Systems Unable to obtain ROS, reason: AMS Physical Examination Vital Signs: Vital Signs Temperature 100.6 F H 07/31/19 04:05 Pulse Rate 179 H 07/31/19 05:25 Respiratory Rate 32 H 07/31/19 04:05 Blood Pressure 79/58 L 07/31/19 05:25 O2 Sat by Pulse Oximetry (%) 97 07/31/19 04:05 Constitutional: Yes: Mild Distress Eyes: Yes: Conjunctiva Clear HENT: Yes: Atraumatic, Normocephalic Neck: Yes: Supple, Trachea Midline Cardiovascular: Yes: Tachycardia, S1, S2 Respiratory: Yes: On BiPap, Rales, Wheezes Gastrointestinal: Yes: Normal Bowel Sounds, Soft Musculoskeletal: Yes: WNL Extremities: Yes: WNL Edema: No Peripheral Pulses WNL: Yes Neurological: Yes: Other (unable to assess at this time) Labs: CBC, BMP 07/31/19 04:15 07/31/19 04:15 Imaging - Results Chest X-ray: Report Reviewed (CXR: with L sided infiltrate) EKG: Report Reviewed (EKG: tachycardic rehythm to 206bpm, ST depression in V3, V4,V5, V6) Problem List - Problems (1) Sepsis due to pneumonia Code(s): J18.9 - PNEUMONIA, UNSPECIFIED ORGANISM; A41.9 - SEPSIS, UNSPECIFIED ORGANISM (2) Sepsis associated hypotension Code(s): A41.9 - SEPSIS, UNSPECIFIED ORGANISM; I95.9 - HYPOTENSION, UNSPECIFIED (3) Acute respiratory distress Code(s): R06.03 - ACUTE RESPIRATORY DISTRESS (4) ISAAC (acute kidney injury) Code(s): N17.9 - ACUTE KIDNEY FAILURE, UNSPECIFIED (5) Hyponatremia Code(s): E87.1 - HYPO-OSMOLALITY AND HYPONATREMIA (6) Metabolic acidosis with respiratory alkalosis Code(s): E87.2 - ACIDOSIS; E87.3 - ALKALOSIS (7) COPD with acute exacerbation Code(s): J44.1 - CHRONIC OBSTRUCTIVE PULMONARY DISEASE W (ACUTE) EXACERBATION Assessment/Plan 64 year old male coming from [facility] with a history of metastatic lung cancer w/ brain mets, HTN, HLD, COPD and GERD arrived to ED via EMS with SOB, hypotensive , and tachycardia due to sepsis. #Sepsis 2/2 pneumonia #Hypotensive 2/2 sepsis #Acute COPD exacerbation #Acute respiratory distress #primary respiratory alkalosis with secondary metabolic acidosis # R/o ACS vs PE EKG: tachycardic rehythm to 206bpm, ST depression in V3, V4,V5, V6 trop: negative Febrile to 100.8, lactic level: 3.2 CXR: with L sided infiltrate - In ED given 2 L with still hypotesive, central line placed and started on pressors (86/57 MAP of 63, tachy to 200s) - S/p Vanco/ Zosyn - Placed on BiPAP 14/7/100/16 in ED, continue if de-sat may need intubation - pending CTA ( not stable to go to CT) continue with levophed, monitor BP closely, may need secondary pressor if Bp not stable continue with Vanco and zosyn follow rouse culture follow up ID repeat cbc, and trend lactic ICU following patient #ISAAC #Hyponatremia bun/cr: 57.1/1.4 s/p 2 L IVF in ED continue with IVF monitor Cr trend avoid nephro toxins consider renal US once stable follow up nephrology if needed follow up bmp, Mg+ level # Anemia - monitor H/H trend ( around baseline) CODE STATUS: FULL CODE FEN: IVF, replete lytes as needed, NPO VTE: SCDs, Heparin Dispo: ICU care Visit type - Emergency Visit Emergency Visit: Yes Care time: The patient presented to the Emergency Department on the above date and was hospitalized for further evaluation of their emergent condition. - New Patient This patient is new to me today: Yes Date on this admission: 07/31/19 - Critical Care Critical Care patient: Yes Total Critical Care Time (in minutes): 35 Critical Care Statement: The care of this patient involved high complexity decision making to prevent further life threatening deterioration of the patient 's condition and/or to evaluate & treat vital organ system(s) failure or risk of failure.
--- NOTE | 2019-07-31 08:26 | CONSULT ---
Consult Consult Specialty:: PULM/CCM Reason for Consultation:: Hypoxic Respiratory Failure - History of Present Illness Chief Complaint: Dyspnea History of Present Illness: 64 yom from [facility] with PMHx of metastatic lung cancer w/ brain mets, HTN, HLD, COPD and GERD who presented to ED via EMS with c/o SOB. As per EMS VS BP of 98/ 75 satting on 88% on a nonrebreather. He was started on duoneb but desatted to the 80s. On NIVV satting at 83% w/HR of 200 - 150s. Given 10mg of decadron. Rec'd in ICU tachypneic and tachycardic on 100% NRB, O2 sat 100%. Started on NIVV 100% 15/7 with some relief of dyspnea. RR14, BP 103/77, O2sat 100%, HR 110 on Levo 10mcg/min. On exam of CT chest noted to have a large Rt pneumothorax and effusion. Pt reported that he felt sharp rt chest pain about 1 week ago in the setting of coughing. Rt pigtail drain placed by YOMI Martin and Dr Newton for ~110cc of dark purulent drainage. Pleural fluid sent for studies. Post procedure CXR shows improvement in PTX. Pt tolerated the procedure well. - Past Medical History Cardio/Vascular: Yes: HTN, Hyperlipdemia, Other (PVD) Pulmonary: Yes: COPD Gastrointestinal: Yes: GERD - Past Surgical History Past Surgical History: Yes: Cholecystectomy, Joint Replacement (right knee) - Alcohol/Substance Use Hx Alcohol Use: Yes (occasional) History of Substance Use: reports: Cocaine, Marijuana - Smoking History Smoking history: Former smoker Have you smoked in the past 12 months: Yes Aproximately how many cigarettes per day: 20 If you are a former smoker, when did you quit?: 2-3 months ago - Social History Usual Living Arrangement: With Parent ADL: Independent 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 History of Recent Travel: No Home Medications - Allergies Allergies/Adverse Reactions: Allergies Allergy/AdvReac Type Severity Reaction Status Date / Time No Known Allergies Allergy Verified 07/14/19 14:56 - Home Medications Home Medications: Ambulatory Orders Clopidogrel Bisulfate [Clopidogrel] 75 mg PO DAILY 07/05/19 Tamsulosin HCl [Flomax] 0.4 mg PO BID 07/05/19 Umeclidinium Brm/Vilanterol Tr [Anoro Ellipta 62.5-25 Mcg INH] 1 each IH DAILY 07/05/19 Aspirin Coated [Ecotrin -] 81 mg PO DAILY tablet.ec 07/12/19 Atorvastatin Ca [Lipitor] 80 mg PO HS #30 tablet 07/12/19 Fluconazole [Diflucan -] 200 mg PO 1600 #14 tablet 07/12/19 Lactobacillus Acidophilus [Bacid -] 1 tab PO BID #30 tab 07/12/19 Mag Hydrox/Alh/Smc/Dpha/Lido [Magic Mouthwash *Sjr Formula* -] 5 ml MM Q6HPO # 460 ml 07/12/19 Nystatin Oral Suspension - [Nystatin Oral Susp 326773 Units/5 ML -] 500,000 units PO Q6HPO 30 Days cup 07/12/19 Pantoprazole Sodium [Protonix] 40 mg PO BID #60 tablet. 07/12/19 Sucralfate Oral Suspension [Carafate Oral Suspension -] 10 ml PO QID #960 ml 05/21 Dexamethasone [Decadron -] 2 mg PO DAILY #7 tablet 07/21/19 Physical Exam Vital Signs: Vital Signs Temperature 100.6 F H 07/31/19 04:05 Pulse Rate 110 H 07/31/19 07:32 Respiratory Rate 21 H 07/31/19 07:32 Blood Pressure 106/77 07/31/19 07:32 O2 Sat by Pulse Oximetry (%) 100 07/31/19 07:32 Constitutional: Yes: Thin Eyes: Yes: Conjunctiva Clear, EOM Intact HENT: Yes: Atraumatic, Normocephalic Neck: Yes: Supple, Trachea Midline Cardiovascular: Yes: Tachycardia, S1, S2 Respiratory: Yes: On BiPap, Rhonchi Gastrointestinal: Yes: Soft, Tenderness, Epigastrium ...Rectal Exam: Yes: Deferred Musculoskeletal: Yes: WNL Extremities: Yes: WNL Edema: No Neurological: Yes: Alert, Oriented ...Motor Strength: WNL Psychiatric: Yes: Alert, Oriented Labs: CBC, BMP 07/31/19 04:15 07/31/19 04:15 CBC,CMP WBC 7.6 K/mm3 (4.0-10.0) 07/31/19 10:04 RBC 2.67 M/mm3 (4.00-5.60) L 07/31/19 10:04 Hgb 8.4 GM/dL (11.7-16.9) L 07/31/19 10:04 Hct 24.7 % (35.4-49) L 07/31/19 10:04 MCV 92.6 fl (80-96) 07/31/19 10:04 MCH 31.4 pg (25.7-33.7) 07/31/19 10:04 MCHC 33.9 g/dl (32.0-35.9) 07/31/19 10:04 RDW 18.4 % (11.9-15.9) H 07/31/19 10:04 Plt Count 143 K/MM3 (134-434) D 07/31/19 10:04 MPV 9.5 fl (7.5-11.1) 07/31/19 10:04 Absolute Neuts (auto) 7.3 K/mm3 (1.5-8.0) 07/31/19 10:04 Total Counted 100 07/31/19 04:15 Neutrophils % 96.7 % (42.8-82.8) H 07/31/19 10:04 Neutrophils % (Manual) 77.0 % (42.8-82.8) 07/31/19 04:15 Band Neutrophils % 17.0 % 07/31/19 04:15 Lymphocytes % 1.3 % (8-40) L D 07/31/19 10:04 Lymphocytes % (Manual) 4.0 % (8-40) L D 07/31/19 04:15 Monocytes % 1.2 % (3.8-10.2) L 07/31/19 10:04 Monocytes % (Manual) 2 % (3.8-10.2) L 07/31/19 04:15 Eosinophils % 0.7 % (0-4.5) D 07/31/19 10:04 Eosinophils % (Manual) 0.0 % (0-4.5) 07/31/19 04:15 Basophils % 0.1 % (0-2.0) 07/31/19 10:04 Basophils % (Manual) 0.0 % (0-2.0) 07/31/19 04:15 Myelocytes % (Man) 0 % (0-2) 07/31/19 04:15 Promyelocytes % (Man) 0 % 07/31/19 04:15 Blast Cells % (Manual) 0 % (0-0) 07/31/19 04:15 Nucleated RBC % 0 % (0-0) 07/31/19 10:04 Metamyelocytes 0 % (0-2) 07/31/19 04:15 Sodium 129 mmol/L (136-145) L 07/31/19 04:15 Potassium 4.8 mmol/L (3.5-5.1) 07/31/19 04:15 Chloride 98 mmol/L (98-107) 07/31/19 04:15 Carbon Dioxide 17 mmol/L (21-32) L 07/31/19 04:15 Anion Gap 14 MMOL/L (8-16) 07/31/19 04:15 BUN 57.1 mg/dL (7-18) H 07/31/19 04:15 Creatinine 1.4 mg/dL (0.55-1.3) H 07/31/19 04:15 Est GFR (CKD-EPI)AfAm 60.68 07/31/19 04:15 Est GFR (CKD-EPI)NonAf 52.35 07/31/19 04:15 POC Glucometer 172 UNITS (80-120) 07/31/19 04:05 Random Glucose 194 mg/dL (74-106) H 07/31/19 04:15 Lactic Acid 1.6 mmol/L (0.4-2.0) 07/31/19 10:00 Calcium 7.5 mg/dL (8.5-10.1) L 07/31/19 04:15 Total Bilirubin 0.8 mg/dL (0.2-1) 07/31/19 04:15 AST 30 U/L (15-37) 07/31/19 04:15 ALT 25 U/L (13-61) 07/31/19 04:15 Alkaline Phosphatase 134 U/L (45-117) H 07/31/19 04:15 Troponin I 0.03 ng/ml (0.00-0.05) 07/31/19 04:15 Total Protein 4.5 g/dl (6.4-8.2) L 07/31/19 04:15 Albumin 1.2 g/dl (3.4-5.0) L 07/31/19 04:15 Current Medications Chlorhexidine Gluconate (Hibiclens For Decolonization -) 1 applic TP HS TRACEY Heparin Sodium (Porcine) (Heparin -) 5,000 unit SQ BID TRACEY Norepinephrine Bitartrate 8, (000 mcg/ Dextrose) 500 mls @ 37.5 mls/hr IV TITR TRACEY; Protocol Last Admin: 07/31/19 05:25 Dose: 10 mcg/min, 37.5 mls/hr Piperacillin Sod/Tazobactam (Sod 3.375 gm/ Dextrose) 50 mls @ 100 mls/hr IVPB Q8H-IV TRACEY; Protocol Stop: 08/06/19 23:59 Vancomycin HCl 1,000 mg/ (Dextrose) 250 mls @ 200 mls/hr IVPB Q24H TRACEY; Protocol Stop: 08/06/19 05:59 Piperacillin Sod/Tazobactam (Sod 3.375 gm/ Dextrose) 50 mls @ 100 mls/hr IVPB Q8H-IV TRACEY; Protocol Stop: 07/31/19 18:29 Mupirocin (Bactroban Ointment (For Decolonization) -) 1 applic NS BID TRACEY Stop: 08/05/19 09:59 Sodium Chloride (Normal Saline -) 1,000 ml IV ONCE TRACEY Last Admin: 07/31/19 04:50 Dose: 1,000 ml Imaging - Results Cat Scan: Image Reviewed (Rt PTX with small effusion my read. Pending official read.) Problem List - Problems (1) Pneumonia Code(s): J18.9 - PNEUMONIA, UNSPECIFIED ORGANISM Qualifiers: Pneumonia type: due to unspecified organism Laterality: right Lung location: lower lobe of lung Qualified Code(s): J18.9 - Pneumonia, unspecified organism (2) Lung cancer Code(s): C34.90 - MALIGNANT NEOPLASM OF UNSP PART OF UNSP BRONCHUS OR LUNG Qualifiers: Laterality: unspecified laterality Lung location: unspecified part of lung Qualified Code(s): C34.90 - Malignant neoplasm of unspecified part of unspecified bronchus or lung (3) Pneumothorax Code(s): J93.9 - PNEUMOTHORAX, UNSPECIFIED (4) Shock Code(s): R57.9 - SHOCK, UNSPECIFIED Assessment/Plan 64 yom from [facility] with PMHx of metastatic lung cancer w/ brain mets, HTN, HLD, COPD and GERD admitted to ICU with dyspnea and hypoxic respiratory failure 2/2 PNA and large right pneumothorax and effusion c/b shock on pressors. 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
[2019-07-31] MEDS ORDERED: PIPERACILLIN/TAZOBACTAM 3.375 GM VIAL IVPB ONE ×2 (09:39→17:12)
[2019-07-31] MEDS ORDERED: DEXTROSE 5%-WATER - 50 ML IVPB ONE ×2 (09:39→17:12)
[2019-07-31] MEDS ORDERED: LIDOCAINE HCL 1% 20ML VIAL IJ ONE (09:44)
--- NOTE | 2019-07-31 09:44 | PN ---
Progress Note, Physician Chief Complaint: AWAKE AND BEDSIDE EVENTS AND NOTES REVIEWED ON BIPAP COMFORTABLE - Current Medication List Current Medications: Active Medications Chlorhexidine Gluconate (Hibiclens For Decolonization -) 1 applic TP HS TRACEY Heparin Sodium (Porcine) (Heparin -) 5,000 unit SQ BID TRACEY Norepinephrine Bitartrate 8, (000 mcg/ Dextrose) 500 mls @ 37.5 mls/hr IV TITR TRACEY; Protocol Last Admin: 07/31/19 05:25 Dose: 10 mcg/min, 37.5 mls/hr Piperacillin Sod/Tazobactam (Sod 3.375 gm/ Dextrose) 50 mls @ 100 mls/hr IVPB Q8H-IV TRACEY; Protocol Stop: 08/06/19 23:59 Vancomycin HCl 1,000 mg/ (Dextrose) 250 mls @ 200 mls/hr IVPB Q24H TRACEY; Protocol Stop: 08/06/19 05:59 Piperacillin Sod/Tazobactam (Sod 3.375 gm/ Dextrose) 50 mls @ 100 mls/hr IVPB Q8H-IV TRACEY; Protocol Stop: 07/31/19 18:29 Mupirocin (Bactroban Ointment (For Decolonization) -) 1 applic NS BID TRACEY Stop: 08/05/19 09:59 Sodium Chloride (Normal Saline -) 1,000 ml IV ONCE TRACEY Last Admin: 07/31/19 04:50 Dose: 1,000 ml - Objective Vital Signs: Vital Signs Temperature 98.6 F 07/31/19 05:23 Pulse Rate 110 H 07/31/19 07:32 Respiratory Rate 21 H 07/31/19 07:32 Blood Pressure 106/77 07/31/19 07:32 O2 Sat by Pulse Oximetry (%) 100 07/31/19 08:28 Constitutional: Yes: Mild Distress Cardiovascular: Yes: Tachycardia Respiratory: Yes: Diminished, On BiPap Gastrointestinal: Yes: Soft Genitourinary: Yes: Incontinence Musculoskeletal: Yes: Muscle Weakness Neurological: Yes: Pre-Existing Deficit Labs: CBC, BMP 07/31/19 04:15 07/31/19 04:15 INR, PTT INR 1.47 (0.83-1.09) H 07/31/19 04:15 Assessment/Plan LUNG CANCER WITH METS TO BRAIN PNEUMOTHORAX TO HAVE PIG TAIL PLACED IN RIGHT LING ON 02 SUPPORT. PULM EVAL ICU CONSULT IV PRESSOR SUPPORTS ON LEVOPHED IV ABX DVT PROPHYLAXIS D/W BEDSIDE
--- NOTE | 2019-07-31 09:51 | PN ---
Progress Note (short form) - Note Progress Note: ID consult dictated imp/reccd 64 yo man with hisory of lung cancer with brain mets, recently admitted to [facility] for rehab developed sob and hypoxia and transferred to the ER no fevers +episode of vomiting yesterday alert on bipap radiology studies pending r/o pneumonia- HAP- to recent admissions- vanco/zosyn adjust for nomi f/u imaging studies-?ptx management per ICU
--- NOTE | 2019-07-31 09:57 | CON.NEP ---
Consult Consult Specialty:: NEPHROLOGY - History of Present Illness Chief Complaint: hypoxia History of Present Illness: 64 year old male coming from [facility] with a history of metastatic lung cancer w/ brain mets, HTN, HLD, COPD and GERD arrived to ED via EMS with SOB just prior to arrival, BP of 98/75 satting on 88% on a nonrebreather. En route the patient was started on duoneb but desatted to the 80s c-pap given and satting at 83% w/ HR of 200 - 150s. His sodium is low and his creat is elevated So nephrology is called. He had chest pain before. Had no nausea, vomiting or diarrhea. He c/o thrush and had a chest CT suggestive of a large pneumothorax. Says he has dysuria but not any difficulty breathing. - History Source History Provided By: Patient, Medical Record - Past Medical History Cardio/Vascular: Yes: HTN, Hyperlipdemia, Other (PVD) Pulmonary: Yes: COPD Gastrointestinal: Yes: GERD - Past Surgical History Past Surgical History: Yes: Cholecystectomy, Joint Replacement (right knee) - Alcohol/Substance Use Hx Alcohol Use: Yes (occasional) History of Substance Use: reports: Cocaine, Marijuana - Smoking History Smoking history: Former smoker Have you smoked in the past 12 months: Yes Aproximately how many cigarettes per day: 20 If you are a former smoker, when did you quit?: 2-3 months ago - Social History Usual Living Arrangement: With Parent ADL: Independent 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 History of Recent Travel: No Home Medications - Allergies Allergies/Adverse Reactions: Allergies Allergy/AdvReac Type Severity Reaction Status Date / Time No Known Allergies Allergy Verified 07/14/19 14:56 - Home Medications Home Medications: Ambulatory Orders Clopidogrel Bisulfate [Clopidogrel] 75 mg PO DAILY 07/05/19 Tamsulosin HCl [Flomax] 0.4 mg PO BID 07/05/19 Umeclidinium Brm/Vilanterol Tr [Anoro Ellipta 62.5-25 Mcg INH] 1 each IH DAILY 07/05/19 Aspirin Coated [Ecotrin -] 81 mg PO DAILY tablet.ec 07/12/19 Atorvastatin Ca [Lipitor] 80 mg PO HS #30 tablet 07/12/19 Fluconazole [Diflucan -] 200 mg PO 1600 #14 tablet 07/12/19 Lactobacillus Acidophilus [Bacid -] 1 tab PO BID #30 tab 07/12/19 Mag Hydrox/Alh/Smc/Dpha/Lido [Magic Mouthwash *Sjr Formula* -] 5 ml MM Q6HPO # 460 ml 07/12/19 Nystatin Oral Suspension - [Nystatin Oral Susp 076427 Units/5 ML -] 500,000 units PO Q6HPO 30 Days cup 07/12/19 Pantoprazole Sodium [Protonix] 40 mg PO BID #60 tablet. 07/12/19 Sucralfate Oral Suspension [Carafate Oral Suspension -] 10 ml PO QID #960 ml 05/21 Dexamethasone [Decadron -] 2 mg PO DAILY #7 tablet 07/21/19 Review of Systems - Review of Systems Constitutional: reports: Loss of Appetite, Weakness Eyes: reports: No Symptoms HENT: reports: No Symptoms Neck: reports: No Symptoms, Tenderness Respiratory: reports: SOB Gastrointestinal: reports: No Symptoms Genitourinary: reports: No Symptoms Musculoskeletal: reports: No Symptoms Integumentary: reports: No Symptoms Hematology/Lymphatic: reports: No Symptoms Nephrology Consult - Height Height: 5 ft 8 in - Weight Weight: 157 lb 14.4 oz - BMI Body Mass Index (BMI): 24.0 - Lab Results CBC,BMP: CBC, BMP 07/31/19 04:15 07/31/19 04:15 Anion Gap: Anion Gap Anion Gap 14 MMOL/L (8-16) 07/31/19 04:15 - Imaging Chest X-ray: Image Reviewed Cat Scan: Image Reviewed - Physical Examination Vital Signs: Vital Signs Temperature 98.6 F 07/31/19 05:23 Pulse Rate 110 H 07/31/19 07:32 Respiratory Rate 21 H 07/31/19 07:32 Blood Pressure 106/77 07/31/19 07:32 O2 Sat by Pulse Oximetry (%) 100 07/31/19 08:28 Constitutional: Yes: Anxious, Moderate Distress Eyes: Yes: WNL HENT: Yes: Atraumatic Neck: Yes: Supple Cardiovascular: Yes: Regular Rate and Rhythm Respiratory: Yes: SOB, Other Gastrointestinal: Yes: Normal Bowel Sounds, Tenderness Renal/: Yes: WNL Musculoskeletal: Yes: WNL Extremities: Yes: WNL Edema: No Integumentary: Yes: WNL Neurological: Yes: Alert Psychiatric: Yes: Alert Assessment/Plan IMPRESSION probable ISAAC from volume depletion Hyponatremia- pt was not eating but he was drinking water. Also his brain mets and lung ca can be a cause for siadh pneumothorax h/o lung cancer with mets- treated with chemo and steroids PLAN CCM inserting a pigtail catheter obtain urine potassium and sodium and serum osm monitor labs would keep on saline for now CT surgery eval renal/bladder sono antoibiotics to cover pneumonia and UTI MV
[2019-07-31] MEDS ORDERED: PIPERACILLIN/TAZOB 3.375 GM 3.375 GM in DEXTROSE 5%-WATER - 50 ML IVPB SCH (10:00)
[2019-07-31] MEDS ORDERED: LIDOCAINE HCL 1%, 10 MG/ML (20ML VIAL) ONE ×2 (10:06→10:10)
[2019-07-31 10:11] LABS: BASO % 0.1 % (0-2.0); EOS % 0.7 % (0-4.5); HEMATOCRIT 24.7 % (35.4-49); HEMOGLOBIN 8.4 GM/dL (11.7-16.9); LYMPH % 1.3 % (8-40); MCH 31.4 pg (25.7-33.7); MCHC 33.9 g/dl (32.0-35.9); MEAN CELL VOLUME 92.6 fl (80-96); MEAN PLT VOLUME 9.5 fl (7.5-11.1); MONO % 1.2 % (3.8-10.2); NEUT % 96.7 % (42.8-82.8); RBC 2.67 M/mm3 (4.00-5.60); RDW 18.4 % (11.9-15.9); WHITE BLOOD COUNT 7.6 K/mm3 (4.0-10.0)
[2019-07-31] MEDS ORDERED: LIDOCAINE HCL/PF 1% SDV 5ML VIAL SQ ONE (10:15)
--- NOTE | 2019-07-31 10:54 | PROC ---
Procedure Note Procedure: PULM/CCM PROCEDURE: R CT INDICTATION: R PTX CONSENT: The Consent was obtained from the pt himself. The consent was signed & placed into the pt's chart. BRIEF DESCRIPTION: #1.) We double confirmed R side PTX on imaging. #2.) We triple confirmed R side PTX on imaging. The pt was place supine w/ his R arm raised. We did fashion a sling so that the pt could relax his R arm in the raised position. We then prepped & draped the lateral chest wall in the usual fashion. STOP TIME OUT We then conducted a TIME OUT w/ the pt's nurse at the bedside. I then anesthetized the 4th ICS w/ ~ 5cc of 1% lidocaine. Using an 18G introducer needle I then carefully strafed over the top of the 4th rib and entered the pleaural space w/ a good return of air. I threaded a introducer needle & I did appreciate the flow of non-pulsatile dark venous blood. I then threaded a 50cm Nitinol straight tip Flexura guidewire through the needle into the pts R Median cephalic vein & removed the needle. I then passed a 5.0 Fr MicroEZ Micro introducer w/ vessel dilator over the wire & into the vessel using the seldinger technique. I removed the wire & I appreciated the wire to be intact & whole. I then removed the central stylette & threaded a 5Fr dual lumen 20cm midline through the sheath into the vessel & then I broke away the sheath & advanced the Midline to the 20cm hub. I did appreciate the return of Dark Venous non-pulsatile blood in both ports. Both ports were flushed & capped in the usual sterile fashion. The line was secured inplace w/ the STAT-Lock system. I placed a Bio-disc on the site where the catheter breaches through the pts skin. I applied a sterile dressing to the entire site. EBL < 5cc. The pt tolerated the procedure well. I have no complications to report. Chest Tube Insertion Consent on Chart: Yes Risks and Benefits Explained: Yes Chest tube #1 Indication: Pneumothorax Chest Tube Location: Right Lateral Anesthesia: 1% Lidocaine Size (Fr.): 14 Sterile Technique: Yes Tube Sutured to Skin: Yes Vaseline gauze dressing: No Chest Tube Collection System: Pleur-Evac Suction: Yes Drainage, Color/Appearance: Purulent Amount (ml): 550 Remarks: EBL < 5cc. Post Procedure CXR shows good re-expansion of R lung & Chest Tube in good position. Pt tolerated the procedure well. I have no complications to report.
[2019-07-31] MEDS: HEPARIN NA (PORCINE) 5,000 UNITS/ML 1ML VIAL SQ SCH ×2 (11:00→21:05)
[2019-07-31] MEDS: MUPIROCIN 2% TOPICAL OINTMENT FOR DECOLONIZATION NS SCH ×2 (11:00→21:05)
[2019-07-31 12:18] LABS: ARTERIAL BLD GAS O2 SATURATION 99.7 % (95-98); ARTERIAL BLOOD GAS BASE EXCESS -4.5 meq/l (-2-2); ARTERIAL BLOOD GAS PCO2 24.7 mmHg (35-45); ARTERIAL BLOOD GAS PO2 408 mmHg (80-100); ARTERIAL BLOOD GAS pH 7.47 (7.35-7.45)
[2019-07-31 12:19] LABS: ALLENS TEST POSITIVE
[2019-07-31 12:31] LABS: HEMATOCRIT 23.9 % (35.4-49); HEMOGLOBIN 8.3 GM/dL (11.7-16.9); MCH 31.7 pg (25.7-33.7); MCHC 34.8 g/dl (32.0-35.9); MEAN CELL VOLUME 91.1 fl (80-96); MEAN PLT VOLUME 9.2 fl (7.5-11.1); PLATELET COUNT 143 K/MM3 (134-434); RBC 2.63 M/mm3 (4.00-5.60); RDW 17.8 % (11.9-15.9); WHITE BLOOD COUNT 6.7 K/mm3 (4.0-10.0)
[2019-07-31 12:59] LABS: ANISOCYTOSIS 1+; MACROCYTOSIS 0; PLATELET ESTIMATE NORMAL
[2019-07-31 13:02] LABS: BLOOD UREA NITROGEN 54.3 mg/dL (7-18); CALCIUM 7.3 mg/dL (8.5-10.1); CREATININE 1.1 mg/dL (0.55-1.3); POTASSIUM 4.2 mmol/L (3.5-5.1)
[2019-07-31] MEDS ORDERED: ACETAMINOPHEN 1000 MG/100 ML VIAL (NON FORMULARY) IVPB PRN (14:45)
[2019-07-31] MEDS ORDERED: LACTATED RINGERS SOLUTION 1,000 ML/1,000 ML INFUS.BAG IV STA (14:47)
--- NOTE | 2019-07-31 14:58 | CONSULT ---
Consult Consult Specialty:: Oncology Referred by:: ICU Reason for Consultation:: History of lung cancer - History of Present Illness Chief Complaint: Respiratory failure History of Present Illness: Patient with known NSCLC diagnosed 2018 (then IIIB), treated with chemoradation , completed January 2018, followed by adjuvant durvulumab - 2017 to September 2018 (Dr Philippe Chris). Patient decided to stop treatment then, and pursued further treatment with a radiation oncologist (Julito Merchant). Appears to have had recurrence with cranial mets since, and received RTX and started on steroids sometim mid 2018. Has not received systemic therapy since - unclear why - appears possibly to have been patient's preference. Recent admission (07/04/19) to [facility] with deconditioning, and steroid associated complications , discharged to rehab, and returns with respiratory decompensation , and found to have loculated pleural effusion R side, now s/p placement ICD. Reports ongoing weakness, and dyspnea. Pain at site of chest drain. - History Source History Provided By: Patient, Medical Record Limitations to Obtaining History: Poor Historian - Past Medical History Cardio/Vascular: Yes: HTN, Hyperlipdemia, Other (PVD) Pulmonary: Yes: COPD Gastrointestinal: Yes: GERD - Past Surgical History Past Surgical History: Yes: Cholecystectomy, Joint Replacement (right knee) - Alcohol/Substance Use Hx Alcohol Use: Yes (occasional) History of Substance Use: reports: Cocaine, Marijuana - Smoking History Smoking history: Former smoker Have you smoked in the past 12 months: Yes Aproximately how many cigarettes per day: 20 If you are a former smoker, when did you quit?: 2-3 months ago - Social History Usual Living Arrangement: With Parent ADL: Independent 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 History of Recent Travel: No Home Medications - Allergies Allergies/Adverse Reactions: Allergies Allergy/AdvReac Type Severity Reaction Status Date / Time No Known Allergies Allergy Verified 07/14/19 14:56 - Home Medications Home Medications: Ambulatory Orders Clopidogrel Bisulfate [Clopidogrel] 75 mg PO DAILY 07/05/19 Tamsulosin HCl [Flomax] 0.4 mg PO BID 07/05/19 Umeclidinium Brm/Vilanterol Tr [Anoro Ellipta 62.5-25 Mcg INH] 1 each IH DAILY 07/05/19 Aspirin Coated [Ecotrin -] 81 mg PO DAILY tablet.ec 07/12/19 Atorvastatin Ca [Lipitor] 80 mg PO HS #30 tablet 07/12/19 Fluconazole [Diflucan -] 200 mg PO 1600 #14 tablet 07/12/19 Lactobacillus Acidophilus [Bacid -] 1 tab PO BID #30 tab 07/12/19 Mag Hydrox/Alh/Smc/Dpha/Lido [Magic Mouthwash *Sjr Formula* -] 5 ml MM Q6HPO # 460 ml 07/12/19 Nystatin Oral Suspension - [Nystatin Oral Susp 665969 Units/5 ML -] 500,000 units PO Q6HPO 30 Days cup 07/12/19 Pantoprazole Sodium [Protonix] 40 mg PO BID #60 tablet. 07/12/19 Sucralfate Oral Suspension [Carafate Oral Suspension -] 10 ml PO QID #960 ml 05/21 Dexamethasone [Decadron -] 2 mg PO DAILY #7 tablet 07/21/19 Physical Exam Vital Signs: Vital Signs Temperature 98.6 F 07/31/19 09:00 Pulse Rate 105 H 07/31/19 11:00 Respiratory Rate 33 H 07/31/19 11:00 Blood Pressure 112/73 07/31/19 11:00 O2 Sat by Pulse Oximetry (%) 100 07/31/19 12:23 Constitutional: Yes: Cachectic, Mild Distress, Pallor, Thin Eyes: Yes: Conjunctiva Clear HENT: Yes: Normocephalic Neck: Yes: Trachea Midline. No: Lymphadenopathy Cardiovascular: Yes: Regular Rate and Rhythm, S1, S2. No: Gallop, Murmur Respiratory: Yes: Regular, Diminished, Poor Air Entry, Other (Chest drain R side.) Gastrointestinal: Yes: Normal Bowel Sounds, Tenderness. No: Ascites Edema: No Peripheral Pulses WNL: Yes Neurological: Yes: Alert, Oriented, Facial Droop, Weakness Psychiatric: Yes: Alert, Oriented Labs: CBC, BMP 07/31/19 12:15 07/31/19 12:15 Assessment/Plan Metastatic NSCLC, s/p RTX/chemo mid 2017, intracranial recurrent disease mid- 2019, s/p radiosurgery, now presenting with chronic deconditioning, and acute pleural effusion. Status of his disease is not clear - needs restaging, in order to best determine what modality of palliation is best for him. Poor performance status likely precludes cytotoxic systemic chemotherapy at this time, but may be other systemic therapy options. Patient is resistant to idea of chemotherapy, but has a very unsophisticated understanding of issues related to treatment of his cancer; I suspect he'd be amenable to whatever treatment is appropriate for him if properly counseled. Would proceed with CT abdomen/pelvis, and repeat CT chest, to better delineate extent of metastatic disease. Would also obtain more recent history from Dr Merchant, regarding most recent treatment. No suggestion of acute neurological deficit, but contrast CT or MRI brain would be warranted to document current status of prior brain mets. Will follow.
[2019-07-31 15:09] LABS: EPI CELLS 1.1 /HPF (0-5/HPF); HYALINE CASTS 86 /lpf (0-8); PH,URINE 5.5 (5.0-8.0); URINE APPEARANCE CLOUDY; URINE BILIRUBIN NEGATIVE (NEGATIVE); URINE COLOR DK YELLOW; URINE GLUCOSE (UA) NEGATIVE (NEGATIVE); URINE KETONE NEGATIVE (NEGATIVE); URINE LEUK ESTERASE TRACE (NEGATIVE); URINE NITRITE NEGATIVE (NEGATIVE); URINE PROTEIN 1+ (NEGATIVE); URINE RBC 1 /hpf (0-4); URINE WBC 55 /hpf (0-5)
[2019-07-31] MEDS ORDERED: AMIODARONE IN DEXTROSE,ISO-OSM 360 MG/200 ML BAG IVPB ONE (15:11)
[2019-07-31] MEDS ORDERED: AMIODARONE IN DEXTROSE,ISO-OSM 150 MG/100 ML BAG IVPB ONE (15:11)
[2019-07-31] MEDS: AMIODARONE IN DEXTROSE,ISO-OSM 360 MG/200 ML BAG IVPB SCH ×2 (15:15→20:16)
[2019-07-31] MEDS ORDERED: AMIODARONE IN DEXTROSE,ISO-OSM 150 MG/100 ML BAG ONE (15:16)
[2019-07-31] MEDS ORDERED: AMIODARONE IN DEXTROSE,ISO-OSM 360 MG/200 ML BAG ONE (15:16)
--- NOTE | 2019-07-31 15:21 | EKG ---
Test Reason : Blood Pressure : / mmHG Vent. Rate : 152 BPM Atrial Rate : 138 BPM P-R Int : 000 ms QRS Dur : 080 ms QT Int : 296 ms P-R-T Axes : 000 061 005 degrees QTc Int : 470 ms ATRIAL FIBRILLATION WITH RAPID VENTRICULAR RESPONSE LOW VOLTAGE QRS ABNORMAL ECG WHEN COMPARED WITH ECG OF 31-JUL-2019 04:20, PREVIOUS ECG HAS UNDETERMINED RHYTHM, NEEDS REVIEW ST NO LONGER DEPRESSED IN INFERIOR LEADS ST NO LONGER DEPRESSED IN LATERAL LEADS T WAVE INVERSION NO LONGER EVIDENT IN INFERIOR LEADS NONSPECIFIC T WAVE ABNORMALITY HAS REPLACED INVERTED T WAVES IN LATERAL LEADS Confirmed by MD ARLENE, MICHAEL ([id number]) on 07/31/2019 3:20:25 PM Referred By: Litzy STERN Confirmed By:MICHAEL JACOBS MD
--- NOTE | 2019-07-31 15:27 | EKG ---
Test Reason : Blood Pressure : / mmHG Vent. Rate : 206 BPM Atrial Rate : 197 BPM P-R Int : 000 ms QRS Dur : 068 ms QT Int : 194 ms P-R-T Axes : 000 086 266 degrees QTc Int : 359 ms POOR DATA QUALITY, INTERPRETATION MAY BE ADVERSELY AFFECTED Atrial fibrillation vs atrial flutter MARKED ST ABNORMALITY, POSSIBLE ANTEROLATERAL SUBENDOCARDIAL INJURY ABNORMAL ECG WHEN COMPARED WITH ECG OF 14-JUL-2019 14:49, CURRENT UNDETERMINED RHYTHM PRECLUDES RHYTHM COMPARISON, NEEDS REVIEW ST MORE DEPRESSED INFERIOR LEADS ST NOW DEPRESSED IN ANTEROLATERAL LEADS T WAVE INVERSION NOW EVIDENT IN INFERIOR LEADS T WAVE INVERSION NOW EVIDENT IN LATERAL LEADS Confirmed by MD ARLENE, MICHAEL ([id number]) on 07/31/2019 3:26:23 PM Referred By: Confirmed By:MICHAEL JACOBS MD
[2019-07-31 15:42] LABS: BODY FLUID MESOTHELIAL 13 %
--- NOTE | 2019-07-31 16:10 | CONS ---
DATE OF CONSULTATION: 07/31/2019 REQUESTED BY: Bossman Garsia MD A 64-year-old man with a history of metastatic lung cancer. He has brain metastases. He has been residing at [facility] since his last admission, which was the to the . He developed acute onset of shortness of breath and was with hypoxia and was brought to the emergency room. He was started on BiPAP. I am asked to see him for possible pneumonia. He was given vancomycin and Zosyn in the ER. His past medical history is notable for lung cancer with metastasis to the brain. He has received radiation in the past. He has history of hypertension, hyperlipidemia, COPD, and GERD. Surgical history is notable for cholecystectomy and a right knee replacement. He has had, as well, fractures of his left leg, right wrist. He has had a stent in his left leg and he has had 2 exploratory laparotomies for bladder and bowel injury. SOCIAL HISTORY: He is a former smoker, currently residing at the care home. He stopped smoking 2 to 3 months ago, former cocaine and marijuana user. He has no known drug allergies. Medications include Plavix, tamsulosin, Ellipta, Ecotrin, Lipitor, Diflucan, Bacid, nystatin, Protonix, Carafate, and Decadron. He is currently resting comfortably on BiPAP and is able to participate in the discussion with us. He is resting comfortably at this time. He had had some right flank pain, which he says has persisted and has been present for about a day now. He had one episode of vomiting yesterday of clear sputum. PHYSICAL EXAMINATION: Vital Signs: His T-max is 100.6, current temperature is 98.6. Pulse of 105. Blood pressure is 112/73. Respiratory rate is 29. He is saturating 100% on BiPAP. HEENT: Normocephalic. His eyes are anicteric. I cannot look at his teeth as he has the BiPAP on. Neck: Supple. Lungs: Diminished breath sounds, both bases. Heart: Regular rate and rhythm. Abdomen: Soft. He has a well-healed scar on his abdomen. Extremities: Without edema. White count 6.7, hemoglobin 8.3, platelets 143, BUN 10, creatinine 1.1. Lactic acid was 3.2 on admission, is currently 1.6. LFTs are notable for alkaline phosphatase of 134. Urinalysis has 1 white cell and cultures are pending. He had a chest x-ray and CTA, results of which are pending at this time. In summary, this is a 64-year-old man with metastatic lung cancer, admitted with hypoxia, hypotension, rule out pneumothorax, rule out pneumonia. He has been recently in the hospital twice. Will treat him with vancomycin and Zosyn, adjusted for his acute kidney injury, follow up imaging studies to evaluate for pneumothorax. He may need chest tube placement. He is in the ICU, is critically ill at this time. Further recommendations to follow. THA ABREU M.D. [id number]
[2019-07-31] MEDS: PIPERACILLIN/TAZOB 3.375 GM 3.375 GM in DEXTROSE 5%-WATER - 50 ML IVPB SCH (17:38)
[2019-07-31] MEDS ORDERED: NOREPINEPHRINE BITARTRATE 4 MG/4 ML ML IV ONE (17:45)
[2019-07-31] MEDS ORDERED: PT OWN MED DRAWER 7, Y5N ONE (19:44)
[2019-07-31] MEDS: CHLORHEXIDINE GLUCONATE 4% CLEANSER FOR DECOLONIZATION TP SCH (21:05)
[2019-07-31] MEDS: MAG HYDROX/ALH/SMC/DPHA/LIDO 240 ML MOUTHWASH MM SCH (23:32)
[2019-08-01] MEDS ORDERED: PIPERACILLIN/TAZOBACTAM 3.375 GM VIAL IVPB ONE ×3 (01:10→16:23)
[2019-08-01] MEDS ORDERED: DEXTROSE 5%-WATER - 50 ML IVPB ONE ×3 (01:11→16:23)
[2019-08-01] MEDS: PIPERACILLIN/TAZOB 3.375 GM 3.375 GM in DEXTROSE 5%-WATER - 50 ML IVPB SCH ×3 (01:15→17:06)
[2019-08-01] MEDS: NOREPINEPHRINE BITARTRATE 8,000 MCG in DEXTROSE 5%-WATER - 492 ML IV SCH ×2 (03:03→17:12)
[2019-08-01] MEDS: SODIUM CHLORIDE 0.9% 1000 ML INFUS.BAG IV SCH (03:47)
[2019-08-01] MEDS ORDERED: VANCOMYCIN 1 GRAM (PRE-DOCKED) 1,000 MG/250 ML BAG IVPB SCH (06:00)
[2019-08-01 06:24] LABS: HEMATOCRIT 23.9 % (35.4-49); HEMOGLOBIN 8.2 GM/dL (11.7-16.9); MCH 31.4 pg (25.7-33.7); MCHC 34.2 g/dl (32.0-35.9); MEAN CELL VOLUME 91.9 fl (80-96); MEAN PLT VOLUME 9.2 fl (7.5-11.1); PLATELET COUNT 146 K/MM3 (134-434); RDW 17.8 % (11.9-15.9)
[2019-08-01 06:35] LABS: INR 1.34 (0.83-1.09); PROTHROMBIN TIME (PATIENT) 15.9 SEC (9.7-13.0)
[2019-08-01 06:38] LABS: ACTIVATED PTT 31.8 SECONDS (25.2-36.5)
[2019-08-01 06:44] LABS: BILIRUBIN,TOTAL 0.5 mg/dL (0.2-1); BLOOD UREA NITROGEN 43.7 mg/dL (7-18); CALCIUM 7.4 mg/dL (8.5-10.1); POTASSIUM 3.8 mmol/L (3.5-5.1)
[2019-08-01] MEDS ORDERED: METOPROLOL TARTRATE 5 MG/5 ML VIAL IVPUSH ONE (08:41)
[2019-08-01] MEDS: MAG HYDROX/ALH/SMC/DPHA/LIDO 240 ML MOUTHWASH MM SCH ×4 (08:58→17:05)
[2019-08-01] MEDS: HEPARIN NA (PORCINE) 5,000 UNITS/ML 1ML VIAL SQ SCH ×2 (09:05→21:50)
[2019-08-01] MEDS: MUPIROCIN 2% TOPICAL OINTMENT FOR DECOLONIZATION NS SCH ×2 (09:06→21:50)
[2019-08-01] MEDS: AMIODARONE IN DEXTROSE,ISO-OSM 360 MG/200 ML BAG IVPB SCH ×2 (09:12→16:51)
[2019-08-01] MEDS ORDERED: TRIPLE LUMEN FLUSH 4 ML ML IVPUSH PRN (10:43)
--- NOTE | 2019-08-01 10:53 | PN ---
Progress Note (short form) - Note Progress Note: awake and alert s/p chest tube placement Vital Signs Period Temp Pulse Resp BP Sys/Davis Pulse Ox Last 24 Hr 98.2 F-98.4 F 84-152 14-38 80-114/62-90 92-100 cor-rrr lungs decreased bs at bases chest tube with dark fluid abd soft,nt ext no edema CBC, BMP 08/01/19 06:00 08/01/19 06:00 Microbiology 07/31/19 10:30 Pleural Fluid Gram Stain - Final 07/31/19 10:30 Pleural Fluid Body Fluid Culture - Preliminary Lactose Fermenting Neg Bacilli Pending Organism Pending Organism#2 Pending Organism#3 Pending Organism#4 07/31/19 04:15 Blood - Peripheral Venous Blood Culture - Preliminary Streptococcus Viridans Pending Organism#2 07/31/19 04:20 Blood - Peripheral Venous Blood Culture - Preliminary Pending Organism 07/31/19 10:30 Pleural Fluid AFB Smear Concentration - Preliminary 07/31/19 10:30 Pleural Fluid Mycobacterial Culture - Preliminary 07/31/19 10:30 Pleural Fluid SCOTT Preparation - Preliminary 07/31/19 10:30 Pleural Fluid Fungal Culture - Preliminary a/p 64 yo man with hisory of lung cancer with brain mets loculated effusion- empyema? bacteremia ptx s/p chest tube repeat blood cultures vanco/zosyn echo
--- NOTE | 2019-08-01 10:58 | PN ---
Progress Note, Physician Chief Complaint: Pneumothorax Pleural effusion Pneumonia Bacteremia History of Present Illness: NAD On Levophed to maintain MAP>100 mm Hg On IV abx ID on board EKG yesterday shows Afib with RVR Cardiology consult pending - Current Medication List Current Medications: Active Medications Acetaminophen (Ofirmev Injection -) 1,000 mg IVPB Q6H PRN PRN Reason: PAIN Last Admin: 07/31/19 20:05 Dose: 1,000 mg Chlorhexidine Gluconate (Hibiclens For Decolonization -) 1 applic TP HS TRACEY Last Admin: 07/31/19 21:05 Dose: 1 applic Heparin Sodium (Porcine) (Heparin -) 5,000 unit SQ BID TRACEY Last Admin: 08/01/19 09:05 Dose: 5,000 unit IV Flush (Triple Lumen Flush) 4 ml IVPUSH PRN PRN PRN Reason: Protocol Norepinephrine Bitartrate 8, (000 mcg/ Dextrose) 500 mls @ 37.5 mls/hr IV TITR TRACEY; Protocol Last Titration: 08/01/19 08:00 Dose: 4 mcg/min, 15 mls/hr Piperacillin Sod/Tazobactam (Sod 3.375 gm/ Dextrose) 50 mls @ 100 mls/hr IVPB Q8H-IV TRACEY; Protocol Stop: 08/06/19 17:59 Last Admin: 08/01/19 09:07 Dose: 100 mls/hr Amiodarone HCl/Dextrose (Nexterone 360 Mg/200 Ml Bag) 360 mg in 200 mls @ 16.667 mls/hr IVPB ASDIR TRACEY; Protocol Last Admin: 08/01/19 09:12 Dose: 16.667 mls/hr Lidocaine/Aluminum/Magnesium/Simeth (Magic Mouthwash *Sjr Formula* -) 5 ml MM Q6HPO TRACEY Last Admin: 08/01/19 08:58 Dose: 5 ml Mupirocin (Bactroban Ointment (For Decolonization) -) 1 applic NS BID RTACEY Stop: 08/05/19 09:59 Last Admin: 08/01/19 09:06 Dose: 1 applic Nystatin (Nystatin Oral Suspension -) 500,000 units PO Q6HPO TRACEY Sodium Chloride (Normal Saline -) 1,000 ml IV ONCE TRACEY Last Admin: 08/01/19 03:47 Dose: Not Given - Objective Vital Signs: Vital Signs Temperature 98.2 F 08/01/19 05:00 Pulse Rate 141 H 08/01/19 09:00 Respiratory Rate 19 08/01/19 09:00 Blood Pressure 87/66 L 08/01/19 09:00 O2 Sat by Pulse Oximetry (%) 92 L 08/01/19 09:00 Constitutional: Yes: Well Nourished, Calm, Mild Distress, Thin Cardiovascular: Yes: Tachycardia, Pulse Irregular Respiratory: Yes: On Nasal O2 Gastrointestinal: Yes: WNL, Normal Bowel Sounds, Soft Genitourinary: Yes: WNL Musculoskeletal: Yes: Muscle Weakness Extremities: Yes: WNL Edema: No Peripheral Pulses WNL: Yes Neurological: Yes: Alert, Oriented Psychiatric: Yes: Alert, Oriented Labs: CBC, BMP 08/01/19 06:00 08/01/19 06:00 INR, PTT INR 1.34 (0.83-1.09) H 08/01/19 06:00 Problem List - Problems (1) Metastatic lung carcinoma Assessment/Plan: -Oncology on board -Palliative consult -CT abd/pelvis as per oncology Problems reviewed: Yes Code(s): C78.00 - SECONDARY MALIGNANT NEOPLASM OF UNSPECIFIED LUNG (2) Pneumothorax Assessment/Plan: -Pig tail catheter right chest -Repeat CXR shows resolution + BL congestive changes Problems reviewed: Yes Code(s): J93.9 - PNEUMOTHORAX, UNSPECIFIED (3) Bacteremia Assessment/Plan: -Cultures: Microbiology 07/31/19 10:30 Pleural Fluid Gram Stain - Final 07/31/19 10:30 Pleural Fluid Body Fluid Culture - Preliminary Lactose Fermenting Neg Bacilli Pending Organism Pending Organism#2 Pending Organism#3 Pending Organism#4 07/31/19 04:15 Blood - Peripheral Venous Blood Culture - Preliminary Streptococcus Viridans Pending Organism#2 07/31/19 04:20 Blood - Peripheral Venous Blood Culture - Preliminary Pending Organism 07/31/19 10:30 Pleural Fluid AFB Smear Concentration - Preliminary 07/31/19 10:30 Pleural Fluid Mycobacterial Culture - Preliminary 07/31/19 10:30 Pleural Fluid SCOTT Preparation - Preliminary 07/31/19 10:30 Pleural Fluid Fungal Culture - Preliminary -ID consult -IV abx -Afebrile -hypotensive on levophed Problems reviewed: Yes Code(s): R78.81 - BACTEREMIA (4) Afib Assessment/Plan: -Cardiology consult -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 -Amiodarone drip Problems reviewed: Yes Code(s): I48.91 - UNSPECIFIED ATRIAL FIBRILLATION (5) Pneumonia Assessment/Plan: -Cultures: Microbiology 07/31/19 10:30 Pleural Fluid Gram Stain - Final 07/31/19 10:30 Pleural Fluid Body Fluid Culture - Preliminary Lactose Fermenting Neg Bacilli Pending Organism Pending Organism#2 Pending Organism#3 Pending Organism#4 07/31/19 04:15 Blood - Peripheral Venous Blood Culture - Preliminary Streptococcus Viridans Pending Organism#2 07/31/19 04:20 Blood - Peripheral Venous Blood Culture - Preliminary Pending Organism 07/31/19 10:30 Pleural Fluid AFB Smear Concentration - Preliminary 07/31/19 10:30 Pleural Fluid Mycobacterial Culture - Preliminary 07/31/19 10:30 Pleural Fluid SCOTT Preparation - Preliminary 07/31/19 10:30 Pleural Fluid Fungal Culture - Preliminary -ID consult -IV abx -Afebrile -hypotensive on levophed -Pulmonary on board -BIPAP PRN -Bronchodilators Problems reviewed: Yes Code(s): J18.9 - PNEUMONIA, UNSPECIFIED ORGANISM Qualifiers: Pneumonia type: due to unspecified organism Laterality: right Lung location: lower lobe of lung Qualified Code(s): J18.9 - Pneumonia, unspecified organism (6) Sepsis Assessment/Plan: -Cultures: Microbiology 07/31/19 10:30 Pleural Fluid Gram Stain - Final 07/31/19 10:30 Pleural Fluid Body Fluid Culture - Preliminary Lactose Fermenting Neg Bacilli Pending Organism Pending Organism#2 Pending Organism#3 Pending Organism#4 07/31/19 04:15 Blood - Peripheral Venous Blood Culture - Preliminary Streptococcus Viridans Pending Organism#2 07/31/19 04:20 Blood - Peripheral Venous Blood Culture - Preliminary Pending Organism 07/31/19 10:30 Pleural Fluid AFB Smear Concentration - Preliminary 07/31/19 10:30 Pleural Fluid Mycobacterial Culture - Preliminary 07/31/19 10:30 Pleural Fluid SCOTT Preparation - Preliminary 07/31/19 10:30 Pleural Fluid Fungal Culture - Preliminary -ID consult -IV abx -Afebrile -hypotensive on levophed -LA normalized Problems reviewed: Yes Code(s): A41.9 - SEPSIS, UNSPECIFIED ORGANISM Assessment/Plan see problem list
--- NOTE | 2019-08-01 11:46 | PN ---
Teaching Attending Note Name of Resident: Nicolle Jama ATTENDING PHYSICIAN STATEMENT I saw and evaluated the patient. I reviewed the resident's note and discussed the case with the resident. I agree with the resident's findings and plan as documented. SUBJECTIVE: Patient seen and examined in the ICU. Awake and alert. Less SOB. Remains on Levophed @ 5 mcq for hemodynamic support. Intake & Output 07/29/19 07/30/19 07/31/19 08/01/19 23:59 23:59 23:59 23:59 Intake Total 1269 778 Output Total 280 720 Balance 989 58 Weight 157 lb 14.4 oz Last Vital Signs Temp Pulse Resp BP Pulse Ox 98.2 F 141 H 19 87/66 L 92 L 08/01/19 05:00 08/01/19 09:00 08/01/19 09:00 08/01/19 09:00 08/01/19 09:00 Active Medications Acetaminophen (Ofirmev Injection -) 1,000 mg IVPB Q6H PRN PRN Reason: PAIN Last Admin: 07/31/19 20:05 Dose: 1,000 mg Chlorhexidine Gluconate (Hibiclens For Decolonization -) 1 applic TP HS TRACEY Last Admin: 07/31/19 21:05 Dose: 1 applic Heparin Sodium (Porcine) (Heparin -) 5,000 unit SQ BID TRACEY Last Admin: 08/01/19 09:05 Dose: 5,000 unit Norepinephrine Bitartrate 8, (000 mcg/ Dextrose) 500 mls @ 37.5 mls/hr IV TITR TRACEY; Protocol Last Titration: 08/01/19 08:00 Dose: 4 mcg/min, 15 mls/hr Piperacillin Sod/Tazobactam (Sod 3.375 gm/ Dextrose) 50 mls @ 100 mls/hr IVPB Q8H-IV TRACEY; Protocol Stop: 08/06/19 17:59 Last Admin: 08/01/19 09:07 Dose: 100 mls/hr Amiodarone HCl/Dextrose (Nexterone 360 Mg/200 Ml Bag) 360 mg in 200 mls @ 16.667 mls/hr IVPB ASDIR TRACEY; Protocol Last Admin: 08/01/19 09:12 Dose: 16.667 mls/hr Vancomycin HCl (Vancomycin (Pre-Docked)) 1,000 mg in 250 mls @ 166.667 mls/hr IVPB Q12H TRACEY; Protocol Lidocaine/Aluminum/Magnesium/Simeth (Magic Mouthwash *Sjr Formula* -) 5 ml MM Q6HPO TRACEY Last Admin: 08/01/19 08:58 Dose: 5 ml Mupirocin (Bactroban Ointment (For Decolonization) -) 1 applic NS BID TRACEY Stop: 08/05/19 09:59 Last Admin: 08/01/19 09:06 Dose: 1 applic Nystatin (Nystatin Oral Suspension -) 500,000 units PO Q6HPO TRACEY Sodium Chloride (Normal Saline -) 1,000 ml IV ONCE TRACEY Last Admin: 08/01/19 03:47 Dose: Not Given Constitutional: Yes: Awake and alert, NAD Eyes: Yes: Conjunctiva Clear, EOM Intact HENT: Yes: Atraumatic, Normocephalic Neck: Yes: Supple, Trachea Midline Cardiovascular: Yes: Tachycardia, S1, S2 Respiratory: Yes: Right Pleural catheter, bilateral rhonchi Gastrointestinal: Yes: Soft, NT, ND ...Rectal Exam: Yes: Deferred Musculoskeletal: Yes: WNL Extremities: Yes: WNL Edema: No Neurological: Yes: Alert, Oriented ...Motor Strength: WNL Psychiatric: Yes: Alert, Oriented Labs: Laboratory Results - last 24 hr 07/31/19 07/31/19 07/31/19 10:04 10:30 12:05 WBC RBC Hgb Hct MCV MCH MCHC RDW Plt Count Energy Technician MPV Neutrophils % (Manual) 87.9 H Band Neutrophils % 5.1 Lymphocytes % (Manual) 2.0 L D Monocytes % (Manual) 4 D Eosinophils % (Manual) 0.0 Basophils % (Manual) 0.0 Myelocytes % (Man) 0 Promyelocytes % (Man) 0 Blast Cells % (Manual) 0 Metamyelocytes 0 Hypochromia 0 Platelet Estimate Normal Platelet Comment Present Polychromasia 1+ Anisocytosis 1+ Microcytosis 1+ Macrocytosis 0 Wilfredo Cells 2+ PT with INR INR PTT (Actin FS) Anticoagulation Therapy No Result Required. Puncture Site Right radial ABG pH 7.47 H ABG pCO2 at Pt Temp 24.7 L ABG pO2 at Pt Temp 408 H ABG HCO3 17.5 L ABG O2 Sat (Measured) 99.7 H ABG O2 Content 17.4 ABG Base Excess -4.5 L Mode Test Positive O2 Delivery Device Bipap Oxygen Flow Rate [address] Vent Rate 16 Mechanical Rate No Result Required. Pressure Support Vent 16/7 Sodium Potassium Chloride Carbon Dioxide Anion Gap BUN Creatinine Est GFR (CKD-EPI)AfAm Est GFR (CKD-EPI)NonAf Random Glucose Serum Osmolality Lactic Acid Calcium Total Bilirubin AST ALT Alkaline Phosphatase Creatine Kinase Troponin I Total Protein Albumin Urine Color Urine Appearance Urine pH Ur Specific [place] Urine Protein Urine Glucose (UA) Urine Ketones Urine Blood Urine Nitrite Urine Bilirubin Urine Urobilinogen Ur Leukocyte Esterase Urine WBC (Auto) Urine RBC (Auto) Urine Casts (Auto) U Pathogenic Cast Auto U Epithel Cells (Auto) U Sm Round Cell (Auto) Urine Bacteria (Auto) Fluid Source Pleural Fluid WBC 30,820 Fluid RBC 50,000 Fluid Neutrophils 71 Fluid Lymphocytes 26 Pleural Mesothelial 13 Pleural Diff Comment 07/31/19 07/31/19 07/31/19 12:15 12:15 14:46 WBC 6.7 RBC 2.63 L Hgb 8.3 L Hct 23.9 L MCV 91.1 MCH 31.7 MCHC 34.8 RDW 17.8 H Plt Count 143 D MPV 9.2 Neutrophils % (Manual) Band Neutrophils % Lymphocytes % (Manual) Monocytes % (Manual) Eosinophils % (Manual) Basophils % (Manual) Myelocytes % (Man) Promyelocytes % (Man) Blast Cells % (Manual) Metamyelocytes Hypochromia Platelet Estimate Platelet Comment Polychromasia Anisocytosis Microcytosis Macrocytosis Adell Cells PT with INR INR PTT (Actin FS) Anticoagulation Therapy Puncture Site ABG pH ABG pCO2 at Pt Temp ABG pO2 at Pt Temp ABG HCO3 ABG O2 Sat (Measured) ABG O2 Content ABG Base Excess Mode Test O2 Delivery Device Oxygen Flow Rate Vent Mode Vent Rate Mechanical Rate Pressure Support Vent Sodium 132 L Potassium 4.2 Chloride 101 Carbon Dioxide 21 Anion Gap 10 BUN 54.3 H Creatinine 1.1 Est GFR (CKD-EPI)AfAm 81.22 Est GFR (CKD-EPI)NonAf 70.07 Random Glucose 220 H Serum Osmolality Lactic Acid Calcium 7.3 L Total Bilirubin AST ALT Alkaline Phosphatase Creatine Kinase Troponin I Total Protein Albumin Urine Color Dk yellow Urine Appearance Cloudy Urine pH 5.5 D Ur Specific [place] 1.044 H Urine Protein 1+ H Urine Glucose (UA) Negative Urine Ketones Negative Urine Blood Negative Urine Nitrite Negative Urine Bilirubin Negative Urine Urobilinogen 1.0 Ur Leukocyte Esterase Trace Urine WBC (Auto) 55 Urine RBC (Auto) 1 Urine Casts (Auto) 86 U Pathogenic Cast Auto 4 U Epithel Cells (Auto) 1.1 U Sm Round Cell (Auto) 3 Urine Bacteria (Auto) 163.0 Fluid Source Fluid WBC Fluid RBC Fluid Neutrophils Fluid Lymphocytes Pleural Mesothelial Pleural Diff Comment 08/01/19 08/01/19 08/01/19 06:00 06:00 06:00 WBC 7.0 RBC 2.60 L Hgb 8.2 L Hct 23.9 L MCV 91.9 MCH 31.4 MCHC 34.2 RDW 17.8 H Plt Count 146 MPV 9.2 Neutrophils % (Manual) Band Neutrophils % Lymphocytes % (Manual) Monocytes % (Manual) Eosinophils % (Manual) Basophils % (Manual) Myelocytes % (Man) Promyelocytes % (Man) Blast Cells % (Manual) Metamyelocytes Hypochromia Platelet Estimate Platelet Comment Polychromasia Anisocytosis Microcytosis Macrocytosis Adell Cells PT with INR 15.90 H INR 1.34 H PTT (Actin FS) 31.8 Anticoagulation Therapy Puncture Site ABG pH ABG pCO2 at Pt Temp ABG pO2 at Pt Temp ABG HCO3 ABG O2 Sat (Measured) ABG O2 Content ABG Base Excess Mode Test O2 Delivery Device Oxygen Flow Rate Vent Mode Vent Rate Mechanical Rate Pressure Support Vent Sodium Potassium Chloride Carbon Dioxide Anion Gap BUN Creatinine Est GFR (CKD-EPI)AfAm Est GFR (CKD-EPI)NonAf Random Glucose Serum Osmolality 288 Lactic Acid Calcium Total Bilirubin AST ALT Alkaline Phosphatase Creatine Kinase Troponin I Total Protein Albumin Urine Color Urine Appearance Urine pH Ur Specific [place] Urine Protein Urine Glucose (UA) Urine Ketones Urine Blood Urine Nitrite Urine Bilirubin Urine Urobilinogen Ur Leukocyte Esterase Urine WBC (Auto) Urine RBC (Auto) Urine Casts (Auto) U Pathogenic Cast Auto U Epithel Cells (Auto) U Sm Round Cell (Auto) Urine Bacteria (Auto) Fluid Source Fluid WBC Fluid RBC Fluid Neutrophils Fluid Lymphocytes Pleural Mesothelial Pleural Diff Comment 08/01/19 08/01/19 06:00 06:00 WBC RBC Hgb Hct MCV MCH MCHC RDW Plt Count MPV Neutrophils % (Manual) Band Neutrophils % Lymphocytes % (Manual) Monocytes % (Manual) Eosinophils % (Manual) Basophils % (Manual) Myelocytes % (Man) Promyelocytes % (Man) Blast Cells % (Manual) Metamyelocytes Hypochromia Platelet Estimate Platelet Comment Polychromasia Anisocytosis Microcytosis Macrocytosis Adell Cells PT with INR INR PTT (Actin FS) Anticoagulation Therapy Puncture Site ABG pH ABG pCO2 at Pt Temp ABG pO2 at Pt Temp ABG HCO3 ABG O2 Sat (Measured) ABG O2 Content ABG Base Excess Mode Test O2 Delivery Device Oxygen Flow Rate Vent Mode Vent Rate Mechanical Rate Pressure Support Vent Sodium 133 L Potassium 3.8 Chloride 102 Carbon Dioxide 21 Anion Gap 10 BUN 43.7 H Creatinine 1.0 Est GFR (CKD-EPI)AfAm 91.13 Est GFR (CKD-EPI)NonAf 78.63 Random Glucose 205 H Serum Osmolality Lactic Acid 1.9 Calcium 7.4 L Total Bilirubin 0.5 AST 26 ALT 25 Alkaline Phosphatase 112 Creatine Kinase 58 Troponin I 0.02 Total Protein 4.0 L Albumin 1.0 L Urine Color Urine Appearance Urine pH Ur Specific [place] Urine Protein Urine Glucose (UA) Urine Ketones Urine Blood Urine Nitrite Urine Bilirubin Urine Urobilinogen Ur Leukocyte Esterase Urine WBC (Auto) Urine RBC (Auto) Urine Casts (Auto) U Pathogenic Cast Auto U Epithel Cells (Auto) U Sm Round Cell (Auto) Urine Bacteria (Auto) Fluid Source Fluid WBC Fluid RBC Fluid Neutrophils Fluid Lymphocytes Pleural Mesothelial Pleural Diff Comment Problem List - Problems (1) Pneumonia Code(s): J18.9 - PNEUMONIA, UNSPECIFIED ORGANISM Qualifiers: Pneumonia type: due to unspecified organism Laterality: right Lung location: lower lobe of lung Qualified Code(s): J18.9 - Pneumonia, unspecified organism (2) Lung cancer Code(s): C34.90 - MALIGNANT NEOPLASM OF UNSP PART OF UNSP BRONCHUS OR LUNG Qualifiers: Laterality: unspecified laterality Lung location: unspecified part of lung Qualified Code(s): C34.90 - Malignant neoplasm of unspecified part of unspecified bronchus or lung (3) Pneumothorax Code(s): J93.9 - PNEUMOTHORAX, UNSPECIFIED (4) Shock Code(s): R57.9 - SHOCK, UNSPECIFIED Assessment/Plan GERD COPD HLD Metastatic Lung CA to Brain Right PTX IVF ABX per ID Supplemental O2 to maintain saturation NIPPV support as needed Monitor Pleural catheter drainage Pressors to maintain MAP > 65 PO as tolerated Follow cultures Change CVC position Noted Amiodarone drip PO as tolerated Requires ICU monitoring Dr Saba Critical care time spent in reviewing chart, evaluating patient and formulating plan - 36 minutes.
[2019-08-01] MEDS: NYSTATIN 500,000 UNITS/5 ML SUSPENSION PO SCH ×4 (12:19→17:05)
--- NOTE | 2019-08-01 12:24 | PN ---
Physical Exam: SUBJECTIVE: Patient seen and examined. Saturating well off BIPAP. Started on Levo for hypotension. Denies any pain. OBJECTIVE: Vital Signs Period Temp Pulse Resp BP Sys/Davis Pulse Ox Last 24 Hr 98.2 F-98.4 F 84-152 14-38 80-114/62-90 92-100 GENERAL: AOx3. NAD. HEENT: + Oral thrush, as per patient thinks its improved from yesterday. No JVD. LUNGS: + breath sounds heard in all lung cordoba. RUL rhonchi. Saturating 95% 4L NC. HEART: Tachycardic. S1S2. No murmurs. ABDOMEN: Soft NTND. +BS. R chest tube in place C/D/I no signs of infection. EXTREMITIES: 2+ pulses, warm, well-perfused, no edema. Good ROM all extremities. NEUROLOGICAL: CN2-12 intact. PSYCH: Depressed mood & affect. 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 Puncture Site Right radial ABG pH 7.47 H ABG pCO2 at Pt Temp 24.7 L ABG pO2 at Pt Temp 408 H ABG HCO3 17.5 L ABG O2 Sat (Measured) 99.7 H ABG O2 Content 17.4 ABG Base Excess -4.5 L Mode Test Positive O2 Delivery Device Bipap Oxygen Flow Rate [address] Vent Rate 16 Mechanical Rate No Result Required. Pressure Support Vent 16/7 Sodium Potassium Chloride Carbon Dioxide Anion Gap BUN Creatinine Est GFR (CKD-EPI)AfAm Est GFR (CKD-EPI)NonAf Random Glucose Serum Osmolality Lactic Acid Calcium Total Bilirubin AST ALT Alkaline Phosphatase Creatine Kinase Troponin I Total Protein Albumin Urine Color Urine Appearance Urine pH Ur Specific [place] Urine Protein Urine Glucose (UA) Urine Ketones Urine Blood Urine Nitrite Urine Bilirubin Urine Urobilinogen Ur Leukocyte Esterase Urine WBC (Auto) Urine RBC (Auto) Urine Casts (Auto) U Pathogenic Cast Auto U Epithel Cells (Auto) U Sm Round Cell (Auto) Urine Bacteria (Auto) Fluid Source Pleural Fluid WBC 30,820 Fluid RBC 50,000 Fluid Neutrophils 71 Fluid Lymphocytes 26 Pleural Mesothelial 13 Pleural Diff Comment 07/31/19 07/31/19 07/31/19 12:15 12:15 14:46 WBC 6.7 RBC 2.63 L Hgb 8.3 L Hct 23.9 L MCV 91.1 MCH 31.7 MCHC 34.8 RDW 17.8 H Plt Count 143 D MPV 9.2 Neutrophils % (Manual) Band Neutrophils % Lymphocytes % (Manual) Monocytes % (Manual) Eosinophils % (Manual) Basophils % (Manual) Myelocytes % (Man) Promyelocytes % (Man) Blast Cells % (Manual) Metamyelocytes Hypochromia Platelet Estimate Platelet Comment Polychromasia Anisocytosis Microcytosis Macrocytosis Pass Christian Cells PT with INR INR PTT (Actin FS) Anticoagulation Therapy Puncture Site ABG pH ABG pCO2 at Pt Temp ABG pO2 at Pt Temp ABG HCO3 ABG O2 Sat (Measured) ABG O2 Content ABG Base Excess Mode Test O2 Delivery Device Oxygen Flow Rate Vent Mode Vent Rate Mechanical Rate Pressure Support Vent Sodium 132 L Potassium 4.2 Chloride 101 Carbon Dioxide 21 Anion Gap 10 BUN 54.3 H Creatinine 1.1 Est GFR (CKD-EPI)AfAm 81.22 Est GFR (CKD-EPI)NonAf 70.07 Random Glucose 220 H Serum Osmolality Lactic Acid Calcium 7.3 L Total Bilirubin AST ALT Alkaline Phosphatase Creatine Kinase Troponin I Total Protein Albumin Urine Color Dk yellow Urine Appearance Cloudy Urine pH 5.5 D Ur Specific [place] 1.044 H Urine Protein 1+ H Urine Glucose (UA) Negative Urine Ketones Negative Urine Blood Negative Urine Nitrite Negative Urine Bilirubin Negative Urine Urobilinogen 1.0 Ur Leukocyte Esterase Trace Urine WBC (Auto) 55 Urine RBC (Auto) 1 Urine Casts (Auto) 86 U Pathogenic Cast Auto 4 U Epithel Cells (Auto) 1.1 U Sm Round Cell (Auto) 3 Urine Bacteria (Auto) 163.0 Fluid Source Fluid WBC Fluid RBC Fluid Neutrophils Fluid Lymphocytes Pleural Mesothelial Pleural Diff Comment 08/01/19 08/01/19 08/01/19 06:00 06:00 06:00 WBC 7.0 RBC 2.60 L Hgb 8.2 L Hct 23.9 L MCV 91.9 MCH 31.4 MCHC 34.2 RDW 17.8 H Plt Count 146 MPV 9.2 Neutrophils % (Manual) Band Neutrophils % Lymphocytes % (Manual) Monocytes % (Manual) Eosinophils % (Manual) Basophils % (Manual) Myelocytes % (Man) Promyelocytes % (Man) Blast Cells % (Manual) Metamyelocytes Hypochromia Platelet Estimate Platelet Comment Polychromasia Anisocytosis Microcytosis Macrocytosis Pass Christian Cells PT with INR 15.90 H INR 1.34 H PTT (Actin FS) 31.8 Anticoagulation Therapy Puncture Site ABG pH ABG pCO2 at Pt Temp ABG pO2 at Pt Temp ABG HCO3 ABG O2 Sat (Measured) ABG O2 Content ABG Base Excess Mode Test O2 Delivery Device Oxygen Flow Rate Vent Mode Vent Rate Mechanical Rate Pressure Support Vent Sodium Potassium Chloride Carbon Dioxide Anion Gap BUN Creatinine Est GFR (CKD-EPI)AfAm Est GFR (CKD-EPI)NonAf Random Glucose Serum Osmolality 288 Lactic Acid Calcium Total Bilirubin AST ALT Alkaline Phosphatase Creatine Kinase Troponin I Total Protein Albumin Urine Color Urine Appearance Urine pH Ur Specific [place] Urine Protein Urine Glucose (UA) Urine Ketones Urine Blood Urine Nitrite Urine Bilirubin Urine Urobilinogen Ur Leukocyte Esterase Urine WBC (Auto) Urine RBC (Auto) Urine Casts (Auto) U Pathogenic Cast Auto U Epithel Cells (Auto) U Sm Round Cell (Auto) Urine Bacteria (Auto) Fluid Source Fluid WBC Fluid RBC Fluid Neutrophils Fluid Lymphocytes Pleural Mesothelial Pleural Diff Comment 08/01/19 08/01/19 06:00 06:00 WBC RBC Hgb Hct MCV MCH MCHC RDW Plt Count MPV Neutrophils % (Manual) Band Neutrophils % Lymphocytes % (Manual) Monocytes % (Manual) Eosinophils % (Manual) Basophils % (Manual) Myelocytes % (Man) Promyelocytes % (Man) Blast Cells % (Manual) Metamyelocytes Hypochromia Platelet Estimate Platelet Comment Polychromasia Anisocytosis Microcytosis Macrocytosis Pass Christian Cells PT with INR INR PTT (Actin FS) Anticoagulation Therapy Puncture Site ABG pH ABG pCO2 at Pt Temp ABG pO2 at Pt Temp ABG HCO3 ABG O2 Sat (Measured) ABG O2 Content ABG Base Excess Mode Test O2 Delivery Device Oxygen Flow Rate Vent Mode Vent Rate Mechanical Rate Pressure Support Vent Sodium 133 L Potassium 3.8 Chloride 102 Carbon Dioxide 21 Anion Gap 10 BUN 43.7 H Creatinine 1.0 Est GFR (CKD-EPI)AfAm 91.13 Est GFR (CKD-EPI)NonAf 78.63 Random Glucose 205 H Serum Osmolality Lactic Acid 1.9 Calcium 7.4 L Total Bilirubin 0.5 AST 26 ALT 25 Alkaline Phosphatase 112 Creatine Kinase 58 Troponin I 0.02 Total Protein 4.0 L Albumin 1.0 L Urine Color Urine Appearance Urine pH Ur Specific [place] Urine Protein Urine Glucose (UA) Urine Ketones Urine Blood Urine Nitrite Urine Bilirubin Urine Urobilinogen Ur Leukocyte Esterase Urine WBC (Auto) Urine RBC (Auto) Urine Casts (Auto) U Pathogenic Cast Auto U Epithel Cells (Auto) U Sm Round Cell (Auto) Urine Bacteria (Auto) Fluid Source Fluid WBC Fluid RBC Fluid Neutrophils Fluid Lymphocytes Pleural Mesothelial Pleural Diff Comment Active Medications Generic Name Dose Route Start Last Admin Trade Name Freq PRN Reason Stop Dose Admin Acetaminophen 1,000 mg 07/31/19 14:45 07/31/19 20:05 Ofirmev Injection - IVPB 1,000 mg Q6H PRN Administration PAIN Chlorhexidine Gluconate 1 applic 07/31/19 22:00 07/31/19 21:05 Hibiclens For Decolonization - TP 1 applic HS TRACEY Administration Heparin Sodium (Porcine) 5,000 unit 07/31/19 10:00 08/01/19 09:05 Heparin - SQ 5,000 unit BID TRACEY Administration Norepinephrine Bitartrate 8, 500 mls @ 37.5 mls/hr 07/31/19 05:15 08/01/19 08 :00 000 mcg/ Dextrose IV 4 mcg/min TITR TRACEY 15 mls/hr Titration Protocol 10 MCG/MIN Piperacillin Sod/Tazobactam 50 mls @ 100 mls/hr 07/31/19 18:00 08/01/19 09:07 Sod 3.375 gm/ Dextrose IVPB 08/06/19 17:59 100 mls/hr Q8H-IV TRACEY Administration Protocol Amiodarone HCl/Dextrose 360 mg in 200 mls @ 16.667 mls/hr 07/31/19 15:15 09:12 Nexterone 360 Mg/200 Ml Bag IVPB 16.667 mls/hr ASDIR TRACEY Administration Protocol 0.5 MG/MIN Vancomycin HCl 1,000 mg in 250 mls @ 166.667 mls/hr 08/01/19 18:00 Vancomycin (Pre-Docked) IVPB Q12H TRACEY Protocol Lidocaine/Aluminum/Magnesium/Simeth 5 ml 08/01/19 00:00 08/01/19 08:58 Magic Mouthwash *Sjr Formula* - MM 5 ml Q6HPO TRACEY Administration Mupirocin 1 applic 07/31/19 10:00 08/01/19 09:06 Bactroban Ointment (For Decolonization) - NS 08/05/19 09:59 1 applic BID TRACEY Administration Nystatin 500,000 units 08/01/19 12:00 Nystatin Oral Suspension - PO Q6HPO TRACEY Sodium Chloride 1,000 ml 07/31/19 04:30 08/01/19 03:47 Normal Saline - IV Not Given ONCE TRACEY Imaging: * Brain MRI 10/2017: Wkax-fj-pdbzasol volume loss, ventricular dilatation and chronic microvascular ischemic disease changes. Old lacunar infarct in the right basal ganglia and periventricular white matter. No mass lesion, acute intracranial pathology or abnormal intracranial enhancement are identified. There is no gross evidence of intracranial metastasis. Correlate clinically for further evaluation and follow-up Left mastoid effusion, rule out mastoiditis. 1 cm retention cyst versus polyp in the right maxillary antrum, inferiorly. * 07/31/2019 Chest CTA: Due to infiltration and extravasation of IV contrast assessment for pulmonary embolus could not be performed Large partially loculated right-sided hydropneumothorax with other comments as noted above * 07/31/2019 CXR: Status post right pigtail catheter placement with interval resorption of pneumothorax, small right effusion noted with reexpansion of right lung and mediastinal structures now midline position. Close follow-up monitoring recommended. * 08/01/19 CXR: Single view of the chest is been submitted. There is a right chest tube with right pleural reaction but no sign of a pneumothorax. There are bilateral congestive changes with fluid in the horizontal fissure, fluid at the left base and some atelectasis or infiltrate in the left hemithorax. Again noted is the prominent mediastinum. Correlation recommended. * Renal U/S 08/01/2019: Morphologically normal kidneys with no evidence of hydronephrosis or acute pathology. ASSESSMENT/PLAN: 64 y.o. M from [facility] lung CA w/ mets to brain (diagnosed 2017, s/p chemo completed January 2018 & began adjuvant immunotherapy w/o completion of course), HTN, HLD, COPD, GERD, recent admission earlier this month for odynophagia & decreased ADLs, presenting on this visit for acute hypoxic resp failure, found to have R pneumothorax w/ pleural effusion. Also found to be in new onset A-fib w/ RVR on this admission. #PRODUCTION DESIGNER -Brain mets, would repeat CT/MRI brain as last imaging was in 2018 -AOx3. #CV -New onset A-fib w/ RVR -on amio ggt, continue -Continue pressor support: 5 Levo, maintain MAP >65 -Obtaining cvc IJ access today as pt has R femoral line -lactate downtrended -Holding home anti HTN meds -C/w asa, plavix #Pulm -C/w NC, monitor O2 sats, maintain >90% -Lung CA --metastatic; last staged in 2018 IIIB, needs restaging. Onc following -R pneumothorax; chest tube in place, drained 300cc serosanguinous fluid over 24h. Continues to drain. F/u outputs -Repeat imaging shows R lung re-expansion w/ return of mediastinum to midline -S/p pleural fluid tap-- f/u cytologies #Heme/Onc -Lung CA diagnosed 2018 w/ brain mets -F/u brain/ chest/ abd imaging -Pt sees Dr. Merchant (rads/onc) outpatient -Normocytic anemia-- continue to monitor cbc #GI -F/u abd/ pelvis CT -Advancing diet as tolerated #ID -Oral thrush: nystatin swallow -Bacteremic: blood cx's + x2: S. viridans, f/u other organisms & sensitivities -Pleural fluid pending organisms; many wbcs & rbcs, polymicrobial -C/w Vanc/ Zosyn #Renal -ISAAC; trend Cr -C/w IVF -F/u urine K and Na, serum osm -Nephro following (Dr. Logan) -F/u Renal U/S #FEN -C/w NS -Trend lytes replete prn -Soft diet today #PPX -Heparin 5000U SQ BID Visit type - Emergency Visit Emergency Visit: Yes ED Registration Date: 07/31/19 Care time: The patient presented to the Emergency Department on the above date and was hospitalized for further evaluation of their emergent condition. - New Patient This patient is new to me today: Yes Date on this admission: 08/01/19 - Critical Care Critical Care patient: Yes Total Critical Care Time (in minutes): 36 Critical Care Statement: The care of this patient involved high complexity decision making to prevent further life threatening deterioration of the patient 's condition and/or to evaluate & treat vital organ system(s) failure or risk of failure. ATTENDING PHYSICIAN STATEMENT I saw and evaluated the patient. I reviewed the resident's note and discussed the case with the resident. I agree with the resident's findings and plan as documented. SUBJECTIVE: OBJECTIVE: ASSESSMENT AND PLAN:
--- NOTE | 2019-08-01 12:37 | CON.CARD ---
Consult Consult Specialty:: Cardiology Referred by:: Hospitalist Medicine Reason for Consultation:: Newly diagnosed rapid afib - History of Present Illness Chief Complaint: Dyspnea History of Present Illness: 64 yom from [facility] with PMHx of metastatic lung cancer w/ brain mets, HTN, HLD, COPD and GERD who presented to ED via EMS with c/o SOB. As per EMS VS BP of 98/ 75 satting on 88% on a nonrebreather. He was started on duoneb but desatted to the 80s. On NIVV satting at 83% w/HR of 200 - 150s. Given IV steroids and placed on IV Levophed, imaging showed right rt pneumothorax and effusion. Pt reported that he felt sharp rt chest pain about 1 week ago in the setting of coughing c/w spontaneous PTX s/p Rt pigtail drain for ~110cc of dark purulent drainage. Pleural fluid sent for studies. Post procedure CXR shows improvement in PTX and afib with improved rate-control, maintained on low dose Levophed and amio gtt. - History Source History Provided By: Medical Record Limitations to Obtaining History: Clinical Condition - Past Medical History Cardio/Vascular: Yes: HTN, Hyperlipdemia, Other (PVD) Pulmonary: Yes: COPD Gastrointestinal: Yes: GERD - Past Surgical History Past Surgical History: Yes: Cholecystectomy, Joint Replacement (right knee) - Alcohol/Substance Use Hx Alcohol Use: Yes (occasional) History of Substance Use: reports: Cocaine, Marijuana - Smoking History Smoking history: Former smoker Have you smoked in the past 12 months: Yes Aproximately how many cigarettes per day: 20 If you are a former smoker, when did you quit?: 2-3 months ago - Social History Usual Living Arrangement: With Parent ADL: Independent 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 History of Recent Travel: No Home Medications - Allergies Allergies/Adverse Reactions: Allergies Allergy/AdvReac Type Severity Reaction Status Date / Time No Known Allergies Allergy Verified 07/14/19 14:56 - Home Medications Home Medications: Ambulatory Orders Clopidogrel Bisulfate [Clopidogrel] 75 mg PO DAILY 07/05/19 Tamsulosin HCl [Flomax] 0.4 mg PO BID 07/05/19 Umeclidinium Brm/Vilanterol Tr [Anoro Ellipta 62.5-25 Mcg INH] 1 each IH DAILY 07/05/19 Aspirin Coated [Ecotrin -] 81 mg PO DAILY tablet.ec 07/12/19 Atorvastatin Ca [Lipitor] 80 mg PO HS #30 tablet 07/12/19 Fluconazole [Diflucan -] 200 mg PO 1600 #14 tablet 07/12/19 Lactobacillus Acidophilus [Bacid -] 1 tab PO BID #30 tab 07/12/19 Mag Hydrox/Alh/Smc/Dpha/Lido [Magic Mouthwash *Sjr Formula* -] 5 ml MM Q6HPO # 460 ml 07/12/19 Nystatin Oral Suspension - [Nystatin Oral Susp 904538 Units/5 ML -] 500,000 units PO Q6HPO 30 Days cup 07/12/19 Pantoprazole Sodium [Protonix] 40 mg PO BID #60 tablet. 07/12/19 Sucralfate Oral Suspension [Carafate Oral Suspension -] 10 ml PO QID #960 ml 05/21 Dexamethasone [Decadron -] 2 mg PO DAILY #7 tablet 07/21/19 Review of Systems - Review of Systems Cardiovascular: reports: Chest Pain, Shortness of Breath Respiratory: reports: SOB Vital Signs: Vital Signs Temperature 98.2 F 08/01/19 05:00 Pulse Rate 93 H 08/01/19 12:00 Respiratory Rate 21 H 08/01/19 12:00 Blood Pressure 117/79 08/01/19 12:00 O2 Sat by Pulse Oximetry (%) 92 L 08/01/19 09:00 Constitutional: Yes: No Distress, Calm Neck: Yes: Supple Respiratory: Yes: Regular, Diminished, Other (Right chest tube) Gastrointestinal: Yes: Normal Bowel Sounds, Soft Cardiovascular: Yes: Tachycardia, Pulse Irregular JVD: No Carotid Bruit: No Heart Sounds: Yes: S1, S2 Edema: No - Other Data Labs, Other Data: CBC, BMP 08/01/19 06:00 08/01/19 06:00 INR, PTT INR 1.34 (0.83-1.09) H 08/01/19 06:00 Troponin, BNP 08/01/19 06:00 Troponin I 0.02 Troponin, BNP 08/01/19 06:00 Troponin I 0.02 Rapid afib @ 152 Tele: PAF with RVR-> NSR Ejection Fraction %: LVEF > or = 40 % Imaging - Results Chest X-ray: Report Reviewed (Rt PTX s/p chest tube) Cat Scan: Report Reviewed (Chest CTA: Right-sided hydroPTX) EKG: Report Reviewed (Rapid afib @ 206) Problem List - Problems (1) Afib Code(s): I48.91 - UNSPECIFIED ATRIAL FIBRILLATION Qualifiers: Qualified Code(s): I48.0 - Paroxysmal atrial fibrillation (2) Bacteremia Code(s): R78.81 - BACTEREMIA (3) Metastatic lung carcinoma Code(s): C78.00 - SECONDARY MALIGNANT NEOPLASM OF UNSPECIFIED LUNG (4) Pneumothorax Code(s): J93.9 - PNEUMOTHORAX, UNSPECIFIED Qualifiers: Qualified Code(s): J93.12 - Secondary spontaneous pneumothorax (5) Sepsis associated hypotension Code(s): A41.9 - SEPSIS, UNSPECIFIED ORGANISM; I95.9 - HYPOTENSION, UNSPECIFIED Assessment/Plan 1. Paroxysmal atrial fibrillation with RVR 2. Right spontaneous PTX s/p chest tube 3. COPD 4. Loculated effusion, epmyema with bacteremia 4. 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 Hyperlipidemia 6. GERD 7. ISAAC with hypovolemic hyponatremia 8. Anemia P:1. Chest tube management per ICU 2. Wean off Levophed to maintain MAP > 65 3. Supplemental O2 to maintain saturation, BD, NIPPV support as needed, abx per C&S, Decadron 4. Amio gtt with Cardizem 10 IV q4 prn for rate-control 5. Not a/c candidate given h/o brain mets, remains on ASA 81 qd, Plavix 75 qd, Lipitor 80 qhs, sq heparin 6. F/u echo results 7. Thank you for consultative opportunity
[2019-08-01] MEDS ORDERED: PT OWN MED DRAWER 7, Y5N ONE (14:30)
--- NOTE | 2019-08-01 14:32 | PN ---
Progress Note (short form) - Note Progress Note: Renal follow up for ESRD on HD Seen and examined in the ICU on Neb Tx awake and alert still has shortness of breath no chest pain, palpitations, N/V/D making urine on Levophed off IVF Vital Signs Temperature 98.4 F 08/01/19 10:00 Pulse Rate 93 H 08/01/19 12:00 Respiratory Rate 21 H 08/01/19 12:00 Blood Pressure 117/79 08/01/19 12:00 O2 Sat by Pulse Oximetry (%) 92 L 08/01/19 09:00 Intake & Output 07/29/19 07/30/19 07/31/19 08/01/19 23:59 23:59 23:59 23:59 Intake Total 1269 778 Output Total 280 720 Balance 989 58 Weight 71.622 kg NAD awake and alert neck supple RRR Course BS soft NT/ND no LE edema CBC, BMP 08/01/19 06:00 08/01/19 06:00 Current Medications Acetaminophen (Ofirmev Injection -) 1,000 mg IVPB Q6H PRN PRN Reason: PAIN Last Admin: 07/31/19 20:05 Dose: 1,000 mg Aspirin (Ecotrin -) 81 mg PO DAILY [facility] Atorvastatin Calcium (Lipitor -) 80 mg PO HS TRACEY Chlorhexidine Gluconate (Hibiclens For Decolonization -) 1 applic TP HS [facility] Last Admin: 07/31/19 21:05 Dose: 1 applic Clopidogrel Bisulfate (Plavix -) 75 mg PO DAILY [facility] Heparin Sodium (Porcine) (Heparin -) 5,000 unit SQ BID TRACEY Last Admin: 08/01/19 09:05 Dose: 5,000 unit Norepinephrine Bitartrate 8, (000 mcg/ Dextrose) 500 mls @ 37.5 mls/hr IV TITR TRACEY; Protocol Last Titration: 08/01/19 08:00 Dose: 4 mcg/min, 15 mls/hr Piperacillin Sod/Tazobactam (Sod 3.375 gm/ Dextrose) 50 mls @ 100 mls/hr IVPB Q8H-IV TRACEY; Protocol Stop: 08/06/19 17:59 Last Admin: 08/01/19 09:07 Dose: 100 mls/hr Amiodarone HCl/Dextrose (Nexterone 360 Mg/200 Ml Bag) 360 mg in 200 mls @ 16.667 mls/hr IVPB ASDIR TRACEY; Protocol Last Admin: 08/01/19 09:12 Dose: 16.667 mls/hr Vancomycin HCl (Vancomycin (Pre-Docked)) 1,000 mg in 250 mls @ 166.667 mls/hr IVPB Q12H TRACEY; Protocol Lidocaine/Aluminum/Magnesium/Simeth (Magic Mouthwash *Sjr Formula* -) 5 ml MM Q6HPO TRACEY Last Admin: 08/01/19 12:20 Dose: Not Given Mupirocin (Bactroban Ointment (For Decolonization) -) 1 applic NS BID TRACEY Stop: 08/05/19 09:59 Last Admin: 08/01/19 09:06 Dose: 1 applic Nystatin (Nystatin Oral Suspension -) 500,000 units PO Q6HPO TRACEY Last Admin: 08/01/19 12:19 Dose: 500,000 units Nystatin (Nystatin Oral Suspension -) 500,000 units PO Q6HPO TRACEY Last Admin: 08/01/19 12:42 Dose: Not Given Sucralfate (Carafate Oral Suspension -) 1 gm PO QID TRACEY This is a 64 year old gentleman with thistoyr of metastatic lung cancer with brain mets, hypertension, HLD, COPD, GERD who presented with shortness of breath and admitted for suspected sepsis from PNA with ISAAC and hyponatremia. 1. Acute kidney injury (peak Cr 1.4, baseline Cr 0.7) secondary to sepsis/renal hypoprofusion 2. Hypovolemic hyponatremia 3. Pneumonia 4. Lung cancer with mets 5. Anemia Renal function and serum Na is improved. Would maintain off IVF at this time given CXR suggestive of fluid overload. Continue Vasopressers to maintain MAP > 65 CVP goal 8-10 Continue Amiodarone for HR control Abx as per ICU Thank you Rayray Chaney DO
--- NOTE | 2019-08-01 15:01 | PROC ---
Central Line Insertion Indication: CVP Monitoring, Sepsis Risks and Benefits Explained: Yes Consent on Chart: Yes Central Line: Triple Lumen Catheter Anesthesia: 1% Lidocaine Sterile Technique: Yes Ultrasound Guided Assistance: Yes Position: Right Internal Jugular Post Insertion: Yes: Chest X-Ray Ordered Sterile Dressing Applied: Yes
[2019-08-01] MEDS ORDERED: dilTIAZem HCL 25 MG/5 ML - 5 ML VIAL IVPUSH ONE (16:20)
--- NOTE | 2019-08-01 16:58 | CONSULT ---
Consult Consult Specialty:: Thoracic Surgery Referred by:: ICU Dr. Saba Reason for Consultation:: Lung cancer/PTX - History of Present Illness Chief Complaint: Dyspnea History of Present Illness: 64M with stage 3 left sided lung cancer and ?brain mets, and possible history of radiation to either lung or brain, p/w ptx and dyspnea. He has a well-placed chest tube but is still severely dyspneic and oxygen dependent on 50% facemask. - History Source History Provided By: Patient, Medical Record - Past Medical History Cardio/Vascular: Yes: HTN, Hyperlipdemia, Other (PVD) Pulmonary: Yes: COPD Gastrointestinal: Yes: GERD - Past Surgical History Past Surgical History: Yes: Cholecystectomy, Joint Replacement (right knee) - Alcohol/Substance Use Hx Alcohol Use: Yes (occasional) History of Substance Use: reports: Cocaine, Marijuana - Smoking History Smoking history: Former smoker Have you smoked in the past 12 months: Yes Aproximately how many cigarettes per day: 20 If you are a former smoker, when did you quit?: 2-3 months ago - Social History Usual Living Arrangement: With Parent ADL: Independent 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 History of Recent Travel: No Home Medications - Allergies Allergies/Adverse Reactions: Allergies Allergy/AdvReac Type Severity Reaction Status Date / Time No Known Allergies Allergy Verified 07/14/19 14:56 - Home Medications Home Medications: Ambulatory Orders Clopidogrel Bisulfate [Clopidogrel] 75 mg PO DAILY 07/05/19 Tamsulosin HCl [Flomax] 0.4 mg PO BID 07/05/19 Umeclidinium Brm/Vilanterol Tr [Anoro Ellipta 62.5-25 Mcg INH] 1 each IH DAILY 07/05/19 Aspirin Coated [Ecotrin -] 81 mg PO DAILY tablet.ec 07/12/19 Atorvastatin Ca [Lipitor] 80 mg PO HS #30 tablet 07/12/19 Fluconazole [Diflucan -] 200 mg PO 1600 #14 tablet 07/12/19 Lactobacillus Acidophilus [Bacid -] 1 tab PO BID #30 tab 07/12/19 Mag Hydrox/Alh/Smc/Dpha/Lido [Magic Mouthwash *Sjr Formula* -] 5 ml MM Q6HPO # 460 ml 07/12/19 Nystatin Oral Suspension - [Nystatin Oral Susp 526174 Units/5 ML -] 500,000 units PO Q6HPO 30 Days cup 07/12/19 Pantoprazole Sodium [Protonix] 40 mg PO BID #60 tablet. 07/12/19 Sucralfate Oral Suspension [Carafate Oral Suspension -] 10 ml PO QID #960 ml 05/21 Dexamethasone [Decadron -] 2 mg PO DAILY #7 tablet 07/21/19 Physical Exam Vital Signs: Vital Signs Temperature 97.8 F 08/01/19 14:00 Pulse Rate 145 H 08/01/19 14:00 Respiratory Rate 34 H 08/01/19 14:00 Blood Pressure 133/117 H 08/01/19 14:00 O2 Sat by Pulse Oximetry (%) 92 L 08/01/19 09:00 Constitutional: Yes: Mild Distress Eyes: Yes: WNL Cardiovascular: Yes: Tachycardia Respiratory: Yes: Accessory Muscle Use Labs: CBC, BMP 08/01/19 06:00 08/01/19 06:00 Imaging - Results Chest X-ray: Image Reviewed Cat Scan: Image Reviewed Problem List - Problems (1) Acute respiratory distress Code(s): R06.03 - ACUTE RESPIRATORY DISTRESS (2) COPD with acute exacerbation Code(s): J44.1 - CHRONIC OBSTRUCTIVE PULMONARY DISEASE W (ACUTE) EXACERBATION (3) Metastatic lung carcinoma Code(s): C78.00 - SECONDARY MALIGNANT NEOPLASM OF UNSPECIFIED LUNG (4) Pneumothorax Code(s): J93.9 - PNEUMOTHORAX, UNSPECIFIED Qualifiers: Pneumothorax type: spontaneous, secondary Qualified Code(s): J93.12 - Secondary spontaneous pneumothorax Assessment/Plan 64M with rapid afib and PVD and metastatic lung cancer s/p presentation emergently for dyspnea with ptx and now well expanded lung but still in respiratory distress: -Consider heparinization or repeat CT angio if ok to heparinize with ?brain mets ; -Respiratory distress may be secondary to advancement of disease, infection, or pe, or may just need more time and PTX tipped him over the edge; -If breathing stablizes could consider bedside talc pleurodesis prior to removal.
[2019-08-01] MEDS: VANCOMYCIN 1 GRAM (PRE-DOCKED) 1,000 MG/250 ML BAG IVPB SCH (17:08)
[2019-08-01] MEDS: SUCRALFATE 1 GM/10 ML UNIT DOSE CUPS PO SCH ×3 (17:21→21:50)
[2019-08-01] MEDS ORDERED: MORPHINE SULFATE 2 MG/ML VIAL IVPUSH ONE (19:59)
[2019-08-01] MEDS: CHLORHEXIDINE GLUCONATE 4% CLEANSER FOR DECOLONIZATION TP SCH (21:50)
[2019-08-01] MEDS: ATORVASTATIN CA 80 MG TABLET (FP) PO SCH (21:51)
[2019-08-02] MEDS: NYSTATIN 500,000 UNITS/5 ML SUSPENSION PO SCH ×4 (00:32→17:08)
[2019-08-02] MEDS: MAG HYDROX/ALH/SMC/DPHA/LIDO 240 ML MOUTHWASH MM SCH ×4 (00:32→17:07)
[2019-08-02] MEDS ORDERED: PIPERACILLIN/TAZOBACTAM 3.375 GM VIAL IVPB ONE ×4 (02:01→23:45)
[2019-08-02] MEDS ORDERED: DEXTROSE 5%-WATER - 50 ML IVPB ONE ×4 (02:02→23:45)
[2019-08-02] MEDS: PIPERACILLIN/TAZOB 3.375 GM 3.375 GM in DEXTROSE 5%-WATER - 50 ML IVPB SCH ×3 (02:27→17:10)
[2019-08-02] MEDS ORDERED: AMIODARONE IN DEXTROSE,ISO-OSM 360 MG/200 ML BAG IVPB SCH (03:15)
[2019-08-02] MEDS: NOREPINEPHRINE BITARTRATE 8,000 MCG in DEXTROSE 5%-WATER - 492 ML IV SCH (06:17)
[2019-08-02] MEDS: VANCOMYCIN 1 GRAM (PRE-DOCKED) 1,000 MG/250 ML BAG IVPB SCH ×2 (06:18→17:09)
[2019-08-02 06:20] LABS: EOS % 0.1 % (0-4.5); HEMATOCRIT 21.1 % (35.4-49); HEMOGLOBIN 7.2 GM/dL (11.7-16.9); LYMPH % 4.4 % (8-40); MCH 31.6 pg (25.7-33.7); MCHC 34.3 g/dl (32.0-35.9); MEAN PLT VOLUME 9.8 fl (7.5-11.1); MONO % 1.3 % (3.8-10.2); NEUT % 94.2 % (42.8-82.8); PLATELET COUNT 122 K/MM3 (134-434); RBC 2.29 M/mm3 (4.00-5.60); WHITE BLOOD COUNT 7.5 K/mm3 (4.0-10.0)
--- NOTE | 2019-08-02 06:39 | PN ---
Progress Note (short form) - Note Progress Note: PAtient seen and examined Very frustrated with his illness On high flow oxygen Cor: RSR, No murmurs, No gallops Lungs: Clear to P&A ant. . chest tube in place Abd: Soft, Normal bowel sounds, No organomegaly Ext:No significant edema Labs/Meds reviewed A/P In brief, 64 y/o patient with Metastatic NSCLC, s/p RTX/chemo mid 2017, intracranial recurrent disease mid-2019, s/p radiosurgery, now presenting with chronic deconditioning, and worsening SOB ( pleural effusion/pneumothorax) s/p right sided chest tube on empiric antibiotics CT surgery note noted ? bed side talc pleurodesis will request palliative care consult, given his poor performance status and his wishes
[2019-08-02 07:01] LABS: ALBUMIN 0.9 g/dl (3.4-5.0); BILIRUBIN,TOTAL 0.5 mg/dL (0.2-1); BLOOD UREA NITROGEN 44.9 mg/dL (7-18); CALCIUM 7.3 mg/dL (8.5-10.1); MAGNESIUM 2.2 mg/dL (1.8-2.4); PHOSPHOROUS 3.7 mg/dL (2.5-4.9); POTASSIUM 3.8 mmol/L (3.5-5.1); TOT PROT 3.7 g/dl (6.4-8.2)
--- NOTE | 2019-08-02 08:35 | PN ---
Progress Note, Physician Chief Complaint: AWAKE TRANSFERRING TO RADIOLOGY FOR CT CHEST/ABD/PELVIS - Current Medication List Current Medications: Active Medications Acetaminophen (Ofirmev Injection -) 1,000 mg IVPB Q6H PRN PRN Reason: PAIN Last Admin: 07/31/19 20:05 Dose: 1,000 mg Aspirin (Ecotrin -) 81 mg PO DAILY [facility] Atorvastatin Calcium (Lipitor -) 80 mg PO HS [facility] Last Admin: 08/01/19 21:51 Dose: 80 mg Chlorhexidine Gluconate (Hibiclens For Decolonization -) 1 applic TP HS [facility] Last Admin: 08/01/19 21:50 Dose: 1 applic Clopidogrel Bisulfate (Plavix -) 75 mg PO DAILY [facility]ACE[facility] Heparin Sodium (Porcine) (Heparin -) 5,000 unit SQ BID [facility] Last Admin: 08/01/19 21:50 Dose: 5,000 unit Norepinephrine Bitartrate 8, (000 mcg/ Dextrose) 500 mls @ 37.5 mls/hr IV TITR [facility]; Protocol Last Admin: 08/02/19 06:17 Dose: 5 mcg/min, 18.75 mls/hr Piperacillin Sod/Tazobactam (Sod 3.375 gm/ Dextrose) 50 mls @ 100 mls/hr IVPB Q8H-IV [facility]; Protocol Stop: 08/06/19 17:59 Last Admin: 08/02/19 02:27 Dose: 100 mls/hr Amiodarone HCl/Dextrose (Nexterone 360 Mg/200 Ml Bag) 360 mg in 200 mls @ 16.667 mls/hr IVPB ASDIR TRACEY; Protocol Last Admin: 08/01/19 16:51 Dose: 16.667 mls/hr Vancomycin HCl (Vancomycin (Pre-Docked)) 1,000 mg in 250 mls @ 166.667 mls/hr IVPB Q12H [facility]; Protocol Last Admin: 08/02/19 06:18 Dose: 166.667 mls/hr Amiodarone HCl/Dextrose (Nexterone 360 Mg/200 Ml Bag) 360 mg in 200 mls @ 16.667 mls/hr IVPB ASDIR TRACE[facility]; Protocol Last Admin: 08/02/19 06:16 Dose: 16.667 mls/hr Lidocaine/Aluminum/Magnesium/Simeth (Magic Mouthwash *Sjr Formula* -) 5 ml MM Q6HPO [facility] Last Admin: 08/02/19 06:17 Dose: Not Given Mupirocin (Bactroban Ointment (For Decolonization) -) 1 applic NS BID [facility] Stop: 08/05/19 09:59 Last Admin: 08/01/19 21:50 Dose: 1 applic Nystatin (Nystatin Oral Suspension -) 500,000 units PO Q6HPO [facility] Last Admin: 08/02/19 06:17 Dose: Not Given Sucralfate (Carafate Oral Suspension -) 1 gm PO QID [facility] Last Admin: 08/01/19 21:50 Dose: 1 gm - Objective Vital Signs: Vital Signs Temperature 97.4 F L 08/01/19 18:00 Pulse Rate 96 H 08/02/19 06:00 Respiratory Rate 22 H 08/02/19 06:00 Blood Pressure 92/65 08/02/19 06:00 O2 Sat by Pulse Oximetry (%) 100 08/01/19 19:45 Constitutional: Yes: Mild Distress Cardiovascular: Yes: Pulse Irregular Respiratory: Yes: On Venti-Mask Gastrointestinal: Yes: Soft Genitourinary: Yes: Berrios Present Musculoskeletal: Yes: Muscle Weakness Integumentary: Yes: Venous Stasis Changes Neurological: Yes: Pre-Existing Deficit Labs: CBC, BMP 08/02/19 05:50 08/02/19 05:50 INR, PTT INR 1.34 (0.83-1.09) H 08/01/19 06:00 Problem List - Problems (1) ISAAC (acute kidney injury) Code(s): N17.9 - ACUTE KIDNEY FAILURE, UNSPECIFIED (2) Acute respiratory distress Code(s): R06.03 - ACUTE RESPIRATORY DISTRESS (3) Afib Code(s): I48.91 - UNSPECIFIED ATRIAL FIBRILLATION Qualifiers: Atrial fibrillation type: paroxysmal Qualified Code(s): I48.0 - Paroxysmal atrial fibrillation (4) Bacteremia Code(s): R78.81 - BACTEREMIA (5) COPD with acute exacerbation Code(s): J44.1 - CHRONIC OBSTRUCTIVE PULMONARY DISEASE W (ACUTE) EXACERBATION (6) Hyponatremia Code(s): E87.1 - HYPO-OSMOLALITY AND HYPONATREMIA (7) Metabolic acidosis with respiratory alkalosis Code(s): E87.2 - ACIDOSIS; E87.3 - ALKALOSIS (8) Metastatic lung carcinoma Code(s): C78.00 - SECONDARY MALIGNANT NEOPLASM OF UNSPECIFIED LUNG (9) Pneumothorax Code(s): J93.9 - PNEUMOTHORAX, UNSPECIFIED Qualifiers: Pneumothorax type: spontaneous, secondary Qualified Code(s): J93.12 - Secondary spontaneous pneumothorax (10) Sepsis Code(s): A41.9 - SEPSIS, UNSPECIFIED ORGANISM Assessment/Plan CT OF CHEST/ABD/PEL AWAIT RESULTS ON IV ABX AND BP SUPPORT 02 SUPPORT VENTIMASK PNEUMOTHORAX CHEST PIG TAIL IN PLACE CRITICAL CARE F/U PAIN CONTROL
[2019-08-02] MEDS: LACTATED RINGERS SOLUTION 1,000 ML/1,000 ML INFUS.BAG IV SCH (10:18)
[2019-08-02] MEDS: ASPIRIN COATED 81 MG TABLET.EC PO SCH (10:19)
[2019-08-02] MEDS: CLOPIDOGREL BISULFATE 75 MG TABLET (FP) PO SCH (10:19)
[2019-08-02] MEDS: HEPARIN NA (PORCINE) 5,000 UNITS/ML 1ML VIAL SQ SCH ×2 (10:19→22:26)
[2019-08-02] MEDS: SUCRALFATE 1 GM/10 ML UNIT DOSE CUPS PO SCH ×4 (10:20→22:26)
[2019-08-02] MEDS: MUPIROCIN 2% TOPICAL OINTMENT FOR DECOLONIZATION NS SCH ×2 (10:20→22:26)
--- NOTE | 2019-08-02 10:24 | PN ---
Teaching Attending Note Name of Resident: Shruthi Hanley ATTENDING PHYSICIAN STATEMENT I saw and evaluated the patient. I reviewed the resident's note and discussed the case with the resident. I agree with the resident's findings and plan as documented. SUBJECTIVE: Patient seen and examined in the ICU. Awake and alert. Reports that he is considering to be more conservative with his care and wants to . Mildly tachypneic on 50% VM O2. Remains on Levophed @ 5 mcq for hemodynamic support. IV Amiodarone drip. Intake & Output 07/30/19 07/31/19 08/01/19 08/02/19 23:59 23:59 23:59 23:59 Intake Total 1269 1430 480 Output Total 280 1350 0 Balance 989 80 480 Weight 157 lb 14.4 oz Last Vital Signs Temp Pulse Resp BP Pulse Ox 97.4 F L 95 H 19 78/55 L 100 08/01/19 18:00 08/02/19 08:00 08/02/19 08:00 08/02/19 08:00 08/01/19 19:45 Active Medications Acetaminophen (Ofirmev Injection -) 1,000 mg IVPB Q6H PRN PRN Reason: PAIN Last Admin: 07/31/19 20:05 Dose: 1,000 mg Aspirin (Ecotrin -) 81 mg PO DAILY [facility] Last Admin: 08/02/19 10:19 Dose: 81 mg Atorvastatin Calcium (Lipitor -) 80 mg PO HS [facility] Last Admin: 08/01/19 21:51 Dose: 80 mg Chlorhexidine Gluconate (Hibiclens For Decolonization -) 1 applic TP HS [facility] Last Admin: 08/01/19 21:50 Dose: 1 applic Clopidogrel Bisulfate (Plavix -) 75 mg PO DAILY [facility] Last Admin: 08/02/19 10:19 Dose: 75 mg Heparin Sodium (Porcine) (Heparin -) 5,000 unit SQ BID [facility] Last Admin: 08/02/19 10:19 Dose: 5,000 unit Norepinephrine Bitartrate 8, (000 mcg/ Dextrose) 500 mls @ 37.5 mls/hr IV TITR [facility]ACE[facility]; Protocol Last Admin: 08/02/19 06:17 Dose: 5 mcg/min, 18.75 mls/hr Piperacillin Sod/Tazobactam (Sod 3.375 gm/ Dextrose) 50 mls @ 100 mls/hr IVPB Q8H-IV [facility]; Protocol Stop: 08/06/19 17:59 Last Admin: 08/02/19 10:18 Dose: 100 mls/hr Vancomycin HCl (Vancomycin (Pre-Docked)) 1,000 mg in 250 mls @ 166.667 mls/hr IVPB Q12H [facility]; Protocol Last Admin: 08/02/19 06:18 Dose: 166.667 mls/hr Amiodarone HCl/Dextrose (Nexterone 360 Mg/200 Ml Bag) 360 mg in 200 mls @ 16.667 mls/hr IVPB ASDIR [facility]ACE[facility]; Protocol Last Admin: 08/02/19 06:16 Dose: 16.667 mls/hr Lactated Ringer's (Lactated Ringers Solution) 1,000 ml in 1,000 mls @ 100 mls/ hr IV ASDIR [facility] Last Admin: 08/02/19 10:18 Dose: 100 mls/hr Lidocaine/Aluminum/Magnesium/Simeth (Magic Mouthwash *Sjr Formula* -) 5 ml MM Q6HPO [facility] Last Admin: 08/02/19 06:17 Dose: Not Given Mupirocin (Bactroban Ointment (For Decolonization) -) 1 applic NS BID [facility] Stop: 08/05/19 09:59 Last Admin: 08/02/19 10:20 Dose: 1 applic Nystatin (Nystatin Oral Suspension -) 500,000 units PO Q6HPO [facility] Last Admin: 08/02/19 06:17 Dose: Not Given Sucralfate (Carafate Oral Suspension -) 1 gm PO QID [facility] Last Admin: 08/02/19 10:20 Dose: 1 gm Constitutional: Yes: Awake and alert, mildly tachypneic at rest Eyes: Yes: Conjunctiva Clear, EOM Intact HENT: Yes: Atraumatic, Normocephalic Neck: Yes: Supple, Trachea Midline Cardiovascular: Yes: Tachycardia, S1, S2 Respiratory: Yes: Right Pleural catheter, bilateral rhonchi Gastrointestinal: Yes: Soft, NT, ND ...Rectal Exam: Yes: Deferred Musculoskeletal: Yes: WNL Extremities: Yes: WNL Edema: No Neurological: Yes: Alert, Oriented ...Motor Strength: WNL Psychiatric: Yes: Alert, Oriented Labs: Laboratory Results - last 24 hr 07/31/19 08/01/19 08/02/19 10:30 10:00 05:50 WBC 7.5 RBC 2.29 L Hgb 7.2 L Hct 21.1 L MCV 92.0 MCH 31.6 MCHC 34.3 RDW 18.0 H Plt Count 122 L MPV 9.8 Absolute Neuts (auto) 7.1 Neutrophils % 94.2 H Lymphocytes % 4.4 L D Monocytes % 1.3 L Eosinophils % 0.1 D Basophils % 0.0 Nucleated RBC % 1 H Sodium Potassium Chloride Carbon Dioxide Anion Gap BUN Creatinine Est GFR (CKD-EPI)AfAm Est GFR (CKD-EPI)NonAf Random Glucose Calcium Phosphorus Magnesium 2.0 Total Bilirubin AST ALT Alkaline Phosphatase Total Protein Albumin Fluid Glucose < 2 Fluid Total Protein 1.3 Body Fluid LDH Source 99 08/02/19 05:50 WBC RBC Hgb Hct MCV MCH MCHC RDW Plt Count MPV Absolute Neuts (auto) Neutrophils % Lymphocytes % Monocytes % Eosinophils % Basophils % Nucleated RBC % Sodium 132 L Potassium 3.8 Chloride 100 Carbon Dioxide 22 Anion Gap 9 BUN 44.9 H Creatinine 1.0 Est GFR (CKD-EPI)AfAm 91.13 Est GFR (CKD-EPI)NonAf 78.63 Random Glucose 221 H Calcium 7.3 L Phosphorus 3.7 Magnesium 2.2 Total Bilirubin 0.5 AST 24 ALT 23 Alkaline Phosphatase 102 Total Protein 3.7 L Albumin 0.9 L Fluid Glucose Fluid Total Protein Body Fluid LDH Source Problem List - Problems (1) Pneumonia Code(s): J18.9 - PNEUMONIA, UNSPECIFIED ORGANISM Qualifiers: Pneumonia type: due to unspecified organism Laterality: right Lung location: lower lobe of lung Qualified Code(s): J18.9 - Pneumonia, unspecified organism (2) Lung cancer Code(s): C34.90 - MALIGNANT NEOPLASM OF UNSP PART OF UNSP BRONCHUS OR LUNG Qualifiers: Laterality: unspecified laterality Lung location: unspecified part of lung Qualified Code(s): C34.90 - Malignant neoplasm of unspecified part of unspecified bronchus or lung (3) Pneumothorax Code(s): J93.9 - PNEUMOTHORAX, UNSPECIFIED (4) Shock Code(s): R57.9 - SHOCK, UNSPECIFIED Assessment/Plan GERD COPD HLD Metastatic Lung CA to Brain Right PTX IVF ABX per ID Supplemental O2 to maintain saturation NIPPV support as needed Monitor Pleural catheter drainage Pressors to maintain MAP > 65 PO as tolerated Follow cultures DC Amiodarone drip Further discussions for GOC Requires ICU monitoring Dr Saba Critical care time spent in reviewing chart, evaluating patient and formulating plan - 36 minutes.
--- NOTE | 2019-08-02 10:48 | PN ---
Physical Exam: SUBJECTIVE: Patient seen and examined Pt complained of chest pain with coughing or speech prefers to use venti mask rather than hi flow repeatedly pulls hi flow off per nurse declined CT yesterday (with oral contrast) is willing to do IV contrast. OBJECTIVE: Vital Signs Period Temp Pulse Resp BP Sys/Davis Pulse Ox Last 24 Hr 97.4 F-97.8 F 90-145 15-34 78-133/55-117 100-100 GENERAL: The patient is awake, alert, and fully oriented HEAD: Normal with no signs of trauma. EYES: PERRL, extraocular movements intact, sclera anicteric, conjunctiva clear. No ptosis. ENT: Ears normal, nares patent,moist mucous membranes. NECK: Trachea midline, full range of motion, supple. RIJ central line LUNGS: crackles at lung bases HEART: Regular rate and rhythm, S1, S2 without murmur, rub or gallop. ABDOMEN: Soft, nontender, nondistended, normoactive bowel sounds. EXTREMITIES: 1+ pedal pulses bilaterally,warm, well-perfused, trace edema. NEUROLOGICAL: Cranial nerves II through XII grossly intact. Normal speech, PSYCH: occasionally irritable. SKIN: Warm, dry, normal turgor, no rashes or lesions noted Laboratory Results - last 24 hr 07/31/19 08/01/19 08/02/19 10:30 10:00 05:50 WBC 7.5 RBC 2.29 L Hgb 7.2 L Hct 21.1 L MCV 92.0 MCH 31.6 MCHC 34.3 RDW 18.0 H Plt Count 122 L MPV 9.8 Absolute Neuts (auto) 7.1 Neutrophils % 94.2 H Lymphocytes % 4.4 L D Monocytes % 1.3 L Eosinophils % 0.1 D Basophils % 0.0 Nucleated RBC % 1 H Sodium Potassium Chloride Carbon Dioxide Anion Gap BUN Creatinine Est GFR (CKD-EPI)AfAm Est GFR (CKD-EPI)NonAf Random Glucose Calcium Phosphorus Magnesium 2.0 Total Bilirubin AST ALT Alkaline Phosphatase Total Protein Albumin Fluid Glucose < 2 Fluid Total Protein 1.3 Body Fluid LDH Source 99 08/02/19 05:50 WBC RBC Hgb Hct MCV MCH MCHC RDW Plt Count MPV Absolute Neuts (auto) Neutrophils % Lymphocytes % Monocytes % Eosinophils % Basophils % Nucleated RBC % Sodium 132 L Potassium 3.8 Chloride 100 Carbon Dioxide 22 Anion Gap 9 BUN 44.9 H Creatinine 1.0 Est GFR (CKD-EPI)AfAm 91.13 Est GFR (CKD-EPI)NonAf 78.63 Random Glucose 221 H Calcium 7.3 L Phosphorus 3.7 Magnesium 2.2 Total Bilirubin 0.5 AST 24 ALT 23 Alkaline Phosphatase 102 Total Protein 3.7 L Albumin 0.9 L Fluid Glucose Fluid Total Protein Body Fluid LDH Source Active Medications Generic Name Dose Route Start Last Admin Trade Name Freq PRN Reason Stop Dose Admin Acetaminophen 1,000 mg 07/31/19 14:45 07/31/19 20:05 Ofirmev Injection - IVPB 1,000 mg Q6H PRN Administration PAIN Aspirin 81 mg 08/02/19 10:00 08/02/19 10:19 Ecotrin - PO 81 mg DAILY TRACEY Administration Atorvastatin Calcium 80 mg 08/01/19 22:00 08/01/19 21:51 Lipitor - PO 80 mg HS TRACEY Administration Chlorhexidine Gluconate 1 applic 07/31/19 22:00 08/01/19 21:50 Hibiclens For Decolonization - TP 1 applic HS [facility] Administration Clopidogrel Bisulfate 75 mg 08/02/19 10:00 08/02/19 10:19 Plavix - PO 75 mg DAILY [facility]ACE[facility] Administration Heparin Sodium (Porcine) 5,000 unit 07/31/19 10:00 08/02/19 10:19 Heparin - SQ 5,000 unit BID [facility]ACE[facility] Administration Norepinephrine Bitartrate 8, 500 mls @ 37.5 mls/hr 07/31/19 05:15 08/02/19 06 :17 000 mcg/ Dextrose IV 5 mcg/min TITR [facility]ACE[facility] 18.75 mls/hr Administration Protocol 10 MCG/MIN Piperacillin Sod/Tazobactam 50 mls @ 100 mls/hr 07/31/19 18:00 08/02/19 10:18 Sod 3.375 gm/ Dextrose IVPB 08/06/19 17:59 100 mls/hr Q8H-IV [facility] Administration Protocol Vancomycin HCl 1,000 mg in 250 mls @ 166.667 mls/hr 08/01/19 18:00 08/02/19 06:18 Vancomycin (Pre-Docked) IVPB 166.667 mls/hr Q12H [facility] Administration Protocol Amiodarone HCl/Dextrose 360 mg in 200 mls @ 16.667 mls/hr 08/02/19 03:15 06:16 Nexterone 360 Mg/200 Ml Bag IVPB 16.667 mls/hr ASDIR [facility] Administration Protocol 0.5 MG/MIN Lactated Ringer's 1,000 ml in 1,000 mls @ 100 mls/hr 08/02/19 10:15 08/02/19 10:18 Lactated Ringers Solution IV 100 mls/hr ASDIR [facility] Administration Lidocaine/Aluminum/Magnesium/Simeth 5 ml 08/01/19 12:00 08/02/19 06:17 Magic Mouthwash *Sjr Formula* - MM Not Given Q6HPO [facility] Mupirocin 1 applic 07/31/19 10:00 08/02/19 10:20 Bactroban Ointment (For Decolonization) - NS 08/05/19 09:59 1 applic BID [facility] Administration Nystatin 500,000 units 08/01/19 12:00 08/02/19 06:17 Nystatin Oral Suspension - PO Not Given Q6HPO [facility] Sucralfate 1 gm 08/01/19 14:00 08/02/19 10:20 Carafate Oral Suspension - PO 1 gm QID [facility] Administration ASSESSMENT/PLAN: 64 y.o. M from [facility] lung CA w/ mets to brain (diagnosed 2017, s/p chemo completed January 2018 & began adjuvant immunotherapy w/o completion of course), HTN, HLD, COPD, GERD, recent admission earlier this month for odynophagia & decreased ADLs, presenting on this visit for acute hypoxic resp failure, found to have R pneumothorax w/ pleural effusion. Also found to be in new onset A-fib w/ RVR on this admission. #[employer]TA[employer] -Brain mets, would repeat CT/MRI brain as last imaging was in 2018 -AOx3. #CV -New onset A-fib w/ RVR -D/c amiodarone per cardiology -Continue pressor support: 5 Levo, maintain MAP >65 -central line in RIJ placed yesterday -Holding home anti HTN meds -C/w asa, plavix #Pulm -C/w NC, monitor O2 sats, maintain >90%. pt prefers venti mask or nasal cannula -Lung CA --metastatic; last staged in 2018 IIIB, needs restaging. Onc following -R pneumothorax;pigtail catheter in place. no additional drainage today -Pleural fluid cultrue presumptive results for MRSA. contact precautions initiated #Heme/Onc -Lung CA diagnosed 2018 w/ brain mets -F/u brain/ chest/ abd imaging -Pt sees Dr. Merchant (rads/onc) outpatient -Normocytic anemia-- continue to monitor cbc #GI -F/u abd/ pelvis CT -Advancing diet as tolerated #ID -Oral thrush: nystatin swallow -Bacteremic: blood cx's + x2: S. viridans, f/u other organisms & sensitivities -Pleural fluid presumptive results +MRSA -ID consulted. follow recomendation -C/w Vanc/ Zosyn #Renal -ISAAC; trend Cr -LR for hydration -F/u urine K and Na, serum osm -Nephro following (Dr. Logan) -F/u Renal U/S #FEN -C/w NS -Trend lytes replete prn -Soft diet today #PPX -Heparin 5000U SQ BID Dispo: goals of care need to be discussed with palliative care team and family. As patient frequently refuses certain interventions. ATTENDING PHYSICIAN STATEMENT I saw and evaluated the patient. I reviewed the resident's note and discussed the case with the resident. I agree with the resident's findings and plan as documented. SUBJECTIVE: OBJECTIVE: ASSESSMENT AND PLAN:
[2019-08-02 10:56] LABS: ANISOCYTOSIS 1+; MACROCYTOSIS 0; PLATELET ESTIMATE DECREASED
--- NOTE | 2019-08-02 12:56 | PN ---
Progress Note, Physician Chief Complaint: Events noted Remains in ICU History of Present Illness: Patient was seen and examined. Opens eyes with command. Chart was reviewed Amiodarone drip and Levophed infusing - Current Medication List Current Medications: Active Medications Acetaminophen (Ofirmev Injection -) 1,000 mg IVPB Q6H PRN PRN Reason: PAIN Last Admin: 07/31/19 20:05 Dose: 1,000 mg Aspirin (Ecotrin -) 81 mg PO DAILY TRACEY Last Admin: 08/02/19 10:19 Dose: 81 mg Atorvastatin Calcium (Lipitor -) 80 mg PO HS TRACEY Last Admin: 08/01/19 21:51 Dose: 80 mg Chlorhexidine Gluconate (Hibiclens For Decolonization -) 1 applic TP HS TRACEY Last Admin: 08/01/19 21:50 Dose: 1 applic Clopidogrel Bisulfate (Plavix -) 75 mg PO DAILY TRACEY Last Admin: 08/02/19 10:19 Dose: 75 mg Heparin Sodium (Porcine) (Heparin -) 5,000 unit SQ BID TRACEY Last Admin: 08/02/19 10:19 Dose: 5,000 unit Norepinephrine Bitartrate 8, (000 mcg/ Dextrose) 500 mls @ 37.5 mls/hr IV TITR TRACEY; Protocol Last Admin: 08/02/19 06:17 Dose: 5 mcg/min, 18.75 mls/hr Piperacillin Sod/Tazobactam (Sod 3.375 gm/ Dextrose) 50 mls @ 100 mls/hr IVPB Q8H-IV TRACEY; Protocol Stop: 08/06/19 17:59 Last Admin: 08/02/19 10:18 Dose: 100 mls/hr Vancomycin HCl (Vancomycin (Pre-Docked)) 1,000 mg in 250 mls @ 166.667 mls/hr IVPB Q12H TRACEY; Protocol Last Admin: 08/02/19 06:18 Dose: 166.667 mls/hr Lactated Ringer's (Lactated Ringers Solution) 1,000 ml in 1,000 mls @ 100 mls/ hr IV ASDIR TRACEY Last Admin: 08/02/19 10:18 Dose: 100 mls/hr Lidocaine/Aluminum/Magnesium/Simeth (Magic Mouthwash *Sjr Formula* -) 5 ml MM Q6HPO TRACEY Last Admin: 08/02/19 11:41 Dose: 5 ml Mupirocin (Bactroban Ointment (For Decolonization) -) 1 applic NS BID [facility] Stop: 08/05/19 09:59 Last Admin: 08/02/19 10:20 Dose: 1 applic Nystatin (Nystatin Oral Suspension -) 500,000 units PO Q6HPO [facility] Last Admin: 08/02/19 11:43 Dose: 500,000 units Sucralfate (Carafate Oral Suspension -) 1 gm PO QID [facility] Last Admin: 08/02/19 10:20 Dose: 1 gm - Objective Vital Signs: Vital Signs Temperature 97.4 F L 08/02/19 10:00 Pulse Rate 104 H 08/02/19 12:00 Respiratory Rate 21 H 08/02/19 12:00 Blood Pressure 96/66 08/02/19 12:00 O2 Sat by Pulse Oximetry (%) 100 08/02/19 10:00 Neck: Yes: Supple Cardiovascular: Yes: Tachycardia, S1, S2 Respiratory: Yes: Diminished, Other (Chest tube) Gastrointestinal: Yes: Normal Bowel Sounds, Soft. No: Tenderness Edema: No Labs: CBC, BMP 08/02/19 05:50 08/02/19 05:50 INR, PTT INR 1.34 (0.83-1.09) H 08/01/19 06:00 Problem List - Problems (1) ISAAC (acute kidney injury) Code(s): N17.9 - ACUTE KIDNEY FAILURE, UNSPECIFIED (2) Acute respiratory distress Code(s): R06.03 - ACUTE RESPIRATORY DISTRESS (3) Afib Code(s): I48.91 - UNSPECIFIED ATRIAL FIBRILLATION Qualifiers: Atrial fibrillation type: paroxysmal Qualified Code(s): I48.0 - Paroxysmal atrial fibrillation (4) COPD with acute exacerbation Code(s): J44.1 - CHRONIC OBSTRUCTIVE PULMONARY DISEASE W (ACUTE) EXACERBATION (5) Metastatic lung carcinoma Code(s): C78.00 - SECONDARY MALIGNANT NEOPLASM OF UNSPECIFIED LUNG (6) Pneumothorax Code(s): J93.9 - PNEUMOTHORAX, UNSPECIFIED Qualifiers: Pneumothorax type: spontaneous, secondary Qualified Code(s): J93.12 - Secondary spontaneous pneumothorax (7) Sepsis Code(s): A41.9 - SEPSIS, UNSPECIFIED ORGANISM Assessment/Plan 1. Paroxysmal atrial fibrillation with RVR 2. Right spontaneous PTX s/p chest tube 3. COPD 4. Loculated effusion, epmyema with bacteremia 4. 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 Hyperlipidemia 6. GERD 7. ISAAC with hypovolemic hyponatremia 8. Anemia PLAN: 1. Chest tube management per ICU 2. Wean off Levophed to maintain MAP > 65 3. May discontinue Amiodarone drip 4. Supplemental O2 to maintain saturation, bronchodilator, NIPPV support as needed, 5. Antibiotic coverage 6. May use Cardizem 10 IV q4 prn for rate-control 7. Not anticoagulation candidate given history of brain mets. Continue ASA 81 mg QD, Plavix 75 mg QD and Lipitor 80 mg QHS 8. DVT prophylaxis 9. Echocardiography to assess LV/RV and valvular function Further plans are to follow Jarett Brown MD
--- NOTE | 2019-08-02 13:02 | PN ---
Progress Note (short form) - Note Progress Note: CT surgery 64M with stage 3 left sided lung cancer and brain mets, and possible history of radiation to either lung or brain, p/w ptx and dyspnea. He has a well-placed chest tube but is still severely dyspneic and oxygen dependent on 50% facemask. Patient expressed to ICU team that he is considering stopping all aggressive treatment and leaning towards more palliative measures. He states that he still has left sided pleuritic pain with coughing. Remains on Levophed @ 5 mcq for hemodynamic support and IV Amiodarone drip. Vital Signs Temp 97.4 F L 08/02/19 10:00 Pulse 104 H 08/02/19 12:00 Resp 21 H 08/02/19 12:00 BP 96/66 08/02/19 12:00 Pulse Ox 100 08/02/19 10:00 Intake & Output 08/01/19 08/02/19 08/02/19 23:59 11:59 23:59 Intake Total 652 480 Output Total 630 0 Balance 22 480 Intake: IV 202 173 Levophed - 8,000 Mcg In 202 173 D5w - 492 ml @ 10 MCG/MIN 37.5 mls/hr IV TITR TRACEY Rx#:[id number] IVPB 450 307 Output: Chest Tube Drainage 30 0 Right Lateral Chest 30 0 Urine 600 Void 600 Other: Voiding Method Urinal Urinal Bowel Movement No No CBC, BMP 08/02/19 05:50 08/02/19 05:50 PE: Constitutional: Awake and alert, mildly tachypneic at rest Neck: Supple, Trachea Midline Respiratory: Right Pleural catheter with brown discharge, tube secure and dressing clean and dry with no evidence of leakage. bilateral rhonchi and course breath sounds. Chest CT/ CTA with contrast: No evidence of central pulm artery emboli. Hydropneumothorax on right side with chest tube in place. Moderated effusion noted on left. Patchy infiltrates B/L. Problem List - Problems (1) Metastatic lung carcinoma Assessment/Plan: Patient with advanced disease and mets expressing desire for hospice care. -Continue chest tube to wall suction -Monitor Chest tube output -Care team to discuss goals of care and plan moving forward. -CT surgery to follow Evaluation and plan discussed with Dr Nielson. Code(s): C78.00 - SECONDARY MALIGNANT NEOPLASM OF UNSPECIFIED LUNG (2) Pneumothorax Code(s): J93.9 - PNEUMOTHORAX, UNSPECIFIED Qualifiers: Pneumothorax type: spontaneous, secondary Qualified Code(s): J93.12 - Secondary spontaneous pneumothorax
[2019-08-02 13:12] VITALS: BMI 23.8
--- NOTE | 2019-08-02 13:16 | ECHO ---
Version: 1 Name: PHILIP MALHOTRA Exam: Adult Echocardiogram Study Date: 08/02/2019, 12:08 PM Age: 64 Years MMode/2D Measurements & Calculations IVSd: 0.82 cm LVIDs: 3.1 cm LVIDd: 4.8 cm LVPWd: 1.15 cm ACS: 2.14 cm Ao root diam: 3.7 cm LA dimension: 4.2 cm Doppler Measurements & Calculations MV E max jesu: 49.9 cm/sec Med E/e': 7.7 MV A max jesu: 75.3 cm/sec Med Peak E' Jesu: 6.5 cm/sec MV E/A: 0.66 Lat E/e': 8.7 Lat Peak E' Jesu: 5.7 cm/sec MR max P.3 mmHg Ao max P.6 mmHg Ao mean P.0 mmHg Ao V2 max: 128.0 cm/sec AI P1/2t: 543.4 msec Procedure The study was technically limited with all images being suboptimal in quality. Left Ventricle The left ventricular size, thickness and function are normal. Ejection Fraction = 70%. Right Ventricle The right ventricle is normal in size and function. Atria The left atrium is mildly dilated. Right atrial size is normal. Mitral Valve There is mild mitral valve thickening. There is mild mitral regurgitation. Tricuspid Valve The tricuspid valve is normal. There is mild tricuspid regurgitation. Aortic Valve There is mild aortic valve thickening. Pulmonic Valve The pulmonic valve is not well visualized. Great Vessels The aortic root is normal size. Normal aortic arch, descending and ascending aorta. Pericardium/Pleura There is no pericardial effusion. Summary Statements The study was technically limited with all images being suboptimal in quality. The left ventricular size, thickness and function are normal Ejection Fraction = 70%. The right ventricle is normal in size and function. The left atrium is mildly dilated. Right atrial size is normal. There is mild mitral valve thickening. There is mild mitral regurgitation. The tricuspid valve is normal. There is mild tricuspid regurgitation. There is mild aortic valve thickening. The pulmonic valve is not well visualized. The aortic root is normal size. Normal aortic arch, descending and ascending aorta There is no pericardial effusion. Venkatesh Horton 08/02/2019, 1:16 PM Ordering Physician: Alison Mclain Performed By: Viridiana Rogers
--- NOTE | 2019-08-02 13:43 | PN ---
Progress Note (short form) - Note Progress Note: awake and alert s/p chest tube placement off amio still on levophed daughter and exwife at bedside Vital Signs Period Temp Pulse Resp BP Sys/Davis Pulse Ox Last 24 Hr 97.4 F-97.8 F 90-145 15-34 78-133/55-117 100-100 cor-rrr lungs clear abd soft,nt ext no edema +chest tube Microbiology 07/31/19 04:15 Blood - Peripheral Venous Blood Culture - Preliminary Streptococcus Viridans Staphylococcus Coagulase Neg Pending Organism 07/31/19 10:30 Pleural Fluid Gram Stain - Final 07/31/19 10:30 Pleural Fluid Body Fluid Culture - Preliminary Klebsiella Oxytoca Presumptive Mrsa (Pbp2a Pos) Corynebacterium Striatum Pending Organism#3 Pending Organism#4 07/31/19 10:30 Pleural Fluid Anaerobic Culture - Preliminary Pending Organism 08/01/19 11:35 Blood - Peripheral Venous Blood Culture - Preliminary NO GROWTH OBTAINED AFTER 24 HOURS, INCUBATION TO CONTINUE FOR 4 DAYS. 08/01/19 11:30 Blood - Peripheral Venous Blood Culture - Preliminary NO GROWTH OBTAINED AFTER 24 HOURS, INCUBATION TO CONTINUE FOR 4 DAYS. 07/31/19 14:46 Urine - Urine - Catheterized Urine Culture - Preliminary Lactose Fermenting Neg Bacilli 07/31/19 04:20 Blood - Peripheral Venous Blood Culture - Preliminary Staphylococcus Coagulase Neg 07/31/19 10:30 Pleural Fluid AFB Smear Concentration - Preliminary 07/31/19 10:30 Pleural Fluid Mycobacterial Culture - Preliminary 07/31/19 10:30 Pleural Fluid SCOTT Preparation - Preliminary 07/31/19 10:30 Pleural Fluid Fungal Culture - Preliminary ct scan chest/abd/pelvis done- hydropneumothorax a/p 64 yo man with hisory of lung cancer with brain mets polymicrobial empyema -continue vanco/zosyn, f/u cultures, check vanco trough in am bacteremia-f/u cultures ptx s/p chest tube repeat blood cultures vanco/zosyn echo d/w family at bedside per patient's request
[2019-08-02] MEDS: MORPHINE SULFATE 2 MG/ML VIAL IVPUSH PRN ×2 (18:30→19:41)
--- NOTE | 2019-08-02 18:31 | CON.PSY ---
Psychiatry Consult Chief Complaint: 64 Bubba old male with Terminal Lung Ca, seen for Psych evaluation. case discussed with staff. Patient has a tendency to speak in a negative amnner. Says I am dying.. denies any suicidal plans and staff do not report any suicidal Behaviour at this time. Symptoms: reports: Depressed Mood - Previous Psychiatric Treatment Outpatient: None Inpatient: None - Previous Substance Abuse Treatment Outpatient: None Inpatient: None - Current Medications Current Medications: Active Medications Acetaminophen (Ofirmev Injection -) 1,000 mg IVPB Q6H PRN PRN Reason: PAIN Last Admin: 07/31/19 20:05 Dose: 1,000 mg Aspirin (Ecotrin -) 81 mg PO DAILY TRACEY Last Admin: 08/02/19 10:19 Dose: 81 mg Atorvastatin Calcium (Lipitor -) 80 mg PO HS TRACEY Last Admin: 08/01/19 21:51 Dose: 80 mg Chlorhexidine Gluconate (Hibiclens For Decolonization -) 1 applic TP HS TRACEY Last Admin: 08/01/19 21:50 Dose: 1 applic Clopidogrel Bisulfate (Plavix -) 75 mg PO DAILY TRACEY Last Admin: 08/02/19 10:19 Dose: 75 mg Heparin Sodium (Porcine) (Heparin -) 5,000 unit SQ BID TRACEY Last Admin: 08/02/19 10:19 Dose: 5,000 unit Norepinephrine Bitartrate 8, (000 mcg/ Dextrose) 500 mls @ 37.5 mls/hr IV TITR TRACEY; Protocol Last Admin: 08/02/19 06:17 Dose: 5 mcg/min, 18.75 mls/hr Piperacillin Sod/Tazobactam (Sod 3.375 gm/ Dextrose) 50 mls @ 100 mls/hr IVPB Q8H-IV TRACEY; Protocol Stop: 08/06/19 17:59 Last Admin: 08/02/19 17:10 Dose: 100 mls/hr Vancomycin HCl (Vancomycin (Pre-Docked)) 1,000 mg in 250 mls @ 166.667 mls/hr IVPB Q12H TRACEY; Protocol Last Admin: 08/02/19 17:09 Dose: 166.667 mls/hr Lactated Ringer's (Lactated Ringers Solution) 1,000 ml in 1,000 mls @ 100 mls/ hr IV ASDIR TRACEY Last Admin: 08/02/19 10:18 Dose: 100 mls/hr Lidocaine/Aluminum/Magnesium/Simeth (Magic Mouthwash *Sjr Formula* -) 5 ml MM Q6HPO [facility] Last Admin: 08/02/19 17:07 Dose: 5 ml Morphine Sulfate (Morphine Sulfate) 2 mg IVPUSH Q6H PRN PRN Reason: PAIN LEVEL 6-10 Mupirocin (Bactroban Ointment (For Decolonization) -) 1 applic NS BID [facility] Stop: 08/05/19 09:59 Last Admin: 08/02/19 10:20 Dose: 1 applic Nystatin (Nystatin Oral Suspension -) 500,000 units PO Q6HPO [facility] Last Admin: 08/02/19 17:08 Dose: 500,000 units Sucralfate (Carafate Oral Suspension -) 1 gm PO QID [facility] Last Admin: 08/02/19 17:07 Dose: 1 gm - Allergies Allergies: Allergies Allergy/AdvReac Type Severity Reaction Status Date / Time No Known Allergies Allergy Verified 07/14/19 14:56 - Current Living Status Usual Living Arrangement: Alone - Current Mental Status Evaluation Appearance: Disheveled Attitude: Cooperative, Guarded - Affect Affect: Full Range Appropriateness: Appropriate to Content - Mood Mood: Depressed - Speech/Language Expressive: Coherent - Psychomotor Activity Psychomotor Activity: Slowed - Thought Process Thought Process: Intact - Thought Content Hallucinations: Absent Delusions: Absent - Self Perception Self Perception: No Impairment - Cognition Attention: Alert Orientation: Time Memory, Immediate Recall: Intact Memory, Short Term: 3/3 Memory, Remote with Promptin/3 - Concentration Serial Sevens Intact: No Simple Calculations Intact: Yes - Abstraction Proverb Interpretation: Intact Judgement: Minimally Impaired - Insight Insight: Impaired - Impulse Control Impulse Control: Good Control - Suicidal Ideation Suicidal Ideation: No - Homicidal Ideation Homicidal Ideation: No Assessment/Plan 1) Patient is not a suicide risk at this time. 2) no need for any Psych meds.
[2019-08-02] MEDS: CHLORHEXIDINE GLUCONATE 4% CLEANSER FOR DECOLONIZATION TP SCH (22:26)
[2019-08-02] MEDS: ATORVASTATIN CA 80 MG TABLET (FP) PO SCH (22:26)
[2019-08-03] MEDS: PIPERACILLIN/TAZOB 3.375 GM 3.375 GM in DEXTROSE 5%-WATER - 50 ML IVPB SCH ×3 (01:46→17:57)
[2019-08-03] MEDS: NYSTATIN 500,000 UNITS/5 ML SUSPENSION PO SCH ×5 (01:47→17:51)
[2019-08-03] MEDS: MAG HYDROX/ALH/SMC/DPHA/LIDO 240 ML MOUTHWASH MM SCH ×4 (01:47→17:51)
[2019-08-03] MEDS: MORPHINE SULFATE 2 MG/ML VIAL IVPUSH PRN ×4 (03:56→16:26)
[2019-08-03] MEDS ORDERED: MORPHINE SULFATE 2 MG/ML VIAL IVPUSH ONE ×2 (04:44→07:39)
[2019-08-03] MEDS ORDERED: MORPHINE SULFATE 2 MG/ML VIAL ONE (04:47)
[2019-08-03] MEDS: NOREPINEPHRINE BITARTRATE 8,000 MCG in DEXTROSE 5%-WATER - 492 ML IV SCH ×2 (06:47→22:35)
[2019-08-03] MEDS: VANCOMYCIN 1 GRAM (PRE-DOCKED) 1,000 MG/250 ML BAG IVPB SCH ×2 (06:48→19:05)
[2019-08-03 06:57] LABS: BASO % 0.1 % (0-2.0); HEMATOCRIT 17.2 % (35.4-49); LYMPH % 3.4 % (8-40); MCH 31.1 pg (25.7-33.7); MCHC 33.9 g/dl (32.0-35.9); MEAN CELL VOLUME 91.8 fl (80-96); MEAN PLT VOLUME 9.7 fl (7.5-11.1); MONO % 1.7 % (3.8-10.2); NEUT % 94.8 % (42.8-82.8); PLATELET COUNT 90 K/MM3 (134-434); RBC 1.88 M/mm3 (4.00-5.60); WHITE BLOOD COUNT 6.4 K/mm3 (4.0-10.0)
--- NOTE | 2019-08-03 07:05 | PN ---
Progress Note (short form) - Note Progress Note: Chief Complaint: Events noted, notes reviewed, overall poor prognosis, remains in atrial fibrillation with periods rapid ventricular response, remains on pressors, dyspnea noted denies any chest pain History of Present Illness: Seen and examined in the ICU. Events noted, notes reviewed, overall poor prognosis, remains in atrial fibrillation with periods rapid ventricular response, remains on pressors, dyspnea noted denies any chest pain Hemoglobin noted dropping- to receive transfusion but patient continues to be on ASA/Plavix/Heparin ? not D/C- reviewed with the ICU house staff Echocardiography revealed normal LV size and function with LVEF of 70%, mild MR and TR - Current Medication List Current Medications Acetaminophen (Ofirmev Injection -) 1,000 mg IVPB Q6H PRN PRN Reason: PAIN Last Admin: 07/31/19 20:05 Dose: 1,000 mg Aspirin (Ecotrin -) 81 mg PO DAILY TRACEY Last Admin: 08/02/19 10:19 Dose: 81 mg Atorvastatin Calcium (Lipitor -) 80 mg PO HS TRACEY Last Admin: 08/02/19 22:26 Dose: 80 mg Chlorhexidine Gluconate (Hibiclens For Decolonization -) 1 applic TP HS TRACEY Last Admin: 08/02/19 22:26 Dose: 1 applic Clopidogrel Bisulfate (Plavix -) 75 mg PO DAILY TRACEY Last Admin: 08/02/19 10:19 Dose: 75 mg Heparin Sodium (Porcine) (Heparin -) 5,000 unit SQ BID TRACEY Last Admin: 08/02/19 22:26 Dose: 5,000 unit Norepinephrine Bitartrate 8, (000 mcg/ Dextrose) 500 mls @ 37.5 mls/hr IV TITR TRACEY; Protocol Last Admin: 08/03/19 06:47 Dose: Not Given Piperacillin Sod/Tazobactam (Sod 3.375 gm/ Dextrose) 50 mls @ 100 mls/hr IVPB Q8H-IV TRACEY; Protocol Stop: 08/06/19 17:59 Last Admin: 08/03/19 01:46 Dose: 100 mls/hr Vancomycin HCl (Vancomycin (Pre-Docked)) 1,000 mg in 250 mls @ 166.667 mls/hr IVPB Q12H TRACEY; Protocol Last Admin: 08/03/19 06:48 Dose: 166.667 mls/hr Lactated Ringer's (Lactated Ringers Solution) 1,000 ml in 1,000 mls @ 100 mls/ hr IV ASDIR [facility] Last Admin: 08/02/19 10:18 Dose: 100 mls/hr Potassium Chloride (Potassium Chloride 10 Meq Premix Ivpb -) 10 meq in 100 mls @ 100 mls/hr IVPB Q60M [facility] [place] Stop: 08/03/19 11:59 Lidocaine/Aluminum/Magnesium/Simeth (Magic Mouthwash *Sjr Formula* -) 5 ml MM Q6HPO [facility] Last Admin: 08/03/19 06:47 Dose: Not Given Morphine Sulfate (Morphine Sulfate) 2 mg IVPUSH Q4H PRN PRN Reason: PAIN LEVEL 6-10 Last Admin: 08/03/19 04:48 Dose: 2 mg Mupirocin (Bactroban Ointment (For Decolonization) -) 1 applic NS BID [facility] Stop: 08/05/19 09:59 Last Admin: 08/02/19 22:26 Dose: 1 applic Nystatin (Nystatin Oral Suspension -) 500,000 units PO Q6HPO [facility] Last Admin: 08/03/19 06:55 Dose: Not Given Sucralfate (Carafate Oral Suspension -) 1 gm PO QID [facility] Last Admin: 08/02/19 22:26 Dose: 1 gm Review of Systems Unable to obtain - Objective Vital Signs: Last Vital Signs Temp Pulse Resp BP Pulse Ox 97.4 F L 149 H 25 H 91/58 L 93 L 08/02/19 16:00 08/03/19 08:00 08/03/19 08:00 08/03/19 08:00 08/03/19 08:16 Intake & Output 07/31/19 08/01/19 08/02/19 08/03/19 23:59 23:59 23:59 23:59 Intake Total 1269 1430 1805.6 1461 Output Total 280 1350 120 0 Balance 338 39 6974.6 1461 Weight 157 lb 14.4 oz 157 lb Neck: Supple Negative JVD No Bruit Respiratory: Scattered Rhonchi Bilaterally Diminished Breath Sounds at the Bases Cardiovascular: S1 S2 Irregularly Irregular Tachycardiac Gastrointestinal: Soft Benign Normal Bowel Sounds Ext: Edema Labs: CBC, BMP 08/03/19 06:20 01/01/20 06:20 Hepatic Panel Total Bilirubin 0.8 mg/dL (0.2-1) 08/03/19 06:20 AST 23 U/L (15-37) 08/03/19 06:20 ALT 22 U/L (13-61) 08/03/19 06:20 Alkaline Phosphatase 95 U/L (45-117) 08/03/19 06:20 Albumin 1.0 g/dl (3.4-5.0) L 08/03/19 06:20 Assessment/Plan ASSESSMENT: 1. Paroxysmal atrial fibrillation with persistent rapid ventricular response on no A/C- anemia with thrombocytopenia 2. Metastatic Lung carcinoma 3. Post right spontaneous pneumothorax post chest tube insertion 4. Probable diastolic LV dysfunction with clinical class 0 NYHA classification LV failure 5. COPD 6. Loculated effusion, epmyema with bacteremia 7. Hyperlipidemia 8. Pre- renal azotemia 9. Anemia and thrombocytopenia PLAN: 1. Recommend D/C all anti-platelet and A/C therapies- ASA/Plavix/Heparin- dropping Hg and platelet counts 2. Pressors to maintain MAP 65-70 mmHg and greater, wean off as tolerated 3. Limited options in reference to atrial fibrillation rate control in view of hypotension- as outlined above overall poor prognosis 4. Question value of high dose Lipitor therapy continuation with history of metastatic Lung carcinoma 5. Antibiotics as per the primary team 6. Correction of anemia As outlined overall poor prognosis, recommend Hospice/comfort care Nathan Peters M.D.
[2019-08-03 07:07] LABS: HEMOGLOBIN 5.8 GM/dL (11.7-16.9)
[2019-08-03 07:34] LABS: BILIRUBIN,TOTAL 0.8 mg/dL (0.2-1); BLOOD UREA NITROGEN 42.8 mg/dL (7-18); CALCIUM 7.3 mg/dL (8.5-10.1); CREATININE 0.8 mg/dL (0.55-1.3); MAGNESIUM 2.2 mg/dL (1.8-2.4); POTASSIUM 3.4 mmol/L (3.5-5.1); TOT PROT 3.8 g/dl (6.4-8.2)
[2019-08-03] MEDS: KCL 10 MEQ IVPB 10 MEQ/100 ML INFUS.BAG IVPB SCH ×3 (09:03→13:21)
[2019-08-03] MEDS ORDERED: PIPERACILLIN/TAZOBACTAM 3.375 GM VIAL IVPB ONE ×2 (09:49→17:56)
[2019-08-03] MEDS ORDERED: DEXTROSE 5%-WATER - 50 ML IVPB ONE ×2 (09:49→17:56)
[2019-08-03] MEDS ORDERED: PT OWN MED DRAWER 7, Y5N ONE (10:05)
[2019-08-03] MEDS: SUCRALFATE 1 GM/10 ML UNIT DOSE CUPS PO SCH ×5 (10:06→21:01)
[2019-08-03] MEDS: MUPIROCIN 2% TOPICAL OINTMENT FOR DECOLONIZATION NS SCH ×2 (10:08→21:01)
--- NOTE | 2019-08-03 10:08 | PN ---
Teaching Attending Note Name of Resident: Chrissy Gilmore ATTENDING PHYSICIAN STATEMENT I saw and evaluated the patient. I reviewed the resident's note and discussed the case with the resident. I agree with the resident's findings and plan as documented. SUBJECTIVE: Patient seen and examined in the ICU. Awake and alert. Reports that he is considering to be more conservative with his care and wants to . Mildly tachypneic on 50% VM O2. Remains on Levophed @ 5 mcq for hemodynamic support. Intake & Output 07/31/19 08/01/19 08/02/19 08/03/19 23:59 23:59 23:59 23:59 Intake Total 1269 1430 1805.6 1461 Output Total 280 1350 120 0 Balance 580 16 3865.6 1461 Weight 157 lb 14.4 oz 157 lb Last Vital Signs Temp Pulse Resp BP Pulse Ox 98.6 F 152 H 19 95/54 L 91 L 08/03/19 09:39 08/03/19 09:39 08/03/19 09:39 08/03/19 09:00 08/03/19 09:00 Active Medications Acetaminophen (Ofirmev Injection -) 1,000 mg IVPB Q6H PRN PRN Reason: PAIN Last Admin: 07/31/19 20:05 Dose: 1,000 mg Aspirin (Ecotrin -) 81 mg PO DAILY [facility] Last Admin: 08/02/19 10:19 Dose: 81 mg Atorvastatin Calcium (Lipitor -) 80 mg PO HS [facility] Last Admin: 08/02/19 22:26 Dose: 80 mg Chlorhexidine Gluconate (Hibiclens For Decolonization -) 1 applic TP HS [facility] Last Admin: 08/02/19 22:26 Dose: 1 applic Clopidogrel Bisulfate (Plavix -) 75 mg PO DAILY [facility] Last Admin: 08/02/19 10:19 Dose: 75 mg Heparin Sodium (Porcine) (Heparin -) 5,000 unit SQ BID [facility] Last Admin: 08/02/19 22:26 Dose: 5,000 unit Norepinephrine Bitartrate 8, (000 mcg/ Dextrose) 500 mls @ 37.5 mls/hr IV TITR [facility]; Protocol Last Admin: 08/03/19 06:47 Dose: Not Given Piperacillin Sod/Tazobactam (Sod 3.375 gm/ Dextrose) 50 mls @ 100 mls/hr IVPB Q8H-IV [facility]; Protocol Stop: 08/06/19 17:59 Last Admin: 08/03/19 09:50 Dose: 100 mls/hr Vancomycin HCl (Vancomycin (Pre-Docked)) 1,000 mg in 250 mls @ 166.667 mls/hr IVPB Q12H [facility]; Protocol Last Admin: 08/03/19 06:48 Dose: 166.667 mls/hr Lactated Ringer's (Lactated Ringers Solution) 1,000 ml in 1,000 mls @ 100 mls/ hr IV ASDIR [facility] Last Admin: 08/02/19 10:18 Dose: 100 mls/hr Potassium Chloride (Potassium Chloride 10 Meq Premix Ivpb -) 10 meq in 100 mls @ 100 mls/hr IVPB Q60M [facility] Stop: 08/03/19 11:59 Last Admin: 08/03/19 09:51 Dose: 100 mls/hr Lidocaine/Aluminum/Magnesium/Simeth (Magic Mouthwash *Sjr Formula* -) 5 ml MM Q6HPO [facility] Last Admin: 08/03/19 06:47 Dose: Not Given Morphine Sulfate (Morphine Sulfate) 2 mg IVPUSH Q4H PRN PRN Reason: PAIN LEVEL 6-10 Last Admin: 08/03/19 04:48 Dose: 2 mg Mupirocin (Bactroban Ointment (For Decolonization) -) 1 applic NS BID [facility] Stop: 08/05/19 09:59 Last Admin: 08/02/19 22:26 Dose: 1 applic Nystatin (Nystatin Oral Suspension -) 500,000 units PO Q6HPO [facility] Last Admin: 08/03/19 06:55 Dose: Not Given Sucralfate (Carafate Oral Suspension -) 1 gm PO QID [facility] Last Admin: 08/02/19 22:26 Dose: 1 gm Constitutional: Yes: Awake and alert, mildly tachypneic at rest Eyes: Yes: Conjunctiva Clear, EOM Intact HENT: Yes: Atraumatic, Normocephalic Neck: Yes: Supple, Trachea Midline Cardiovascular: Yes: Tachycardia, S1, S2 Respiratory: Yes: Right Pleural catheter, bilateral rhonchi Gastrointestinal: Yes: Soft, NT, ND ...Rectal Exam: Yes: Deferred Musculoskeletal: Yes: WNL Extremities: Yes: WNL Edema: No Neurological: Yes: Alert, Oriented ...Motor Strength: WNL Psychiatric: Yes: Alert, Oriented Labs: Laboratory Results - last 24 hr 08/02/19 08/02/19 08/03/19 05:50 17:00 06:20 WBC RBC Hgb Hct MCV MCH MCHC RDW Plt Count MPV Absolute Neuts (auto) Neutrophils % Neutrophils % (Manual) 92.5 H Band Neutrophils % 0.0 Lymphocytes % Lymphocytes % (Manual) 2.1 L Monocytes % Monocytes % (Manual) 3 L Eosinophils % Eosinophils % (Manual) 1.1 D Basophils % Basophils % (Manual) 0.0 Myelocytes % (Man) 1 D Promyelocytes % (Man) 0 Blast Cells % (Manual) 0 Nucleated RBC % Metamyelocytes 0 Hypochromia 0 Platelet Estimate Decreased Platelet Comment Present Polychromasia 1+ Anisocytosis 1+ Microcytosis 1+ Macrocytosis 0 [place] Cells 1+ Fragmented RBCs 1+ Sodium Potassium Chloride Carbon Dioxide Anion Gap BUN Creatinine Est GFR (CKD-EPI)AfAm Est GFR (CKD-EPI)NonAf Random Glucose Calcium Phosphorus Magnesium Total Bilirubin AST ALT Alkaline Phosphatase Total Protein Albumin Ur Random Sodium < 5 L Vancomycin Pre-Dose 21.7 Blood Type Antibody Screen Crossmatch 08/03/19 08/03/19 08/03/19 06:20 06:20 08:00 WBC 6.4 RBC 1.88 L Hgb 5.8 L* Hct 17.2 L D MCV 91.8 MCH 31.1 MCHC 33.9 RDW 18.0 H Plt Count 90 L D MPV 9.7 Absolute Neuts (auto) 6.1 Neutrophils % 94.8 H Neutrophils % (Manual) Band Neutrophils % Lymphocytes % 3.4 L D Lymphocytes % (Manual) Monocytes % 1.7 L Monocytes % (Manual) Eosinophils % 0.0 D Eosinophils % (Manual) Basophils % 0.1 D Basophils % (Manual) Myelocytes % (Man) Promyelocytes % (Man) Blast Cells % (Manual) Nucleated RBC % 0 Metamyelocytes Hypochromia Platelet Estimate Platelet Comment Polychromasia Anisocytosis Microcytosis Macrocytosis [place] Cells Fragmented RBCs Sodium 136 Potassium 3.4 L Chloride 103 Carbon Dioxide 21 Anion Gap 12 BUN 42.8 H Creatinine 0.8 Est GFR (CKD-EPI)AfAm 108.65 Est GFR (CKD-EPI)NonAf 93.74 Random Glucose 194 H Calcium 7.3 L Phosphorus 3.0 Magnesium 2.2 Total Bilirubin 0.8 AST 23 ALT 22 Alkaline Phosphatase 95 Total Protein 3.8 L Albumin 1.0 L Ur Random Sodium Vancomycin Pre-Dose Blood Type A NEGATIVE Antibody Screen Negative Crossmatch See Detail Problem List - Problems (1) Pneumonia Code(s): J18.9 - PNEUMONIA, UNSPECIFIED ORGANISM Qualifiers: Pneumonia type: due to unspecified organism Laterality: right Lung location: lower lobe of lung Qualified Code(s): J18.9 - Pneumonia, unspecified organism (2) Lung cancer Code(s): C34.90 - MALIGNANT NEOPLASM OF UNSP PART OF UNSP BRONCHUS OR LUNG Qualifiers: Laterality: unspecified laterality Lung location: unspecified part of lung Qualified Code(s): C34.90 - Malignant neoplasm of unspecified part of unspecified bronchus or lung (3) Pneumothorax Code(s): J93.9 - PNEUMOTHORAX, UNSPECIFIED (4) Shock Code(s): R57.9 - SHOCK, UNSPECIFIED Assessment/Plan GERD COPD HLD Metastatic Lung CA to Brain Right PTX Hold all anti-platelet agents ABX per ID Supplemental O2 to maintain saturation NIPPV support as needed Monitor Pleural catheter drainage Pressors to maintain MAP > 65 PO as tolerated Further discussions for GOC with patient and family Requires ICU monitoring Dr Saba Critical care time spent in reviewing chart, evaluating patient and formulating plan - 36 minutes.
[2019-08-03] MEDS: LACTATED RINGERS SOLUTION 1,000 ML/1,000 ML INFUS.BAG IV SCH (10:24)
[2019-08-03 10:35] LABS: ANISOCYTOSIS 2+; MACROCYTOSIS 0; PLATELET ESTIMATE DECREASED
--- NOTE | 2019-08-03 10:35 | PN ---
Physical Exam: SUBJECTIVE: Patient seen and examined in the morning. He had no acute events overnight, has gotten Morphine 2 Q4H to help with pain. Was made DNR/DNI yesterday. Patient is tachycardic on cardiac monitoring. Patient complains of pain, but says breathing is better today, and has no chest pain, abdominal pain , or headaches. OBJECTIVE: Vital Signs Period Temp Pulse Resp BP Sys/Davis Pulse Ox Last 24 Hr 97.4 F-98.6 F 99-152 14-35 85-110/52-85 91-100 GENERAL: The patient is awake, alert, and fully oriented. Patient is in discomfort and responds to examiner with eyes closed. HEAD: Normal with no signs of trauma. ENT: Ears normal, nares patent, oropharynx clear without exudates. NECK: Trachea midline, full range of motion, supple. LUNGS: Crackles diffusely throughout b/l lungs HEART: Tachycardic, irregularly irregular. No murmurs appreciated. ABDOMEN: Soft, nontender, normoactive bowel sounds. EXTREMITIES: 2+ pulses, warm, well-perfused, no edema. PSYCH: Decreased mood. SKIN: Warm, dry, normal turgor, no rashes or lesions noted Laboratory Results - last 24 hr 08/02/19 08/02/19 08/03/19 05:50 17:00 06:20 WBC RBC Hgb Hct MCV MCH MCHC RDW Plt Count MPV Absolute Neuts (auto) Neutrophils % Neutrophils % (Manual) 92.5 H Band Neutrophils % 0.0 Lymphocytes % Lymphocytes % (Manual) 2.1 L Monocytes % Monocytes % (Manual) 3 L Eosinophils % Eosinophils % (Manual) 1.1 D Basophils % Basophils % (Manual) 0.0 Myelocytes % (Man) 1 D Promyelocytes % (Man) 0 Blast Cells % (Manual) 0 Nucleated RBC % Metamyelocytes 0 Hypochromia 0 Platelet Estimate Decreased Platelet Comment Present Polychromasia 1+ Anisocytosis 1+ Microcytosis 1+ Macrocytosis 0 [place] Cells 1+ Fragmented RBCs 1+ Sodium Potassium Chloride Carbon Dioxide Anion Gap BUN Creatinine Est GFR (CKD-EPI)AfAm Est GFR (CKD-EPI)NonAf Random Glucose Calcium Phosphorus Magnesium Total Bilirubin AST ALT Alkaline Phosphatase Total Protein Albumin Ur Random Sodium < 5 L Vancomycin Pre-Dose 21.7 Blood Type Antibody Screen Crossmatch 08/03/19 08/03/19 08/03/19 06:20 06:20 08:00 WBC 6.4 RBC 1.88 L Hgb 5.8 L* Hct 17.2 L D MCV 91.8 MCH 31.1 MCHC 33.9 RDW 18.0 H Plt Count 90 L D MPV 9.7 Absolute Neuts (auto) 6.1 Neutrophils % 94.8 H Neutrophils % (Manual) Band Neutrophils % Lymphocytes % 3.4 L D Lymphocytes % (Manual) Monocytes % 1.7 L Monocytes % (Manual) Eosinophils % 0.0 D Eosinophils % (Manual) Basophils % 0.1 D Basophils % (Manual) Myelocytes % (Man) Promyelocytes % (Man) Blast Cells % (Manual) Nucleated RBC % 0 Metamyelocytes Hypochromia Platelet Estimate Platelet Comment Polychromasia Anisocytosis Microcytosis Macrocytosis [place] Cells Fragmented RBCs Sodium 136 Potassium 3.4 L Chloride 103 Carbon Dioxide 21 Anion Gap 12 BUN 42.8 H Creatinine 0.8 Est GFR (CKD-EPI)AfAm 108.65 Est GFR (CKD-EPI)NonAf 93.74 Random Glucose 194 H Calcium 7.3 L Phosphorus 3.0 Magnesium 2.2 Total Bilirubin 0.8 AST 23 ALT 22 Alkaline Phosphatase 95 Total Protein 3.8 L Albumin 1.0 L Ur Random Sodium Vancomycin Pre-Dose Blood Type A NEGATIVE Antibody Screen Negative Crossmatch See Detail Active Medications Generic Name Dose Route Start Last Admin Trade Name Freq PRN Reason Stop Dose Admin Acetaminophen 1,000 mg 07/31/19 14:45 07/31/19 20:05 Ofirmev Injection - IVPB 1,000 mg Q6H PRN Administration PAIN Aspirin 81 mg 08/02/19 10:00 08/02/19 10:19 Ecotrin - PO 81 mg DAILY [facility] Administration Atorvastatin Calcium 80 mg 08/01/19 22:00 08/02/19 22:26 Lipitor - PO 80 mg HS [facility] Administration Chlorhexidine Gluconate 1 applic 07/31/19 22:00 08/02/19 22:26 Hibiclens For Decolonization - TP 1 applic HS [facility] Administration Clopidogrel Bisulfate 75 mg 08/02/19 10:00 08/02/19 10:19 Plavix - PO 75 mg DAILY [facility] Administration Heparin Sodium (Porcine) 5,000 unit 07/31/19 10:00 08/02/19 22:26 Heparin - SQ 5,000 unit BID [facility] Administration Norepinephrine Bitartrate 8, 500 mls @ 37.5 mls/hr 07/31/19 05:15 08/03/19 06 :47 000 mcg/ Dextrose IV Not Given TITR [facility] Protocol 10 MCG/MIN Piperacillin Sod/Tazobactam 50 mls @ 100 mls/hr 07/31/19 18:00 08/03/19 09:50 Sod 3.375 gm/ Dextrose IVPB 08/06/19 17:59 100 mls/hr Q8H-IV [facility] Administration Protocol Vancomycin HCl 1,000 mg in 250 mls @ 166.667 mls/hr 08/01/19 18:00 08/03/19 06:48 Vancomycin (Pre-Docked) IVPB 166.667 mls/hr Q12H [facility] Administration Protocol Lactated Ringer's 1,000 ml in 1,000 mls @ 100 mls/hr 08/02/19 10:15 08/02/19 10:18 Lactated Ringers Solution IV 100 mls/hr ASDIR [facility] Administration Potassium Chloride 10 meq in 100 mls @ 100 mls/hr 08/03/19 09:00 08/03/19 09: 51 Potassium Chloride 10 Meq Premix Ivpb - IVPB 08/03/19 11:59 100 mls/hr Q60M [facility] Administration Lidocaine/Aluminum/Magnesium/Simeth 5 ml 08/01/19 12:00 08/03/19 06:47 Magic Mouthwash *Sjr Formula* - MM Not Given Q6HPO [facility] Morphine Sulfate 2 mg 08/03/19 04:45 08/03/19 04:48 Morphine Sulfate IVPUSH 2 mg Q4H PRN Administration PAIN LEVEL 6-10 Mupirocin 1 applic 07/31/19 10:00 08/03/19 10:08 Bactroban Ointment (For Decolonization) - NS 08/05/19 09:59 1 applic BID [facility] Administration Nystatin 500,000 units 08/01/19 12:00 08/03/19 06:55 Nystatin Oral Suspension - PO Not Given Q6HPO [facility] Sucralfate 1 gm 08/01/19 14:00 08/03/19 10:06 Carafate Oral Suspension - PO 1 gm QID [facility] Administration ASSESSMENT/PLAN: 64 M PMH of lung cancer with metastasis to the brain ( diagnosed in 2018, s/p chemo 01/2018, and began adjuvant immunotherapy without completion) HTN, HLD, COPD, GERD, recent admission for decreased ADLs, presenting on visit for acute hypoxic respiratory failure found to have Right lung pneumothorax with pleural effusion., and found to have new onset Atrial fibrillation with RVR. Neuro/Psych -Brain mets -Last head CT was in 2018 -AOx3 -Psych consulted for suicidal thoughts- not suicidal and no psych medications indicated. Appreciate recs Cardiovascular -New onset A-Fib with RVR -Was on amiodarone drip for afib control. D/C 08/02/19 -Rate control difficult due to hypotension -Levophed 5, titrate down as possible -Holding home anti HTN meds -D/C ASA, Plavix, Heparin due to dropping Hgb. -Echo (08/02/19) shows LV, RV normal. EF of 70%. Mild MR, Mild TR. No pericardial effusion. -CTA Chest negative. Heme/Onc -Lung cancer diagnosed 2018 with brain metastasis, s/p chemo and incomplete adjuvant therapy. -Hgb of 5.8 today. 2 units PRBC ordered. F/U repeat CBC post transfusionl Pulm -Patient on venti mask 50%. Saturating 96%-98% -Lung cancer -Right pneumothorax, pigtail catheter placed. Total drainage 380 -Pleural fluid culture results for MRSA. On Vanc/Zoysn ID -Pleural fluid culture results in multiple organisms including MRSA. -Blood culture preliminary shows strep viridians, staph coag negative -On Vanc/Zoysn -ID consulted, appreciate recs -Oral thrush: nystatin GI -Abdomen/pelvis CT negative -Patient has no appetite Renal -ISAAC- Creatinine of 0.8 today. -LR @ 100 ml/hr -Nephrology consulted, appreciate recs -Renal U/S no hydronephrosis F: LR @ 100 ml/hr E: Monitor CMP N: Soft diet DVT: SCDs Dispo: Goals of cares discussed- DNR/DNI. Pending hospice/fdc placement. Visit type - Emergency Visit Emergency Visit: Yes ED Registration Date: 07/31/19 Care time: The patient presented to the Emergency Department on the above date and was hospitalized for further evaluation of their emergent condition. - New Patient This patient is new to me today: No - Critical Care Critical Care patient: Yes Total Critical Care Time (in minutes): 45 Critical Care Statement: The care of this patient involved high complexity decision making to prevent further life threatening deterioration of the patient 's condition and/or to evaluate & treat vital organ system(s) failure or risk of failure. ATTENDING PHYSICIAN STATEMENT I saw and evaluated the patient. I reviewed the resident's note and discussed the case with the resident. I agree with the resident's findings and plan as documented. SUBJECTIVE: OBJECTIVE: ASSESSMENT AND PLAN:
--- NOTE | 2019-08-03 10:47 | PN ---
Progress Note, Physician Chief Complaint: PATIENT SEEN IN ICU ALL EVENTS AND NOTES REVIEWED PALLIATIVE CARE IS BEING CONSIDERED BY THE PATIENT - Current Medication List Current Medications: Active Medications Acetaminophen (Ofirmev Injection -) 1,000 mg IVPB Q6H PRN PRN Reason: PAIN Last Admin: 07/31/19 20:05 Dose: 1,000 mg Aspirin (Ecotrin -) 81 mg PO DAILY [facility] Last Admin: 08/02/19 10:19 Dose: 81 mg Atorvastatin Calcium (Lipitor -) 80 mg PO HS [facility] Last Admin: 08/02/19 22:26 Dose: 80 mg Chlorhexidine Gluconate (Hibiclens For Decolonization -) 1 applic TP HS [facility] Last Admin: 08/02/19 22:26 Dose: 1 applic Clopidogrel Bisulfate (Plavix -) 75 mg PO DAILY [facility] Last Admin: 08/02/19 10:19 Dose: 75 mg Heparin Sodium (Porcine) (Heparin -) 5,000 unit SQ BID [facility] Last Admin: 08/02/19 22:26 Dose: 5,000 unit Norepinephrine Bitartrate 8, (000 mcg/ Dextrose) 500 mls @ 37.5 mls/hr IV TITR [facility]; Protocol Last Admin: 08/03/19 06:47 Dose: Not Given Piperacillin Sod/Tazobactam (Sod 3.375 gm/ Dextrose) 50 mls @ 100 mls/hr IVPB Q8H-IV [facility]; Protocol Stop: 08/06/19 17:59 Last Admin: 08/03/19 09:50 Dose: 100 mls/hr Vancomycin HCl (Vancomycin (Pre-Docked)) 1,000 mg in 250 mls @ 166.667 mls/hr IVPB Q12H [facility]; Protocol Last Admin: 08/03/19 06:48 Dose: 166.667 mls/hr Lactated Ringer's (Lactated Ringers Solution) 1,000 ml in 1,000 mls @ 100 mls/ hr IV ASDIR [facility] Last Admin: 08/03/19 10:24 Dose: 100 mls/hr Potassium Chloride (Potassium Chloride 10 Meq Premix Ivpb -) 10 meq in 100 mls @ 100 mls/hr IVPB Q60M [facility] Stop: 08/03/19 11:59 Last Admin: 08/03/19 09:51 Dose: 100 mls/hr Lidocaine/Aluminum/Magnesium/Simeth (Magic Mouthwash *Sjr Formula* -) 5 ml MM Q6HPO [facility] Last Admin: 08/03/19 06:47 Dose: Not Given Morphine Sulfate (Morphine Sulfate) 2 mg IVPUSH Q4H PRN PRN Reason: PAIN LEVEL 6-10 Last Admin: 08/03/19 04:48 Dose: 2 mg Mupirocin (Bactroban Ointment (For Decolonization) -) 1 applic NS BID [facility] Stop: 08/05/19 09:59 Last Admin: 08/03/19 10:08 Dose: 1 applic Nystatin (Nystatin Oral Suspension -) 500,000 units PO Q6HPO [facility] Last Admin: 08/03/19 06:55 Dose: Not Given Sucralfate (Carafate Oral Suspension -) 1 gm PO QID [facility] Last Admin: 08/03/19 10:25 Dose: Not Given - Objective Vital Signs: Vital Signs Temperature 98.6 F 08/03/19 09:39 Pulse Rate 145 H 08/03/19 10:00 Respiratory Rate 08/03/19 10:00 Blood Pressure 96/43 L 08/03/19 10:00 O2 Sat by Pulse Oximetry (%) 96 08/03/19 10:00 Constitutional: Yes: Mild Distress Cardiovascular: Yes: Pulse Irregular Respiratory: Yes: On Venti-Mask Gastrointestinal: Yes: Soft Genitourinary: Yes: Berrios Present Musculoskeletal: Yes: Muscle Weakness Extremities: Yes: Other Edema: Yes Wound/Incision: Yes: Draining (CHEST TUBE) Neurological: Yes: Pre-Existing Deficit Labs: CBC, BMP 08/03/19 06:20 08/03/19 06:20 INR, PTT INR 1.34 (0.83-1.09) H 08/01/19 06:00 Problem List - Problems (1) ISAAC (acute kidney injury) Code(s): N17.9 - ACUTE KIDNEY FAILURE, UNSPECIFIED (2) Acute respiratory distress Code(s): R06.03 - ACUTE RESPIRATORY DISTRESS (3) Afib Code(s): I48.91 - UNSPECIFIED ATRIAL FIBRILLATION Qualifiers: Atrial fibrillation type: paroxysmal Qualified Code(s): I48.0 - Paroxysmal atrial fibrillation (4) Bacteremia Code(s): R78.81 - BACTEREMIA (5) COPD with acute exacerbation Code(s): J44.1 - CHRONIC OBSTRUCTIVE PULMONARY DISEASE W (ACUTE) EXACERBATION (6) Hyponatremia Code(s): E87.1 - HYPO-OSMOLALITY AND HYPONATREMIA (7) Metabolic acidosis with respiratory alkalosis Code(s): E87.2 - ACIDOSIS; E87.3 - ALKALOSIS (8) Metastatic lung carcinoma Code(s): C78.00 - SECONDARY MALIGNANT NEOPLASM OF UNSPECIFIED LUNG (9) Pneumothorax Code(s): J93.9 - PNEUMOTHORAX, UNSPECIFIED Qualifiers: Pneumothorax type: spontaneous, secondary Qualified Code(s): J93.12 - Secondary spontaneous pneumothorax (10) Sepsis Code(s): A41.9 - SEPSIS, UNSPECIFIED ORGANISM Assessment/Plan VANCO/PIPPERCILLIN ON IV ABX AND BP SUPPORT 02 SUPPORT VENTIMASK PNEUMOTHORAX CHEST PIG TAIL IN PLACE CRITICAL CARE F/U APPRECIATED PAIN CONTROL PALLIAITVE CARE F/U AND ADVANCED DIRECTIVES TO BE REVIEWED AND OUTLINED
[2019-08-03] MEDS ORDERED: MORPHINE SULFATE 2 MG/ML VIAL IM ONE (19:15)
[2019-08-03 20:14] LABS: BASO % 0.1 % (0-2.0); EOS % 0.1 % (0-4.5); HEMOGLOBIN 8.9 GM/dL (11.7-16.9); LYMPH % 4.1 % (8-40); MCHC 34.4 g/dl (32.0-35.9); MEAN CELL VOLUME 89.9 fl (80-96); MEAN PLT VOLUME 9.7 fl (7.5-11.1); MONO % 1.6 % (3.8-10.2); NEUT % 94.1 % (42.8-82.8); RBC 2.89 M/mm3 (4.00-5.60); RDW 15.7 % (11.9-15.9); WHITE BLOOD COUNT 7.1 K/mm3 (4.0-10.0)
[2019-08-03] MEDS ORDERED: dilTIAZem HCL 50 MG/10 ML - 10 ML VIAL IVPUSH ONE (20:30)
[2019-08-03 20:33] LABS: PLATELET COUNT 68 K/MM3 (134-434); PLATELET ESTIMATE DECREASED
[2019-08-03] MEDS: CHLORHEXIDINE GLUCONATE 4% CLEANSER FOR DECOLONIZATION TP SCH (21:01)
[2019-08-03] MEDS: ATORVASTATIN CA 80 MG TABLET (FP) PO SCH (21:01)
[2019-08-04] MEDS: MAG HYDROX/ALH/SMC/DPHA/LIDO 240 ML MOUTHWASH MM SCH ×4 (00:10→17:17)
[2019-08-04] MEDS: NYSTATIN 500,000 UNITS/5 ML SUSPENSION PO SCH ×4 (00:10→17:17)
[2019-08-04] MEDS: LACTATED RINGERS SOLUTION 1,000 ML/1,000 ML INFUS.BAG IV SCH ×2 (00:15→10:17)
[2019-08-04] MEDS: PIPERACILLIN/TAZOB 3.375 GM 3.375 GM in DEXTROSE 5%-WATER - 50 ML IVPB SCH ×2 (02:30→09:28)
[2019-08-04] MEDS ORDERED: PIPERACILLIN/TAZOBACTAM 3.375 GM VIAL IVPB ONE ×2 (05:50→09:24)
[2019-08-04] MEDS ORDERED: DEXTROSE 5%-WATER - 50 ML IVPB ONE ×2 (05:50→09:24)
[2019-08-04] MEDS: MORPHINE SULFATE 2 MG/ML VIAL IVPUSH PRN ×4 (06:26→22:22)
[2019-08-04] MEDS: VANCOMYCIN 1 GRAM (PRE-DOCKED) 1,000 MG/250 ML BAG IVPB SCH ×2 (06:27→17:13)
[2019-08-04] MEDS: HEPARIN NA (PORCINE) 5,000 UNITS/ML 1ML VIAL SQ SCH (09:27)
[2019-08-04] MEDS: CLOPIDOGREL BISULFATE 75 MG TABLET (FP) PO SCH (09:27)
[2019-08-04] MEDS: MUPIROCIN 2% TOPICAL OINTMENT FOR DECOLONIZATION NS SCH ×2 (09:28→22:13)
[2019-08-04] MEDS: SUCRALFATE 1 GM/10 ML UNIT DOSE CUPS PO SCH ×4 (09:30→22:15)
[2019-08-04] MEDS: ASPIRIN COATED 81 MG TABLET.EC PO SCH (09:30)
--- NOTE | 2019-08-04 10:12 | PN ---
Progress Note, Physician History of Present Illness: 40% VM, remains in NSR, refuses oral meds. - Current Medication List Current Medications: Active Medications Acetaminophen (Ofirmev Injection -) 1,000 mg IVPB Q6H PRN PRN Reason: PAIN Last Admin: 07/31/19 20:05 Dose: 1,000 mg Aspirin (Ecotrin -) 81 mg PO DAILY [facility] Last Admin: 08/04/19 09:30 Dose: 81 mg Atorvastatin Calcium (Lipitor -) 80 mg PO HS [facility] Last Admin: 08/03/19 21:01 Dose: Not Given Chlorhexidine Gluconate (Hibiclens For Decolonization -) 1 applic TP HS [facility] Last Admin: 08/03/19 21:01 Dose: Not Given Clopidogrel Bisulfate (Plavix -) 75 mg PO DAILY [facility] Last Admin: 08/04/19 09:27 Dose: 75 mg Heparin Sodium (Porcine) (Heparin -) 5,000 unit SQ BID [facility] Last Admin: 08/04/19 09:27 Dose: 5,000 unit Norepinephrine Bitartrate 8, (000 mcg/ Dextrose) 500 mls @ 37.5 mls/hr IV TITR [facility]; Protocol Last Titration: 08/03/19 22:36 Dose: 3 mcg/min, 11.25 mls/hr Piperacillin Sod/Tazobactam (Sod 3.375 gm/ Dextrose) 50 mls @ 100 mls/hr IVPB Q8H-IV [facility]; Protocol Stop: 08/06/19 17:59 Last Admin: 08/04/19 09:28 Dose: 100 mls/hr Vancomycin HCl (Vancomycin (Pre-Docked)) 1,000 mg in 250 mls @ 166.667 mls/hr IVPB Q12H [facility]; Protocol Last Admin: 08/04/19 06:27 Dose: 166.667 mls/hr Lactated Ringer's (Lactated Ringers Solution) 1,000 ml in 1,000 mls @ 100 mls/ hr IV ASDIR [facility] Last Admin: 08/04/19 00:15 Dose: 100 mls/hr Lidocaine/Aluminum/Magnesium/Simeth (Magic Mouthwash *Sjr Formula* -) 5 ml MM Q6HPO [facility] Last Admin: 08/04/19 06:17 Dose: Not Given Morphine Sulfate (Morphine Sulfate) 2 mg IVPUSH Q4H PRN PRN Reason: PAIN LEVEL 6-10 Last Admin: 08/04/19 09:05 Dose: 2 mg Mupirocin (Bactroban Ointment (For Decolonization) -) 1 applic NS BID [facility] Stop: 08/05/19 09:59 Last Admin: 08/04/19 09:28 Dose: 1 applic Nystatin (Nystatin Oral Suspension -) 500,000 units PO Q6HPO [facility] Last Admin: 08/04/19 06:18 Dose: Not Given Sucralfate (Carafate Oral Suspension -) 1 gm PO QID [facility] Last Admin: 08/04/19 09:30 Dose: Not Given - Objective Vital Signs: Vital Signs Temperature 98.6 F 08/04/19 02:00 Pulse Rate 103 H 08/04/19 07:00 Respiratory Rate 23 H 08/04/19 07:00 Blood Pressure 120/75 08/04/19 07:00 O2 Sat by Pulse Oximetry (%) 94 L 08/04/19 08:32 Constitutional: Yes: No Distress, Calm, Thin Neck: Yes: Supple Cardiovascular: Yes: Regular Rate and Rhythm Respiratory: Yes: Regular, Diminished, On Venti-Mask, Other (Right chest tube) Gastrointestinal: Yes: Soft, Hypoactive Bowel Sounds Edema: No Labs: CBC, BMP 08/03/19 20:00 08/03/19 06:20 INR, PTT INR 1.34 (0.83-1.09) H 08/01/19 06:00 - ....Imaging Chest X-ray: Report Reviewed (CHF and pleural effusions) EKG: Report Reviewed (Tele: NSR) Problem List - Problems (1) Afib Code(s): I48.91 - UNSPECIFIED ATRIAL FIBRILLATION Qualifiers: Atrial fibrillation type: paroxysmal Qualified Code(s): I48.0 - Paroxysmal atrial fibrillation (2) Bacteremia Code(s): R78.81 - BACTEREMIA (3) Metastatic lung carcinoma Code(s): C78.00 - SECONDARY MALIGNANT NEOPLASM OF UNSPECIFIED LUNG (4) Pneumothorax Code(s): J93.9 - PNEUMOTHORAX, UNSPECIFIED Qualifiers: Pneumothorax type: spontaneous, secondary Qualified Code(s): J93.12 - Secondary spontaneous pneumothorax (5) Sepsis associated hypotension Code(s): A41.9 - SEPSIS, UNSPECIFIED ORGANISM; I95.9 - HYPOTENSION, UNSPECIFIED Assessment/Plan 1. Paroxysmal atrial fibrillation with rapid ventricular response now in NSR on no A/C- anemia with thrombocytopenia 2. Metastatic Lung carcinoma 3. Post right spontaneous pneumothorax post chest tube insertion 4. Probable diastolic LV dysfunction with clinical class 0 NYHA classification LV failure 5. COPD 6. Loculated effusion, epmyema with bacteremia 7. Hyperlipidemia 8. Pre- renal azotemia 9. Anemia and thrombocytopenia PLAN: 1. D/c ASA, remains on Plavix 75 qd and sc heparin 2. Weaned off pressors to maintain MAP 65-70 mmHg and greater 3. Resume Lopressor 25 bid as hemodynamics tolerate 4. Antibiotics as per the primary team 5. Correction of anemia
--- NOTE | 2019-08-04 11:35 | PN ---
Progress Note, Physician Chief Complaint: ASLEEP LETHARGIC ON VENTIMASK 02 SUPPORT - Current Medication List Current Medications: Active Medications Acetaminophen (Ofirmev Injection -) 1,000 mg IVPB Q6H PRN PRN Reason: PAIN Last Admin: 07/31/19 20:05 Dose: 1,000 mg Aspirin (Ecotrin -) 81 mg PO DAILY [facility] Last Admin: 08/04/19 09:30 Dose: 81 mg Atorvastatin Calcium (Lipitor -) 80 mg PO HS [facility] Last Admin: 08/03/19 21:01 Dose: Not Given Chlorhexidine Gluconate (Hibiclens For Decolonization -) 1 applic TP HS [facility] Last Admin: 08/03/19 21:01 Dose: Not Given Clopidogrel Bisulfate (Plavix -) 75 mg PO DAILY [facility] Last Admin: 08/04/19 09:27 Dose: 75 mg Heparin Sodium (Porcine) (Heparin -) 5,000 unit SQ BID [facility] Last Admin: 08/04/19 09:27 Dose: 5,000 unit Norepinephrine Bitartrate 8, (000 mcg/ Dextrose) 500 mls @ 37.5 mls/hr IV TITR [facility]; Protocol Last Titration: 08/03/19 22:36 Dose: 3 mcg/min, 11.25 mls/hr Piperacillin Sod/Tazobactam (Sod 3.375 gm/ Dextrose) 50 mls @ 100 mls/hr IVPB Q8H-IV [facility]; Protocol Stop: 08/06/19 17:59 Last Admin: 08/04/19 09:28 Dose: 100 mls/hr Vancomycin HCl (Vancomycin (Pre-Docked)) 1,000 mg in 250 mls @ 166.667 mls/hr IVPB Q12H [facility]; Protocol Last Admin: 08/04/19 06:27 Dose: 166.667 mls/hr Lactated Ringer's (Lactated Ringers Solution) 1,000 ml in 1,000 mls @ 100 mls/ hr IV ASDIR [facility] Last Admin: 08/04/19 10:17 Dose: 100 mls/hr Lidocaine/Aluminum/Magnesium/Simeth (Magic Mouthwash *Sjr Formula* -) 5 ml MM Q6HPO [facility] Last Admin: 08/04/19 06:17 Dose: Not Given Morphine Sulfate (Morphine Sulfate) 2 mg IVPUSH Q4H PRN PRN Reason: PAIN LEVEL 6-10 Last Admin: 08/04/19 09:05 Dose: 2 mg Mupirocin (Bactroban Ointment (For Decolonization) -) 1 applic NS BID [facility] Stop: 08/05/19 09:59 Last Admin: 08/04/19 09:28 Dose: 1 applic Nystatin (Nystatin Oral Suspension -) 500,000 units PO Q6HPO [facility] Last Admin: 08/04/19 06:18 Dose: Not Given Sucralfate (Carafate Oral Suspension -) 1 gm PO QID [facility] Last Admin: 08/04/19 09:30 Dose: Not Given - Objective Vital Signs: Vital Signs Temperature 98.6 F 08/04/19 02:00 Pulse Rate 103 H 08/04/19 07:00 Respiratory Rate 23 H 08/04/19 09:00 Blood Pressure 120/75 08/04/19 07:00 O2 Sat by Pulse Oximetry (%) 94 L 08/04/19 09:00 Constitutional: Yes: Moderate Distress Cardiovascular: Yes: Tachycardia Respiratory: Yes: Diminished, Tachypnea Gastrointestinal: Yes: Soft Genitourinary: Yes: Incontinence Neurological: Yes: Weakness Labs: CBC, BMP 08/03/19 20:00 08/03/19 06:20 INR, PTT INR 1.34 (0.83-1.09) H 08/01/19 06:00 Problem List - Problems (1) ISAAC (acute kidney injury) Code(s): N17.9 - ACUTE KIDNEY FAILURE, UNSPECIFIED (2) Acute respiratory distress Code(s): R06.03 - ACUTE RESPIRATORY DISTRESS (3) Afib Code(s): I48.91 - UNSPECIFIED ATRIAL FIBRILLATION Qualifiers: Atrial fibrillation type: paroxysmal Qualified Code(s): I48.0 - Paroxysmal atrial fibrillation (4) Bacteremia Code(s): R78.81 - BACTEREMIA (5) COPD with acute exacerbation Code(s): J44.1 - CHRONIC OBSTRUCTIVE PULMONARY DISEASE W (ACUTE) EXACERBATION (6) Hyponatremia Code(s): E87.1 - HYPO-OSMOLALITY AND HYPONATREMIA (7) Metabolic acidosis with respiratory alkalosis Code(s): E87.2 - ACIDOSIS; E87.3 - ALKALOSIS (8) Metastatic lung carcinoma Code(s): C78.00 - SECONDARY MALIGNANT NEOPLASM OF UNSPECIFIED LUNG (9) Pneumothorax Code(s): J93.9 - PNEUMOTHORAX, UNSPECIFIED Qualifiers: Pneumothorax type: spontaneous, secondary Qualified Code(s): J93.12 - Secondary spontaneous pneumothorax (10) Sepsis Code(s): A41.9 - SEPSIS, UNSPECIFIED ORGANISM Assessment/Plan VANCO/PIPPERCILLIN ON IV ABX AND BP SUPPORT 02 SUPPORT VENTIMASK PNEUMOTHORAX CHEST PIG TAIL IN PLACE CRITICAL CARE F/U APPRECIATED PAIN CONTROL PALLIAITVE CARE F/U AND ADVANCED DIRECTIVES TO BE REVIEWED AND OUTLINED
[2019-08-04 11:45] LABS: BASO % 0.1 % (0-2.0); HEMATOCRIT 24.6 % (35.4-49); HEMOGLOBIN 8.4 GM/dL (11.7-16.9); LYMPH % 2.6 % (8-40); MCH 30.8 pg (25.7-33.7); MCHC 34.3 g/dl (32.0-35.9); MEAN CELL VOLUME 89.8 fl (80-96); MEAN PLT VOLUME 9.3 fl (7.5-11.1); MONO % 1.6 % (3.8-10.2); NEUT % 95.7 % (42.8-82.8); PLATELET COUNT 55 K/MM3 (134-434); RBC 2.74 M/mm3 (4.00-5.60); RDW 16.1 % (11.9-15.9); WHITE BLOOD COUNT 5.3 K/mm3 (4.0-10.0)
[2019-08-04 12:03] LABS: ALBUMIN 1.1 g/dl (3.4-5.0); BILIRUBIN,TOTAL 0.7 mg/dL (0.2-1); BLOOD UREA NITROGEN 23.3 mg/dL (7-18); CALCIUM 7.5 mg/dL (8.5-10.1); CREATININE 0.4 mg/dL (0.55-1.3); MAGNESIUM 1.9 mg/dL (1.8-2.4); PHOSPHOROUS 2.3 mg/dL (2.5-4.9); POTASSIUM 3.7 mmol/L (3.5-5.1); TOT PROT 3.9 g/dl (6.4-8.2)
[2019-08-04] MEDS ORDERED: LORazepam 2 MG/ML SDV VIAL IVPUSH PRN (12:04)
--- NOTE | 2019-08-04 12:27 | PN ---
Teaching Attending Note Name of Resident: Nicolle Jama ATTENDING PHYSICIAN STATEMENT I saw and evaluated the patient. I reviewed the resident's note and discussed the case with the resident. I agree with the resident's findings and plan as documented. SUBJECTIVE: Patient seen and examined in the ICU. Tachypneic on 100% NRBM Drowsy but arousable. Reports that he wants to . Low dose Levophed for hemodynamic support. Clinicaly looks worse today. Intake & Output 08/01/19 08/02/19 08/03/19 08/04/19 23:59 23:59 23:59 23:59 Intake Total 1430 1805.6 2851 Output Total 1350 120 0 Balance 80 1685.6 2851 Weight 157 lb Last Vital Signs Temp Pulse Resp BP Pulse Ox 98.6 F 103 H 23 H 120/75 94 L 08/04/19 02:00 08/04/19 07:00 08/04/19 09:00 08/04/19 07:00 08/04/19 09:00 Active Medications Acetaminophen (Ofirmev Injection -) 1,000 mg IVPB Q6H PRN PRN Reason: PAIN Last Admin: 07/31/19 20:05 Dose: 1,000 mg Atorvastatin Calcium (Lipitor -) 80 mg PO HS [facility] Last Admin: 08/03/19 21:01 Dose: Not Given Chlorhexidine Gluconate (Hibiclens For Decolonization -) 1 applic TP HS [facility] Last Admin: 08/03/19 21:01 Dose: Not Given Clopidogrel Bisulfate (Plavix -) 75 mg PO DAILY [facility] Last Admin: 08/04/19 09:27 Dose: 75 mg Heparin Sodium (Porcine) (Heparin -) 5,000 unit SQ BID [facility] Last Admin: 08/04/19 09:27 Dose: 5,000 unit Piperacillin Sod/Tazobactam (Sod 3.375 gm/ Dextrose) 50 mls @ 100 mls/hr IVPB Q8H-IV [facility]; Protocol Stop: 08/06/19 17:59 Last Admin: 08/04/19 09:28 Dose: 100 mls/hr Vancomycin HCl (Vancomycin (Pre-Docked)) 1,000 mg in 250 mls @ 166.667 mls/hr IVPB Q12H [facility]; Protocol Last Admin: 08/04/19 06:27 Dose: 166.667 mls/hr Lactated Ringer's (Lactated Ringers Solution) 1,000 ml in 1,000 mls @ 100 mls/ hr IV ASDIR [facility] Last Admin: 08/04/19 10:17 Dose: 100 mls/hr Lidocaine/Aluminum/Magnesium/Simeth (Magic Mouthwash *Sjr Formula* -) 5 ml MM Q6HPO [facility] Last Admin: 08/04/19 12:03 Dose: Not Given Lorazepam (Ativan Injection -) 1 mg IVPUSH Q4H PRN PRN Reason: ANXIETY Metoprolol Tartrate (Lopressor -) 25 mg PO BID [facility] Morphine Sulfate (Morphine Sulfate) 2 mg IVPUSH Q4H PRN PRN Reason: PAIN LEVEL 6-10 Last Admin: 08/04/19 09:05 Dose: 2 mg Mupirocin (Bactroban Ointment (For Decolonization) -) 1 applic NS BID [facility] Stop: 08/05/19 09:59 Last Admin: 08/04/19 09:28 Dose: 1 applic Nystatin (Nystatin Oral Suspension -) 500,000 units PO Q6HPO [facility] Last Admin: 08/04/19 12:03 Dose: Not Given Sucralfate (Carafate Oral Suspension -) 1 gm PO QID [facility] Last Admin: 08/04/19 09:30 Dose: Not Given Constitutional: Yes: Drowsy but arousable, mildly tachypneic at rest Eyes: Yes: Conjunctiva Clear, EOM Intact HENT: Yes: Atraumatic, Normocephalic Neck: Yes: Supple, Trachea Midline Cardiovascular: Yes: Tachycardia, S1, S2 Respiratory: Yes: Right Pleural catheter, bilateral rhonchi Gastrointestinal: Yes: Soft, NT, ND ...Rectal Exam: Yes: Deferred Musculoskeletal: Yes: WNL Extremities: Yes: WNL Edema: No Neurological: Yes: Alert, Oriented ...Motor Strength: WNL Psychiatric: Yes: Alert, Oriented Labs: Laboratory Results - last 24 hr 08/03/19 08/03/19 08/04/19 08:00 20:00 11:25 WBC 7.1 5.3 RBC 2.89 L 2.74 L Hgb 8.9 L 8.4 L Hct 26.0 L D 24.6 L MCV 89.9 89.8 MCH 31.0 30.8 MCHC 34.4 34.3 RDW 15.7 D 16.1 H Plt Count 68 L D 55 L MPV 9.7 9.3 Absolute Neuts (auto) 6.7 5.1 Total Counted 100 Neutrophils % 94.1 H 95.7 H Neutrophils % (Manual) 81.0 Band Neutrophils % 13.0 Lymphocytes % 4.1 L D 2.6 L D Lymphocytes % (Manual) 1.0 L D Monocytes % 1.6 L 1.6 L Monocytes % (Manual) 5 D Eosinophils % 0.1 D 0.0 D Basophils % 0.1 0.1 Nucleated RBC % 1 H 0 Hypochromia 1+ Platelet Estimate Decreased Platelet Comment No clumping noted Polychromasia 1+ Sodium Potassium Chloride Carbon Dioxide Anion Gap BUN Creatinine Est GFR (CKD-EPI)AfAm Est GFR (CKD-EPI)NonAf Random Glucose Calcium Phosphorus Magnesium Total Bilirubin AST ALT Alkaline Phosphatase Total Protein Albumin Blood Type A NEGATIVE Antibody Screen Negative Crossmatch See Detail 08/04/19 11:25 WBC RBC Hgb Hct MCV MCH MCHC RDW Plt Count MPV Absolute Neuts (auto) Total Counted Neutrophils % Neutrophils % (Manual) Band Neutrophils % Lymphocytes % Lymphocytes % (Manual) Monocytes % Monocytes % (Manual) Eosinophils % Basophils % Nucleated RBC % Hypochromia Platelet Estimate Platelet Comment Polychromasia Sodium 135 L Potassium 3.7 Chloride 104 Carbon Dioxide 25 Anion Gap 7 L BUN 23.3 H Creatinine 0.4 L Est GFR (CKD-EPI)AfAm 144.46 Est GFR (CKD-EPI)NonAf 124.64 Random Glucose 194 H Calcium 7.5 L Phosphorus 2.3 L Magnesium 1.9 Total Bilirubin 0.7 AST 42 H ALT 28 Alkaline Phosphatase 103 Total Protein 3.9 L Albumin 1.1 L Blood Type Antibody Screen Crossmatch Problem List - Problems (1) Pneumonia Code(s): J18.9 - PNEUMONIA, UNSPECIFIED ORGANISM Qualifiers: Pneumonia type: due to unspecified organism Laterality: right Lung location: lower lobe of lung Qualified Code(s): J18.9 - Pneumonia, unspecified organism (2) Lung cancer Code(s): C34.90 - MALIGNANT NEOPLASM OF UNSP PART OF UNSP BRONCHUS OR LUNG Qualifiers: Laterality: unspecified laterality Lung location: unspecified part of lung Qualified Code(s): C34.90 - Malignant neoplasm of unspecified part of unspecified bronchus or lung (3) Pneumothorax Code(s): J93.9 - PNEUMOTHORAX, UNSPECIFIED (4) Shock Code(s): R57.9 - SHOCK, UNSPECIFIED Assessment/Plan GERD COPD HLD Metastatic Lung CA to Brain Right PTX Continue to hold all anti-platelet agents ABX per ID Supplemental O2 to maintain saturation NIPPV support as needed Monitor Pleural catheter drainage Pressors to maintain MAP > 65 PO as tolerated Further discussions for GOC with patient and family Requires ICU monitoring Dr Saba Critical care time spent in reviewing chart, evaluating patient and formulating plan - 36 minutes.
[2019-08-04 12:55] LABS: ANISOCYTOSIS 0; MACROCYTOSIS 0; PLATELET ESTIMATE DECREASED
--- NOTE | 2019-08-04 12:58 | PN ---
Progress Note (short form) - Note Progress Note: awake and alert s/p chest tube placement off pressors Vital Signs Period Temp Pulse Resp BP Sys/Davis Pulse Ox Last 24 Hr 98.2 F-98.6 F 103-151 15-29 87-150/58-89 94-98 cor-rrr lungs decreased bs at bases +chest tube abd soft,nt ext no edema CBC, BMP 08/04/19 11:25 08/04/19 11:25 Microbiology 07/31/19 10:30 Pleural Fluid AFB Smear Concentration - Final 07/31/19 10:30 Pleural Fluid Mycobacterial Culture - Preliminary 08/01/19 11:35 Blood - Peripheral Venous Blood Culture - Preliminary NO GROWTH OBTAINED AFTER 72 HOURS, INCUBATION TO CONTINUE FOR 2 DAYS. 08/01/19 11:30 Blood - Peripheral Venous Blood Culture - Preliminary NO GROWTH OBTAINED AFTER 72 HOURS, INCUBATION TO CONTINUE FOR 2 DAYS. 07/31/19 04:15 Blood - Peripheral Venous Blood Culture - Final Viridans Streptococcus Group Staphylococcus Haemolyticus Prevotella Melaninogenica 07/31/19 10:30 Pleural Fluid Gram Stain - Final 07/31/19 10:30 Pleural Fluid Body Fluid Culture - Preliminary Klebsiella Oxytoca Mr S Aureus Corynebacterium Striatum Beta Hemolytic Strep Streptococcus Viridans 07/31/19 10:30 Pleural Fluid Anaerobic Culture - Final Prevotella Melaninogenica 07/31/19 04:20 Blood - Peripheral Venous Blood Culture - Final Staphylococcus Epidermidis 07/31/19 14:46 Urine - Urine - Catheterized Urine Culture - Final Klebsiella Oxytoca 07/31/19 10:30 Pleural Fluid SCOTT Preparation - Preliminary 07/31/19 10:30 Pleural Fluid Fungal Culture - Preliminary ct scan chest/abd/pelvis done- hydropneumothorax a/p 64 yo man with history of lung cancer with brain mets polymicrobial empyema -continue vanco/zosyn, f/u cultures, check vanco trough in am polymicrobial bacteremia-f/u cultures ptx s/p chest tube repeat blood cultures vanco/ceftriaxone/flagyl- d/w icu resident repeat vanco trough today 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
[2019-08-04] MEDS ORDERED: CEFTRIAXONE 2 GM in DEXTROSE 5%-WATER 100 ML IVPB SCH ×2 (13:00→15:15)
[2019-08-04] MEDS ORDERED: PT OWN MED DRAWER 7, Y5N ONE ×2 (13:55→21:33)
[2019-08-04] MEDS ORDERED: DEXTROSE 5%-WATER 100 ML IVPB ONE (15:13)
--- NOTE | 2019-08-04 15:14 | PATH ---
Cytology Non-Gynecological Report Patient Name: PHILIP MALHOTRA Med. Rec. 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 ABUNDANT PROTEINACEOUS MATERIAL/DEBRIS AND RARE DEGENERATED CELLS PRESENT. Electronically Signed Dana Jonas M.D. Gross Description Approximately 10 cc of dark brown fluid received fresh. One cytofunnel prepared and Pap stained. One cellblock prepared.
--- NOTE | 2019-08-04 15:20 | PN ---
Physical Exam: SUBJECTIVE: Patient seen and examined. No acute events overnight. Poor appetite , refusing most PO meds. Now DNR/ DNI. OBJECTIVE: Vital Signs Period Temp Pulse Resp BP Sys/Davis Pulse Ox Last 24 Hr 98.2 F-98.6 F 100-151 18-29 87-150/58-89 94-98 GENERAL: AOx3. NAD. HEENT: thrush appears improved. Right IJ line C/D/I LUNGS: + breath sounds heard in all lung cordoba. Decr breath sounds @ bases. On nasal cannula HEART: Tachycardic. S1S2. No murmurs. ABDOMEN: Soft NTND. +BS. R chest tube in place C/D/I no signs of infection. EXTREMITIES: 2+ pulses, warm, well-perfused, no edema. NEUROLOGICAL: CN2-12 intact. PSYCH: Depressed mood & affect. SKIN: Warm, dry, no rashes or lesions noted Laboratory Results - last 24 hr 08/03/19 08/03/19 08/04/19 08:00 20:00 11:25 WBC 7.1 5.3 RBC 2.89 L 2.74 L Hgb 8.9 L 8.4 L Hct 26.0 L D 24.6 L MCV 89.9 89.8 MCH 31.0 30.8 MCHC 34.4 34.3 RDW 15.7 D 16.1 H Plt Count 68 L D 55 L MPV 9.7 9.3 Absolute Neuts (auto) 6.7 5.1 Total Counted 100 Neutrophils % 94.1 H 95.7 H Neutrophils % (Manual) 81.0 86.0 H Band Neutrophils % 13.0 7.0 Lymphocytes % 4.1 L D 2.6 L D Lymphocytes % (Manual) 1.0 L D 0.0 L Monocytes % 1.6 L 1.6 L Monocytes % (Manual) 5 D 3 L Eosinophils % 0.1 D 0.0 D Eosinophils % (Manual) 0.0 Basophils % 0.1 0.1 Basophils % (Manual) 0.0 Myelocytes % (Man) 2 D Promyelocytes % (Man) 0 Blast Cells % (Manual) 0 Nucleated RBC % 1 H 2 H Metamyelocytes 2 D Hypochromia 1+ 0 Platelet Estimate Decreased Decreased Platelet Comment No clumping noted Present Polychromasia 1+ 1+ Poikilocytosis 1+ Basophilic Stippling 1+ Anisocytosis 0 Microcytosis 0 Macrocytosis 0 Sodium Potassium Chloride Carbon Dioxide Anion Gap BUN Creatinine Est GFR (CKD-EPI)AfAm Est GFR (CKD-EPI)NonAf Random Glucose Calcium Phosphorus Magnesium Total Bilirubin AST ALT Alkaline Phosphatase Total Protein Albumin Crossmatch See Detail 08/04/19 11:25 WBC RBC Hgb Hct MCV MCH MCHC RDW Plt Count MPV Absolute Neuts (auto) Total Counted Neutrophils % Neutrophils % (Manual) Band Neutrophils % Lymphocytes % Lymphocytes % (Manual) Monocytes % Monocytes % (Manual) Eosinophils % Eosinophils % (Manual) Basophils % Basophils % (Manual) Myelocytes % (Man) Promyelocytes % (Man) Blast Cells % (Manual) Nucleated RBC % Metamyelocytes Hypochromia Platelet Estimate Platelet Comment Polychromasia Poikilocytosis Basophilic Stippling Anisocytosis Microcytosis Macrocytosis Sodium 135 L Potassium 3.7 Chloride 104 Carbon Dioxide 25 Anion Gap 7 L BUN 23.3 H Creatinine 0.4 L Est GFR (CKD-EPI)AfAm 144.46 Est GFR (CKD-EPI)NonAf 124.64 Random Glucose 194 H Calcium 7.5 L Phosphorus 2.3 L Magnesium 1.9 Total Bilirubin 0.7 AST 42 H ALT 28 Alkaline Phosphatase 103 Total Protein 3.9 L Albumin 1.1 L Crossmatch Active Medications Generic Name Dose Route Start Last Admin Trade Name Freq PRN Reason Stop Dose Admin Acetaminophen 1,000 mg 07/31/19 14:45 07/31/19 20:05 Ofirmev Injection - IVPB 1,000 mg Q6H PRN Administration PAIN Atorvastatin Calcium 80 mg 08/01/19 22:00 08/03/19 21:01 Lipitor - PO Not Given HS [facility] Chlorhexidine Gluconate 1 applic 07/31/19 22:00 08/03/19 21:01 Hibiclens For Decolonization - TP Not Given HS [facility] Clopidogrel Bisulfate 75 mg 08/02/19 10:00 08/04/19 09:27 Plavix - PO 75 mg DAILY [facility] Administration Heparin Sodium (Porcine) 5,000 unit 07/31/19 10:00 08/04/19 09:27 Heparin - SQ 5,000 unit BID [facility] Administration Vancomycin HCl 1,000 mg in 250 mls @ 166.667 mls/hr 08/01/19 18:00 08/04/19 06:27 Vancomycin (Pre-Docked) IVPB 166.667 mls/hr Q12H [facility] Administration Protocol Lactated Ringer's 1,000 ml in 1,000 mls @ 100 mls/hr 08/02/19 10:15 08/04/19 10:17 Lactated Ringers Solution IV 100 mls/hr ASDIR [facility] Administration Ceftriaxone Sodium 2 gm/ 100 mls @ 100 mls/hr 08/04/19 13:00 Dextrose IVPB DAILY [facility] Protocol Metronidazole 500 mg in 100 mls @ 100 mls/hr 08/04/19 18:00 Flagyl 500mg Premixed Ivpb - IVPB Q8H-IV [facility] Lidocaine/Aluminum/Magnesium/Simeth 5 ml 08/01/19 12:00 08/04/19 12:03 Magic Mouthwash *Sjr Formula* - MM Not Given Q6HPO [facility] Lorazepam 1 mg 08/04/19 12:04 Ativan Injection - IVPUSH Q4H PRN ANXIETY Metoprolol Tartrate 25 mg 08/04/19 22:00 Lopressor - PO BID [facility] Morphine Sulfate 2 mg 08/03/19 04:45 08/04/19 14:25 Morphine Sulfate IVPUSH 2 mg Q4H PRN Administration PAIN LEVEL 6-10 Mupirocin 1 applic 07/31/19 10:00 08/04/19 09:28 Bactroban Ointment (For Decolonization) - NS 08/05/19 09:59 1 applic BID [facility] Administration Nystatin 500,000 units 08/01/19 12:00 08/04/19 12:03 Nystatin Oral Suspension - PO Not Given Q6HPO [facility] Sucralfate 1 gm 08/01/19 14:00 08/04/19 13:52 Carafate Oral Suspension - PO Not Given QID [facility] Imaging: CXR 08/04/2019: A single view of the chest has been submitted. Since 08/03/2019 at 0604 hours the bilateral pulmonary pleural changes with right jugular line and right chest tube persist. There is a prominent mediastinum with large heart. There is no sign of a pneumothorax. There is pleural fluid. CT chest/A/P: PULMONARY ARTERIES: There is motion artifact. No central pulmonary artery emboli was identified. LUNGS: Patchy infiltrate present within the left upper lobe, left base, right upper lobe. Atelectasis/infiltration present at the right base. PLEURA: Hydropneumothorax is identified on the right side with a chest tube in place. Moderate effusion is present on the left side. MEDIASTINUM: Negative CARDIAC: Small pericardiac effusion is seen. Vascular calcifications noted including coronary. LIVER: Negative. GALLBLADDER: Postcholecystectomy clips are noted in place. BILIARY DUCTS: Negative. PANCREAS : Negative. SPLEEN: Negative. ADRENALS: Negative. KIDNEYS: Bilateral renal cyst are noted with a large cyst near the upper pole of the left kidney measuring 6 cm. Dominant cyst on the right is within the lower pole measuring 3.1 cm. Findings should be confirmed with ultrasound imaging. No hydronephrosis or focal renal masses were seen. AORTA: No evidence of aneurysm or dissection. Calcified plaque noted more prominently on the infrarenal aorta. The aortic arch reveals no dissection. LYMPH NODES: Negative. BOWEL: Oral contrast is noted in the rectum. The appendix was not visualized, no secondary signs to suggest appendicitis. Foodstuff within the stomach. Small bowel loops are normal caliber. No free air/fluid is identified. PELVIS: Contrast media in the bladder likely from prior imaging. Prostate and seminal vesicles appear unremarkable. OTHER: Demineralization of the bones noted. Central line is present via right IJ with the tip within the SVC. Deformity of the symphysis pubis noted on the left side likely from prior trauma. Correlate with history. ASSESSMENT/PLAN: 64 y.o. M from [facility] lung CA w/ mets to brain (diagnosed 2017, s/p chemo completed January 2018 & began adjuvant immunotherapy w/o completion of course), HTN, HLD, COPD, GERD, recent admission earlier this month for odynophagia & decreased ADLs, presenting on this visit for acute hypoxic resp failure, found to have R pneumothorax w/ pleural effusion. Also found to be in new onset A-fib w/ RVR on this admission. #[employer] -Brain mets, last imaging was in 2018 -AOx3 -Patient continues expressing "I want to " #CV -New onset A-fib w/ RVR has resolved s/p amio ggt; now NSR -Continue pressor support: 5 Levo, maintain MAP >65 -R IJ line in place -C/w lopressor -Holding ASA, plavix #Pulm -On non-RB, monitor O2 sats, maintain >90% -Lung CA --metastatic; last staged in 2018 IIIB, needs restaging. Onc following -R pneumothorax; chest tube in place. F/u outputs -S/p pleural fluid tap-- f/u cytologies #Heme/Onc -Lung CA diagnosed 2017 w/ brain mets -Imaging studies as noted above -Pt sees Dr. Merchant (rads/onc) outpatient -Normocytic anemia, s/p 1U pRBC 08/03/2019 -Trend H&H #GI -Imaging studies as above -c/w soft diet #ID -Oral thrush: c/w nystatin swallow -Polymicrobial pleural fluid & blood cultures; repeat blood cx's negative -urine cx 07/31 + klebsiella -C/w Vanc/ ceftriaxone/ flagyl- f/u vanc trough in AM -ID following #Renal -ISAAC resolved -IVF -Nephro following -Renal U/S shows no hydronephrosis #Pain control -Morphine 2mg IV Q4h PRN -Tylenol IV 1g q6h PRN #PPX -holding heparin, plt drop >50% since admission #FEN -C/w LR @100mL/ hr -Trend lytes replete prn -Soft diet today #Dispo -Further discussion for goals of care. Continue ICU monitoring. Manda has kindly had multiple conversations w/ family who wishes to extend their decisions on goals of care until tomorrow. Will continue to follow up. Visit type - Emergency Visit Emergency Visit: No - New Patient This patient is new to me today: No - Critical Care Critical Care patient: Yes Total Critical Care Time (in minutes): 36 Critical Care Statement: The care of this patient involved high complexity decision making to prevent further life threatening deterioration of the patient 's condition and/or to evaluate & treat vital organ system(s) failure or risk of failure. ATTENDING PHYSICIAN STATEMENT I saw and evaluated the patient. I reviewed the resident's note and discussed the case with the resident. I agree with the resident's findings and plan as documented. SUBJECTIVE: OBJECTIVE: ASSESSMENT AND PLAN:
[2019-08-04] MEDS: CHLORHEXIDINE GLUCONATE 4% CLEANSER FOR DECOLONIZATION TP SCH (22:18)
[2019-08-04] MEDS: ATORVASTATIN CA 80 MG TABLET (FP) PO SCH (22:19)
[2019-08-04] MEDS: METOPROLOL TARTRATE 25 MG TABLET (FP) PO SCH (22:21)
[2019-08-05] MEDS ORDERED: MORPHINE SULFATE 2 MG/ML VIAL IM ONE (00:34)
[2019-08-05] MEDS: MAG HYDROX/ALH/SMC/DPHA/LIDO 240 ML MOUTHWASH MM SCH ×3 (01:42→11:32)
[2019-08-05] MEDS: NYSTATIN 500,000 UNITS/5 ML SUSPENSION PO SCH ×3 (01:42→11:32)
[2019-08-05] MEDS: VANCOMYCIN 1 GRAM (PRE-DOCKED) 1,000 MG/250 ML BAG IVPB SCH (06:25)
[2019-08-05 08:25] LABS: BASO % 0.1 % (0-2.0); EOS % 0.1 % (0-4.5); HEMATOCRIT 21.2 % (35.4-49); HEMOGLOBIN 7.4 GM/dL (11.7-16.9); LYMPH % 3.8 % (8-40); MCHC 34.8 g/dl (32.0-35.9); MEAN CELL VOLUME 89.2 fl (80-96); MEAN PLT VOLUME 8.9 fl (7.5-11.1); MONO % 1.7 % (3.8-10.2); NEUT % 94.3 % (42.8-82.8); RBC 2.38 M/mm3 (4.00-5.60); RDW 16.2 % (11.9-15.9); WHITE BLOOD COUNT 3.3 K/mm3 (4.0-10.0)
--- NOTE | 2019-08-05 08:35 | PN ---
Progress Note (short form) - Note Progress Note: awake and alert s/p chest tube placement on bipap 60% no pain Vital Signs Period Temp Pulse Resp BP Sys/Davis Pulse Ox Last 24 Hr 98.4 F 76-105 13-26 85-146/55-83 94-100 cor-rrr lungs decreased bs at bases +chest tube abd soft,nt, no distention ext trace pretibial edema Laboratory Tests 08/04/19 16:00 Vancomycin Pre-Dose 18.[address] scan chest/abd/pelvis done- hydropneumothorax a/p 64 yo man with history of lung cancer with brain mets polymicrobial empyema -continue vanco/zosyn, f/u cultures, check vanco trough in am polymicrobial bacteremia-f/u cultures ptx s/p chest tube repeat blood cultures vanco/ceftriaxone/flagyl- follow vanco trough repeat in am f/u labs get cxray dnr/dni d/w ICU resident
[2019-08-05 08:50] LABS: BILIRUBIN,TOTAL 0.5 mg/dL (0.2-1); BLOOD UREA NITROGEN 15.4 mg/dL (7-18); CALCIUM 7.4 mg/dL (8.5-10.1); CREATININE 0.4 mg/dL (0.55-1.3); POTASSIUM 3.5 mmol/L (3.5-5.1); TOT PROT 3.6 g/dl (6.4-8.2)
[2019-08-05 09:02] LABS: PLATELET COUNT 35 K/MM3 (134-434)
[2019-08-05] MEDS ORDERED: DEXTROSE 5%-WATER 100 ML IVPB ONE (09:47)
[2019-08-05] MEDS ORDERED: CEFTRIAXONE 2 GM in DEXTROSE 5%-WATER 100 ML IVPB SCH (10:00)
--- NOTE | 2019-08-05 10:04 | PN ---
Progress Note, Physician History of Present Illness: Placed on NIPPV support, initial saO2 87% on FIO2 60%; increased to 80% to 100% on bipap, remains in NSR off pressors, refuses oral meds. - Current Medication List Current Medications: Active Medications Acetaminophen (Ofirmev Injection -) 1,000 mg IVPB Q6H PRN PRN Reason: PAIN Last Admin: 07/31/19 20:05 Dose: 1,000 mg Atorvastatin Calcium (Lipitor -) 80 mg PO HS [facility] Last Admin: 08/04/19 22:19 Dose: Not Given Chlorhexidine Gluconate (Hibiclens For Decolonization -) 1 applic TP HS [facility] Last Admin: 08/04/19 22:18 Dose: 1 applic Vancomycin HCl (Vancomycin (Pre-Docked)) 1,000 mg in 250 mls @ 166.667 mls/hr IVPB Q12H [facility]; Protocol Last Admin: 08/05/19 06:25 Dose: 166.667 mls/hr Lactated Ringer's (Lactated Ringers Solution) 1,000 ml in 1,000 mls @ 100 mls/ hr IV ASDIR [facility] Last Admin: 08/04/19 10:17 Dose: 100 mls/hr Metronidazole (Flagyl 500mg Premixed Ivpb -) 500 mg in 100 mls @ 100 mls/hr IVPB Q8H-IV [facility] Last Admin: 08/05/19 01:41 Dose: 100 mls/hr Ceftriaxone Sodium 2 gm/ (Dextrose) 100 mls @ 100 mls/hr IVPB DAILY [facility]; Protocol Ceftriaxone Sodium 2 gm/ (Dextrose) 100 mls @ 100 mls/hr IVPB DAILY [facility]; Protocol Last Admin: 08/04/19 15:31 Dose: 100 mls/hr Lidocaine/Aluminum/Magnesium/Simeth (Magic Mouthwash *Sjr Formula* -) 5 ml MM Q6HPO [facility] Last Admin: 08/05/19 06:24 Dose: Not Given Lorazepam (Ativan Injection -) 1 mg IVPUSH Q4H PRN PRN Reason: ANXIETY Metoprolol Tartrate (Lopressor -) 25 mg PO BID [facility] Last Admin: 08/04/19 22:21 Dose: Not Given Morphine Sulfate (Morphine Sulfate) 2 mg IVPUSH Q4H PRN PRN Reason: PAIN LEVEL 6-10 Last Admin: 08/04/19 22:22 Dose: 2 mg Nystatin (Nystatin Oral Suspension -) 500,000 units PO Q6HPO [facility] Last Admin: 08/05/19 06:24 Dose: Not Given Sucralfate (Carafate Oral Suspension -) 1 gm PO QID [facility] Last Admin: 08/04/19 22:15 Dose: Not Given - Objective Vital Signs: Vital Signs Temperature 98.4 F 08/04/19 10:00 Pulse Rate 98 H 08/05/19 08:00 Respiratory Rate 14 08/05/19 09:00 Blood Pressure 103/67 08/05/19 08:00 O2 Sat by Pulse Oximetry (%) 94 L 08/05/19 09:00 Constitutional: Yes: No Distress, Calm Neck: Yes: Supple Cardiovascular: Yes: Regular Rate and Rhythm Respiratory: Yes: Regular, Diminished, On BiPap Gastrointestinal: Yes: Normal Bowel Sounds, Soft Edema: No Labs: CBC, BMP 08/05/19 08:00 08/05/19 08:00 INR, PTT INR 1.34 (0.83-1.09) H 08/01/19 06:00 - ....Imaging EKG: Report Reviewed (Tele: NSR) Problem List - Problems (1) Afib Code(s): I48.91 - UNSPECIFIED ATRIAL FIBRILLATION Qualifiers: Atrial fibrillation type: paroxysmal Qualified Code(s): I48.0 - Paroxysmal atrial fibrillation (2) Bacteremia Code(s): R78.81 - BACTEREMIA (3) Metastatic lung carcinoma Code(s): C78.00 - SECONDARY MALIGNANT NEOPLASM OF UNSPECIFIED LUNG (4) Pneumothorax Code(s): J93.9 - PNEUMOTHORAX, UNSPECIFIED Qualifiers: Pneumothorax type: spontaneous, secondary Qualified Code(s): J93.12 - Secondary spontaneous pneumothorax (5) Sepsis associated hypotension Code(s): A41.9 - SEPSIS, UNSPECIFIED ORGANISM; I95.9 - HYPOTENSION, UNSPECIFIED Assessment/Plan 1. Paroxysmal atrial fibrillation with rapid ventricular response now in NSR on no A/C- anemia with thrombocytopenia 2. 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 Post right spontaneous pneumothorax post chest tube insertion 4. Probable diastolic LV dysfunction with clinical class 0 NYHA classification LV failure 5. COPD 6. Loculated effusion, polymicrobial empyema with bacteremia 7. Hyperlipidemia 8. Pre- renal azotemia 9. Anemia and thrombocytopenia PLAN: 1. D/marixa ASA, Plavix and sc heparin given anemia and thrombocytopenia 2. Weaned off pressors to maintain MAP 65-70 mmHg and greater 3. Resume Lopressor 25 bid as hemodynamics tolerate 4. Antibiotics course per C&S 5. Correction of anemia 6. FIO2 to maintain saO2, NIPPV as needed, monitor pleural catheter drainage, GOC discussion with patient and family
[2019-08-05] MEDS: SUCRALFATE 1 GM/10 ML UNIT DOSE CUPS PO SCH ×2 (10:09→13:21)
[2019-08-05] MEDS: METOPROLOL TARTRATE 25 MG TABLET (FP) PO SCH (10:13)
[2019-08-05] MEDS: LACTATED RINGERS SOLUTION 1,000 ML/1,000 ML INFUS.BAG IV SCH (10:14)
--- NOTE | 2019-08-05 10:35 | PN ---
Teaching Attending Note Name of Resident: Chrissy Gilmore ATTENDING PHYSICIAN STATEMENT I saw and evaluated the patient. I reviewed the resident's note and discussed the case with the resident. I agree with the resident's findings and plan as documented. SUBJECTIVE: Patient seen and examined in the ICU. Awake on NIPPV support, saturation 87% on 60%; increased to 80% to 100%. Drowsy but arousable. Still reporting that he wants to . No pressors. Intake & Output 08/02/19 08/03/19 08/04/19 08/05/19 23:59 23:59 23:59 23:59 Intake Total 1805.6 2851 1496 1000 Output Total 120 0 300 Balance 1685.6 2851 1196 1000 Weight 157 lb Last Vital Signs Temp Pulse Resp BP Pulse Ox 98.4 F 98 H 14 103/67 94 L 08/04/19 10:00 08/05/19 08:00 08/05/19 09:00 08/05/19 08:00 08/05/19 09:00 Active Medications Acetaminophen (Ofirmev Injection -) 1,000 mg IVPB Q6H PRN PRN Reason: PAIN Last Admin: 07/31/19 20:05 Dose: 1,000 mg Atorvastatin Calcium (Lipitor -) 80 mg PO HS [facility] Last Admin: 08/04/19 22:19 Dose: Not Given Chlorhexidine Gluconate (Hibiclens For Decolonization -) 1 applic TP HS [facility] Last Admin: 08/04/19 22:18 Dose: 1 applic Vancomycin HCl (Vancomycin (Pre-Docked)) 1,000 mg in 250 mls @ 166.667 mls/hr IVPB Q12H [facility]; Protocol Last Admin: 08/05/19 06:25 Dose: 166.667 mls/hr Lactated Ringer's (Lactated Ringers Solution) 1,000 ml in 1,000 mls @ 100 mls/ hr IV ASDIR [facility] Last Admin: 08/05/19 10:14 Dose: 100 mls/hr Metronidazole (Flagyl 500mg Premixed Ivpb -) 500 mg in 100 mls @ 100 mls/hr IVPB Q8H-IV [facility] Last Admin: 08/05/19 10:14 Dose: 100 mls/hr Ceftriaxone Sodium 2 gm/ (Dextrose) 100 mls @ 100 mls/hr IVPB DAILY [facility]; Protocol Last Admin: 08/05/19 10:14 Dose: 100 mls/hr Lidocaine/Aluminum/Magnesium/Simeth (Magic Mouthwash *Sjr Formula* -) 5 ml MM Q6HPO [facility] Last Admin: 08/05/19 06:24 Dose: Not Given Lorazepam (Ativan Injection -) 1 mg IVPUSH Q4H PRN PRN Reason: ANXIETY Metoprolol Tartrate (Lopressor -) 25 mg PO BID [facility] Last Admin: 08/05/19 10:13 Dose: Not Given Morphine Sulfate (Morphine Sulfate) 2 mg IVPUSH Q4H PRN PRN Reason: PAIN LEVEL 6-10 Last Admin: 08/04/19 22:22 Dose: 2 mg Nystatin (Nystatin Oral Suspension -) 500,000 units PO Q6HPO [facility] Last Admin: 08/05/19 06:24 Dose: Not Given Sucralfate (Carafate Oral Suspension -) 1 gm PO QID [facility] Last Admin: 08/05/19 10:09 Dose: Not Given Constitutional: Yes: Drowsy but arousable, tachypneic on NIPPV support Eyes: Yes: Conjunctiva Clear, EOM Intact HENT: Yes: Atraumatic, Normocephalic Neck: Yes: Supple, Trachea Midline Cardiovascular: Yes: Tachycardia, S1, S2 Respiratory: Yes: Right Pleural catheter, bilateral rhonchi Gastrointestinal: Yes: Soft, NT, ND ...Rectal Exam: Yes: Deferred Musculoskeletal: Yes: WNL Extremities: Yes: WNL Edema: No Neurological: Yes: Drowsy ...Motor Strength: WNL Psychiatric: Yes: Drowsy, depressed mood Labs: Laboratory Results - last 24 hr 08/04/19 08/04/19 08/04/19 11:25 11:25 16:00 WBC 5.3 RBC 2.74 L Hgb 8.4 L Hct 24.6 L MCV 89.8 MCH 30.8 MCHC 34.3 RDW 16.1 H Plt Count 55 L MPV 9.3 Absolute Neuts (auto) 5.1 Neutrophils % 95.7 H Neutrophils % (Manual) 86.0 H Band Neutrophils % 7.0 Lymphocytes % 2.6 L D Lymphocytes % (Manual) 0.0 L Monocytes % 1.6 L Monocytes % (Manual) 3 L Eosinophils % 0.0 D Eosinophils % (Manual) 0.0 Basophils % 0.1 Basophils % (Manual) 0.0 Myelocytes % (Man) 2 D Promyelocytes % (Man) 0 Blast Cells % (Manual) 0 Nucleated RBC % 2 H Metamyelocytes 2 D Hypochromia 0 Platelet Estimate Decreased Platelet Comment Present Polychromasia 1+ Poikilocytosis 1+ Basophilic Stippling 1+ Anisocytosis 0 Microcytosis 0 Macrocytosis 0 Sodium 135 L Potassium 3.7 Chloride 104 Carbon Dioxide 25 Anion Gap 7 L BUN 23.3 H Creatinine 0.4 L Est GFR (CKD-EPI)AfAm 144.46 Est GFR (CKD-EPI)NonAf 124.64 Random Glucose 194 H Calcium 7.5 L Phosphorus 2.3 L Magnesium 1.9 Total Bilirubin 0.7 AST 42 H ALT 28 Alkaline Phosphatase 103 Total Protein 3.9 L Albumin 1.1 L Vancomycin Pre-Dose 18.9 08/05/19 08/05/19 08:00 08:00 WBC 3.3 L RBC 2.38 L Hgb 7.4 L Hct 21.2 L MCV 89.2 MCH 31.0 MCHC 34.8 RDW 16.2 H Plt Count 35 L* D MPV 8.9 Absolute Neuts (auto) 3.1 Neutrophils % 94.3 H Neutrophils % (Manual) Band Neutrophils % Lymphocytes % 3.8 L D Lymphocytes % (Manual) Monocytes % 1.7 L Monocytes % (Manual) Eosinophils % 0.1 D Eosinophils % (Manual) Basophils % 0.1 Basophils % (Manual) Myelocytes % (Man) Promyelocytes % (Man) Blast Cells % (Manual) Nucleated RBC % 0 Metamyelocytes Hypochromia Platelet Estimate Platelet Comment Polychromasia Poikilocytosis Basophilic Stippling Anisocytosis Microcytosis Macrocytosis Sodium 137 Potassium 3.5 Chloride 105 Carbon Dioxide 26 Anion Gap 6 L BUN 15.4 Creatinine 0.4 L Est GFR (CKD-EPI)AfAm 144.46 Est GFR (CKD-EPI)NonAf 124.64 Random Glucose 193 H Calcium 7.4 L Phosphorus Magnesium Total Bilirubin 0.5 AST 31 ALT 24 Alkaline Phosphatase 90 Total Protein 3.6 L Albumin 1.0 L Vancomycin Pre-Dose Problem List - Problems (1) Pneumonia Code(s): J18.9 - PNEUMONIA, UNSPECIFIED ORGANISM Qualifiers: Pneumonia type: due to unspecified organism Laterality: right Lung location: lower lobe of lung Qualified Code(s): J18.9 - Pneumonia, unspecified organism (2) Lung cancer Code(s): C34.90 - MALIGNANT NEOPLASM OF UNSP PART OF UNSP BRONCHUS OR LUNG Qualifiers: Laterality: unspecified laterality Lung location: unspecified part of lung Qualified Code(s): C34.90 - Malignant neoplasm of unspecified part of unspecified bronchus or lung (3) Pneumothorax Code(s): J93.9 - PNEUMOTHORAX, UNSPECIFIED (4) Shock Code(s): R57.9 - SHOCK, UNSPECIFIED Assessment/Plan GERD COPD HLD Metastatic Lung CA to Brain Right PTX Continue to hold all anti-platelet agents ABX per ID Supplemental O2 to maintain saturation NIPPV support as needed Monitor Pleural catheter drainage Pressors to maintain MAP > 65 PO as tolerated Further discussions for GOC with patient and family Requires ICU monitoring Dr Saba Critical care time spent in reviewing chart, evaluating patient and formulating plan - 36 minutes.
--- NOTE | 2019-08-05 12:28 | PN ---
Progress Note, Physician Chief Complaint: LETHARGIC IN ICU VENTIMASK ON STRUGGLING TO BREATH IN RESP DISTRESS - Current Medication List Current Medications: Active Medications Acetaminophen (Ofirmev Injection -) 1,000 mg IVPB Q6H PRN PRN Reason: PAIN Last Admin: 07/31/19 20:05 Dose: 1,000 mg Atorvastatin Calcium (Lipitor -) 80 mg PO HS [facility] Last Admin: 08/04/19 22:19 Dose: Not Given Chlorhexidine Gluconate (Hibiclens For Decolonization -) 1 applic TP [facility] Last Admin: 08/04/19 22:18 Dose: 1 applic Vancomycin HCl (Vancomycin (Pre-Docked)) 1,000 mg in 250 mls @ 166.667 mls/hr IVPB Q12H [facility]; Protocol Last Admin: 08/05/19 06:25 Dose: 166.667 mls/hr Lactated Ringer's (Lactated Ringers Solution) 1,000 ml in 1,000 mls @ 100 mls/ hr IV ASDIR [facility] Last Admin: 08/05/19 10:14 Dose: 100 mls/hr Metronidazole (Flagyl 500mg Premixed Ivpb -) 500 mg in 100 mls @ 100 mls/hr IVPB Q8H-IV [facility] Last Admin: 08/05/19 10:14 Dose: 100 mls/hr Ceftriaxone Sodium 2 gm/ (Dextrose) 100 mls @ 100 mls/hr IVPB DAILY [facility]; Protocol Last Admin: 08/05/19 10:14 Dose: 100 mls/hr Lidocaine/Aluminum/Magnesium/Simeth (Magic Mouthwash *Sjr Formula* -) 5 ml MM Q6HPO [facility] Last Admin: 08/05/19 11:32 Dose: Not Given Lorazepam (Ativan Injection -) 1 mg IVPUSH Q4H PRN PRN Reason: ANXIETY Metoprolol Tartrate (Lopressor -) 25 mg PO BID [facility] Last Admin: 08/05/19 10:13 Dose: Not Given Morphine Sulfate (Morphine Sulfate) 2 mg IVPUSH Q4H PRN PRN Reason: PAIN LEVEL 6-10 Last Admin: 08/04/19 22:22 Dose: 2 mg Nystatin (Nystatin Oral Suspension -) 500,000 units PO Q6HPO [facility] Last Admin: 08/05/19 11:32 Dose: Not Given Sucralfate (Carafate Oral Suspension -) 1 gm PO QID [facility] Last Admin: 08/05/19 10:09 Dose: Not Given - Objective Vital Signs: Vital Signs Temperature 98.9 F 08/05/19 10:00 Pulse Rate 86 08/05/19 10:00 Respiratory Rate 21 H 08/05/19 10:00 Blood Pressure 102/66 08/05/19 10:00 O2 Sat by Pulse Oximetry (%) 94 L 08/05/19 10:00 Constitutional: Yes: Moderate Distress Cardiovascular: Yes: Tachycardia Respiratory: Yes: Diminished, On Venti-Mask, Tachypnea Gastrointestinal: Yes: Soft Genitourinary: Yes: Incontinence Neurological: Yes: Weakness Labs: CBC, BMP 08/05/19 08:00 08/05/19 08:00 INR, PTT INR 1.34 (0.83-1.09) H 08/01/19 06:00 Problem List - Problems (1) ISAAC (acute kidney injury) Code(s): N17.9 - ACUTE KIDNEY FAILURE, UNSPECIFIED (2) Acute respiratory distress Code(s): R06.03 - ACUTE RESPIRATORY DISTRESS (3) Afib Code(s): I48.91 - UNSPECIFIED ATRIAL FIBRILLATION Qualifiers: Atrial fibrillation type: paroxysmal Qualified Code(s): I48.0 - Paroxysmal atrial fibrillation (4) Bacteremia Code(s): R78.81 - BACTEREMIA (5) COPD with acute exacerbation Code(s): J44.1 - CHRONIC OBSTRUCTIVE PULMONARY DISEASE W (ACUTE) EXACERBATION (6) Hyponatremia Code(s): E87.1 - HYPO-OSMOLALITY AND HYPONATREMIA (7) Metabolic acidosis with respiratory alkalosis Code(s): E87.2 - ACIDOSIS; E87.3 - ALKALOSIS (8) Metastatic lung carcinoma Code(s): C78.00 - SECONDARY MALIGNANT NEOPLASM OF UNSPECIFIED LUNG (9) Pneumothorax Code(s): J93.9 - PNEUMOTHORAX, UNSPECIFIED Qualifiers: Pneumothorax type: spontaneous, secondary Qualified Code(s): J93.12 - Secondary spontaneous pneumothorax (10) Sepsis Code(s): A41.9 - SEPSIS, UNSPECIFIED ORGANISM Assessment/Plan I DISCUSSED WITH DR GOMES THE PATIENT IS ASKING FOR HOSPICE HOWEVER THE FAMILY HAS REFUSED. VANCO/PIPPERCILLIN ON IV ABX AND BP SUPPORT 02 SUPPORT VENTIMASK PNEUMOTHORAX CHEST PIG TAIL IN PLACE CRITICAL CARE F/U APPRECIATED PAIN CONTROL PALLIAITVE CARE F/U AND ADVANCED DIRECTIVES TO BE REVIEWED AND OUTLINED
[2019-08-05 12:42] LABS: ANISOCYTOSIS 1+; MACROCYTOSIS 0; PLATELET ESTIMATE DECREASED
--- NOTE | 2019-08-05 13:49 | PN ---
Physical Exam: SUBJECTIVE: Patient seen and examined in the morning. No acute events overnight. No events on cardiac monitoring. No complaints o OBJECTIVE: Vital Signs Period Temp Pulse Resp BP Sys/Davis Pulse Ox Last 24 Hr 98.9 F 76-108 13-26 85-146/55-83 94-100 GENERAL: The patient is awake, alert, and fully oriented. Patient is in discomfort and responds to examiner with eyes closed. HEAD: Normal with no signs of trauma. ENT: Ears normal, nares patent, oropharynx clear without exudates. NECK: Trachea midline, full range of motion, supple. LUNGS: Crackles diffusely throughout b/l lungs HEART: Tachycardic, irregularly irregular. No murmurs appreciated. Chest tube in place. ABDOMEN: Soft, nontender, normoactive bowel sounds. EXTREMITIES: 2+ pulses, warm, well-perfused, no edema. PSYCH: Decreased mood. SKIN: Warm, dry, normal turgor, no rashes or lesions noted Laboratory Results - last 24 hr 08/04/19 08/05/19 08/05/19 16:00 08:00 08:00 WBC 3.3 L RBC 2.38 L Hgb 7.4 L Hct 21.2 L MCV 89.2 MCH 31.0 MCHC 34.8 RDW 16.2 H Plt Count 35 L* D MPV 8.9 Absolute Neuts (auto) 3.1 Neutrophils % 94.3 H Neutrophils % (Manual) 92.0 H Band Neutrophils % 5.0 Lymphocytes % 3.8 L D Lymphocytes % (Manual) 2.0 L D Monocytes % 1.7 L Monocytes % (Manual) 0 L D Eosinophils % 0.1 D Eosinophils % (Manual) 0.0 Basophils % 0.1 Basophils % (Manual) 1.0 D Myelocytes % (Man) 0 D Promyelocytes % (Man) 0 Blast Cells % (Manual) 0 Nucleated RBC % 0 Metamyelocytes 0 D Hypochromia 0 Platelet Estimate Decreased Polychromasia 0 Basophilic Stippling 1+ Anisocytosis 1+ Microcytosis 1+ Macrocytosis 0 Sodium 137 Potassium 3.5 Chloride 105 Carbon Dioxide 26 Anion Gap 6 L BUN 15.4 Creatinine 0.4 L Est GFR (CKD-EPI)AfAm 144.46 Est GFR (CKD-EPI)NonAf 124.64 Random Glucose 193 H Calcium 7.4 L Total Bilirubin 0.5 AST 31 ALT 24 Alkaline Phosphatase 90 Total Protein 3.6 L Albumin 1.0 L Vancomycin Pre-Dose 18.9 Active Medications Generic Name Dose Route Start Last Admin Trade Name Freq PRN Reason Stop Dose Admin Acetaminophen 1,000 mg 07/31/19 14:45 07/31/19 20:05 Ofirmev Injection - IVPB 1,000 mg Q6H PRN Administration PAIN Atorvastatin Calcium 80 mg 08/01/19 22:00 08/04/19 22:19 Lipitor - PO Not Given HS [facility] Chlorhexidine Gluconate 1 applic 07/31/19 22:00 08/04/19 22:18 Hibiclens For Decolonization - TP 1 applic HS [facility] Administration Vancomycin HCl 1,000 mg in 250 mls @ 166.667 mls/hr 08/01/19 18:00 08/05/19 06:25 Vancomycin (Pre-Docked) IVPB 166.667 mls/hr Q12H [facility] Administration Protocol Lactated Ringer's 1,000 ml in 1,000 mls @ 100 mls/hr 08/02/19 10:15 08/05/19 10:14 Lactated Ringers Solution IV 100 mls/hr ASDIR [facility] Administration Metronidazole 500 mg in 100 mls @ 100 mls/hr 08/04/19 18:00 08/05/19 10:14 Flagyl 500mg Premixed Ivpb - IVPB 100 mls/hr Q8H-IV [facility] Administration Ceftriaxone Sodium 2 gm/ 100 mls @ 100 mls/hr 08/05/19 10:00 08/05/19 10:14 Dextrose IVPB 100 mls/hr DAILY [facility] Administration Protocol Lidocaine/Aluminum/Magnesium/Simeth 5 ml 08/01/19 12:00 08/05/19 11:32 Magic Mouthwash *Sjr Formula* - MM Not Given Q6HPO [facility] Lorazepam 1 mg 08/04/19 12:04 Ativan Injection - IVPUSH Q4H PRN ANXIETY Metoprolol Tartrate 25 mg 08/04/19 22:00 08/05/19 10:13 Lopressor - PO Not Given BID [facility] Morphine Sulfate 2 mg 08/03/19 04:45 08/04/19 22:22 Morphine Sulfate IVPUSH 2 mg Q4H PRN Administration PAIN LEVEL 6-10 Nystatin 500,000 units 08/01/19 12:00 08/05/19 11:32 Nystatin Oral Suspension - PO Not Given Q6HPO [facility] Sucralfate 1 gm 08/01/19 14:00 08/05/19 13:21 Carafate Oral Suspension - PO Not Given QID [facility] ASSESSMENT/PLAN: 64 M PMH of lung cancer with metastasis to the brain ( diagnosed in 2018, s/p chemo 01/2018, and began adjuvant immunotherapy without completion) HTN, HLD, COPD, GERD, recent admission for decreased ADLs, presenting on visit for acute hypoxic respiratory failure found to have Right lung pneumothorax with pleural effusion., and found to have new onset Atrial fibrillation with RVR. Neuro/Psych -Brain mets -Last head CT was in 2018 -AOx3 -Psych consulted for suicidal thoughts- not suicidal and no psych medications indicated. Appreciate recs Cardiovascular -New onset A-Fib with RVR -Was on amiodarone drip for afib control. D/C 08/02/19 -Rate control difficult due to hypotension -No longer requires pressors -Holding home anti HTN meds -D/C ASA, Plavix, Heparin due to dropping Hgb. -Echo (08/02/19) shows LV, RV normal. EF of 70%. Mild MR, Mild TR. No pericardial effusion. -CTA Chest negative. -Chest tube not draining. -CT surgery consulted, appreciate recs Heme/Onc -Lung cancer diagnosed 2018 with brain metastasis, s/p chemo and incomplete adjuvant therapy. -Hgb stable s/p transfusion 08/02/19 Pulm -Satting 100% on BiPAP -Lung cancer -Right pneumothorax, pigtail catheter placed. Total drainage 380 -Pleural fluid culture results for MRSA. On Vanc/Zoysn ID -Pleural fluid culture results in multiple organisms including MRSA. -Blood culture preliminary shows strep viridians, staph coag negative -On Vanc/Zoysn -ID consulted, appreciate recs -Oral thrush: nystatin GI -Abdomen/pelvis CT negative -Patient has no appetite Renal -Creatinine of 0.4 today. -LR @ 100 ml/hr -Nephrology consulted, appreciate recs -Renal U/S no hydronephrosis F: LR @ 100 ml/hr E: Monitor CMP N: Soft diet DVT: SCDs Dispo: Goals of cares discussed- DNR/DNI. Pending hospice/prison placement. Visit type - Emergency Visit Emergency Visit: Yes ED Registration Date: 07/31/19 Care time: The patient presented to the Emergency Department on the above date and was hospitalized for further evaluation of their emergent condition. - New Patient This patient is new to me today: No - Critical Care Critical Care patient: Yes Total Critical Care Time (in minutes): 45 Critical Care Statement: The care of this patient involved high complexity decision making to prevent further life threatening deterioration of the patient 's condition and/or to evaluate & treat vital organ system(s) failure or risk of failure. ATTENDING PHYSICIAN STATEMENT I saw and evaluated the patient. I reviewed the resident's note and discussed the case with the resident. I agree with the resident's findings and plan as documented. SUBJECTIVE: OBJECTIVE: ASSESSMENT AND PLAN:
[2019-08-05] MEDS: MORPHINE SULFATE 2 MG/ML VIAL IVPUSH PRN (13:55)
[2019-08-05 14:28] VITALS: TEMP 98.2
[2019-08-05] MEDS ORDERED: NOREPINEPHRINE BITARTRATE 4 MG/4 ML ML IV ONE (15:07)
[2019-08-05] MEDS ORDERED: NOREPINEPHRINE BITARTRATE 8,000 MCG in DEXTROSE 5%-WATER - 492 ML IV SCH (15:30)
[2019-08-05] MEDS ORDERED: MORPHINE SULFATE/0.9% NACL/PF 100 MG/100 ML BAG IVPB SCH (16:00)
[2019-08-05] MEDS ORDERED: LORazepam 2 MG/ML SDV VIAL IM ONE ×2 (16:15→17:59)
--- NOTE | 2019-08-05 16:28 | PN ---
Progress Note (short form) - Note Progress Note: pt is now comfort care.
[2019-08-05] MEDS ORDERED: LORazepam 2 MG/ML SDV VIAL ONE (18:00)
--- NOTE | 2019-08-05 18:29 | PN ---
Progress Note (short form) - Note Progress Note: 64 y/o M with lung Ca (metastasis) placed on comfort care this afternoon called in by nurse to evaluate after pt was asystolic on monitor. Gen: asystole on the monitor HEENT: Pupils fixed and dilated CV: no heart sounds. no pulses Pulmonary: no breath sounds Time of : 6:09m
[2019-08-05 18:43] VITALS: BP 97/76; PULSE 157
== END 2019-08-05 20:50 | disposition expired | DRG 871 ==
LOC: JER 04:00 → JERBED 05:23 → JICU 08:06
PROVIDERS: ADMIT Internal Medicine; ATTEND Family Medicine
PROC: 0W9930Z Drainage of Right Pleural Cavity with Drainage Device, Percutaneous Approach (ICD-10-PCS; principal; 2019-07-31)
PROC: 05HM33Z Insertion of Infusion Device into Right Internal Jugular Vein, Percutaneous Approach (ICD-10-PCS; 2019-08-01)
PROC: 30233N1 Transfusion of Nonautologous Red Blood Cells into Peripheral Vein, Percutaneous Approach (ICD-10-PCS; 2019-08-03)
DX: A41.01 Sepsis due to Methicillin susceptible Staphylococcus aureus (principal); J18.9 Pneumonia, unspecified organism; R65.21 Severe sepsis with septic shock; J86.9 Pyothorax without fistula; J96.01 Acute respiratory failure with hypoxia; E87.2 Acidosis; E87.1 Hypo-osmolality and hyponatremia; N17.9 Acute kidney failure, unspecified; E87.3 Alkalosis; J93.9 Pneumothorax, unspecified; J90 Pleural effusion, not elsewhere classified; C34.90 Malignant neoplasm of unspecified part of unspecified bronchus or lung; C79.31 Secondary malignant neoplasm of brain; B37.0 Candidal stomatitis; J44.1 Chronic obstructive pulmonary disease with (acute) exacerbation; I95.9 Hypotension, unspecified; I48.0 Paroxysmal atrial fibrillation; I10 Essential (primary) hypertension; E78.5 Hyperlipidemia, unspecified; K21.9 Gastro-esophageal reflux disease without esophagitis; D64.9 Anemia, unspecified; D69.6 Thrombocytopenia, unspecified
CPT/HCPCS: 36415; 36430; 36511; 36600; 71045-TC-FY; 71275-TC; 74177-TC; 76775-TC; 80048; 80053; 81003; 82550; 82803; 82945; 82962; 83605; 83615; 83735; 83930; 84100; 84157; 84300; 84484; 85025; 85027; 85610; 85730; 86850; 86900; 86901; 86922; 87040; 87070; 87075; 87076; 87077; 87086; 87102; 87116; 87186; 87205; 87206; 87210; 93005; 93010; 93306-TC; 94660; 99284-25; G0480; J0131; J0282; J1644; J7030; P9038; P9058; Q9967